=== PATIENT | female | born 1935 | race Hispanic/Latino ===

== ENCOUNTER 2018-07-29 10:10 | Inpatient (IN) | payer MEDICARE ==
[2018-07-29 10:29] VITALS: BMI 21.4
--- NOTE | 2018-07-29 11:08 | C.PDOC ---
History Of Present Illness 83 year old female presents to the emergency department via ambulance. As per EMS, patient was found on the floor from a fall today. Patient states that she fell yesterday, however she is confused and oriented to name and time. Patient is a poor historian. unclear what acutual scenario is. - HPI Time Seen by Provider: 07/29/18 10:40 Chief Complaint (Nursing): Trauma History Per: Patient, EMS History/Exam Limitations: clinical condition Onset/Duration Of Symptoms: Days (1) Injury Occurred (Timing): Days Ago: (1) Past Medical History Reviewed: Historical Data, Nursing Documentation, Vital Signs - Medical History PMH: HTN Surgical History: No Surg Hx Family History: States: No Known Family Hx - Social History Hx Tobacco Use: No Hx Alcohol Use: No Hx Substance Use: No - Immunization History Hx Tetanus Toxoid Vaccination: No Hx Influenza Vaccination: No Hx Pneumococcal Vaccination: No Review Of Systems Review Of Systems: ROS cannot be obtained secondary to pt's inabilty to answer questions. Physical Exam - Physical Exam Appears: Non-toxic, In Acute Distress, Other (petite) Skin: No Normal Color (jaundiced), Warm, Dry, Other (increased turgor) Head: Atraumatic, Normacephalic Eye(s): bilateral: PERRL, EOMI, Other (jaundiced) Nose: Normal Oral Mucosa: Dry Neck: Normal, Supple Chest: Symmetrical, No Tenderness Cardiovascular: Rhythm Regular, No Murmur Respiratory: Normal Breath Sounds, No Rales, No Rhonchi, No Wheezing Gastrointestinal/Abdominal: Soft, No Tenderness Extremity: Normal ROM Neurological/Psych: No Oriented x3 (oriented x 2) ED Course And Treatment - Laboratory Results Result Diagrams: 07/29/18 11:45 07/29/18 11:41 Medical Decision Making Medical Decision Making: Plan: VBG CT Cervical Neck CT Head Chemistry Bloodwork CXR Gentamicin 220mg NaCl IV Fluids Vancomycin 1gm Blood Culture Urine Culture Urinalysis sepsis code called. Case discussed with Dr. Wallace, who accepts the patient. Case discussed with Dr. Vega, who accepts the patient to ICU. [phone] Ureña's service to contact ICU for consult for patient. unclear what patient's allergy is to penicillin. Disposition Discussed With : Donna Wallace Doctor Will See Patient In The: Hospital - Disposition Disposition: HOSPITALIZED Disposition Time: 14:12 Condition: SERIOUS - Clinical Impression Clinical Impression: Sepsis, Rhabdomyolysis, Pneumonia, NSTEMI (non-ST elevated myocardial infarction), Abnormal LFTs (liver function tests) - PA / TIPPLE OILER / Resident Statement MD/DO has reviewed & agrees with the documentation as recorded. - Scribe Statement The provider has reviewed the documentation as recorded by the Scribe (Ector Hercules) All medical record entries made by the Scribe were at my direction and personally dictated by me. I have reviewed the chart and agree that the record accurately reflects my personal performance of the history, physical exam, medical decision making, and the department course for this patient. I have also personally directed, reviewed, and agree with the discharge instructions and disposition.
[2018-07-29] MEDS ORDERED: Sodium Chloride 0.9% 500 ML IV ONE ×2 (11:36→15:53)
[2018-07-29 11:49] LABS: BASO # 0.2 K/uL (0.0-0.2); BASO % 0.6 % (0.0-2.0); EOS # 0.1 K/uL (0.0-0.7); EOS % 0.2 % (0.0-4.0); HEMOGLOBIN 13.3 g/dL (11.0-16.0); LYMPH # 1.5 K/uL (1.0-4.3); LYMPH % 4.3 % (20.0-40.0); MEAN CELL VOLUME 87.5 fL (81.0-99.0); MEAN CORPUSCULAR HEMOGLOBIN 28.2 pg (27.0-31.0); MEAN CORPUSCULAR HGB CONC 32.3 g/dL (33.0-37.0); MEAN PLATELET VOLUME 12.2 fL (7.2-11.7); MONO # 1.1 K/uL (0.0-0.8); NEUT # 32.8 K/uL (1.8-7.0); NEUT % 91.9 % (50.0-75.0); PLATELET COUNT 311 K/uL (130-400); RBC 4.71 Mil/uL (3.80-5.20); RED CELL DISTRIBUTION WIDTH 18.5 % (11.5-14.5)
[2018-07-29 11:53] LABS: WHITE BLOOD COUNT 35.7 K/uL (4.8-10.8)
[2018-07-29 11:54] LABS: VENOUS BLOOD GAS BASE EXCESS -3.6 mmol/L (0.0-2.0); VENOUS BLOOD GAS PCO2 38 mmHg (40-60); VENOUS BLOOD GAS PO2 12 mm/Hg (30-55); VENOUS BLOOD PH 7.36 (7.32-7.43)
--- NOTE | 2018-07-29 11:59 | RAD ---
Date of service: 07/29/2018 PROCEDURE: CHEST RADIOGRAPH, 1 VIEW HISTORY: SOB COMPARISON: None available. FINDINGS: LUNGS: Linear scar/atelectasis right infrahilar. No daryl infiltrate. PLEURA: No pneumothorax or pleural fluid seen. CARDIOVASCULAR: No aortic atherosclerotic calcification present. Normal. OSSEOUS STRUCTURES: No significant abnormalities. VISUALIZED UPPER ABDOMEN: Normal. OTHER FINDINGS: None. IMPRESSION: No active disease.
[2018-07-29 12:00] LABS: INR 1.3; PROTHROMBIN TIME 13.7 SECONDS (9.7-12.2)
[2018-07-29 12:04] LABS: ALB/GLOB RATIO 1.1 (1.0-2.1); ALBUMIN 3.9 g/dL (3.5-5.0); CALCIUM 9.1 mg/dl (8.6-10.4)
[2018-07-29] MEDS ORDERED: Sodium Chloride 0.9% 1,000 ML IV ONE ×2 (12:16→13:38)
[2018-07-29 12:22] LABS: BANDS 12 % (0-2); GIANT PLATELETS PRESENT; LARGE PLATELETS PRESENT; LYMPHOCYTE 3 % (20-40); MONOCYTE 3 % (0-10); NEUTROPHIL 82 % (50-75); PLATELET ESTIMATE NORMAL (NORMAL); TOTAL CELLS COUNTED 100; TOXIC GRANULATION PRESENT
[2018-07-29] MEDS ORDERED: Vancomycin 1 gm/NS 200 ml 1 GM/200 ML BAG IVPB STA (12:24)
--- NOTE | 2018-07-29 12:31 | CT ---
Date of service: 07/29/2018 PROCEDURE: CT HEAD WITHOUT CONTRAST. HISTORY: fell out of bed COMPARISON: None available. TECHNIQUE: Axial computed tomography images were obtained through the head/brain without intravenous contrast. Radiation dose: Total exam DLP = 832.88 mGy-cm. This CT exam was performed using one or more of the following dose reduction techniques: Automated exposure control, adjustment of the mA and/or kV according to patient size, and/or use of iterative reconstruction technique. FINDINGS: HEMORRHAGE: No intracranial hemorrhage. BRAIN: Diffuse atrophy with prominence of the ventricles and sulci noted. No mass effect or edema. Intracranial atherosclerosis. Scattered periventricular and subcortical white matter hypodensities, which are nonspecific, but often seen with chronic microvascular ischemic disease. Please note that MRI with diffusion imaging is more sensitive in the detection of acute ischemic event. VENTRICLES: No hydrocephalus. CALVARIUM: Unremarkable. PARANASAL SINUSES: Unremarkable as visualized. No significant inflammatory changes. MASTOID AIR CELLS: Unremarkable as visualized. No inflammatory changes. OTHER FINDINGS: Opacification of the external auditory canals, likely cerumen. IMPRESSION: No acute intracranial pathology identified. Findings as above.
[2018-07-29 12:48] LABS: SQUAMOUS EPITHIAL 10 /hpf (0-5); URINE BACTERIA MOD (<OCC); URINE BILIRUBIN 2+ (NEGATIVE); URINE BLOOD 1+ (NEGATIVE); URINE CLARITY Hazy (Clear); URINE COLOR Amber (YELLOW); URINE GLUCOSE (UA) NORMAL (Normal); URINE LEUKOCYTE ESTERASE 1+ Leu/uL (Negative); URINE PROTEIN 2+ mg/dL (NEGATIVE)
[2018-07-29] MEDS ORDERED: Vancomycin 1 GM 1 GM/250 ML BAG IVPB STA (12:48)
[2018-07-29] MEDS ORDERED: Vancomycin 1 GM 1 GM/250 ML BAG IVPB ONE (12:49)
[2018-07-29 12:50] LABS: URINE AMORPHOUS SEDIMENT MODERATE /ul (<OCC)
--- NOTE | 2018-07-29 12:57 | CT ---
Date of service: 07/29/2018 CT cervical spine without IV contrast Indication: fell out of bed Comparison: None available. Technique: Axial computed tomography images were obtained of the cervical spine without the use of intravenous contrast. Coronal and sagittal reformatted images were created and reviewed. This CT exam was performed using 1 or more of the following dose reduction techniques: Automated exposure control, adjustment of the MAA and/or kV according to patient size, and/or use of iterative reconstruction technique. Radiation dose: Total exam DLP = 278.02 mGy-cm. Findings: Osseous demineralization limits evaluation for acute fracture lines. Scoliosis. There is no evidence of acute fracture or subluxation. Multilevel degenerative changes including intervertebral disc space narrowing and osteophyte formation. The prevertebral soft tissues and spinolaminar lines appear intact. The lateral masses are preserved. The dens tip is intact. There is proper alignment of the lateral masses of C1 with the C2 vertebral body. Partially imaged cerumen within bilateral external auditory canals. Included portions of the thyroid gland appear heterogeneous with subcentimeter hypodense nodules. Included portions of lung apices demonstrates partially imaged right upper lobe consolidation. Partially imaged dense atherosclerotic calcification of the aorta. Impression: No evidence of acute fracture or subluxation. Diffuse osseous demineralization limits evaluation for acute fracture lines. Scoliosis. Heterogeneous thyroid gland with subcentimeter hypodense nodules. Partially imaged right upper lobe consolidation.
[2018-07-29] MEDS: Sodium Chloride 0.9% 1,000 ML IV SCH ×3 (13:05→20:44)
[2018-07-29 13:26] LABS: TROPONIN I 0.14 ng/mL (0.00-0.120)
[2018-07-29] MEDS ORDERED: Sodium Chloride 0.9% 2,000 ML ONE (13:41)
[2018-07-29 13:49] LABS: VENOUS BLOOD GAS BASE EXCESS -8.8 mmol/L (0.0-2.0); VENOUS BLOOD GAS PCO2 29 mmHg (40-60); VENOUS BLOOD GAS PO2 17 mm/Hg (30-55); VENOUS BLOOD PH 7.34 (7.32-7.43)
--- NOTE | 2018-07-29 14:45 | US ---
Date of service: 07/29/2018 HISTORY: jaundiced elevated wbc COMPARISON: None available. TECHNIQUE: Sonographic evaluation of the right upper quadrant of the abdomen. FINDINGS: LIVER: Measures 15.7 cm in length. Echogenic liver may be seen in setting of hepatic parenchymal disease or fatty infiltration. No focal hepatic mass identified. The main portal vein appears patent with normal directional flow. No intrahepatic bile duct dilatation. GALLBLADDER: Cholelithiasis. Gallstone appears immobile. Gallbladder sludge. Gallbladder wall thickening measuring approximately 5 mm. Negative sonographic Hawkins's sign as assessed by the dual rate supervisor. COMMON BILE DUCT: Measures 7 mm. PANCREAS: Not well-visualized. RIGHT KIDNEY: Measures approximately 8.0 x 4.1 x 4.4 cm. Nonobstructing 6 mm right upper pole calculus. 2.1 cm lower pole cyst. No obstructing calculus or hydronephrosis. AORTA: Limited visualization appears grossly unremarkable. IVC: Limited visualization appears grossly unremarkable. OTHER FINDINGS: None . IMPRESSION: Cholelithiasis. Gallstone appears immobile. Gallbladder sludge. Gallbladder wall thickening. Negative sonographic Hawkins's sign as assessed by the dual rate supervisor. Correlate clinically for acute cholecystitis. Right renal cyst. Nonobstructing right renal calculus. Echogenic liver may be seen in setting of hepatic parenchymal disease or fatty infiltration.
[2018-07-29] MEDS: Linezolid 600 mg in D5W 300 ml 600 MG/300 ML BAG IVPB SCH (17:58)
[2018-07-29] MEDS: Moxifloxacin IV 400mg/250ml NS 400 MG/250 ML BAG IVPB SCH (18:03)
--- NOTE | 2018-07-29 18:34 | PCM.SEPTIC ---
Sepsis Progress Note - Reassessment Type Date of Evaluation: 07/29/18 Time of Evaluation: 18:27 Reassessment Type: Non-invasive reassessment - Non Invasive Reassessment Were the most recent vital sign reviewed: Yes Vital Sign (Latest): Temp Pulse Resp BP Pulse Ox 97.4 F L 109 H 23 68/43 L 96 07/29/18 15:27 07/29/18 16:35 07/29/18 16:35 07/29/18 16:35 07/29/18 16:35 Cardiovascular: Yes: Regular Rate, Rhythm. No: Chest Non Tender, Edema, Gallop, JVD, Murmur, Bradycardia, Tachycardia Respiratory: Yes: Normal Breath Sounds. No: Decreased Breath Sounds, Accessory Muscle Use, Respiratory Distress Capillary Refill: Normal (Less than 2 sec) Skin: Normal Color, Dry - Invasive Reassessment (complete 2 of 4) Was a Central Venous Pressure Measurement obtained within 6 Hours after the presentation of septic shock: No Was a central venous oxygen measurement obtained within 6 hours after the presentation of septic shock: No Was a bedside cardiovascular ultrasound performed within 6 hours after the presentation of septic shock: No Fluid Challenge performed: Yes
--- NOTE | 2018-07-29 18:40 | CP.PCM.CON ---
<Carlos Tran - Last Filed: 07/29/18 18:38> History of Present Illness - History of Present Illness History of Present Illness: Critical Care Progress Note for Dr. Vega's service CC: Septic Shock HPI: Patient is a 83 yo female with unknown PMH admitted to ICU for septic shock and low blood pressure. Patient states she fell 2 days ago and decided to come today at the behest of her girlfriend. Patient's nephew came today and confirmed that patient has become more forgetful and states that she fell yesterday. Patient remains hypotensive despite multiple boluses of fluid. Pending TLC placement with ICU team. Patient denies fevers, chills, chest pain, sob, n/v, constipation or diarrhea, and dysuria. PMH- unknown Meds- unknown home meds; see MAR PSH- unknown FH- unknown Review of Systems - Review of Systems Review of Systems: 12 point ROS obtained, may be limited as patient has borderline confusion at times Past Patient History - Infectious Disease Hx of Infectious Diseases: None - Past Social History Smoking Status: Never Smoked - CARDIAC Hx Hypertension: Yes - PSYCHIATRIC Hx Substance Use: No - SURGICAL HISTORY Hx Surgeries: No - ANESTHESIA Hx Anesthesia: No Meds Allergies/Adverse Reactions: Allergies Allergy/AdvReac Type Severity Reaction Status Date / Time Penicillins Allergy Verified 07/29/18 10:24 - Medications Medications: Current Medications Sodium Chloride (Sodium Chloride 0.9%) 1,000 mls @ 150 mls/hr IV .Q6H40M MILADY Last Admin: 07/29/18 18:03 Dose: 150 mls/hr Linezolid (Zyvox 600mg/300ml D5w) 600 mg in 300 mls @ 200 mls/hr IVPB Q12H MILADY; Protocol Last Admin: 07/29/18 17:58 Dose: 200 mls/hr Moxifloxacin HCl (Avelox Iv 400mg/250ml Ns) 400 mg in 250 mls @ 167 mls/hr IVPB Q24H MILADY; Protocol Last Admin: 07/29/18 18:03 Dose: 167 mls/hr Physical Exam - Constitutional Appears: Non-toxic, No Acute Distress - Head Exam Head Exam: NORMAL INSPECTION, NORMOCEPHALIC - Eye Exam Eye Exam: EOMI, Normal appearance. absent: Nystagmus, Scleral icterus - ENT Exam ENT Exam: Mucous Membranes Dry - Respiratory Exam Respiratory Exam: Clear to Auscultation Bilateral, NORMAL BREATHING PATTERN. absent: Rhonchi, Wheezes - Cardiovascular Exam Cardiovascular Exam: REGULAR RHYTHM, +S1, +S2 - GI/Abdominal Exam GI & Abdominal Exam: Normal Bowel Sounds, Soft. absent: Diminished Bowel Sounds, Distended, Firm, Guarding - Extremities Exam Extremities exam: Positive for: normal inspection. Negative for: calf tenderness, pedal edema - Neurological Exam Neurological exam: Alert, CN II-XII Intact - Psychiatric Exam Psychiatric exam: Normal Affect, Normal Mood - Skin Skin Exam: Dry, Intact, Pallor Results - Vital Signs Recent Vital Signs: Last Vital Signs Temp 97.4 F L 07/29/18 15:27 Pulse 109 H 07/29/18 16:35 Resp 23 07/29/18 16:35 BP 68/43 L 07/29/18 16:35 Pulse Ox 96 07/29/18 16:35 - Labs Result Diagrams: 07/29/18 11:45 07/29/18 11:41 Labs: Laboratory Results - last 24 hr 07/29/18 07/29/18 07/29/18 11:41 11:41 11:45 WBC RBC Hgb Hct MCV MCH MCHC RDW Plt Count MPV Neut % (Auto) Lymph % (Auto) Crenshaw % (Auto) Eos % (Auto) Baso % (Auto) Neut # (Auto) Lymph # (Auto) Crenshaw # (Auto) Eos # (Auto) Baso # (Auto) Neutrophils % (Manual) Band Neutrophils % Lymphocytes % (Manual) Monocytes % (Manual) Toxic Granulation Platelet Estimate Large Platelets Giant Platelets PT 13.7 H INR 1.3 APTT 35 H pO2 12 L VBG pH 7.36 VBG pCO2 38 L VBG HCO3 19.8 VBG Total CO2 22.7 VBG O2 Sat (Calc) 12.0 L VBG Base Excess -3.6 L VBG Potassium 5.2 Glucose 133 H Lactate 3.6 H Sodium 138 138.0 Potassium 4.4 Chloride 101 102.0 Carbon Dioxide 19 L Anion Gap 22 H BUN 49 H Creatinine 3.1 H Est GFR ( Amer) 17 Est GFR (Non-Af Amer) 14 Random Glucose 133 H Calcium 9.1 Phosphorus 5.4 H Magnesium 2.2 Total Bilirubin 9.1 H AST 216 H ALT 197 H Alkaline Phosphatase 1105 H Total Creatine Kinase 1533 H Troponin I 0.1400 H* Total Protein 7.6 Albumin 3.9 Globulin 3.7 Albumin/Globulin Ratio 1.1 Amylase 131 H Lipase 13 L Venous Blood Potassium 5.2 Urine Color Urine Clarity Urine pH Ur Specific Hurt Urine Protein Urine Glucose (UA) Urine Ketones Urine Blood Urine Nitrate Urine Bilirubin Urine Urobilinogen Ur Leukocyte Esterase Urine WBC (Auto) Urine RBC (Auto) Ur Squamous Epith Cells Amorphous Sediment Urine Bacteria 07/29/18 07/29/18 07/29/18 11:45 12:02 12:16 WBC 35.7 H RBC 4.71 Hgb 13.3 Hct 41.2 MCV 87.5 MCH 28.2 MCHC 32.3 L RDW 18.5 H Plt Count 311 MPV 12.2 H Neut % (Auto) 91.9 H Lymph % (Auto) 4.3 L Crenshaw % (Auto) 3.0 Eos % (Auto) 0.2 Baso % (Auto) 0.6 Neut # (Auto) 32.8 H Lymph # (Auto) 1.5 Crenshaw # (Auto) 1.1 H Eos # (Auto) 0.1 Baso # (Auto) 0.2 Neutrophils % (Manual) 82 H Band Neutrophils % 12 H* Lymphocytes % (Manual) 3 L Monocytes % (Manual) 3 Toxic Granulation Present Platelet Estimate Normal Large Platelets Present Giant Platelets Present PT INR APTT pO2 VBG pH VBG pCO2 VBG HCO3 VBG Total CO2 VBG O2 Sat (Calc) VBG Base Excess VBG Potassium Glucose Lactate Sodium Potassium Chloride Carbon Dioxide Anion Gap BUN Creatinine Est GFR ( Amer) Est GFR (Non-Af Amer) Random Glucose Calcium Phosphorus 5.4 H Magnesium 2.2 Total Bilirubin AST ALT Alkaline Phosphatase Total Creatine Kinase Troponin I Total Protein Albumin Globulin Albumin/Globulin Ratio Amylase 131 H Lipase 13 L Venous Blood Potassium Urine Color Laura Urine Clarity Hazy Urine pH 5.0 Ur Specific Hurt 1.019 Urine Protein 2+ H Urine Glucose (UA) Normal Urine Ketones Negative Urine Blood 1+ H Urine Nitrate Negative Urine Bilirubin 2+ H Urine Urobilinogen 4.0 H Ur Leukocyte Esterase 1+ H Urine WBC (Auto) 15 H Urine RBC (Auto) 9 H Ur Squamous Epith Cells 10 H Amorphous Sediment Moderate H Urine Bacteria Mod H 07/29/18 13:40 WBC RBC Hgb Hct MCV MCH MCHC RDW Plt Count MPV Neut % (Auto) Lymph % (Auto) Crenshaw % (Auto) Eos % (Auto) Baso % (Auto) Neut # (Auto) Lymph # (Auto) Crenshaw # (Auto) Eos # (Auto) Baso # (Auto) Neutrophils % (Manual) Band Neutrophils % Lymphocytes % (Manual) Monocytes % (Manual) Toxic Granulation Platelet Estimate Large Platelets Giant Platelets PT INR APTT pO2 17 L VBG pH 7.34 VBG pCO2 29 L VBG HCO3 16.0 VBG Total CO2 16.5 L VBG O2 Sat (Calc) 23.3 L VBG Base Excess -8.8 L VBG Potassium 3.4 L Glucose 89 Lactate 2.5 H Sodium 142.0 Potassium Chloride 113.0 H Carbon Dioxide Anion Gap BUN Creatinine Est GFR ( Amer) Est GFR (Non-Af Amer) Random Glucose Calcium Phosphorus Magnesium Total Bilirubin AST ALT Alkaline Phosphatase Total Creatine Kinase Troponin I Total Protein Albumin Globulin Albumin/Globulin Ratio Amylase Lipase Venous Blood Potassium 3.4 L Urine Color Urine Clarity Urine pH Ur Specific Hurt Urine Protein Urine Glucose (UA) Urine Ketones Urine Blood Urine Nitrate Urine Bilirubin Urine Urobilinogen Ur Leukocyte Esterase Urine WBC (Auto) Urine RBC (Auto) Ur Squamous Epith Cells Amorphous Sediment Urine Bacteria Assessment & Plan - Assessment and Plan (Free Text) Assessment: Patient is a 83 yo female with unknown PMH admitted to ICU for low blood pressure s/p multiple fluid boluses and sepsis. TLC will be placed with vasopressor for bp support Neuro AAOx2; forgetful at times; difficulty hearing cervical spine CT- no acute fracture or subluxation; scoliosis; full report see EMR Head CT- no acute pathology Pulm maintain spo2>92% NC PRN CXR- no active disease CV levodrip GI no active issues Protonix CT abd/pelvis- cholelithiasis w/ negative sonographic Hawkins's sign; Nonobstructing renal calculus Elevated LFTs- repeat CMP in AM Renal JEFF: NS @ 150, levo drip ID lactate down trending, repeat lactic acid pending cx pending elevated wbc and bandemia hypothermia on admission- bearhugger pending Moxifloxacin/Linezolid GI ppx: Protonix DVT ppx: Heparin Disposition: Blood pressure support through central line; continue empiric abx; trend cbc/cmp/lactate; pending cx Carlos Tran PGY-1 Medical Management d/w Dr. Vega <Krishna Vega - Last Filed: 07/29/18 20:46> Meds - Medications Medications: Current Medications Heparin Sodium (Porcine) (Heparin) 5,000 units SC Q8 MILADY Sodium Chloride (Sodium Chloride 0.9%) 1,000 mls @ 150 mls/hr IV .Q6H40M MILADY Last Admin: 07/29/18 18:03 Dose: 150 mls/hr Linezolid (Zyvox 600mg/300ml D5w) 600 mg in 300 mls @ 200 mls/hr IVPB Q12H MILADY; Protocol Last Admin: 07/29/18 17:58 Dose: 200 mls/hr Moxifloxacin HCl (Avelox Iv 400mg/250ml Ns) 400 mg in 250 mls @ 167 mls/hr IVPB Q24H MILADY; Protocol Last Admin: 07/29/18 18:03 Dose: 167 mls/hr Norepinephrine Bitartrate 4 mg (/ Sodium Chloride) 254 mls @ 15.24 mls/hr IV .[id number] PRN; Protocol PRN Reason: TITRATE PER MD ORDER Aztreonam 2 gm/ Sodium (Chloride) 100 mls @ 200 mls/hr IVPB ONCE ONE; Protocol Stop: 07/29/18 20:51 Pantoprazole Sodium (Protonix Ec Tab) 40 mg PO DAILY [facility] Results - Vital Signs Recent Vital Signs: Last Vital Signs Temp 98.5 F 07/29/18 16:24 Pulse 112 H 07/29/18 19:35 Resp 25 H 07/29/18 19:35 BP 84/49 L 07/29/18 19:35 Pulse Ox 94 L 07/29/18 19:35 - Labs Result Diagrams: 07/29/18 11:45 07/29/18 11:41 Labs: Laboratory Results - last 24 hr 07/29/18 07/29/18 07/29/18 11:41 11:41 11:45 WBC RBC Hgb Hct MCV MCH MCHC RDW Plt Count MPV Neut % (Auto) Lymph % (Auto) Crenshaw % (Auto) Eos % (Auto) Baso % (Auto) Neut # (Auto) Lymph # (Auto) Crenshaw # (Auto) Eos # (Auto) Baso # (Auto) Neutrophils % (Manual) Band Neutrophils % Lymphocytes % (Manual) Monocytes % (Manual) Toxic Granulation Platelet Estimate Large Platelets Giant Platelets PT 13.7 H INR 1.3 APTT 35 H pO2 12 L VBG pH 7.36 VBG pCO2 38 L VBG HCO3 19.8 VBG Total CO2 22.7 VBG O2 Sat (Calc) 12.0 L VBG Base Excess -3.6 L VBG Potassium 5.2 Glucose 133 H Lactate 3.6 H Sodium 138 138.0 Potassium 4.4 Chloride 101 102.0 Carbon Dioxide 19 L Anion Gap 22 H BUN 49 H Creatinine 3.1 H Est GFR ( Amer) 17 Est GFR (Non-Af Amer) 14 Random Glucose 133 H Calcium 9.1 Phosphorus 5.4 H Magnesium 2.2 Total Bilirubin 9.1 H AST 216 H ALT 197 H Alkaline Phosphatase 1105 H Total Creatine Kinase 1533 H Troponin I 0.1400 H* Total Protein 7.6 Albumin 3.9 Globulin 3.7 Albumin/Globulin Ratio 1.1 Amylase 131 H Lipase 13 L Venous Blood Potassium 5.2 Urine Color Urine Clarity Urine pH Ur Specific Hurt Urine Protein Urine Glucose (UA) Urine Ketones Urine Blood Urine Nitrate Urine Bilirubin Urine Urobilinogen Ur Leukocyte Esterase Urine WBC (Auto) Urine RBC (Auto) Ur Squamous Epith Cells Amorphous Sediment Urine Bacteria 07/29/18 07/29/18 07/29/18 11:45 12:02 12:16 WBC 35.7 H RBC 4.71 Hgb 13.3 Hct 41.2 MCV 87.5 MCH 28.2 MCHC 32.3 L RDW 18.5 H Plt Count 311 MPV 12.2 H Neut % (Auto) 91.9 H Lymph % (Auto) 4.3 L Crenshaw % (Auto) 3.0 Eos % (Auto) 0.2 Baso % (Auto) 0.6 Neut # (Auto) 32.8 H Lymph # (Auto) 1.5 Crenshaw # (Auto) 1.1 H Eos # (Auto) 0.1 Baso # (Auto) 0.2 Neutrophils % (Manual) 82 H Band Neutrophils % 12 H* Lymphocytes % (Manual) 3 L Monocytes % (Manual) 3 Toxic Granulation Present Platelet Estimate Normal Large Platelets Present Giant Platelets Present PT INR APTT pO2 VBG pH VBG pCO2 VBG HCO3 VBG Total CO2 VBG O2 Sat (Calc) VBG Base Excess VBG Potassium Glucose Lactate Sodium Potassium Chloride Carbon Dioxide Anion Gap BUN Creatinine Est GFR ( Amer) Est GFR (Non-Af Amer) Random Glucose Calcium Phosphorus 5.4 H Magnesium 2.2 Total Bilirubin AST ALT Alkaline Phosphatase Total Creatine Kinase Troponin I Total Protein Albumin Globulin Albumin/Globulin Ratio Amylase 131 H Lipase 13 L Venous Blood Potassium Urine Color Laura Urine Clarity Hazy Urine pH 5.0 Ur Specific Hurt 1.019 Urine Protein 2+ H Urine Glucose (UA) Normal Urine Ketones Negative Urine Blood 1+ H Urine Nitrate Negative Urine Bilirubin 2+ H Urine Urobilinogen 4.0 H Ur Leukocyte Esterase 1+ H Urine WBC (Auto) 15 H Urine RBC (Auto) 9 H Ur Squamous Epith Cells 10 H Amorphous Sediment Moderate H Urine Bacteria Mod H 07/29/18 13:40 WBC RBC Hgb Hct MCV MCH MCHC RDW Plt Count MPV Neut % (Auto) Lymph % (Auto) Crenshaw % (Auto) Eos % (Auto) Baso % (Auto) Neut # (Auto) Lymph # (Auto) Crenshaw # (Auto) Eos # (Auto) Baso # (Auto) Neutrophils % (Manual) Band Neutrophils % Lymphocytes % (Manual) Monocytes % (Manual) Toxic Granulation Platelet Estimate Large Platelets Giant Platelets PT INR APTT pO2 17 L VBG pH 7.34 VBG pCO2 29 L VBG HCO3 16.0 VBG Total CO2 16.5 L VBG O2 Sat (Calc) 23.3 L VBG Base Excess -8.8 L VBG Potassium 3.4 L Glucose 89 Lactate 2.5 H Sodium 142.0 Potassium Chloride 113.0 H Carbon Dioxide Anion Gap BUN Creatinine Est GFR ( Amer) Est GFR (Non-Af Amer) Random Glucose Calcium Phosphorus Magnesium Total Bilirubin AST ALT Alkaline Phosphatase Total Creatine Kinase Troponin I Total Protein Albumin Globulin Albumin/Globulin Ratio Amylase Lipase Venous Blood Potassium 3.4 L Urine Color Urine Clarity Urine pH Ur Specific Hurt Urine Protein Urine Glucose (UA) Urine Ketones Urine Blood Urine Nitrate Urine Bilirubin Urine Urobilinogen Ur Leukocyte Esterase Urine WBC (Auto) Urine RBC (Auto) Ur Squamous Epith Cells Amorphous Sediment Urine Bacteria Attending/Attestation - Attestation I have personally seen and examined this patient.: Yes I have fully participated in the care of the patient.: Yes I have reviewed all pertinent clinical information: Yes Notes (Text): 07/29/18 20:27 Today: July The Patient was seen and examined at the bedside, Medical records reviewed, and management issues were discussed and formulated with the house staff. I have reviewed all the relevant clinical, laboratory, hemodynamic, radiographic data and medications Events reviewed Pain issues, skin care, head of the bed elevation, glycemic control were addressed. Agree with above resident's assessment and treatment plans of care as transcribed in Dr. Tran's note. Critically ill patient with Septic shock, acute hypoxemic respiratory failure, due to aspiration pneumonia S/P Fall Respiratory and Metabolic acidosis Continue Moxifloxacin/Linezolid for aspiration pneumonia Check urine legionella and pneumococcus/strep antigen Mycoplasma serology Will place central line and start Vasopressors Maintain MAP 65-75 IVF hydration Discussed with the family in details diagnosis, treatment plans and alternatives, GI PPX: Protonix 40 mg PO DVT PPX: SQ Heparin Code status: Full code
--- NOTE | 2018-07-29 20:11 | CP.PCM.CON ---
History of Present Illness - History of Present Illness History of Present Illness: dictated Past Patient History - Infectious Disease Hx of Infectious Diseases: None - Past Social History Smoking Status: Never Smoked - CARDIAC Hx Hypertension: Yes - MUSCULOSKELETAL/RHEUMATOLOGICAL Hx Falls: Yes - PSYCHIATRIC Hx Substance Use: No - SURGICAL HISTORY Hx Surgeries: No - ANESTHESIA Hx Anesthesia: No Meds Allergies/Adverse Reactions: Allergies Allergy/AdvReac Type Severity Reaction Status Date / Time Penicillins Allergy Verified 07/29/18 10:24 - Medications Medications: Current Medications Heparin Sodium (Porcine) (Heparin) 5,000 units SC Q8 MILADY Sodium Chloride (Sodium Chloride 0.9%) 1,000 mls @ 150 mls/hr IV .Q6H40M MILADY Last Admin: 07/29/18 18:03 Dose: 150 mls/hr Linezolid (Zyvox 600mg/300ml D5w) 600 mg in 300 mls @ 200 mls/hr IVPB Q12H MILADY; Protocol Last Admin: 07/29/18 17:58 Dose: 200 mls/hr Moxifloxacin HCl (Avelox Iv 400mg/250ml Ns) 400 mg in 250 mls @ 167 mls/hr IVPB Q24H MILADY; Protocol Last Admin: 07/29/18 18:03 Dose: 167 mls/hr Norepinephrine Bitartrate 4 mg (/ Sodium Chloride) 254 mls @ 15.24 mls/hr IV .[id number] PRN; Protocol PRN Reason: TITRATE PER MD ORDER Pantoprazole Sodium (Protonix Ec Tab) 40 mg PO DAILY MILADY Results - Vital Signs Recent Vital Signs: Last Vital Signs Temp 98.5 F 07/29/18 16:24 Pulse 112 H 07/29/18 19:35 Resp 25 H 07/29/18 19:35 BP 84/49 L 07/29/18 19:35 Pulse Ox 94 L 07/29/18 19:35 - Labs Result Diagrams: 07/29/18 11:45 07/29/18 11:41 Labs: Laboratory Results - last 24 hr 07/29/18 07/29/18 07/29/18 11:41 11:41 11:45 WBC RBC Hgb Hct MCV MCH MCHC RDW Plt Count MPV Neut % (Auto) Lymph % (Auto) [place] % (Auto) Eos % (Auto) Baso % (Auto) Neut # (Auto) Lymph # (Auto) [place] # (Auto) Eos # (Auto) Baso # (Auto) Neutrophils % (Manual) Band Neutrophils % Lymphocytes % (Manual) Monocytes % (Manual) Toxic Granulation Platelet Estimate Large Platelets Giant Platelets PT 13.7 H INR 1.3 APTT 35 H pO2 12 L VBG pH 7.36 VBG pCO2 38 L VBG HCO3 19.8 VBG Total CO2 22.7 VBG O2 Sat (Calc) 12.0 L VBG Base Excess -3.6 L VBG Potassium 5.2 Glucose 133 H Lactate 3.6 H Sodium 138 138.0 Potassium 4.4 Chloride 101 102.0 Carbon Dioxide 19 L Anion Gap 22 H BUN 49 H Creatinine 3.1 H Est GFR ( Amer) 17 Est GFR (Non-Af Amer) 14 Random Glucose 133 H Calcium 9.1 Phosphorus 5.4 H Magnesium 2.2 Total Bilirubin 9.1 H AST 216 H ALT 197 H Alkaline Phosphatase 1105 H Total Creatine Kinase 1533 H Troponin I 0.1400 H* Total Protein 7.6 Albumin 3.9 Globulin 3.7 Albumin/Globulin Ratio 1.1 Amylase 131 H Lipase 13 L Venous Blood Potassium 5.2 Urine Color Urine Clarity Urine pH Ur Specific [place] Urine Protein Urine Glucose (UA) Urine Ketones Urine Blood Urine Nitrate Urine Bilirubin Urine Urobilinogen Ur Leukocyte Esterase Urine WBC (Auto) Urine RBC (Auto) Ur Squamous Epith Cells Amorphous Sediment Urine Bacteria 07/29/18 07/29/18 07/29/18 11:45 12:02 12:16 WBC 35.7 H RBC 4.71 Hgb 13.3 Hct 41.2 MCV 87.5 MCH 28.2 MCHC 32.3 L RDW 18.5 H Plt Count 311 MPV 12.2 H Neut % (Auto) 91.9 H Lymph % (Auto) 4.3 L [place] % (Auto) 3.0 Eos % (Auto) 0.2 Baso % (Auto) 0.6 Neut # (Auto) 32.8 H Lymph # (Auto) 1.5 [place] # (Auto) 1.1 H Eos # (Auto) 0.1 Baso # (Auto) 0.2 Neutrophils % (Manual) 82 H Band Neutrophils % 12 H* Lymphocytes % (Manual) 3 L Monocytes % (Manual) 3 Toxic Granulation Present Platelet Estimate Normal Large Platelets Present Giant Platelets Present PT INR APTT pO2 VBG pH VBG pCO2 VBG HCO3 VBG Total CO2 VBG O2 Sat (Calc) VBG Base Excess VBG Potassium Glucose Lactate Sodium Potassium Chloride Carbon Dioxide Anion Gap BUN Creatinine Est GFR ( Amer) Est GFR (Non-Af Amer) Random Glucose Calcium Phosphorus 5.4 H Magnesium 2.2 Total Bilirubin AST ALT Alkaline Phosphatase Total Creatine Kinase Troponin I Total Protein Albumin Globulin Albumin/Globulin Ratio Amylase 131 H Lipase 13 L Venous Blood Potassium Urine Color [place] Urine Clarity Hazy Urine pH 5.0 Ur Specific [place] 1.019 Urine Protein 2+ H Urine Glucose (UA) Normal Urine Ketones Negative Urine Blood 1+ H Urine Nitrate Negative Urine Bilirubin 2+ H Urine Urobilinogen 4.0 H Ur Leukocyte Esterase 1+ H Urine WBC (Auto) 15 H Urine RBC (Auto) 9 H Ur Squamous Epith Cells 10 H Amorphous Sediment Moderate H Urine Bacteria Mod H 07/29/18 13:40 WBC RBC Hgb Hct MCV MCH MCHC RDW Plt Count MPV Neut % (Auto) Lymph % (Auto) [place] % (Auto) Eos % (Auto) Baso % (Auto) Neut # (Auto) Lymph # (Auto) [place] # (Auto) Eos # (Auto) Baso # (Auto) Neutrophils % (Manual) Band Neutrophils % Lymphocytes % (Manual) Monocytes % (Manual) Toxic Granulation Platelet Estimate Large Platelets Giant Platelets PT INR APTT pO2 17 L VBG pH 7.34 VBG pCO2 29 L VBG HCO3 16.0 VBG Total CO2 16.5 L VBG O2 Sat (Calc) 23.3 L VBG Base Excess -8.8 L VBG Potassium 3.4 L Glucose 89 Lactate 2.5 H Sodium 142.0 Potassium Chloride 113.0 H Carbon Dioxide Anion Gap BUN Creatinine Est GFR ( Amer) Est GFR (Non-Af Amer) Random Glucose Calcium Phosphorus Magnesium Total Bilirubin AST ALT Alkaline Phosphatase Total Creatine Kinase Troponin I Total Protein Albumin Globulin Albumin/Globulin Ratio Amylase Lipase Venous Blood Potassium 3.4 L Urine Color Urine Clarity Urine pH Ur Specific [place] Urine Protein Urine Glucose (UA) Urine Ketones Urine Blood Urine Nitrate Urine Bilirubin Urine Urobilinogen Ur Leukocyte Esterase Urine WBC (Auto) Urine RBC (Auto) Ur Squamous Epith Cells Amorphous Sediment Urine Bacteria
[2018-07-29] MEDS ORDERED: Aztreonam 2 GM in Sodium Chloride 0.9% 100 ML IVPB ONE (20:22)
--- NOTE | 2018-07-29 20:26 | PCM.PROC ---
Procedures Attestation:: I certify that I have explained the specified Operation(s) or Procedure(s), risks, benefits and reasonable alternatives to the Patient and/or other person responsible. The opportunity was given to ask questions and all questions answered - Central Line Placement Right Internal Jugular Triple Lumen Catheter Aseptic technique was employed throughout the procedure: Hand Hygiene done prior to procedure, Full sterile barriers (mask, hair cover, sterile gown, sterile gloves), Full body sterile drape, Chloraprep Antiseptic: 30 second prep for IJ or SC sites CVP Time Out Performed: Yes Pt. Placed on Pulse Ox Monitor: Yes Central Line Prep: Chlorhexidine-Alcohol Combination Local Anesthesia Used: Lidocaine 1% Ultrasound Used for Placement: Yes Central Line Lumen Inserted: triple Central Line Length: 20 cm Post Procedure: Sutured in Place, Good Blood Return, All Ports Aspirated, Flushed, Capped, Sterile Dressing Applied Secured by: Securement device Post procedure dressing: Gauze, Clear vapor permeable Post Procedure X-Ray: Yes Patient Tolerated Procedure: Well, No Complications Immediate Complications: None
[2018-07-29 20:55] LABS: SQUAMOUS EPITHIAL 3 /hpf (0-5); URINE BACTERIA MANY (<OCC); URINE BILIRUBIN 2+ (NEGATIVE); URINE BLOOD 3+ (NEGATIVE); URINE CLARITY Hazy (Clear); URINE COLOR Amber (YELLOW); URINE GLUCOSE (UA) NORMAL (Normal); URINE LEUKOCYTE ESTERASE 2+ Leu/uL (Negative); URINE PROTEIN 2+ mg/dL (NEGATIVE); WBC CLUMPS MANY /hpf
[2018-07-30] MEDS: Sodium Chloride 0.9% 1,000 ML IV SCH ×3 (01:47→10:15)
[2018-07-30] MEDS: Linezolid 600 mg in D5W 300 ml 600 MG/300 ML BAG IVPB SCH ×2 (03:52→16:06)
[2018-07-30 06:29] LABS: BASO # 0.1 K/uL (0.0-0.2); BASO % 0.3 % (0.0-2.0); EOS # 1.5 K/uL (0.0-0.7); EOS % 4.1 % (0.0-4.0); LYMPH % 5.6 % (20.0-40.0); MEAN CELL VOLUME 89.3 fL (81.0-99.0); MEAN CORPUSCULAR HEMOGLOBIN 27.4 pg (27.0-31.0); MEAN CORPUSCULAR HGB CONC 30.7 g/dL (33.0-37.0); MEAN PLATELET VOLUME 12.6 fL (7.2-11.7); MONO % 2.9 % (0.0-10.0); NEUT # 30.7 K/uL (1.8-7.0); NEUT % 87.1 % (50.0-75.0); PLATELET COUNT 313 K/uL (130-400); RED CELL DISTRIBUTION WIDTH 18.8 % (11.5-14.5); WHITE BLOOD COUNT 35.3 K/uL (4.8-10.8)
[2018-07-30 06:44] LABS: HEMOGLOBIN 11.2 g/dL (11.0-16.0)
[2018-07-30 06:48] LABS: ALBUMIN 2.9 g/dL (3.5-5.0); CALCIUM 7.4 mg/dl (8.6-10.4)
--- NOTE | 2018-07-30 06:57 | CON ---
DATE: 07/29/2018 HISTORY OF PRESENT ILLNESS: This is an 83-year-old female, who was brought to the emergency room via ambulance. Right now, she is in ICU. She was just transferred from the ER. She appears severely jaundiced. Her white count is 35,000; hence, I am asked to see her. She said she fell from her bed to the floor and she was lying there yesterday. She was confused, but she is able to now give me her name. She got IV fluids and her blood pressure is still on the low side. She is poor historian. She does not remember what happened, but she denies passing out. She said she fell out of bed, which was yesterday, her nephew came and she was brought to the ER. The patient denies any pain anywhere right, now but she is severely jaundiced. She denies being sick before or having any cough, cold, or any fever. PAST MEDICAL HISTORY: Significant for hypertension, but she is severely hypotensive at this time. PAST SURGICAL HISTORY: We do not know her surgeries. FAMILY HISTORY: We do not know her family history. She has a nephew. SOCIAL HISTORY: Negative for smoking, drinking, or any drug abuse. REVIEW OF SYSTEMS: She says she has not been in any hospital recently. She denies any pain. She is able to move her lower extremities and denies any headache. Denies ear, nose, throat problems recently. Denies abdominal pain. However, I am not sure how much I can trust her history. She comes in with high lactate level and she is septic. She had a sepsis progress note written here, which showed that her blood pressure is 68/43, saturation 96, blood pressure 97.4, and heart rate of 109, so we are not able to get much out of her more than this. PHYSICAL EXAMINATION: VITAL SIGNS: On examination, I find her blood pressure is on the low side. She is getting fluids and she has renal insufficiency. Her heart rate is 109, blood pressure 68/42. We are giving normal saline at this time, respirations are 22. GENERAL: She appears severely jaundiced. HEENT: Head is atraumatic and normocephalic. Pupils are icteric, but reacting to light. Tongue is ___dry__. She does not have any teeth, that I saw. NECK: Supple. JVP is flat. CHEST: Chest wall is symmetrical. No crackles or rales heard. No wheezing. No rhonchi. HEART: S1, S2 and regular. No murmurs appreciated. ABDOMEN: Soft and distended. No guarding, no rigidity present. Bowel sounds are present. EXTREMITIES: Have no edema, clubbing, or cyanosis. On her lower extremity, she is able to lift them off the bed. LABORATORY DATA: Show white count is 35.7, hemoglobin 13.3, hematocrit 41.2, and platelet count is 311. Neutrophils are 91.9. She did not have any pain when I pressed. She has 12 bands. INR is 1.3. ABG showed that pH is 7.36, CO2 is 38, and bicarb was 19.8 when she came in. Sodium 138, lactate level was 3.6, now it is 2.5. Troponin is 0.1400, so troponin is high. Amylase is 131, lipase is 13, venous potassium was 5.2 and 3.4. UA shows 2+ proteins, it shows 1+ leukocyte, wbc's 15, rbc's 9. Urine bacteria is moderate, so she may have even UTI. She had a head CT and cervical CT, which was unremarkable. Chest CT was unremarkable, but the cervical spine CT showed right upper lobe infiltrate, which was mentioned. Cervical spine shows no evidence of acute fracture or subluxation, diffuse osseous demineralization limits evaluation for acute fracture, scoliosis, heterogeneous thyroid gland with subcentimeter hypodense nodule, partially imaged right upper lobe consolidation, so there are some consolidations in the right upper lobe. The abdominal ultrasound was done, which shows cholelithiasis, gallstones appear immobile, gallbladder sludge, gallbladder wall thickening, negative sonographic Hawkins's sign as assessed by rough rice tender clinically for acute cholecystitis, right renal cyst non-obstructing, right renal calculus, echogenic liver in the setting of hepatic parenchymal disease or fatty infiltration. Actually, her liver enzyme show that total bili is 9.1, AST is 216, ALT is 197, alk phos is 11. CPK is 15.33, so with the fall she may have rhabdo, but alkaline phosphatase is very high, so she is showing an obstructive picture, may have like chronic cholecystitis, unclear but she has no pain right now. ASSESSMENT AND PLAN: At this time, first thing is to hydrate her well, so that we can get her blood pressure up with vasopressor and use vasopressors as needed. She is allergic to penicillin, so I have placed her on Zyvox and Avelox. She received a dose of vancomycin. I discontinued the gentamicin as her renal functions were poor, creatinine is already 3.1, but I will add Azactam also at this time, so if it is due to sepsis the blood pressure may come up. Actually, we gave her 2 g one dose now and we will follow. May need gastrointestinal evaluation and see what the Intensive Care Unit cement sprayer helper thinks about her condition as she does have severe leukocytosis with septic shock at this time, rhabdomyolysis, and positive troponins. She is hypotensive and needs Intensive Care Unit care. Curry Ureña MD MTDJonathan
[2018-07-30 09:06] LABS: BANDS 3 % (0-2); LYMPHOCYTE 4 % (20-40); MONOCYTE 3 % (0-10); NEUTROPHIL 90 % (50-75); PLATELET ESTIMATE NORMAL (NORMAL); TOTAL CELLS COUNTED 100
[2018-07-30 09:07] LABS: ANISOCYTOSIS SLIGHT; BURR CELLS SLIGHT; HYPOCHROMIC SLIGHT; POIKILOCYTOSIS SLIGHT
[2018-07-30 09:09] LABS: GIANT PLATELETS PRESENT; LARGE PLATELETS PRESENT; TEARDROP CELLS SLIGHT
[2018-07-30] MEDS ORDERED: Sodium Bicarbonate 8.4% 150 MEQ in Dextrose 5% In Water 1,000 ML IV SCH (09:30)
[2018-07-30] MEDS: Pantoprazole 40 mg EC Tab PO SCH (10:15)
--- NOTE | 2018-07-30 11:33 | RAD ---
Date of service: 07/29/2018 HISTORY: s/p TLC central line COMPARISON: 07/29/2018. FINDINGS: Right IJV line terminates in the right atrium. LUNGS: There is multifocal patchy airspace disease in the right mid lung and lower lobe. The left lung is clear. PLEURA: No pleural effusions or pneumothorax. CARDIOVASCULAR: Mild cardiomegaly. Atherosclerotic aortic arch calcifications are present. OSSEOUS STRUCTURES: Within normal limits for the patient's age. VISUALIZED UPPER ABDOMEN: Normal. OTHER FINDINGS: None. IMPRESSION: Right IJV line terminates in the right atrium. Multifocal patchy airspace disease in the right mid lung and lower lobe most compatible with pneumonia. Follow-up after medical management is recommended to ensure complete resolution.
--- NOTE | 2018-07-30 14:18 | CP.CCUPN ---
<Carlos Tran - Last Filed: 07/30/18 14:16> CCU Subjective - Physician Review Subjective (Free Text): 07/30/18 14:16 Critical Care Progress Note for Dr. Pickard's service Patient seen and examined at bedside. Patient offers no acute complaints. Patient denies fevers, chills, chest pain, sob, n/v, constipation or diarrhea, dysuria, or dizziness. Critical Care Time Spent (in minutes): 35 CCU Objective - Vital Signs / Intake & Output Vital Signs (Last 4 hours): Vital Signs Temp Pulse Resp BP Pulse Ox 07/30/18 12:00 97.4 F L 100 H 19 95 07/30/18 11:50 96 H 20 108/67 95 07/30/18 11:30 95 H 18 98 07/30/18 11:00 94 H 22 97 07/30/18 10:50 95 H 19 108/66 97 07/30/18 10:30 96 H 26 H 97 Intake and Output (Last 8hrs): Intake & Output 07/29/18 07/30/18 07/30/18 22:59 06:59 14:59 Intake Total 1960.4 1574 1553 Output Total 25 15 5 Balance 1935.4 1559 1548 Weight 119 lb 0.794 oz Intake: IV 34 220 99 Intake, IV Amount 1556.4 1304 1184 Right Antecubital 200 Right Distal Port 106.4 304 134 Internal Jugular Right Distal Port Wrist 600 Right Proximal Port 400 1000 850 Internal Jugular Right Wrist 450 Oral 370 50 270 Output: Urine 25 15 5 Urethral (Mojica) 25 15 5 Other: # Voids Urine, Voided 0 # Bowel Movements 0 0 0 - Physical Exam Head: Positive for: Atraumatic, Normocephalic Pupils: Positive for: PERRL Extroacular Muscles: Positive for: EOMI Mouth: Positive for: Dry Respiratory/Chest: Positive for: Clear to Auscultation, Good Air Exchange. Negative for: Respiratory Distress, Accessory Muscle Use, Wheezes, Decreased Breath Sounds Cardiovascular: Positive for: Regular Rate and Rhythm, Normal S1, S2. Negative for: Murmurs Abdomen: Positive for: Normal Bowel Sounds. Negative for: Tenderness, Distention Upper Extremity: Positive for: Normal Inspection. Negative for: Cyanosis, Edema Lower Extremity: Positive for: Normal Inspection. Negative for: Edema Neurological: Positive for: GCS=15 Skin: Positive for: Pale Psychiatric: Positive for: Alert, Oriented x 3 - Medications Active Medications: Active Medications Generic Name Dose Route Start Last Admin Trade Name Freq PRN Reason Stop Dose Admin Heparin Sodium (Porcine) 5,000 units 07/29/18 22:00 07/30/18 06:20 Heparin SC 5,000 units Q8 MILADY Administration Sodium Chloride 1,000 mls @ 150 mls/hr 07/29/18 12:30 07/30/18 10:15 Sodium Chloride 0.9% IV 150 mls/hr .[id number] MILADY Administration Linezolid 600 mg in 300 mls @ 200 mls/hr 07/29/18 16:45 07/30/18 03:52 Zyvox 600mg/300ml D5w IVPB 200 mls/hr Q12H MILADY Administration Protocol Moxifloxacin HCl 400 mg in 250 mls @ 167 mls/hr 07/29/18 18:15 07/29/18 18:03 Avelox Iv 400mg/250ml Ns IVPB 167 mls/hr Q24H MILADY Administration Protocol Norepinephrine Bitartrate 4 mg 254 mls @ 15.24 mls/hr 07/29/18 19:21 07/30/18 12:00 / Sodium Chloride IV 2 mcg/min .[id number] PRN 7.62 mls/hr TITRATE PER MD ORDER Titration Protocol 4 MCG/MIN Sodium Bicarbonate 150 meq/ 1,150 mls @ 100 mls/hr 07/30/18 09:30 07/30/18 11:01 Dextrose IV 100 mls/hr .[id number] MILADY Administration Pantoprazole Sodium 40 mg 07/30/18 10:00 07/30/18 10:15 Protonix Ec Tab PO 40 mg DAILY MILADY Administration - Patient Studies Lab Studies: Microbiology Studies 07/29/18 12:40 Blood Culture - Preliminary Blood NO GROWTH AFTER 24 HOURS 07/29/18 12:02 Urine Culture - Preliminary Urine Random Gram Negative Juan Gram Positive Cocci 07/29/18 12:27 Blood Culture - Preliminary Blood Gram Positive Cocci Gram Stain - Final Lab Studies 07/30/18 07/30/18 07/30/18 Range/Units 06:21 06:21 00:52 WBC 35.3 H (4.8-10.8) K/uL RBC 4.10 (3.80-5.20) Mil/uL Hgb 11.2 D (11.0-16.0) g/dL Hct 36.6 (34.0-47.0) % MCV 89.3 (81.0-99.0) fL MCH 27.4 (27.0-31.0) pg MCHC 30.7 L (33.0-37.0) g/dL RDW 18.8 H (11.5-14.5) % Plt Count 313 (130-400) K/uL MPV 12.6 H (7.2-11.7) fL Neut % (Auto) 87.1 H (50.0-75.0) % Lymph % (Auto) 5.6 L (20.0-40.0) % [place] % (Auto) 2.9 (0.0-10.0) % Eos % (Auto) 4.1 H (0.0-4.0) % Baso % (Auto) 0.3 (0.0-2.0) % Neut # (Auto) 30.7 H (1.8-7.0) K/uL Lymph # (Auto) 2.0 (1.0-4.3) K/uL [place] # (Auto) 1.0 H (0.0-0.8) K/uL Eos # (Auto) 1.5 H (0.0-0.7) K/uL Baso # (Auto) 0.1 (0.0-0.2) K/uL Neutrophils % (Manual) 90 H (50-75) % Band Neutrophils % 3 H (0-2) % Lymphocytes % (Manual) 4 L (20-40) % Monocytes % (Manual) 3 (0-10) % Platelet Estimate Normal (NORMAL) Large Platelets Present Giant Platelets Present Hypochromasia (manual) Slight Poikilocytosis (manual Slight Anisocytosis (manual) Slight Tear Drop Cells Slight [place] Cells Slight Sodium 137 (132-148) mmol/L Potassium 4.3 (3.6-5.2) mmol/L Chloride 111 H (98-107) mmol/L Carbon Dioxide 10 L* D (22-30) mmol/L Anion Gap 20 (10-20) BUN 50 H (7-17) mg/dL Creatinine 3.1 H (0.7-1.2) mg/dL Est GFR ( Amer) 17 Est GFR (Non-Af Amer) 14 Random Glucose 144 H (65-105) mg/dL Lactic Acid 1.6 (0.7-2.1) mmol/L Calcium 7.4 L (8.6-10.4) mg/dl Phosphorus 5.1 H (2.5-4.5) mg/dL Magnesium 1.8 (1.6-2.3) mg/dL Total Bilirubin 6.6 H (0.2-1.3) mg/dL AST 164 H D (14-36) U/L ALT 143 H D (9-52) U/L Alkaline Phosphatase 788 H D (38-126) U/L NT-Pro-B Natriuret Pep 29879 H (0-900) pg/mL Total Protein 5.8 L (6.3-8.3) g/dL Albumin 2.9 L D (3.5-5.0) g/dL Globulin 3.0 (2.2-3.9) gm/dL Albumin/Globulin Ratio 1.0 (1.0-2.1) Urine Color (YELLOW) Urine Clarity (Clear) Urine pH (5.0-8.0) Ur Specific Victor (1.003-1.030) Urine Protein (NEGATIVE) mg/dL Urine Glucose (UA) (Normal) mg/dL Urine Ketones (NEGATIVE) mg/dL Urine Blood (NEGATIVE) Urine Nitrate (NEGATIVE) Urine Bilirubin (NEGATIVE) Urine Urobilinogen (0.2-1.0) mg/dL Ur Leukocyte Esterase (Negative) Jose De Jesus/uL Urine WBC (Auto) (0-5) /hpf Urine RBC (Auto) (0-3) /hpf Urine WBC Clumps (Auto) (NONE) /hpf Ur Squamous Epith Cells (0-5) /hpf Urine Bacteria (<OCC) 07/29/18 07/29/18 Range/Units 20:46 20:41 WBC (4.8-10.8) K/uL RBC (3.80-5.20) Mil/uL Hgb (11.0-16.0) g/dL Hct (34.0-47.0) % MCV (81.0-99.0) fL MCH (27.0-31.0) pg MCHC (33.0-37.0) g/dL RDW (11.5-14.5) % Plt Count (130-400) K/uL MPV (7.2-11.7) fL Neut % (Auto) (50.0-75.0) % Lymph % (Auto) (20.0-40.0) % [place] % (Auto) (0.0-10.0) % Eos % (Auto) (0.0-4.0) % Baso % (Auto) (0.0-2.0) % Neut # (Auto) (1.8-7.0) K/uL Lymph # (Auto) (1.0-4.3) K/uL [place] # (Auto) (0.0-0.8) K/uL Eos # (Auto) (0.0-0.7) K/uL Baso # (Auto) (0.0-0.2) K/uL Neutrophils % (Manual) (50-75) % Band Neutrophils % (0-2) % Lymphocytes % (Manual) (20-40) % Monocytes % (Manual) (0-10) % Platelet Estimate (NORMAL) Large Platelets Giant Platelets Hypochromasia (manual) Poikilocytosis (manual Anisocytosis (manual) Tear Drop Cells [place] Cells Sodium (132-148) mmol/L Potassium (3.6-5.2) mmol/L Chloride (98-107) mmol/L Carbon Dioxide (22-30) mmol/L Anion Gap (10-20) BUN (7-17) mg/dL Creatinine (0.7-1.2) mg/dL Est GFR ( Amer) Est GFR (Non-Af Amer) Random Glucose (65-105) mg/dL Lactic Acid 1.2 (0.7-2.1) mmol/L Calcium (8.6-10.4) mg/dl Phosphorus (2.5-4.5) mg/dL Magnesium (1.6-2.3) mg/dL Total Bilirubin (0.2-1.3) mg/dL AST (14-36) U/L ALT (9-52) U/L Alkaline Phosphatase (38-126) U/L NT-Pro-B Natriuret Pep (0-900) pg/mL Total Protein (6.3-8.3) g/dL Albumin (3.5-5.0) g/dL Globulin (2.2-3.9) gm/dL Albumin/Globulin Ratio (1.0-2.1) Urine Color Laura (YELLOW) Urine Clarity Hazy (Clear) Urine pH 5.0 (5.0-8.0) Ur Specific Victor 1.014 (1.003-1.030) Urine Protein 2+ H (NEGATIVE) mg/dL Urine Glucose (UA) Normal (Normal) mg/dL Urine Ketones Negative (NEGATIVE) mg/dL Urine Blood 3+ H (NEGATIVE) Urine Nitrate Negative (NEGATIVE) Urine Bilirubin 2+ H (NEGATIVE) Urine Urobilinogen 4.0 H (0.2-1.0) mg/dL Ur Leukocyte Esterase 2+ H (Negative) Jose De Jesus/uL Urine WBC (Auto) 148 H (0-5) /hpf Urine RBC (Auto) 59 H (0-3) /hpf Urine WBC Clumps (Auto) Many H (NONE) /hpf Ur Squamous Epith Cells 3 (0-5) /hpf Urine Bacteria Many H (<OCC) Laboratory Results - last 24 hr 07/29/18 07/29/18 07/30/18 20:41 20:46 00:52 WBC RBC Hgb Hct MCV MCH MCHC RDW Plt Count MPV Neut % (Auto) Lymph % (Auto) [place] % (Auto) Eos % (Auto) Baso % (Auto) Neut # (Auto) Lymph # (Auto) [place] # (Auto) Eos # (Auto) Baso # (Auto) Neutrophils % (Manual) Band Neutrophils % Lymphocytes % (Manual) Monocytes % (Manual) Platelet Estimate Large Platelets Giant Platelets Hypochromasia (manual) Poikilocytosis (manual Anisocytosis (manual) Tear Drop Cells [place] Cells Sodium Potassium Chloride Carbon Dioxide Anion Gap BUN Creatinine Est GFR ( Amer) Est GFR (Non-Af Amer) Random Glucose Lactic Acid 1.2 1.6 Calcium Phosphorus Magnesium Total Bilirubin AST ALT Alkaline Phosphatase NT-Pro-B Natriuret Pep Total Protein Albumin Globulin Albumin/Globulin Ratio Urine Color Laura Urine Clarity Hazy Urine pH 5.0 Ur Specific Victor 1.014 Urine Protein 2+ H Urine Glucose (UA) Normal Urine Ketones Negative Urine Blood 3+ H Urine Nitrate Negative Urine Bilirubin 2+ H Urine Urobilinogen 4.0 H Ur Leukocyte Esterase 2+ H Urine WBC (Auto) 148 H Urine RBC (Auto) 59 H Urine WBC Clumps (Auto) Many H Ur Squamous Epith Cells 3 Urine Bacteria Many H 07/30/18 07/30/18 06:21 06:21 WBC 35.3 H RBC 4.10 Hgb 11.2 D Hct 36.6 MCV 89.3 MCH 27.4 MCHC 30.7 L RDW 18.8 H Plt Count 313 MPV 12.6 H Neut % (Auto) 87.1 H Lymph % (Auto) 5.6 L [place] % (Auto) 2.9 Eos % (Auto) 4.1 H Baso % (Auto) 0.3 Neut # (Auto) 30.7 H Lymph # (Auto) 2.0 [place] # (Auto) 1.0 H Eos # (Auto) 1.5 H Baso # (Auto) 0.1 Neutrophils % (Manual) 90 H Band Neutrophils % 3 H Lymphocytes % (Manual) 4 L Monocytes % (Manual) 3 Platelet Estimate Normal Large Platelets Present Giant Platelets Present Hypochromasia (manual) Slight Poikilocytosis (manual Slight Anisocytosis (manual) Slight Tear Drop Cells Slight [place] Cells Slight Sodium 137 Potassium 4.3 Chloride 111 H Carbon Dioxide 10 L* D Anion Gap 20 BUN 50 H Creatinine 3.1 H Est GFR ( Amer) 17 Est GFR (Non-Af Amer) 14 Random Glucose 144 H Lactic Acid Calcium 7.4 L Phosphorus 5.1 H Magnesium 1.8 Total Bilirubin 6.6 H AST 164 H D ALT 143 H D Alkaline Phosphatase 788 H D NT-Pro-B Natriuret Pep 78931 H Total Protein 5.8 L Albumin 2.9 L D Globulin 3.0 Albumin/Globulin Ratio 1.0 Urine Color Urine Clarity Urine pH Ur Specific Victor Urine Protein Urine Glucose (UA) Urine Ketones Urine Blood Urine Nitrate Urine Bilirubin Urine Urobilinogen Ur Leukocyte Esterase Urine WBC (Auto) Urine RBC (Auto) Urine WBC Clumps (Auto) Ur Squamous Epith Cells Urine Bacteria Radiology Impressions: Radiology Impressions Abdomen Ultrasound 07/29/18 13:24 IMPRESSION: Cholelithiasis. Gallstone appears immobile. Gallbladder sludge. Gallbladder wall thickening. Negative sonographic Hawkins's sign as assessed by the igniter assembler. Correlate clinically for acute cholecystitis. Right renal cyst. Nonobstructing right renal calculus. Echogenic liver may be seen in setting of hepatic parenchymal disease or fatty infiltration. Chest X-Ray 07/29/18 18:47 IMPRESSION: Right IJV line terminates in the right atrium. Multifocal patchy airspace disease in the right mid lung and lower lobe most compatible with pneumonia. Follow-up after medical management is recommended to ensure complete resolution. Review of Systems - Review of Systems Review of Systems: 12 point ROS obtained and noted as in HPI Critical Care Progress Note - Extremities/Vascular Does the Patient have a Central Venous Catheter?: Yes Insertion Site: Internal Jugular Vein Does the Patient need a Central Venous Catheter?: Yes Does the Patient have a Mojica Catheter?: Yes Does the Patient need a Mojica Catheter?: Yes Catheter Insertion Criteria: Need for accurate measurement of output in critically ill patient - Prophylaxis GI Prophylaxis GI: PPI - Prophylaxis DVT Prophylaxis DVT: Heparin SQ - Nutrition Nutrition: Nutrition Category Date Time Status Heart Healthy Diet [DIET] Diets 07/29/18 Lunch Active Assessment/Plan - Assessment and Plan (Free Text) Assessment: Patient is a 83 yo female with unknown PMH admitted to ICU for low blood pressure s/p multiple fluid boluses and sepsis. TLC will be placed with vasopressor for bp support Neuro Awake, alert, oriented baseline ? dementia Pulm maintain spo2>92 NC PRN CXR- no active disease CV levodrip GI no active issues Protonix CT abd/pelvis- cholelithiasis w/ negative sonographic Hawkins's sign; Nonobstructing renal calculus LFTS trending down; T bili trending down; continue IV abx Renal JEFF: D5 in H20 with bicarb 150 meq, levo drip, NS @ 150mls/hr Cr unchanged; possible new baseline; may need dialysis ID lactate down trending, repeat lactic acid pending urine cx positibe for g - juan, g+ cocci; blood cx positive for g + cocci elevated wbc; bandemia trending down hypothermia on admission- haygger completed Moxifloxacin/Linezolid GI ppx: Protonix DVT ppx: Heparin Disposition: Blood pressure support through central line; cx + as stated above continue empiric abx until sensitivities; trend cbc/cmp/lactate; consider dialysis if cr does not improve Carlos Tran PGY-1 Medical Management d/w Dr. Pickard <Pickard,[place] M - Last Filed: 07/30/18 15:13> CCU Objective - Vital Signs / Intake & Output Vital Signs (Last 4 hours): Vital Signs Temp Pulse Resp BP Pulse Ox 07/30/18 14:30 102 H 19 97 07/30/18 14:00 104 H 20 96 07/30/18 13:50 101 H 20 108/68 94 L 07/30/18 13:30 99 H 20 96 07/30/18 13:00 100 H 20 95 07/30/18 12:50 97 H 19 110/64 98 07/30/18 12:30 105 H 21 99 07/30/18 12:17 99 H 19 107/69 97 07/30/18 12:00 97.4 F L 100 H 19 95 07/30/18 11:50 96 H 20 108/67 95 07/30/18 11:30 95 H 18 98 Intake and Output (Last 8hrs): Intake & Output 07/30/18 07/30/18 07/30/18 06:59 14:59 22:59 Intake Total 1574 1817 Output Total 15 5 Balance 1559 1812 Weight 119 lb 0.794 oz Intake: IV 220 99 Intake, IV Amount 1304 1398 Right Antecubital 200 Right Distal Port 304 148 Internal Jugular Right Proximal Port 1000 1050 Internal Jugular Oral 50 320 Output: Urine 15 5 Urethral (Mojica) 15 5 Other: # Bowel Movements 0 0 - Medications Active Medications: Active Medications Generic Name Dose Route Start Last Admin Trade Name Freq PRN Reason Stop Dose Admin Heparin Sodium (Porcine) 5,000 units 07/29/18 22:00 07/30/18 14:35 Heparin SC 5,000 units Q8 MILADY Administration Sodium Chloride 1,000 mls @ 150 mls/hr 07/29/18 12:30 07/30/18 10:15 Sodium Chloride 0.9% IV 150 mls/hr .[id number] MILADY Administration Linezolid 600 mg in 300 mls @ 200 mls/hr 07/29/18 16:45 07/30/18 03:52 Zyvox 600mg/300ml D5w IVPB 200 mls/hr Q12H MILADY Administration Protocol Moxifloxacin HCl 400 mg in 250 mls @ 167 mls/hr 07/29/18 18:15 07/29/18 18:03 Avelox Iv 400mg/250ml Ns IVPB 167 mls/hr Q24H MILADY Administration Protocol Norepinephrine Bitartrate 4 mg 254 mls @ 15.24 mls/hr 07/29/18 19:21 07/30/18 12:00 / Sodium Chloride IV 2 mcg/min .[id number] PRN 7.62 mls/hr TITRATE PER MD ORDER Titration Protocol 4 MCG/MIN Sodium Bicarbonate 150 meq/ 1,150 mls @ 100 mls/hr 07/30/18 09:30 07/30/18 11:01 Dextrose IV 100 mls/hr .[id number] MILADY Administration Mannitol 12.5 gm 07/30/18 15:03 Mannitol IV 07/30/18 15:04 ONCE ONE Pantoprazole Sodium 40 mg 07/30/18 10:00 07/30/18 10:15 Protonix Ec Tab PO 40 mg DAILY MILADY Administration - Patient Studies Lab Studies: Microbiology Studies 07/29/18 12:27 S.aureus & Coag-Neg Staph PNA FISH - Final Blood TEST NOT PERFORMED Blood Culture - Preliminary Gram Positive Cocci Gram Stain - Final 07/29/18 12:40 Blood Culture - Preliminary Blood NO GROWTH AFTER 24 HOURS 07/29/18 12:02 Urine Culture - Preliminary Urine Random Gram Negative Juan Gram Positive Cocci Lab Studies 07/30/18 07/30/18 07/30/18 Range/Units 06:21 06:21 00:52 WBC 35.3 H (4.8-10.8) K/uL RBC 4.10 (3.80-5.20) Mil/uL Hgb 11.2 D (11.0-16.0) g/dL Hct 36.6 (34.0-47.0) % MCV 89.3 (81.0-99.0) fL MCH 27.4 (27.0-31.0) pg MCHC 30.7 L (33.0-37.0) g/dL RDW 18.8 H (11.5-14.5) % Plt Count 313 (130-400) K/uL MPV 12.6 H (7.2-11.7) fL Neut % (Auto) 87.1 H (50.0-75.0) % Lymph % (Auto) 5.6 L (20.0-40.0) % [place] % (Auto) 2.9 (0.0-10.0) % Eos % (Auto) 4.1 H (0.0-4.0) % Baso % (Auto) 0.3 (0.0-2.0) % Neut # (Auto) 30.7 H (1.8-7.0) K/uL Lymph # (Auto) 2.0 (1.0-4.3) K/uL [place] # (Auto) 1.0 H (0.0-0.8) K/uL Eos # (Auto) 1.5 H (0.0-0.7) K/uL Baso # (Auto) 0.1 (0.0-0.2) K/uL Neutrophils % (Manual) 90 H (50-75) % Band Neutrophils % 3 H (0-2) % Lymphocytes % (Manual) 4 L (20-40) % Monocytes % (Manual) 3 (0-10) % Platelet Estimate Normal (NORMAL) Large Platelets Present Giant Platelets Present Hypochromasia (manual) Slight Poikilocytosis (manual Slight Anisocytosis (manual) Slight Tear Drop Cells Slight [place] Cells Slight Sodium 137 (132-148) mmol/L Potassium 4.3 (3.6-5.2) mmol/L Chloride 111 H (98-107) mmol/L Carbon Dioxide 10 L* D (22-30) mmol/L Anion Gap 20 (10-20) BUN 50 H (7-17) mg/dL Creatinine 3.1 H (0.7-1.2) mg/dL Est GFR ( Amer) 17 Est GFR (Non-Af Amer) 14 Random Glucose 144 H (65-105) mg/dL Lactic Acid 1.6 (0.7-2.1) mmol/L Calcium 7.4 L (8.6-10.4) mg/dl Phosphorus 5.1 H (2.5-4.5) mg/dL Magnesium 1.8 (1.6-2.3) mg/dL Total Bilirubin 6.6 H (0.2-1.3) mg/dL AST 164 H D (14-36) U/L ALT 143 H D (9-52) U/L Alkaline Phosphatase 788 H D (38-126) U/L NT-Pro-B Natriuret Pep 02473 H (0-900) pg/mL Total Protein 5.8 L (6.3-8.3) g/dL Albumin 2.9 L D (3.5-5.0) g/dL Globulin 3.0 (2.2-3.9) gm/dL Albumin/Globulin Ratio 1.0 (1.0-2.1) Urine Color (YELLOW) Urine Clarity (Clear) Urine pH (5.0-8.0) Ur Specific Victor (1.003-1.030) Urine Protein (NEGATIVE) mg/dL Urine Glucose (UA) (Normal) mg/dL Urine Ketones (NEGATIVE) mg/dL Urine Blood (NEGATIVE) Urine Nitrate (NEGATIVE) Urine Bilirubin (NEGATIVE) Urine Urobilinogen (0.2-1.0) mg/dL Ur Leukocyte Esterase (Negative) Jose De Jesus/uL Urine WBC (Auto) (0-5) /hpf Urine RBC (Auto) (0-3) /hpf Urine WBC Clumps (Auto) (NONE) /hpf Ur Squamous Epith Cells (0-5) /hpf Urine Bacteria (<OCC) 07/29/18 07/29/18 Range/Units 20:46 20:41 WBC (4.8-10.8) K/uL RBC (3.80-5.20) Mil/uL Hgb (11.0-16.0) g/dL Hct (34.0-47.0) % MCV (81.0-99.0) fL MCH (27.0-31.0) pg MCHC (33.0-37.0) g/dL RDW (11.5-14.5) % Plt Count (130-400) K/uL MPV (7.2-11.7) fL Neut % (Auto) (50.0-75.0) % Lymph % (Auto) (20.0-40.0) % [place] % (Auto) (0.0-10.0) % Eos % (Auto) (0.0-4.0) % Baso % (Auto) (0.0-2.0) % Neut # (Auto) (1.8-7.0) K/uL Lymph # (Auto) (1.0-4.3) K/uL [place] # (Auto) (0.0-0.8) K/uL Eos # (Auto) (0.0-0.7) K/uL Baso # (Auto) (0.0-0.2) K/uL Neutrophils % (Manual) (50-75) % Band Neutrophils % (0-2) % Lymphocytes % (Manual) (20-40) % Monocytes % (Manual) (0-10) % Platelet Estimate (NORMAL) Large Platelets Giant Platelets Hypochromasia (manual) Poikilocytosis (manual Anisocytosis (manual) Tear Drop Cells [place] Cells Sodium (132-148) mmol/L Potassium (3.6-5.2) mmol/L Chloride (98-107) mmol/L Carbon Dioxide (22-30) mmol/L Anion Gap (10-20) BUN (7-17) mg/dL Creatinine (0.7-1.2) mg/dL Est GFR ( Amer) Est GFR (Non-Af Amer) Random Glucose (65-105) mg/dL Lactic Acid 1.2 (0.7-2.1) mmol/L Calcium (8.6-10.4) mg/dl Phosphorus (2.5-4.5) mg/dL Magnesium (1.6-2.3) mg/dL Total Bilirubin (0.2-1.3) mg/dL AST (14-36) U/L ALT (9-52) U/L Alkaline Phosphatase (38-126) U/L NT-Pro-B Natriuret Pep (0-900) pg/mL Total Protein (6.3-8.3) g/dL Albumin (3.5-5.0) g/dL Globulin (2.2-3.9) gm/dL Albumin/Globulin Ratio (1.0-2.1) Urine Color Laura (YELLOW) Urine Clarity Hazy (Clear) Urine pH 5.0 (5.0-8.0) Ur Specific Victor 1.014 (1.003-1.030) Urine Protein 2+ H (NEGATIVE) mg/dL Urine Glucose (UA) Normal (Normal) mg/dL Urine Ketones Negative (NEGATIVE) mg/dL Urine Blood 3+ H (NEGATIVE) Urine Nitrate Negative (NEGATIVE) Urine Bilirubin 2+ H (NEGATIVE) Urine Urobilinogen 4.0 H (0.2-1.0) mg/dL Ur Leukocyte Esterase 2+ H (Negative) Jose De Jesus/uL Urine WBC (Auto) 148 H (0-5) /hpf Urine RBC (Auto) 59 H (0-3) /hpf Urine WBC Clumps (Auto) Many H (NONE) /hpf Ur Squamous Epith Cells 3 (0-5) /hpf Urine Bacteria Many H (<OCC) Laboratory Results - last 24 hr 07/29/18 07/29/18 07/30/18 20:41 20:46 00:52 WBC RBC Hgb Hct MCV MCH MCHC RDW Plt Count MPV Neut % (Auto) Lymph % (Auto) [place] % (Auto) Eos % (Auto) Baso % (Auto) Neut # (Auto) Lymph # (Auto) [place] # (Auto) Eos # (Auto) Baso # (Auto) Neutrophils % (Manual) Band Neutrophils % Lymphocytes % (Manual) Monocytes % (Manual) Platelet Estimate Large Platelets Giant Platelets Hypochromasia (manual) Poikilocytosis (manual Anisocytosis (manual) Tear Drop Cells [place] Cells Sodium Potassium Chloride Carbon Dioxide Anion Gap BUN Creatinine Est GFR ( Amer) Est GFR (Non-Af Amer) Random Glucose Lactic Acid 1.2 1.6 Calcium Phosphorus Magnesium Total Bilirubin AST ALT Alkaline Phosphatase NT-Pro-B Natriuret Pep Total Protein Albumin Globulin Albumin/Globulin Ratio Urine Color Laura Urine Clarity Hazy Urine pH 5.0 Ur Specific Victor 1.014 Urine Protein 2+ H Urine Glucose (UA) Normal Urine Ketones Negative Urine Blood 3+ H Urine Nitrate Negative Urine Bilirubin 2+ H Urine Urobilinogen 4.0 H Ur Leukocyte Esterase 2+ H Urine WBC (Auto) 148 H Urine RBC (Auto) 59 H Urine WBC Clumps (Auto) Many H Ur Squamous Epith Cells 3 Urine Bacteria Many H 07/30/18 07/30/18 06:21 06:21 WBC 35.3 H RBC 4.10 Hgb 11.2 D Hct 36.6 MCV 89.3 MCH 27.4 MCHC 30.7 L RDW 18.8 H Plt Count 313 MPV 12.6 H Neut % (Auto) 87.1 H Lymph % (Auto) 5.6 L [place] % (Auto) 2.9 Eos % (Auto) 4.1 H Baso % (Auto) 0.3 Neut # (Auto) 30.7 H Lymph # (Auto) 2.0 [place] # (Auto) 1.0 H Eos # (Auto) 1.5 H Baso # (Auto) 0.1 Neutrophils % (Manual) 90 H Band Neutrophils % 3 H Lymphocytes % (Manual) 4 L Monocytes % (Manual) 3 Platelet Estimate Normal Large Platelets Present Giant Platelets Present Hypochromasia (manual) Slight Poikilocytosis (manual Slight Anisocytosis (manual) Slight Tear Drop Cells Slight Grady Cells Slight Sodium 137 Potassium 4.3 Chloride 111 H Carbon Dioxide 10 L* D Anion Gap 20 BUN 50 H Creatinine 3.1 H Est GFR ( Amer) 17 Est GFR (Non-Af Amer) 14 Random Glucose 144 H Lactic Acid Calcium 7.4 L Phosphorus 5.1 H Magnesium 1.8 Total Bilirubin 6.6 H AST 164 H D ALT 143 H D Alkaline Phosphatase 788 H D NT-Pro-B Natriuret Pep 50318 H Total Protein 5.8 L Albumin 2.9 L D Globulin 3.0 Albumin/Globulin Ratio 1.0 Urine Color Urine Clarity Urine pH Ur Specific Victor Urine Protein Urine Glucose (UA) Urine Ketones Urine Blood Urine Nitrate Urine Bilirubin Urine Urobilinogen Ur Leukocyte Esterase Urine WBC (Auto) Urine RBC (Auto) Urine WBC Clumps (Auto) Ur Squamous Epith Cells Urine Bacteria Radiology Impressions: Radiology Impressions Chest X-Ray 07/29/18 18:47 IMPRESSION: Right IJV line terminates in the right atrium. Multifocal patchy airspace disease in the right mid lung and lower lobe most compatible with pneumonia. Follow-up after medical management is recommended to ensure complete resolution. Critical Care Progress Note - Nutrition Nutrition: Nutrition Category Date Time Status Heart Healthy Diet [DIET] Diets 07/29/18 Lunch Active Assessment/Plan - Assessment and Plan (Free Text) Plan: Above patient seen and examined at bedside. Patient admitted tO ICU for JEFF/CKD, sepsis and Pneumonia. Brooks I had a long discussion with nephew Vin Mak. As per nephew, Patient goes to Dr. Zion Pickard. We called Rusty Pickard and learned that patient has not been to primary care physician for more than 2 years. Patient does not know her medications. There is no baseline lab results available. -JEFF: continue IV bicarb ggt gentle hydration, patient has baseline diastolic heart failure, CVP was 1 (low), will continue IV hydration until CVp increases b/w 8-12, check UA keep Urine pH >6.5, obtain nephrology eval for possible HD if fluid overloaded -Sepsis: source likely urine, possible Lobar Pneumonia, continue abx as per ID, avoid nephrotoxic drugs -Chronic diastolic heart failure: bnp high, check Echo, avoid ACEI 2nd JEFF/CKD, continue asa, statin(when LFTS decrease) -contineu oral renal diet -contineu DVT/PUD ppx - Date & Time Date: 07/30/18 Time: 15:13
[2018-07-30] MEDS ORDERED: Mannitol 12.5 gm/50 ml Inj IV ONE (16:00)
--- NOTE | 2018-07-30 17:33 | CARD ---
APPROVED REPORT Date of service: 07/29/2018 EKG Measurement Heart [id number] <Conclusion> Sinus tachycardia Low voltage QRS Nonspecific T wave abnormality Abnormal ECG
[2018-07-30] MEDS: Moxifloxacin IV 400mg/250ml NS 400 MG/250 ML BAG IVPB SCH (17:48)
[2018-07-30] MEDS ORDERED: Aztreonam 2 GM in Sodium Chloride 0.9% 100 ML IVPB ONE (20:00)
--- NOTE | 2018-07-30 21:36 | CP.PCM.PN ---
Subjective - Date & Time of Evaluation Date of Evaluation: 07/30/18 Time of Evaluation: 16:00 - Subjective Subjective: dictated Objective - Vital Signs/Intake and Output Vital Signs (last 24 hours): Temp Pulse Resp BP Pulse Ox 97.8 F 95 H 20 83/47 L 99 07/30/18 16:00 07/30/18 19:25 07/30/18 19:25 07/30/18 19:25 07/30/18 19:20 Intake and Output: 07/30/18 07/31/18 18:59 06:59 Intake Total 2936 Output Total 5 Balance 2931 - Medications Medications: Current Medications Aspirin (Aspirin Chewable) 81 mg PO DAILY [facility] Last Admin: 07/30/18 16:05 Dose: 81 mg Heparin Sodium (Porcine) (Heparin) 5,000 units SC Q8 [facility] Last Admin: 07/30/18 14:35 Dose: 5,000 units Linezolid (Zyvox 600mg/300ml D5w) 600 mg in 300 mls @ 200 mls/hr IVPB Q12H [facility]; Protocol Last Admin: 07/30/18 16:06 Dose: 200 mls/hr Moxifloxacin HCl (Avelox Iv 400mg/250ml Ns) 400 mg in 250 mls @ 167 mls/hr IVPB Q24H [facility]; Protocol Last Admin: 07/30/18 17:48 Dose: 167 mls/hr Norepinephrine Bitartrate 4 mg (/ Sodium Chloride) 254 mls @ 15.24 mls/hr IV .[id number] PRN; Protocol PRN Reason: TITRATE PER MD ORDER Last Admin: 07/30/18 19:20 Dose: 4 mcg/min, 15.24 mls/hr Dextrose (Dextrose 5% In Water 1000 Ml) 1,000 mls @ 50 mls/hr IV .Q20H [facility] Pantoprazole Sodium (Protonix Ec Tab) 40 mg PO DAILY [facility] Last Admin: 07/30/18 10:15 Dose: 40 mg - Labs Labs: 07/30/18 06:21 07/30/18 06:21 PT 13.7 SECONDS (9.7-12.2) H 07/29/18 11:41 INR 1.3 07/29/18 11:41 APTT 35 SECONDS (21-34) H 07/29/18 11:41
--- NOTE | 2018-07-30 23:55 | PN ---
DATE: 07/30/2018 SUBJECTIVE: The patient was seen in the ICU. She continues to improve little bit, but she still remains on vasopressors. Normal saline was discontinued as the patient was on bicarbonate drip. The patient denies any complaints. She denies any pain. No fever. No chills. No shortness of breath. No abdominal pain. She says she is fine; however, I told her that she was jaundiced. She is like when I was jaundiced. She says she does not want to believe that she is sick. PHYSICAL EXAMINATION: VITAL SIGNS: T-max is 97.4, heart rate of 100, blood pressure is high 108/67, pulse oximetry was 97%, and respirations are 20. HEENT: Head is atraumatic and normocephalic. Icterus present. Tongue is moist. NECK: Supple. JVP is flat. LUNGS: Clear. No crackles or rales present. HEART: S1 and S2 are regular. No murmurs appreciated. ABDOMEN: Soft, nontender. No guarding, no rigidity present. EXTREMITIES: Have no edema, clubbing or cyanosis present. SKIN: Appears icteric. LABORATORY DATA: Labs are noted. Labs show white count is 35.3, still remains high; hemoglobin 11.2; hematocrit 36.6; platelet count is 313; neutrophils are 87.1; and 3 bands today. She has a bicarb of 10, so they are giving bicarbonate drip. She remains with sepsis syndrome. Sodium is 137, potassium 4.3. She has severely elevated white count. LFTs are slightly better. Total bili is 6.8, alk phos is 789 right now, ALT is 143, AST is 164. Pro-beta natriuretic . Albumin is 2.9. Urine showed pyuria. Creatinine is 3.1, so she still remains with renal failure and she is dehydrated. BUN is 20, bicarb is 10, potassium is 4.3. Her urine shows pyuria and the blood culture came out GPCs, and urine has gram-negatives as well as GPCs present. She is on Zyvox and she was on Avelox. I have added Azactam until we find out ID and sensitivity. The blood culture anaerobic while only has GPCs in pairs which could be pneumococcal or another kind of Streptococcus. Urine has gram-negative rods. Blood culture is positive. Urine culture is positive. ASSESSMENT AND PLAN: She has septicemia due to a urinary tract infection. She had abdominal ultrasound which does show cholelithiasis, right renal cyst, nonobstructing right renal calculus, echogenic, may be seen in the setting of hepatic parenchymal disease or fatty infiltration. We will see how she is doing tomorrow. May need a CAT scan of abdomen and pelvis, but at this time, we will continue present antibiotics, and we will follow with the elderly sitter. She came in basically in septic shock with hypovolemia, history of fall and is still very ill. Curry Ureña MD
[2018-07-31] MEDS: Sodium Bicarbonate 8.4% 150 MEQ in Dextrose 5% In Water 1,000 ML IV SCH ×2 (03:15)
[2018-07-31] MEDS: Linezolid 600 mg in D5W 300 ml 600 MG/300 ML BAG IVPB SCH ×2 (04:05→16:27)
[2018-07-31 06:45] LABS: BASO # 0.1 K/uL (0.0-0.2); BASO % 0.3 % (0.0-2.0); EOS # 0.1 K/uL (0.0-0.7); EOS % 0.7 % (0.0-4.0); HEMOGLOBIN 10.8 g/dL (11.0-16.0); LYMPH # 1.7 K/uL (1.0-4.3); LYMPH % 7.9 % (20.0-40.0); MEAN CELL VOLUME 86.8 fL (81.0-99.0); MEAN CORPUSCULAR HEMOGLOBIN 27.4 pg (27.0-31.0); MEAN CORPUSCULAR HGB CONC 31.6 g/dL (33.0-37.0); MEAN PLATELET VOLUME 12.4 fL (7.2-11.7); MONO # 0.6 K/uL (0.0-0.8); MONO % 2.7 % (0.0-10.0); NEUT # 19.2 K/uL (1.8-7.0); NEUT % 88.4 % (50.0-75.0); PLATELET COUNT 241 K/uL (130-400); RBC 3.94 Mil/uL (3.80-5.20); RED CELL DISTRIBUTION WIDTH 18.3 % (11.5-14.5); WHITE BLOOD COUNT 21.7 K/uL (4.8-10.8)
[2018-07-31 07:09] LABS: ALBUMIN 2.7 g/dL (3.5-5.0); CALCIUM 7.6 mg/dl (8.6-10.4)
[2018-07-31 08:54] LABS: ANISOCYTOSIS SLIGHT; HYPOCHROMIC SLIGHT; LYMPHOCYTE 2 % (20-40); MONOCYTE 5 % (0-10); NEUTROPHIL 93 % (50-75); NUCLEATED RED BLOOD CELL 1 % (0-0); PLATELET ESTIMATE NORMAL (NORMAL); POLYCHROMIC SLIGHT; TOTAL CELLS COUNTED 100
[2018-07-31] MEDS ORDERED: Sodium Bicarbonate 8.4% 150 MEQ in Dextrose 5% In Water 850 ML IV SCH (09:31)
[2018-07-31] MEDS ORDERED: Mannitol 12.5 gm/50 ml Inj IV ONE (09:32)
[2018-07-31] MEDS: Pantoprazole 40 mg EC Tab PO SCH (10:02)
[2018-07-31 10:15] LABS: CK-MB 8.81 ng/mL (0.0-3.38)
[2018-07-31] MEDS: Sodium Bicarbonate 8.4% 150 MEQ in Dextrose 5% In Water 850 ML IV SCH ×3 (10:23→23:32)
--- NOTE | 2018-07-31 10:55 | CP.PCM.PN ---
Subjective - Date & Time of Evaluation Date of Evaluation: 07/31/18 Time of Evaluation: 10:52 - Subjective Subjective: Patient only had 45 ml of IVF overnight, no fevers, no chest pain, no shortness of breath Objective - Vital Signs/Intake and Output Vital Signs (last 24 hours): Temp Pulse Resp BP Pulse Ox 97.5 F L 84 16 119/73 98 07/31/18 08:00 07/31/18 10:00 07/31/18 10:00 07/31/18 09:50 07/31/18 10:00 Intake and Output: 07/31/18 07/31/18 06:59 18:59 Intake Total 1295 335 Output Total 45 40 Balance 1250 295 - Medications Medications: Current Medications Aspirin (Aspirin Chewable) 81 mg PO DAILY [facility] Last Admin: 07/31/18 10:02 Dose: 81 mg Heparin Sodium (Porcine) (Heparin) 5,000 units SC Q8 [facility] Last Admin: 07/31/18 06:00 Dose: 5,000 units Linezolid (Zyvox 600mg/300ml D5w) 600 mg in 300 mls @ 200 mls/hr IVPB Q12H [facility]; Protocol Last Admin: 07/31/18 04:05 Dose: 200 mls/hr Moxifloxacin HCl (Avelox Iv 400mg/250ml Ns) 400 mg in 250 mls @ 167 mls/hr IVPB Q24H [facility]; Protocol Last Admin: 07/30/18 17:48 Dose: 167 mls/hr Norepinephrine Bitartrate 4 mg (/ Sodium Chloride) 254 mls @ 15.24 mls/hr IV .[id number] PRN; Protocol PRN Reason: TITRATE PER MD ORDER Last Admin: 07/30/18 19:20 Dose: 4 mcg/min, 15.24 mls/hr Sodium Bicarbonate 150 meq/ (Dextrose) 1,000 mls @ 75 mls/hr IV .[id number] [facility] Last Admin: 07/31/18 10:23 Dose: 75 mls/hr Pantoprazole Sodium (Protonix Ec Tab) 40 mg PO DAILY [facility] Last Admin: 07/31/18 10:02 Dose: 40 mg - Labs Labs: 07/31/18 06:20 07/31/18 06:20 PT 13.7 SECONDS (9.7-12.2) H 07/29/18 11:41 INR 1.3 07/29/18 11:41 APTT 35 SECONDS (21-34) H 07/29/18 11:41 - Head Exam Head Exam: ATRAUMATIC, NORMAL INSPECTION, NORMOCEPHALIC - Eye Exam Eye Exam: EOMI Pupil Exam: PERRL - ENT Exam ENT Exam: Mucous Membranes Moist - Respiratory Exam Respiratory Exam: Clear to Ausculation Bilateral, Rales. absent: Rhonchi, Wheezes, Respiratory Distress - Cardiovascular Exam Cardiovascular Exam: +S1, +S2, Murmur - GI/Abdominal Exam GI & Abdominal Exam: Soft, Normal Bowel Sounds. absent: Distended, Firm, Rigid, Tenderness - Extremities Exam Extremities Exam: Normal Inspection. absent: Pedal Edema - Neurological Exam Neurological Exam: Alert, Awake Assessment and Plan - Assessment and Plan (Free Text) Assessment: Patient admitted to ICU for JEFF/CKD, sepsis and Pneumonia. -JEFF: continue IV bicarb ggt gentle hydration, patient has baseline diastolic heart failure, CVP was 1 (low), will continue IV hydration until CVp increases b/w 8-12, check UA keep Urine pH >6.5, obtain nephrology eval for possible HD if fluid overloaded -Sepsis: source likely urine, possible Lobar Pneumonia, continue abx as per ID, avoid nephrotoxic drugs -Chronic diastolic heart failure: bnp high, check Echo, avoid ACEI 2nd JEFF/CKD, continue asa, statin(when LFTS decrease) -contineu oral renal diet -contineu DVT/PUD ppx -PAtient remains hemodynamically stable
[2018-07-31] MEDS: Moxifloxacin IV 400mg/250ml NS 400 MG/250 ML BAG IVPB SCH (17:28)
--- NOTE | 2018-07-31 18:14 | CP.PCM.CON ---
History of Present Illness - History of Present Illness History of Present Illness: Nephrology Consultation Note: Assessment: critical Acute Kidney Injury (N17.9) likely due to ATN from septic shock Fall abnormal LFT hyperphosphatemia, HAGMA UTI Plan No acute need for renal replacement therapy at this time but may need soon and will need close follow up. hopefully will improve with conservative management. Maintain hemodynamics stable. Avoid hypotension. Patient not on ACEI/ARB due to recent JEFF Monitor Input/Output, daily weights and renal function with basic metabolic panel continue with IVF as bicab drip caution against use of mannitol as associated with increased risk of JEFF Dose meds/antibiotics for reduced GFR. Avoid fleets enema/magnesium based laxatives. Avoid nephrotoxins/NSAIDs/ iodinated contrast (unless needed emergently) Glycemic control Further work up/management as per primary team Thanks for allowing me to participate in care of your patient. Will follow patient with you. Please call if any Qs. had d/w team Dr Valerio Lewis Office: [phone] Chief Complaint; fall Reason for consult: Acute Kidney Injury HPI: Pt is a 83 F without any known medical hx but no recent medical follow up presented with complaints of fall and found to have sepsis with shock, abnormal LFT and JEFF No recent iodinated contrast exposure. Noted obvious episodes of low BP. ROS: pt is a poor historian and provided little reliable ROS Cardiovascular: No chest pain. Pulmonary: No shortness of breath Gastrointestinal: denies abdominal pain No nausea. No vomiting. no loose stool at present Genitourinary: No pain while urinating. Denies blood in urine. All other negative except as mentioned in HPI Physical Examination: General Appearance: Comfortable, in no acute respiratory distress, co-operative . chronically debilitated appearing Vitals reviewed and noted as below Head; Atraumatic, normocephalic ENT: no ulcers no thrush. Tongue is midline. Oropharynx: no rash or ulcers. she is hard of hearing EYES: Pupils are equal, round and reactive to light accommodation. Eye muscles and extraocular movement intact. Sclera is icteric. Neck; supple no lymphadenopathy, no thyromegaly or bruit Lungs: Normal respiratory rate/effort. Breath sounds bilateral equal and clear Heart: Normal rate. s1s2 normal. No rub or gallop. Extremities: no edema. No varicose veins Neurological: Patient is alert, awake and oriented Strength bilateral appropriate and equal Skin: Warm and dry. Normal turgor. No rash. Palpitation: Normal elasticity for age Abdomen: Abdomen is soft. Bowel sounds +. There is no abdominal tenderness, no guarding/rigidity no organomegaly Psych: lack insight and normal affect/mood MSK: no joint tenderness or swelling. Digits and nails normal, no deformity : kidney or bladder not palpable Labs/imaging reviewed. Past medical history, past surgical history, family history, social history, allergy reviewed and noted as below Family hx: no hx of CKD. Rest non-contributory Past Patient History - Infectious Disease Hx of Infectious Diseases: None - Past Medical History & Family History Past Medical History?: No - Past Social History Smoking Status: Never Smoked - CARDIAC Hx Hypertension: Yes - MUSCULOSKELETAL/RHEUMATOLOGICAL Hx Falls: Yes - PSYCHIATRIC Hx Substance Use: No - SURGICAL HISTORY Hx Surgeries: No - ANESTHESIA Hx Anesthesia: No Meds Allergies/Adverse Reactions: Allergies Allergy/AdvReac Type Severity Reaction Status Date / Time Penicillins Allergy Verified 07/29/18 10:24 - Medications Medications: Current Medications Aspirin (Aspirin Chewable) 81 mg PO DAILY [facility] Last Admin: 07/31/18 10:02 Dose: 81 mg Heparin Sodium (Porcine) (Heparin) 5,000 units SC Q8 [facility] Last Admin: 07/31/18 13:25 Dose: 5,000 units Linezolid (Zyvox 600mg/300ml D5w) 600 mg in 300 mls @ 200 mls/hr IVPB Q12H [facility]; Protocol Last Admin: 07/31/18 16:27 Dose: 200 mls/hr Moxifloxacin HCl (Avelox Iv 400mg/250ml Ns) 400 mg in 250 mls @ 167 mls/hr IVPB Q24H [facility]; Protocol Last Admin: 07/31/18 17:28 Dose: 167 mls/hr Norepinephrine Bitartrate 4 mg (/ Sodium Chloride) 254 mls @ 15.24 mls/hr IV .[id number] PRN; Protocol PRN Reason: TITRATE PER MD ORDER Last Titration: 07/31/18 14:27 Dose: 0 mcg/min, 0 mls/hr Sodium Bicarbonate 150 meq/ (Dextrose) 1,000 mls @ 75 mls/hr IV .[id number] [facility] Last Admin: 07/31/18 17:28 Dose: 75 mls/hr Pantoprazole Sodium (Protonix Ec Tab) 40 mg PO DAILY [facility] Last Admin: 07/31/18 10:02 Dose: 40 mg Results - Vital Signs Recent Vital Signs: Last Vital Signs Temp 97.5 F L 07/31/18 16:00 Pulse 83 07/31/18 17:00 Resp 20 07/31/18 17:00 BP 99/65 L 07/31/18 16:50 Pulse Ox 96 07/31/18 17:00 - Labs Result Diagrams: 07/31/18 06:20 07/31/18 06:20 Labs: Laboratory Results - last 24 hr 07/29/18 07/31/18 07/31/18 07:43 06:20 06:20 WBC 21.7 H RBC 3.94 Hgb 10.8 L Hct 34.1 MCV 86.8 D MCH 27.4 MCHC 31.6 L RDW 18.3 H Plt Count 241 MPV 12.4 H Neut % (Auto) 88.4 H Lymph % (Auto) 7.9 L [place] % (Auto) 2.7 Eos % (Auto) 0.7 Baso % (Auto) 0.3 Neut # (Auto) 19.2 H Lymph # (Auto) 1.7 [place] # (Auto) 0.6 Eos # (Auto) 0.1 Baso # (Auto) 0.1 Neutrophils % (Manual) 93 H Lymphocytes % (Manual) 2 L Monocytes % (Manual) 5 Nucleated RBC % 1 H Platelet Estimate Normal Polychromasia Slight Hypochromasia (manual) Slight Anisocytosis (manual) Slight Sodium 136 Potassium 3.9 Chloride 106 Carbon Dioxide 15 L Anion Gap 18 BUN 60 H Creatinine 3.7 H Est GFR ( Amer) 14 Est GFR (Non-Af Amer) 12 Random Glucose 138 H Calcium 7.6 L Phosphorus 4.1 Magnesium 1.8 Total Bilirubin 4.2 H AST 83 H D ALT 114 H D Alkaline Phosphatase 755 H Total Creatine Kinase 210 H CK-MB (Mass) 8.81 H Total Protein 5.4 L Albumin 2.7 L Globulin 2.7 Albumin/Globulin Ratio 1.0 Urine Eosinophils Ur L.pneumophila Ag Negative 07/31/18 15:05 WBC RBC Hgb Hct MCV MCH MCHC RDW Plt Count MPV Neut % (Auto) Lymph % (Auto) [place] % (Auto) Eos % (Auto) Baso % (Auto) Neut # (Auto) Lymph # (Auto) [place] # (Auto) Eos # (Auto) Baso # (Auto) Neutrophils % (Manual) Lymphocytes % (Manual) Monocytes % (Manual) Nucleated RBC % Platelet Estimate Polychromasia Hypochromasia (manual) Anisocytosis (manual) Sodium Potassium Chloride Carbon Dioxide Anion Gap BUN Creatinine Est GFR ( Amer) Est GFR (Non-Af Amer) Random Glucose Calcium Phosphorus Magnesium Total Bilirubin AST ALT Alkaline Phosphatase Total Creatine Kinase CK-MB (Mass) Total Protein Albumin Globulin Albumin/Globulin Ratio Urine Eosinophils Negative Ur L.pneumophila Ag
--- NOTE | 2018-07-31 19:59 | CP.PCM.PN ---
Subjective - Date & Time of Evaluation Date of Evaluation: 07/31/18 Time of Evaluation: 18:00 - Subjective Subjective: dictated Objective - Vital Signs/Intake and Output Vital Signs (last 24 hours): Temp Pulse Resp BP Pulse Ox 97.5 F L 75 13 77/47 L 95 07/31/18 16:00 07/31/18 19:00 07/31/18 19:00 07/31/18 18:50 07/31/18 19:00 Intake and Output: 07/31/18 08/01/18 18:59 06:59 Intake Total 2145.6 Output Total 240 Balance 1905.6 - Medications Medications: Current Medications Aspirin (Aspirin Chewable) 81 mg PO DAILY [facility] Last Admin: 07/31/18 10:02 Dose: 81 mg Heparin Sodium (Porcine) (Heparin) 5,000 units SC Q8 [facility] Last Admin: 07/31/18 13:25 Dose: 5,000 units Linezolid (Zyvox 600mg/300ml D5w) 600 mg in 300 mls @ 200 mls/hr IVPB Q12H [facility]; Protocol Last Admin: 07/31/18 16:27 Dose: 200 mls/hr Moxifloxacin HCl (Avelox Iv 400mg/250ml Ns) 400 mg in 250 mls @ 167 mls/hr IVPB Q24H [facility]; Protocol Last Admin: 07/31/18 17:28 Dose: 167 mls/hr Norepinephrine Bitartrate 4 mg (/ Sodium Chloride) 254 mls @ 15.24 mls/hr IV .[id number] PRN; Protocol PRN Reason: TITRATE PER MD ORDER Last Titration: 07/31/18 14:27 Dose: 0 mcg/min, 0 mls/hr Sodium Bicarbonate 150 meq/ (Dextrose) 1,000 mls @ 75 mls/hr IV .[id number] [facility] Last Admin: 07/31/18 17:28 Dose: 75 mls/hr Pantoprazole Sodium (Protonix Ec Tab) 40 mg PO DAILY [facility] Last Admin: 07/31/18 10:02 Dose: 40 mg - Labs Labs: 07/31/18 06:20 07/31/18 06:20 PT 13.7 SECONDS (9.7-12.2) H 07/29/18 11:41 INR 1.3 07/29/18 11:41 APTT 35 SECONDS (21-34) H 07/29/18 11:41
--- NOTE | 2018-08-01 01:13 | PN ---
DATE: 07/31/2018 SUBJECTIVE: The patient is feeling better. She was seen today. She denies any complaints. She denies abdominal pain. PHYSICAL EXAMINATION: VITAL SIGNS: T-max is 97.5, pulse 83. Her blood pressure is 90/55 and 99/65, respirations are 20, and saturation 96%. GENERAL: She is able to answer questions. HEENT: Head is atraumatic and normocephalic. NECK: Supple. LUNGS: Occasional wheeze. HEART: S1 and S2 are regular. No murmurs appreciated. ABDOMEN: Soft, nontender. No guarding. No rigidity present. EXTREMITIES: Have no edema, clubbing or cyanosis. ABDOMEN: Soft, nontender. No guarding. No rigidity present. LABORATORY DATA: Labs are noted. Labs show white count is 21.7, it is decreasing; hemoglobin 7.8; hematocrit 34.1; platelet count is 241. The chemistry shows that sodium is 136, potassium 3.9, chloride 106, bicarb is 15 today, BUN is 60, creatinine jumped up to 3.7. Renal attending was seeing this patient now. Her bilirubin is coming down, it is 4.2; AST is 83; ALT is 114; and alkaline phosphatase is also decreasing. Total CPK is 210. She had a history of fall. CK-MB is 8.81. Micro mcgee, she had blood cultures positive. The blood culture has GPCs. GPCs in aerobic bottle came out, but they have not told me still what the result GPC in pairs. It has not yet finalized, so one culture remains positive and then the urine had E. coli and streptococcus gallolyticus pasteurianus. This one on #1. E. coli sensitivities are there and Streptococcus. They have not given any sensitivities. Urine is sensitive to Cipro. We have left her on linezolid and Avelox. She is on norepinephrine. We will continue the same as they say it is going to work for both urine and blood. Last chest x-ray was done on 07/29/2018 which shows right atrium, multifocal patchy airspace disease in the right mid lung and lower lobe compatible with pneumonia. She has pneumonia. She has gallstones. She did her alkaline phosphatase up which was showing obstructive picture, maybe she passed the stone, not sure, but she had no abdominal pain when examined first time when she came from ER to the ICU, but at this time we will continue these medications both of them and tell we will repeat another x-ray on Thursday and will follow. I am still waiting for the ID and sensitivity of the GPC which was seen in the blood and also to follow up the echocardiogram. She came in with a septic shock. She is in severe acidosis with renal failure, pneumonia, gallstones with obstructive picture with increased alkaline phosphatase. She has blood culture positive and UTI. Curry Ureña MD
--- NOTE | 2018-08-01 04:44 | PN ---
DATE: 07/31/2018 SUBJECTIVE: The patient is an 83-year-old female. The patient was seen and examined at bedside on 07/31/2018. Looking comfortable. No change in her status. No event happened overnight. No fever. No chest pain. No shortness of breath. No nausea, vomiting, or diarrhea. No hematuria or hematochezia. No headaches or dizziness. The patient is still very poor historian. PHYSICAL EXAMINATION: VITAL SIGNS: Temperature 97.5, pulse 84, respiratory rate 16, blood pressure 119/73, pulse oximetry 98. HEENT: Head: Normocephalic and atraumatic. Eyes: PERRLA. Extraocular muscles intact. Conjunctivae clear. Nose patent. Mucous membranes moist. NECK: Supple. No carotid bruit or thyromegaly. CHEST: Bilaterally symmetrical. HEART: S1 and S2 positive. LUNGS: Clear to auscultation. ABDOMEN: Soft. Bowel sounds present. No organomegaly. EXTREMITIES: No edema. No cyanosis. NEUROLOGIC: The patient is awake and alert. Moving all four extremities. No focal deficits. MEDICATIONS: Aspirin, heparin, Zyvox, Avelox, normal saline, and Protonix. LABORATORY DATA: White blood cell 21.7, hemoglobin 10.8, hematocrit 34.1, and platelets 241. Sodium 136, potassium 3.9, BUN 60, creatinine 3.7, and glucose 138. ASSESSMENT AND PLAN: Ms. 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 Intravenous, continue bicarbonate drip, gentle hydration. The patient with diastolic heart failure. Continue hydration. Sepsis, source likely urine, possibly lobar pneumonia, and continue antibiotics as per Infectious Disease. Avoid nephrotoxic drugs. Chronic diastolic heart failure, BNP is high. We will check echocardiogram. Avoid MICHELLE inhibitors. Continue aspirin and statin. Continue oral renal diet. Deep venous thrombosis and gastrointestinal prophylaxes. The patient is hemodynamically stable. Review Dr. Valerio Lewis's, Dr. Allens, and Dr. shafer. We will repeat laboratories. We will follow up. Donna Wallace MD [facility] # [id number] KINGA
[2018-08-01] MEDS: Linezolid 600 mg in D5W 300 ml 600 MG/300 ML BAG IVPB SCH ×2 (05:00→16:31)
[2018-08-01] MEDS: Sodium Bicarbonate 8.4% 150 MEQ in Dextrose 5% In Water 850 ML IV SCH (06:34)
[2018-08-01 06:44] LABS: BASO # 0.1 K/uL (0.0-0.2); BASO % 0.5 % (0.0-2.0); EOS # 0.7 K/uL (0.0-0.7); EOS % 4.1 % (0.0-4.0); HEMOGLOBIN 10.7 g/dL (11.0-16.0); LYMPH # 2.2 K/uL (1.0-4.3); LYMPH % 13.9 % (20.0-40.0); MEAN CELL VOLUME 85.4 fL (81.0-99.0); MEAN CORPUSCULAR HEMOGLOBIN 27.9 pg (27.0-31.0); MEAN CORPUSCULAR HGB CONC 32.7 g/dL (33.0-37.0); MEAN PLATELET VOLUME 12.6 fL (7.2-11.7); MONO # 0.7 K/uL (0.0-0.8); MONO % 4.3 % (0.0-10.0); NEUT # 12.4 K/uL (1.8-7.0); NEUT % 77.2 % (50.0-75.0); RBC 3.85 Mil/uL (3.80-5.20); RED CELL DISTRIBUTION WIDTH 18.1 % (11.5-14.5); WHITE BLOOD COUNT 16.1 K/uL (4.8-10.8)
[2018-08-01 07:01] LABS: ALBUMIN 2.5 g/dL (3.5-5.0); CALCIUM 7.2 mg/dl (8.6-10.4)
--- NOTE | 2018-08-01 07:18 | HP ---
The patient was seen and examined at bedside on 07/30/2018. CHIEF COMPLAINT: fall , found on the floor. HISTORY OF PRESENT ILLNESS: Ms. Chloe Robledo is an 83-year-old female came to the emergency room by ambulance. As per ambulance, the patient was found on the floor from one day before admission and due to fall, however, the patient is confused, oriented only x2, poor historian, has history of hypertension, does not have any primary care physician. We did cervical spine CT, CAT scan of the head CT, chest x-ray, abdominal ultrasound, admitted to the unit for septic shock and low blood pressure. The patient's nephew came in the emergency room and confirmed that recently, the patient is becoming more forgetful and states that she fell. She remains hypotensive despite of multiple IV fluids. The patient denies fever, chills, nausea, or vomiting. No constipation. PAST MEDICAL HISTORY: Hypertension. HABITS: No smoking. No drugs. No ethanol. ALLERGIES: THE PATIENT IS ALLERGIC TO PENICILLIN. FAMILY HISTORY: Noncontributory. REVIEW OF SYSTEMS: The patient was seen and examined at bedside, looking comfortable. No fever. No chills. No headache or dizziness. No chest pain. No palpitation. No hematuria or hematochezia. PHYSICAL EXAMINATION: VITAL SIGNS: Temperature 97.4, pulse 100, respiratory rate 19, blood pressure 108/67, and pulse oximetry is 95. HEENT: Head: Normocephalic and atraumatic. Eyes: PERRLA. Extraocular muscles intact. Conjunctivae clear. Nose present. Mucous membranes moist. NECK: Supple. No carotid bruit. No JVD. No thyromegaly. CHEST: Clear to auscultation. ABDOMEN: Soft. Bowel sounds present. No organomegaly. EXTREMITIES: No edema. No cyanosis. NEUROLOGIC: The patient is awake and alert. Moving all 4 extremities. No focal deficits. LABORATORY DATA: White blood cell 35.3, hemoglobin 11.2, hematocrit 36.6, and platelets 313. Sodium 137, potassium 4.3, BUN 50, creatinine 3.1, and glucose 144. ASSESSMENT AND PLAN: Ms. Chloe Robledo is an 83-year-old lady with leukocytosis, anemia, hyperchloremia, renal insufficiency, hyperglycemia, hypocalcemia, hyperphosphatemia, abnormal liver function test, congestive heart failure, proteinuria, hematuria, urinary tract infection, getting antibiotics from intravenous. The patient is in the unit, seen by Infectious Disease, Nephrology. We will continue present treatment. I reviewed CAT scan of the head, surgical spine CT. Repeat laboratories. We will follow up. Donna Wallace MD MTDD
[2018-08-01] MEDS ORDERED: Sodium Bicarbonate 8.4% 150 MEQ in Dextrose 5% In Water 850 ML IV SCH (08:26)
[2018-08-01] MEDS ORDERED: Magnesium Sulfate 1 gm in D5W 1 GM/100 ML BAG IVPB ONE (08:59)
[2018-08-01] MEDS ORDERED: Potassium Chloride 20 mEq ER Tab PO SCH (09:00)
--- NOTE | 2018-08-01 09:56 | CP.PCM.PN ---
Subjective - Date & Time of Evaluation Date of Evaluation: 08/01/18 Time of Evaluation: 09:53 - Subjective Subjective: Patient admitted for JEFF/rhabdo post fall, uring output improved with mannitol >600 ml/hr over last 24 hours Objective - Vital Signs/Intake and Output Vital Signs (last 24 hours): Temp Pulse Resp BP Pulse Ox 97.8 F 81 16 101/61 95 08/01/18 04:00 08/01/18 06:50 08/01/18 06:50 08/01/18 06:50 08/01/18 06:50 Intake and Output: 08/01/18 08/01/18 06:59 18:59 Intake Total 1465 75 Output Total 405 40 Balance 1060 35 - Medications Medications: Current Medications Aspirin (Aspirin Chewable) 81 mg PO DAILY [facility] Last Admin: 08/01/18 09:53 Dose: 81 mg Calcium/Vitamin D (Oscal-D 250 Mg-125 Units Tab) 1 tab PO DAILY [facility] Heparin Sodium (Porcine) (Heparin) 5,000 units SC Q8 [facility] Last Admin: 08/01/18 06:23 Dose: 5,000 units Linezolid (Zyvox 600mg/300ml D5w) 600 mg in 300 mls @ 200 mls/hr IVPB Q12H [facility]; Protocol Last Admin: 08/01/18 05:00 Dose: 200 mls/hr Moxifloxacin HCl (Avelox Iv 400mg/250ml Ns) 400 mg in 250 mls @ 167 mls/hr IVPB Q24H [facility]; Protocol Last Admin: 07/31/18 17:28 Dose: 167 mls/hr Sodium Bicarbonate 150 meq/ (Dextrose) 1,000 mls @ 100 mls/hr IV .Q10H [facility] Potassium Chloride (Potassium Chloride 20 Meq/100 Ml) 20 meq in 100 mls @ 50 m ls/hr IVPB Q1H [facility] Stop: 08/01/18 11:59 Last Admin: 08/01/18 09:50 Dose: 50 mls/hr Pantoprazole Sodium (Protonix Ec Tab) 40 mg PO DAILY [facility] Last Admin: 07/31/18 10:02 Dose: 40 mg Potassium Chloride (K-Dur 20 Meq Er Tab) 40 meq PO Q8H [facility] Stop: 08/02/18 01:01 Last Admin: 08/01/18 09:49 Dose: 40 meq - Labs Labs: 08/01/18 06:37 08/01/18 06:37 PT 13.7 SECONDS (9.7-12.2) H 07/29/18 11:41 INR 1.3 07/29/18 11:41 APTT 35 SECONDS (21-34) H 07/29/18 11:41 - Head Exam Head Exam: ATRAUMATIC, NORMAL INSPECTION, NORMOCEPHALIC - Eye Exam Eye Exam: EOMI - ENT Exam ENT Exam: Mucous Membranes Moist - Respiratory Exam Respiratory Exam: Clear to Ausculation Bilateral, NORMAL BREATHING PATTERN - Cardiovascular Exam Cardiovascular Exam: +S1, +S2, Murmur - GI/Abdominal Exam GI & Abdominal Exam: Soft, Normal Bowel Sounds. absent: Tenderness - Extremities Exam Extremities Exam: Normal Inspection. absent: Pedal Edema - Neurological Exam Neurological Exam: Alert, Awake Assessment and Plan - Assessment and Plan (Free Text) Assessment: Patient admitted to ICU for JEFF/CKD/rhabdo, sepsis and Pneumonia. -JEFF: continue IV bicarb ggt gentle hydration, patient's urine output improved to >600 oer 24 hours (from 45 ml/24 hours), repeat UA keep urine pH >6.5 -Sepsis: UA (+) GNR, continue ABX as per ID, off pressors -Chronic diastolic heart failure: bnp high, check Echo, avoid ACEI 2nd JEFF/CKD, continue asa, statin(when LFTS decrease) -contineu oral renal diet -contineu DVT/PUD ppx -PAtient remains hemodynamically stable -PT/OT -monitor for polyuric phase
[2018-08-01] MEDS ORDERED: Calcium-Vit D 250 mg-125 Units Tab UD PO SCH (10:00)
[2018-08-01] MEDS: Pantoprazole 40 mg EC Tab PO SCH (11:00)
--- NOTE | 2018-08-01 12:51 | CP.PCM.PN ---
Subjective - Date & Time of Evaluation Date of Evaluation: 08/01/18 Time of Evaluation: 12:50 - Subjective Subjective: Nephrology Consultation Note: Assessment: stable Acute Kidney Injury (N17.9) likely due to ATN from septic shock Fall abnormal LFT hyperphosphatemia, HAGMA UTI Plan No acute need for renal replacement therapy at this time but may need soon and will need close follow up. hopefully will improve with conservative management. Maintain hemodynamics stable. Avoid hypotension. Patient not on ACEI/ARB due to recent JEFF Monitor Input/Output, daily weights and renal function with basic metabolic panel continue with IVF but can switch to normal saline caution against use of mannitol as associated with increased risk of JEFF monitor serum K level q4-6 hrs today. avoid hyperkalemia. Dose meds/antibiotics for reduced GFR. Avoid fleets enema/magnesium based laxatives. Avoid nephrotoxins/NSAIDs/ iodinated contrast (unless needed emergent ly) Glycemic control Further work up/management as per primary team Thanks for allowing me to participate in care of your patient. Will follow patient with you. Please call if any Qs. had d/w team Dr Valerio Lewis Office: [phone] Chief Complaint; fall Reason for consult: Acute Kidney Injury HPI: Pt is a 83 F without any known medical hx but no recent medical follow up presented with complaints of fall and found to have sepsis with shock, abnormal LFT and JEFF No recent iodinated contrast exposure. Noted obvious episodes of low BP. ROS: pt is a poor historian and provided little reliable ROS Cardiovascular: No chest pain. Pulmonary: No shortness of breath Gastrointestinal: denies abdominal pain No nausea. No vomiting. no loose stool at present Genitourinary: No pain while urinating. Denies blood in urine. All other negative except as mentioned in HPI Physical Examination: General Appearance: Comfortable, in no acute respiratory distress, co-operative . chronically debilitated appearing Vitals reviewed and noted as below Head; Atraumatic, normocephalic ENT: no ulcers no thrush. Tongue is midline. Oropharynx: no rash or ulcers. she is hard of hearing EYES: Pupils are equal, round and reactive to light accommodation. Eye muscles a nd extraocular movement intact. Sclera is icteric. Neck; supple no lymphadenopathy, no thyromegaly or bruit Lungs: Normal respiratory rate/effort. Breath sounds bilateral equal and clear Heart: Normal rate. s1s2 normal. No rub or gallop. Extremities: no edema. No varicose veins Neurological: Patient is alert, awake and oriented Strength bilateral appropriate and equal Skin: Warm and dry. Normal turgor. No rash. Palpitation: Normal elasticity for age Abdomen: Abdomen is soft. Bowel sounds +. There is no abdominal tenderness, no guarding/rigidity no organomegaly Psych: lack insight and normal affect/mood MSK: no joint tenderness or swelling. Digits and nails normal, no deformity : kidney or bladder not palpable Labs/imaging reviewed. Past medical history, past surgical history, family history, social history, allergy reviewed and noted as below Family hx: no hx of CKD. Rest non-contributory Objective - Vital Signs/Intake and Output Vital Signs (last 24 hours): Temp Pulse Resp BP Pulse Ox 98.2 F 77 18 112/67 97 08/01/18 12:00 08/01/18 12:00 08/01/18 12:00 08/01/18 12:00 08/01/18 12:00 Intake and Output: 08/01/18 08/01/18 06:59 18:59 Intake Total 1465 950 Output Total 405 40 Balance 1060 910 - Medications Medications: Current Medications Aspirin (Aspirin Chewable) 81 mg PO DAILY [facility] Last Admin: 08/01/18 09:53 Dose: 81 mg Calcium/Vitamin D (Oscal-D 250 Mg-125 Units Tab) 1 tab PO DAILY [facility] Last Admin: 08/01/18 10:00 Dose: 1 tab Heparin Sodium (Porcine) (Heparin) 5,000 units SC Q8 [facility] Last Admin: 08/01/18 06:23 Dose: 5,000 units Linezolid (Zyvox 600mg/300ml D5w) 600 mg in 300 mls @ 200 mls/hr IVPB Q12H [facility]; Protocol Last Admin: 08/01/18 05:00 Dose: 200 mls/hr Moxifloxacin HCl (Avelox Iv 400mg/250ml Ns) 400 mg in 250 mls @ 167 mls/hr IVPB Q24H [facility]; Protocol Last Admin: 07/31/18 17:28 Dose: 167 mls/hr Sodium Bicarbonate 150 meq/ (Dextrose) 1,000 mls @ 100 mls/hr IV .Q10H [facility] Pantoprazole Sodium (Protonix Ec Tab) 40 mg PO DAILY [facility] Last Admin: 08/01/18 11:00 Dose: 40 mg Potassium Chloride (K-Dur 20 Meq Er Tab) 40 meq PO Q8H [facility] Stop: 08/02/18 01:01 Last Admin: 08/01/18 09:49 Dose: 40 meq - Labs Labs: 08/01/18 06:37 08/01/18 06:37 PT 13.7 SECONDS (9.7-12.2) H 07/29/18 11:41 INR 1.3 07/29/18 11:41 APTT 35 SECONDS (21-34) H 07/29/18 11:41
[2018-08-01] MEDS: Moxifloxacin IV 400mg/250ml NS 400 MG/250 ML BAG IVPB SCH (17:28)
[2018-08-01] MEDS: Sodium Chloride 0.9% 1,000 ML IV SCH (17:45)
--- NOTE | 2018-08-01 23:29 | PN ---
DATE: 08/01/2018 SUBJECTIVE: The patient says she was having some cough. Otherwise, she is feeling better. She has a triple-lumen in her neck. T-max is 99.2, pulse 80, blood pressure 108/66, respirations are 17. She was trying to drink the soup, but she started to cough and needs to be monitored. She denies any abdominal pain. She is voiding much urine now, and hopefully kidney functions would be getting better. She is on a bicarbonate drip. PHYSICAL EXAMINATION: VITAL SIGNS: Temperature 99.2, pulse 82, blood pressure is 108/66, respirations are 16. HEENT: Head is atraumatic and normocephalic. NECK: Supple. LUNGS: Have occasional wheeze at this time. HEART: S1 and S2 are regular. ABDOMEN: Remains soft, nontender. No guarding, no rigidity present. EXTREMITIES: Have no edema. LABORATORY DATA: White count is 16.1 today, hemoglobin 10.1, hematocrit 32.9, platelet count is 227. Potassium is 3.2, BUN is 60. Creatinine remains at 3.7, still elevated. Total bilirubin has decreased down to 2.7, alkaline phosphatase still remains at 600, and LFTs are coming down. Micro mcgee, blood culture revealed Enterococcus faecium, and urine has E. coli and Streptococcus gallolyticus pasteurianus. ASSESSMENT AND PLAN: Enterococcus which she has is vancomycin sensitive, ampicillin sensitive, linezolid sensitive. She is on linezolid at this time, but it is also penicillin sensitive, but she is allergic to penicillin and Cipro sensitive. The patient is right now on linezolid as well as moxifloxacin. We will continue both of them at this time covering for the blood. Urine has a different bugs, Escherichia coli and Streptococcus pasteurianus. I would think this infection came from the abdomen. This Escherichia coli is also sensitive to Cipro. At this time, we will continue both the drugs. We will get a repeat blood cultures done again to make sure that this is clearing. The patient did have gallstones and may have had cholecystitis which is now improving on antibiotics. I would think she does have obstructive picture on the liver function tests. She came in with septic shock. Has septicemia and urinary tract infection. An x-ray was done on 07/29/2018 which shows multifocal patchy airspace disease compatible with pneumonia, so she also has pneumonia. Really, she has lot of complications going on, but she is looking slightly better and she is voiding, so I am hoping her kidney functions will improve. We will follow. Curry Ureña MD
[2018-08-02] MEDS: Sodium Chloride 0.9% 1,000 ML IV SCH ×3 (04:11→23:30)
[2018-08-02] MEDS: Linezolid 600 mg in D5W 300 ml 600 MG/300 ML BAG IVPB SCH ×2 (04:11→16:00)
[2018-08-02 06:19] LABS: BASO % 0.3 % (0.0-2.0); EOS # 0.6 K/uL (0.0-0.7); HEMOGLOBIN 10.7 g/dL (11.0-16.0); LYMPH # 1.4 K/uL (1.0-4.3); MEAN CELL VOLUME 85.6 fL (81.0-99.0); MEAN CORPUSCULAR HEMOGLOBIN 27.5 pg (27.0-31.0); MEAN CORPUSCULAR HGB CONC 32.2 g/dL (33.0-37.0); MEAN PLATELET VOLUME 12.4 fL (7.2-11.7); MONO # 0.9 K/uL (0.0-0.8); MONO % 7.5 % (0.0-10.0); NEUT # 8.7 K/uL (1.8-7.0); NEUT % 75.2 % (50.0-75.0); RBC 3.89 Mil/uL (3.80-5.20); RED CELL DISTRIBUTION WIDTH 17.6 % (11.5-14.5); WHITE BLOOD COUNT 11.5 K/uL (4.8-10.8)
[2018-08-02 06:40] LABS: ALBUMIN 2.5 g/dL (3.5-5.0)
[2018-08-02] MEDS: Pantoprazole 40 mg EC Tab PO SCH (10:37)
--- NOTE | 2018-08-02 15:07 | CP.PCM.PN ---
Subjective - Date & Time of Evaluation Date of Evaluation: 08/02/18 Time of Evaluation: 11:00 - Subjective Subjective: Nephrology Consultation Note: Assessment: stable Acute Kidney Injury (N17.9) likely due to ATN from septic shock: improving Fall abnormal LFT hyperphosphatemia, HAGMA UTI cholelithiasis Plan No acute need for renal replacement therapy at this time hopefully will continue to improve with conservative management. Maintain hemodynamics stable. Avoid hypotension. Patient not on ACEI/ARB due to recent JEFF Monitor Input/Output, daily weights and renal function with basic metabolic panel can lower down IVF rate as oral intake better Dose meds/antibiotics for reduced GFR. Avoid fleets enema/magnesium based laxatives. Avoid nephrotoxins/NSAIDs/ iodinated contrast (unless needed emergently) Glycemic control Further work up/management as per primary team Thanks for allowing me to participate in care of your patient. Will follow p atient with you. Please call if any Qs. had d/w team Dr Valerio Lewis Office: [phone] Chief Complaint; fall Reason for consult: Acute Kidney Injury HPI: Pt is a 83 F without any known medical hx but no recent medical follow up presented with complaints of fall and found to have sepsis with shock, abnormal LFT and JEFF No recent iodinated contrast exposure. Noted obvious episodes of low BP. ROS: pt is a poor historian and provided little reliable ROS Cardiovascular: No chest pain. Pulmonary: No shortness of breath Gastrointestinal: denies abdominal pain No nausea. No vomiting. no loose stool at present Genitourinary: No pain while urinating. Denies blood in urine. All other negative except as mentioned in HPI Physical Examination: General Appearance: Comfortable, in no acute respiratory distress, co-operative . chronically debilitated appearing Vitals reviewed and noted as below Head; Atraumatic, normocephalic ENT: no ulcers no thrush. Tongue is midline. Oropharynx: no rash or ulcers. she is hard of hearing EYES: Pupils are equal, round and reactive to light accommodation. Eye muscles and extraocular movement intact. Sclera is icteric. Neck; supple no lymphadenopathy, no thyromegaly or bruit Lungs: Normal respiratory rate/effort. Breath sounds bilateral equal and few wheeze Heart: Normal rate. s1s2 normal. No rub or gallop. Extremities: 1+ edema. No varicose veins Neurological: Patient is alert, awake and oriented Strength bilateral appropriate and equal Skin: Warm and dry. Normal turgor. No rash. Palpitation: Normal elasticity for age Abdomen: Abdomen is soft. Bowel sounds +. There is mild RUQ abdominal tenderness, no guarding/rigidity no organomegaly Psych: lack insight and normal affect/mood MSK: no joint tenderness or swelling. Digits and nails normal, no deformity : kidney or bladder not palpable Labs/imaging reviewed. Past medical history, past surgical history, family history, social history, allergy reviewed and noted as below Family hx: no hx of CKD. Rest non-contributory Objective - Vital Signs/Intake and Output Vital Signs (last 24 hours): Temp Pulse Resp BP Pulse Ox 97.4 F L 94 H 18 136/80 97 08/02/18 08:00 08/02/18 11:00 08/02/18 11:00 08/02/18 11:00 08/02/18 11:00 Intake and Output: 08/02/18 08/02/18 06:59 18:59 Intake Total 1410 600 Output Total 1320 50 Balance 90 550 - Medications Medications: Current Medications Aspirin (Aspirin Chewable) 81 mg PO DAILY [facility] Last Admin: 08/02/18 10:00 Dose: 81 mg Heparin Sodium (Porcine) (Heparin) 5,000 units SC Q8 [facility] Last Admin: 08/02/18 13:54 Dose: 5,000 units Linezolid (Zyvox 600mg/300ml D5w) 600 mg in 300 mls @ 200 mls/hr IVPB Q12H [facility]; Protocol Last Admin: 08/02/18 04:11 Dose: 200 mls/hr Moxifloxacin HCl (Avelox Iv 400mg/250ml Ns) 400 mg in 250 mls @ 167 mls/hr IVPB Q24H [facility]; Protocol Last Admin: 08/01/18 17:28 Dose: 167 mls/hr Sodium Chloride (Sodium Chloride 0.9%) 1,000 mls @ 100 mls/hr IV .Q10H [facility] Last Admin: 08/02/18 04:11 Dose: 100 mls/hr Pantoprazole Sodium (Protonix Ec Tab) 40 mg PO DAILY [facility] Last Admin: 08/02/18 10:37 Dose: 40 mg - Labs Labs: 08/02/18 06:13 08/02/18 06:13 PT 13.7 SECONDS (9.7-12.2) H 07/29/18 11:41 INR 1.3 07/29/18 11:41 APTT 35 SECONDS (21-34) H 07/29/18 11:41
--- NOTE | 2018-08-02 15:07 | RAD ---
HISTORY: r/o fluid overload COMPARISON: Chest x-ray performed 07/29/18 TECHNIQUE: Chest, one view. FINDINGS: Examination limited by patient obliquity, habitus, hypoinflation. Right IJ approach central venous catheter likely terminates at the level the cavoatrial junction however difficult to assess given patient obliquity. LUNGS: Mild venous congestion. Patchy infiltrates involving the right mid to lower lobe. Probable retrocardiac infiltrate. Small bilateral effusions. No definite pneumothorax. CARDIOVASCULAR: Borderline cardiomegaly. Atherosclerotic calcifications present. OSSEOUS STRUCTURES: Degenerative changes. Osseous demineralization. VISUALIZED UPPER ABDOMEN: Unremarkable. OTHER FINDINGS: None. IMPRESSION: Mild venous congestion. Patchy infiltrates involving the right mid to lower lobe. Probable retrocardiac infiltrate. Small bilateral effusions. Borderline cardiomegaly. Right IJ approach central venous catheter likely terminates at the level the cavoatrial junction however difficult to assess given patient obliquity.
[2018-08-02] MEDS: Moxifloxacin IV 400mg/250ml NS 400 MG/250 ML BAG IVPB SCH (17:20)
--- NOTE | 2018-08-02 18:24 | CP.PCM.PN ---
Subjective - Date & Time of Evaluation Date of Evaluation: 08/02/18 Time of Evaluation: 15:00 - Subjective Subjective: dictated Objective - Vital Signs/Intake and Output Vital Signs (last 24 hours): Temp Pulse Resp BP Pulse Ox 97.8 F 92 H 16 133/77 95 08/02/18 16:00 08/02/18 17:00 08/02/18 17:00 08/02/18 17:00 08/02/18 17:00 Intake and Output: 08/02/18 08/02/18 06:59 18:59 Intake Total 1410 1300 Output Total 1320 50 Balance 90 1250 - Medications Medications: Current Medications Aspirin (Aspirin Chewable) 81 mg PO DAILY [facility] Last Admin: 08/02/18 10:00 Dose: 81 mg Heparin Sodium (Porcine) (Heparin) 5,000 units SC Q8 [facility] Last Admin: 08/02/18 13:54 Dose: 5,000 units Linezolid (Zyvox 600mg/300ml D5w) 600 mg in 300 mls @ 200 mls/hr IVPB Q12H [facility]; Protocol Last Admin: 08/02/18 16:00 Dose: 200 mls/hr Moxifloxacin HCl (Avelox Iv 400mg/250ml Ns) 400 mg in 250 mls @ 167 mls/hr IVPB Q24H [facility]; Protocol Last Admin: 08/02/18 17:20 Dose: 167 mls/hr Sodium Chloride (Sodium Chloride 0.9%) 1,000 mls @ 100 mls/hr IV .Q10H [facility] Last Admin: 08/02/18 16:00 Dose: 100 mls/hr Lactobacillus Acidophilus (Bacid Acidophilus) 1 cap PO BID [facility] Pantoprazole Sodium (Protonix Ec Tab) 40 mg PO DAILY [facility] Last Admin: 08/02/18 10:37 Dose: 40 mg - Labs Labs: 08/02/18 06:13 08/02/18 06:13 PT 13.7 SECONDS (9.7-12.2) H 07/29/18 11:41 INR 1.3 07/29/18 11:41 APTT 35 SECONDS (21-34) H 07/29/18 11:41
--- NOTE | 2018-08-02 18:33 | CT ---
PROCEDURE: CT Abdomen and Pelvis without Oral or IV contrast. HISTORY: r/o gallbladder pathology COMPARISON: Limited abdominal ultrasound performed 07/29/18 TECHNIQUE: Contiguous axial images of the abdomen and pelvis. No oral or IV contrast administered. Coronal and Sagittal reformats generated and reviewed. Radiation dose: Total exam DLP = 1019.0 mGy-cm. This CT exam was performed using one or more of the following dose reduction techniques: Automated exposure control, adjustment of the mA and/or kV according to patient size, and/or use of iterative reconstruction technique. FINDINGS: There is limited evaluation of the solid organs without the administration of IV contrast. The patient was unable to elevate arms which resulted in streak artifact. LOWER THORAX: Small bilateral pleural effusions and associated consolidations. Partially imaged cardiomegaly. Large hiatal hernia/wall thickening. LIVER: Heterogeneous hepatic parenchyma. GALLBLADDER AND BILE DUCTS: Cholelithiasis. Distended gallbladder. 6 mm hyperdensity noted at the expected location of the distal common bile duct; choledocholithiasis considered. The common bile duct appears dilated measuring approximately 11 mm. PANCREAS: Pancreatic atrophy. SPLEEN: Unremarkable unenhanced appearance. ADRENALS: Nodular hypertrophy of the left adrenal gland. The unenhanced right adrenal gland appears grossly unremarkable. KIDNEYS AND URETERS: No hydronephrosis or obstructing renal calculus. BLADDER: Under distention of the urinary bladder. REPRODUCTIVE: Uterus is not identified presumably due to hysterectomy. Large complex lobulated pelvic mass extending from the mid pelvis to the right lower abdomen measuring approximately 18.9 x 8.5 cm on coronal image 53. This mass appears to contain both solid and cystic components as well as a 10 mm calcification. APPENDIX: The appendix is not identified. No secondary signs of acute appendicitis. BOWEL: The stomach is nondistended. Lack of oral contrast limits evaluation for bowel pathology. The bowel loops appear within normal limits of caliber without evidence of intestinal obstruction. Diverticulosis without CT evidence of acute diverticulitis. PERITONEUM: No significant free fluid. No definite free air. LYMPH NODES: No bulky lymphadenopathy identified. VASCULATURE: Atherosclerotic calcifications of the aorta and branches. No aortic aneurysm. BONES: Osseous demineralization. Degenerative changes. OTHER FINDINGS: Anasarca. IMPRESSION: Large complex pelvic mass of unclear origin, favored ovarian in etiology. Malignant neoplasm is suspected and must be excluded. The uterus is not identified presumably due to hysterectomy. Correlate clinically. Heterogeneous hepatic parenchyma. Recommend further evaluation with contrast enhanced CT. Cholelithiasis. Gallbladder distension. 6 mm hyperdensity noted at the expected location of the distal common bile duct; choledocholithiasis considered. The common bile duct appears dilated measuring approximately 11 mm. Nodular hypertrophy, left adrenal gland. Diverticulosis without CT evidence of acute diverticulitis. Small bilateral pleural effusions and associated consolidations. Partially imaged cardiomegaly. Large hiatal hernia/wall thickening. Anasarca. Additional findings as above.
--- NOTE | 2018-08-02 21:23 | CP.CCUPN ---
<Delbert Kennedy - Last Filed: 08/02/18 21:32> CCU Subjective - Physician Review Subjective (Free Text): PGY-[address] Sawant service Patient seen and examined at bedside. No acute complaints. Patient is awake and responds. Patient is hard of hearing. Denies fevers, chills, chest pain, sob, n/v, constipation or diarrhea, dysuria, or dizziness. 08/02/18 21:22 Critical Care Time Spent (in minutes): 40 CCU Objective - Vital Signs / Intake & Output Vital Signs (Last 4 hours): Vital Signs Pulse Resp BP Pulse Ox 08/02/18 19:00 84 18 120/51 L 94 L 08/02/18 18:00 95 H 15 127/72 94 L Intake and Output (Last 8hrs): Intake & Output 08/02/18 08/02/18 08/02/18 06:59 14:59 22:59 Intake Total 1010 800 700 Output Total 890 50 700 Balance 120 750 0 Weight 134 lb 14.766 oz Intake: Intake, IV Amount 950 800 700 Right Medial Port 950 800 700 Internal Jugular Oral 60 0 Output: Urine 890 50 700 Condom 700 Urethral (Mojica) 890 50 Emesis 0 0 Other: # Bowel Movements 0 0 - Physical Exam Head: Positive for: Atraumatic, Normocephalic Pupils: Positive for: PERRL Extroacular Muscles: Positive for: EOMI Mouth: Positive for: Dry Respiratory/Chest: Positive for: Clear to Auscultation, Good Air Exchange. Negative for: Respiratory Distress, Accessory Muscle Use, Wheezes, Decreased Breath Sounds Cardiovascular: Positive for: Regular Rate and Rhythm, Normal S1, S2. Negative for: Murmurs Abdomen: Positive for: Tenderness (right lower quadrant ), Distention, Normal Bowel Sounds Upper Extremity: Positive for: Normal Inspection. Negative for: Cyanosis, Edema Lower Extremity: Positive for: Normal Inspection. Negative for: Edema Neurological: Positive for: GCS=15 Skin: Positive for: Pale Psychiatric: Positive for: Alert, Oriented x 3 - Medications Active Medications: Active Medications Generic Name Dose Route Start Last Admin Trade Name Freq PRN Reason Stop Dose Admin Aspirin 81 mg 07/30/18 15:30 08/02/18 10:00 Aspirin Chewable PO 81 mg DAILY MILADY Administration Heparin Sodium (Porcine) 5,000 units 07/29/18 22:00 08/02/18 21:15 Heparin SC 5,000 units Q8 MILADY Administration Linezolid 600 mg in 300 mls @ 200 mls/hr 07/29/18 16:45 08/02/18 16:00 Zyvox 600mg/300ml D5w IVPB 200 mls/hr Q12H MILADY Administration Protocol Moxifloxacin HCl 400 mg in 250 mls @ 167 mls/hr 07/29/18 18:15 08/02/18 17:20 Avelox Iv 400mg/250ml Ns IVPB 167 mls/hr Q24H MILADY Administration Protocol Sodium Chloride 1,000 mls @ 100 mls/hr 08/01/18 17:30 08/02/18 16:00 Sodium Chloride 0.9% IV 100 mls/hr .Q10H MILADY Administration Lactobacillus Acidophilus 1 cap 08/03/18 10:00 Bacid Acidophilus PO BID MILADY Pantoprazole Sodium 40 mg 07/30/18 10:00 08/02/18 10:37 Protonix Ec Tab PO 40 mg DAILY MILADY Administration - Patient Studies Lab Studies: Microbiology Studies 07/29/18 12:40 Blood Culture - Preliminary Blood NO GROWTH AFTER 4 DAYS Lab Studies 08/02/18 08/02/18 Range/Units 06:13 06:13 WBC 11.5 H (4.8-10.8) K/uL RBC 3.89 (3.80-5.20) Mil/uL Hgb 10.7 L (11.0-16.0) g/dL Hct 33.3 L (34.0-47.0) % MCV 85.6 (81.0-99.0) fL MCH 27.5 (27.0-31.0) pg MCHC 32.2 L (33.0-37.0) g/dL RDW 17.6 H (11.5-14.5) % Plt Count 215 (130-400) K/uL MPV 12.4 H (7.2-11.7) fL Neut % (Auto) 75.2 H (50.0-75.0) % Lymph % (Auto) 12.0 L (20.0-40.0) % Furnas % (Auto) 7.5 (0.0-10.0) % Eos % (Auto) 5.0 H (0.0-4.0) % Baso % (Auto) 0.3 (0.0-2.0) % Neut # (Auto) 8.7 H (1.8-7.0) K/uL Lymph # (Auto) 1.4 (1.0-4.3) K/uL Furnas # (Auto) 0.9 H (0.0-0.8) K/uL Eos # (Auto) 0.6 (0.0-0.7) K/uL Baso # (Auto) 0.0 (0.0-0.2) K/uL Sodium 136 (132-148) mmol/L Potassium 3.9 (3.6-5.2) mmol/L Chloride 103 (98-107) mmol/L Carbon Dioxide 27 (22-30) mmol/L Anion Gap 11 (10-20) BUN 54 H (7-17) mg/dL Creatinine 3.2 H (0.7-1.2) mg/dL Est GFR ( Amer) 17 Est GFR (Non-Af Amer) 14 Random Glucose 124 H (65-105) mg/dL Calcium 7.0 L (8.6-10.4) mg/dl Phosphorus 3.1 (2.5-4.5) mg/dL Magnesium 1.6 (1.6-2.3) mg/dL Total Bilirubin 2.5 H (0.2-1.3) mg/dL AST 47 H (14-36) U/L ALT 80 H (9-52) U/L Alkaline Phosphatase 569 H (38-126) U/L Total Protein 5.1 L (6.3-8.3) g/dL Albumin 2.5 L (3.5-5.0) g/dL Globulin 2.6 (2.2-3.9) gm/dL Albumin/Globulin Ratio 1.0 (1.0-2.1) Laboratory Results - last 24 hr 08/02/18 08/02/18 06:13 06:13 WBC 11.5 H RBC 3.89 Hgb 10.7 L Hct 33.3 L MCV 85.6 MCH 27.5 MCHC 32.2 L RDW 17.6 H Plt Count 215 MPV 12.4 H Neut % (Auto) 75.2 H Lymph % (Auto) 12.0 L Furnas % (Auto) 7.5 Eos % (Auto) 5.0 H Baso % (Auto) 0.3 Neut # (Auto) 8.7 H Lymph # (Auto) 1.4 Furnas # (Auto) 0.9 H Eos # (Auto) 0.6 Baso # (Auto) 0.0 Sodium 136 Potassium 3.9 Chloride 103 Carbon Dioxide 27 Anion Gap 11 BUN 54 H Creatinine 3.2 H Est GFR ( Amer) 17 Est GFR (Non-Af Amer) 14 Random Glucose 124 H Calcium 7.0 L Phosphorus 3.1 Magnesium 1.6 Total Bilirubin 2.5 H AST 47 H ALT 80 H Alkaline Phosphatase 569 H Total Protein 5.1 L Albumin 2.5 L Globulin 2.6 Albumin/Globulin Ratio 1.0 Radiology Impressions: Radiology Impressions Abdomen/Pelvis CT 08/02/18 10:29 IMPRESSION: Large complex pelvic mass of unclear origin, favored ovarian in etiology. Malignant neoplasm is suspected and must be excluded. The uterus is not identified presumably due to hysterectomy. Correlate clinically. Heterogeneous hepatic parenchyma. Recommend further evaluation with contrast enhanced CT. Cholelithiasis. Gallbladder distension. 6 mm hyperdensity noted at the expected location of the distal common bile duct; choledocholithiasis considered. The common bile duct appears dilated measuring approximately 11 mm. Nodular hypertrophy, left adrenal gland. Diverticulosis without CT evidence of acute diverticulitis. Small bilateral pleural effusions and associated consolidations. Partially imaged cardiomegaly. Large hiatal hernia/wall thickening. Anasarca. Additional findings as above. Chest X-Ray 08/02/18 12:27 IMPRESSION: Mild venous congestion. Patchy infiltrates involving the right mid to lower lobe. Probable retrocardiac infiltrate. Small bilateral effusions. Borderline cardiomegaly. Right IJ approach central venous catheter likely terminates at the level the cavoatrial junction however difficult to assess given patient obliquity. Critical Care Progress Note - Extremities/Vascular Does the Patient have a Central Venous Catheter?: Yes Insertion Site: Internal Jugular Vein Does the Patient need a Central Venous Catheter?: Yes Does the Patient have a Mojica Catheter?: Yes Does the Patient need a Mojica Catheter?: Yes Catheter Insertion Criteria: Need for accurate measurement of output in critically ill patient - Prophylaxis GI Prophylaxis GI: PPI - Prophylaxis DVT Prophylaxis DVT: Heparin SQ - Nutrition Nutrition: Nutrition Category Date Time Status Heart Healthy Diet [DIET] Diets 07/29/18 Lunch Active Assessment/Plan - Assessment and Plan (Free Text) Plan: Patient is a 83 yo female with hx of HTN admitted to ICU for low blood pressure s/p multiple fluid boluses and sepsis with 35.7 wbc, lact 3.1, rhabdo with cpk at 1500. Patient improving at this time. Neuro Awake, alert, oriented baseline- possible dementia Pulm maintain spo2>92 NC PRN CXR- no active disease CV off pressors ASA stable blood pressure GI Protonix CT abd/pelvis- Cholelithiasis. Gallbladder distension. 6 mm hyperdensity noted at the expected location of the distal common bile duct; The common bile duct appears dilated measuring approximately 11 mm. LFTS trending down; T bili trending down; continue IV abx - continue renal diet Renal - Improving JEFF, likely due to ATN from septic shock - continue conservative therapy as per Nephro Dr Lewis - Monitor I/O, daily weights, CMP - IVF rate can be lowered down if patient improves oral intake - will continue to follow Dr Lewis recs - NS @ 100 cc Heme/Onc - CT abd/pelv - Large complex pelvic mass of unclear origin, favored ovarian in etiology. Malignant neoplasm is suspected and must be excluded. - will consult Heme/Onc ID urine cx positibe for g - all, g+ cocci; blood cx positive for g + cocci wbc trending down; bandemia trending down, lactic acid normal Moxifloxacin/Linezolid Dr Ureña - ID - f/u recs - f/u repeat blood cx derm - Sacral blanchable redness - wound care - apply aloevesta protective ointment GI ppx: Protonix, Bacid DVT ppx: Heparin PT - f/u Plan discussed with Dr Jese Kennedy, PGY-1 - Date & Time Date: 08/02/18 Time: 13:00 <Maranda Sawant - Last Filed: 08/02/18 22:31> CCU Objective - Vital Signs / Intake & Output Vital Signs (Last 4 hours): Vital Signs Pulse Resp BP Pulse Ox 08/02/18 21:00 86 15 95 08/02/18 20:50 87 16 116/72 95 08/02/18 20:00 77 11 L 95 08/02/18 19:50 77 12 99/57 L 95 08/02/18 19:00 86 15 120/51 L 95 08/02/18 18:51 89 21 120/51 L 94 L Intake and Output (Last 8hrs): Intake & Output 08/02/18 08/02/18 08/02/18 06:59 14:59 22:59 Intake Total 1010 800 900 Output Total 890 50 700 Balance 120 750 200 Weight 134 lb 14.766 oz Intake: Intake, IV Amount 950 800 900 Right Medial Port 950 800 900 Internal Jugular Oral 60 0 Output: Urine 890 50 700 Condom 700 Urethral (Mojica) 890 50 Emesis 0 0 Other: # Bowel Movements 0 0 - Medications Active Medications: Active Medications Generic Name Dose Route Start Last Admin Trade Name Freq PRN Reason Stop Dose Admin Aspirin 81 mg 07/30/18 15:30 08/02/18 10:00 Aspirin Chewable PO 81 mg DAILY MILADY Administration Heparin Sodium (Porcine) 5,000 units 07/29/18 22:00 08/02/18 21:15 Heparin SC 5,000 units Q8 MILADY Administration Linezolid 600 mg in 300 mls @ 200 mls/hr 07/29/18 16:45 08/02/18 16:00 Zyvox 600mg/300ml D5w IVPB 200 mls/hr Q12H MILADY Administration Protocol Moxifloxacin HCl 400 mg in 250 mls @ 167 mls/hr 07/29/18 18:15 08/02/18 17:20 Avelox Iv 400mg/250ml Ns IVPB 167 mls/hr Q24H MILADY Administration Protocol Sodium Chloride 1,000 mls @ 100 mls/hr 08/01/18 17:30 08/02/18 16:00 Sodium Chloride 0.9% IV 100 mls/hr .Q10H MILADY Administration Lactobacillus Acidophilus 1 cap 08/03/18 10:00 Bacid Acidophilus PO BID MILADY Pantoprazole Sodium 40 mg 07/30/18 10:00 08/02/18 10:37 Protonix Ec Tab PO 40 mg DAILY MILADY Administration - Patient Studies Lab Studies: Microbiology Studies 07/29/18 12:40 Blood Culture - Preliminary Blood NO GROWTH AFTER 4 DAYS Lab Studies 08/02/18 08/02/18 Range/Units 06:13 06:13 WBC 11.5 H (4.8-10.8) K/uL RBC 3.89 (3.80-5.20) Mil/uL Hgb 10.7 L (11.0-16.0) g/dL Hct 33.3 L (34.0-47.0) % MCV 85.6 (81.0-99.0) fL MCH 27.5 (27.0-31.0) pg MCHC 32.2 L (33.0-37.0) g/dL RDW 17.6 H (11.5-14.5) % Plt Count 215 (130-400) K/uL MPV 12.4 H (7.2-11.7) fL Neut % (Auto) 75.2 H (50.0-75.0) % Lymph % (Auto) 12.0 L (20.0-40.0) % Furn[place] % (Auto) 7.5 (0.0-10.0) % Eos % (Auto) 5.0 H (0.0-4.0) % Baso % (Auto) 0.3 (0.0-2.0) % Neut # (Auto) 8.7 H (1.8-7.0) K/uL Lymph # (Auto) 1.4 (1.0-4.3) K/uL Furn[place] # (Auto) 0.9 H (0.0-0.8) K/uL Eos # (Auto) 0.6 (0.0-0.7) K/uL Baso # (Auto) 0.0 (0.0-0.2) K/uL Sodium 136 (132-148) mmol/L Potassium 3.9 (3.6-5.2) mmol/L Chloride 103 (98-107) mmol/L Carbon Dioxide 27 (22-30) mmol/L Anion Gap 11 (10-20) BUN 54 H (7-17) mg/dL Creatinine 3.2 H (0.7-1.2) mg/dL Est GFR ( Amer) 17 Est GFR (Non-Af Amer) 14 Random Glucose 124 H (65-105) mg/dL Calcium 7.0 L (8.6-10.4) mg/dl Phosphorus 3.1 (2.5-4.5) mg/dL Magnesium 1.6 (1.6-2.3) mg/dL Total Bilirubin 2.5 H (0.2-1.3) mg/dL AST 47 H (14-36) U/L ALT 80 H (9-52) U/L Alkaline Phosphatase 569 H (38-126) U/L Total Protein 5.1 L (6.3-8.3) g/dL Albumin 2.5 L (3.5-5.0) g/dL Globulin 2.6 (2.2-3.9) gm/dL Albumin/Globulin Ratio 1.0 (1.0-2.1) Laboratory Results - last 24 hr 08/02/18 08/02/18 06:13 06:13 WBC 11.5 H RBC 3.89 Hgb 10.7 L Hct 33.3 L MCV 85.6 MCH 27.5 MCHC 32.2 L RDW 17.6 H Plt Count 215 MPV 12.4 H Neut % (Auto) 75.2 H Lymph % (Auto) 12.0 L Furn[place] % (Auto) 7.5 Eos % (Auto) 5.0 H Baso % (Auto) 0.3 Neut # (Auto) 8.7 H Lymph # (Auto) 1.4 Furnas # (Auto) 0.9 H Eos # (Auto) 0.6 Baso # (Auto) 0.0 Sodium 136 Potassium 3.9 Chloride 103 Carbon Dioxide 27 Anion Gap 11 BUN 54 H Creatinine 3.2 H Est GFR ( Amer) 17 Est GFR (Non-Af Amer) 14 Random Glucose 124 H Calcium 7.0 L Phosphorus 3.1 Magnesium 1.6 Total Bilirubin 2.5 H AST 47 H ALT 80 H Alkaline Phosphatase 569 H Total Protein 5.1 L Albumin 2.5 L Globulin 2.6 Albumin/Globulin Ratio 1.0 Radiology Impressions: Radiology Impressions Abdomen/Pelvis CT 08/02/18 10:29 IMPRESSION: Large complex pelvic mass of unclear origin, favored ovarian in etiology. Malignant neoplasm is suspected and must be excluded. The uterus is not identified presumably due to hysterectomy. Correlate clinically. Heterogeneous hepatic parenchyma. Recommend further evaluation with contrast enhanced CT. Cholelithiasis. Gallbladder distension. 6 mm hyperdensity noted at the expected location of the distal common bile duct; choledocholithiasis considered. The common bile duct appears dilated measuring approximately 11 mm. Nodular hypertrophy, left adrenal gland. Diverticulosis without CT evidence of acute diverticulitis. Small bilateral pleural effusions and associated consolidations. Partially imaged cardiomegaly. Large hiatal hernia/wall thickening. Anasarca. Additional findings as above. Chest X-Ray 08/02/18 12:27 IMPRESSION: Mild venous congestion. Patchy infiltrates involving the right mid to lower lobe. Probable retrocardiac infiltrate. Small bilateral effusions. Borderline cardiomegaly. Right IJ approach central venous catheter likely terminates at the level the cavoatrial junction however difficult to assess given patient obliquity. Critical Care Progress Note - Nutrition Nutrition: Nutrition Category Date Time Status Heart Healthy Diet [DIET] Diets 07/29/18 Lunch Active Attending/Attestation - Attestation I have personally seen and examined this patient.: Yes I have fully participated in the care of the patient.: Yes I have reviewed all pertinent clinical information: Yes Notes (Text): 08/02/18 22:31 Patient was examined during the rounds in the morning. Admitted initially with the septic shock. Gram-negative bacteremia. Likely cholecystitis. Patient also had a CAT scan. Malignant ovarian cystic lesions noted. We will get a surgical opinion. I spoke to the patient's NOK in detail. Plan discussed during the rounds
--- NOTE | 2018-08-02 23:29 | PN ---
DATE: 08/02/2018 SUBJECTIVE: The patient was seen today. She was feeling thirsty. Fluid supplementation and bicarb drip is gone now. PHYSICAL EXAMINATION VITAL SIGNS: T-max is 97.8, pulse 94, blood pressure 133/77, respirations 16. GENERAL: She is able to answer simple questions. She has a triple-lumen present. HEENT: Head is atraumatic and normocephalic. NECK: Supple. LUNGS: Clear. HEART: S1 and S2 regular. ABDOMEN: Soft, nontender. No guarding, no rigidity present. EXTREMITIES: No edema, clubbing or cyanosis. She came after a fall, had septic shock. Now her blood cultures have revealed Enterococcus faecium. Most likely, bowel is the source. She did have gallstones. We want to make sure if she did not have any acute cholecystitis as, however, when she came, there was no abdominal pain, but she had significant LFTs increased with alkaline phosphatase. Her urine culture shows E. coli and Strep gallolyticus, and those are covered with these two antibiotics. Repeat blood culture has been ordered. She just had another CAT scan of the abdomen and pelvis, which result is pending at this time. Her urine culture from we are waiting to see if the blood cultures improve on present antibiotics. Kidney functions are also being monitored at this time. Labs show white count is 11.5, she came with a white count of 35.3; hemoglobin 10.7 and hematocrit 33.3. Her BUN is 54, creatinine remains high at 3.2. LFTs have come down. Total bilirubin is now 2.5. She came with a bilirubin more than 13. LFTs are also getting better. Alkaline phosphatase is decreasing. Her total CPK is also decreasing. IMPRESSION: The patient is with septic shock with Enterococcus septicemia, urinary tract infection, history of fall, acute renal failure and severe septic shock with septicemia and really high WBC count. Curry Ureña MD
[2018-08-03] MEDS: Linezolid 600 mg in D5W 300 ml 600 MG/300 ML BAG IVPB SCH ×2 (04:20→16:48)
--- NOTE | 2018-08-03 06:20 | PN ---
DATE: 08/01/2018 SUBJECTIVE: The patient was seen and examined at bedside, 08/01/2018, looking comfortable, having lunch. Awake, alert. No fever, no chills. No hematuria. No hematochezia. No headache. No dizziness. No chest pain. No palpitations. PHYSICAL EXAMINATION: VITAL SIGNS: Temperature 97.8, pulse 81, respiratory rate 16, blood pressure 101/51, pulse oximetry 95. HEENT: Head is normocephalic and atraumatic. Eyes: PERRLA. Extraocular movements are intact. Conjunctivae clear. Nose patent. NECK: Supple. No carotid bruits. No JVD or thyromegaly. CHEST: Bilaterally symmetrical. HEART: S1 and S2 positive. LUNGS: Clear to auscultation. ABDOMEN: Soft. Bowel sounds present. No organomegaly. EXTREMITIES: No edema. No cyanosis. NEUROLOGIC: The patient is awake and alert. Moving all four extremities. No focal deficits. Obeying simple orders. LABORATORY DATA: White blood cells 16.1, hemoglobin 10.7, hematocrit 32.9, platelets 227. Sodium 132, potassium 3.2, BUN 6, creatinine 3.7, glucose 140. MEDICATIONS: Aspirin, calcium with vitamin D, heparin, Zyvox, Avelox, dextrose, pantoprazole, potassium. ASSESSMENT AND PLAN: Ms. Simeon Corona is an 83-year-old lady with leukocytosis; anemia; hypokalemia, replaced; renal insufficiency, improving; hyperglycemia; acute kidney injury/chronic kidney disease/rhabdomyolysis; sepsis and pneumonia. Continue intravenous bicarbonate drip with gentle hydration. The patient's urine output is improving. According to hiv counselor, keep urine pH more than 6.5 . pt had sepsis, gram-negative rods. Continue antibiotics as per Infectious Disease. For diastolic heart failure, continue aspirin and statin, continue oral renal diet, continue deep venous thrombosis and gastric prophylaxis. The patient remains hemodynamically stable, out of bed, physical therapy. Appreciated Dr. Avril Pickard, Dr. Valerio Lewis and Dr. Curry Ureña's notes. Enterococcus is vancomycin sensitive, ampicillin sensitive, linezolid sensitive. She is on linezolid at this time, but it is also penicillin sensitive, but she is ALLERGIC TO PENICILLIN and Cipro sensitive. The patient is right now on linezolid as well as moxifloxacin as per Infectious Disease. We will continue both of them at this time covering for the blood. Urine had different bugs, Enterococcus and Streptococcus . According to Infectious Disease, this infection came from abdomen. E. coli is also sensitive to Cipro at this time. We will continue both drugs. We will repeat blood culture. The patient has cholelithiasis with cholecystitis, improving with antibiotics. Septic shock is improving. The patient has many problems, but improving slowly. We will repeat labs. We will follow up. Donna Wallace MD MTDJonathan
[2018-08-03] MEDS: Sodium Chloride 0.9% 1,000 ML IV SCH (06:30)
[2018-08-03 06:42] LABS: BASO % 0.3 % (0.0-2.0); EOS # 0.5 K/uL (0.0-0.7); EOS % 5.8 % (0.0-4.0); HEMOGLOBIN 10.7 g/dL (11.0-16.0); LYMPH # 1.2 K/uL (1.0-4.3); LYMPH % 13.5 % (20.0-40.0); MEAN CELL VOLUME 86.9 fL (81.0-99.0); MEAN CORPUSCULAR HEMOGLOBIN 28.3 pg (27.0-31.0); MEAN CORPUSCULAR HGB CONC 32.6 g/dL (33.0-37.0); MEAN PLATELET VOLUME 12.7 fL (7.2-11.7); MONO # 0.8 K/uL (0.0-0.8); MONO % 8.9 % (0.0-10.0); NEUT # 6.5 K/uL (1.8-7.0); NEUT % 71.5 % (50.0-75.0); RBC 3.8 Mil/uL (3.80-5.20); RED CELL DISTRIBUTION WIDTH 18.2 % (11.5-14.5)
[2018-08-03 06:58] LABS: ALBUMIN 2.5 g/dL (3.5-5.0)
--- NOTE | 2018-08-03 08:28 | CP.PCM.CON ---
History of Present Illness - History of Present Illness History of Present Illness: Surgery Consult note. Dr. Deleon 83yo F with an unknown PMHx and no recent medical follow up who was admitted on 07/29 for sepsis and fall. Patient was found to have elevated LFTs and a Abd US showed cholelithiasis, an immobile large gallstone and thickened wall. CBD was 7mm at that time. Patient has since improved clinically since. Currently, she only c/o right lower quadrant abdominal pain. Denies any fevers or chills, no nausea, no vomiting. She has been tolerating her diet and reports normal bowel movements. No other complaints reported. PMHx: Unknown; Denies PSHx: None Family Hx: Denies Social Hx: Denies tobacco use, denies etoh, denies illicit drugs Allergy: PCNs Review of Systems - Review of Systems All systems: reviewed and no additional remarkable complaints except - Constitutional Constitutional: As Per HPI Past Patient History - Infectious Disease Hx of Infectious Diseases: None - Past Medical History & Family History Past Medical History?: No Past Family History: Reviewed and not pertinent - Past Social History Smoking Status: Never Smoked Alcohol: None Drugs: Denies - CARDIAC Hx Hypertension: Yes - MUSCULOSKELETAL/RHEUMATOLOGICAL Hx Falls: Yes - PSYCHIATRIC Hx Substance Use: No - SURGICAL HISTORY Hx Surgeries: No - ANESTHESIA Hx Anesthesia: No Meds Allergies/Adverse Reactions: Allergies Allergy/AdvReac Type Severity Reaction Status Date / Time Penicillins Allergy Verified 07/29/18 10:24 - Medications Medications: Current Medications Aspirin (Aspirin Chewable) 81 mg PO DAILY [facility] Last Admin: 08/02/18 10:00 Dose: 81 mg Heparin Sodium (Porcine) (Heparin) 5,000 units SC Q8 MILADY Last Admin: 08/03/18 06:29 Dose: 5,000 units Linezolid (Zyvox 600mg/300ml D5w) 600 mg in 300 mls @ 200 mls/hr IVPB Q12H MILADY; Protocol Last Admin: 08/03/18 04:20 Dose: 200 mls/hr Moxifloxacin HCl (Avelox Iv 400mg/250ml Ns) 400 mg in 250 mls @ 167 mls/hr IVPB Q24H MILADY; Protocol Last Admin: 08/02/18 17:20 Dose: 167 mls/hr Sodium Chloride (Sodium Chloride 0.9%) 1,000 mls @ 100 mls/hr IV .Q10H [facility] Last Admin: 08/03/18 06:30 Dose: 100 mls/hr Lactobacillus Acidophilus (Bacid Acidophilus) 1 cap PO BID [facility] Pantoprazole Sodium (Protonix Ec Tab) 40 mg PO DAILY [facility] Last Admin: 08/02/18 10:37 Dose: 40 mg Physical Exam - Constitutional Appears: Well, Non-toxic, No Acute Distress - Head Exam Head Exam: ATRAUMATIC, NORMAL INSPECTION, NORMOCEPHALIC - Eye Exam Eye Exam: EOMI, Normal appearance - ENT Exam ENT Exam: Mucous Membranes Moist - Respiratory Exam Respiratory Exam: NORMAL BREATHING PATTERN. absent: Accessory Muscle Use, Respiratory Distress - Cardiovascular Exam Cardiovascular Exam: absent: JVD - GI/Abdominal Exam GI & Abdominal Exam: Soft. absent: Distended, Firm, Guarding, Rebound, Rigid Additional comments: mild tenderness to palpation RLQ. No rebound. No guarding. - Extremities Exam Extremities exam: Positive for: normal inspection. Negative for: calf tenderness - Neurological Exam Neurological exam: Alert, Oriented x3 - Psychiatric Exam Psychiatric exam: Normal Affect, Normal Mood - Skin Skin Exam: Dry, Intact, Normal Color, Warm Results - Vital Signs Recent Vital Signs: Last Vital Signs Temp 97.7 F 08/03/18 04:00 Pulse 83 08/03/18 06:00 Resp 18 08/03/18 06:00 BP 132/68 08/03/18 05:50 Pulse Ox 95 08/03/18 06:00 - Labs Result Diagrams: 08/03/18 06:32 08/03/18 06:32 Labs: Laboratory Results - last 24 hr 08/03/18 08/03/18 06:32 06:32 WBC 9.0 RBC 3.80 Hgb 10.7 L Hct 33.0 L MCV 86.9 MCH 28.3 MCHC 32.6 L RDW 18.2 H Plt Count 205 MPV 12.7 H Neut % (Auto) 71.5 Lymph % (Auto) 13.5 L Gaines % (Auto) 8.9 Eos % (Auto) 5.8 H Baso % (Auto) 0.3 Neut # (Auto) 6.5 Lymph # (Auto) 1.2 Gaines # (Auto) 0.8 Eos # (Auto) 0.5 Baso # (Auto) 0.0 Sodium 135 Potassium 3.5 L Chloride 105 Carbon Dioxide 24 Anion Gap 10 BUN 45 H Creatinine 2.4 H Est GFR ( Amer) 23 Est GFR (Non-Af Amer) 19 Random Glucose 130 H Calcium 7.0 L Phosphorus 3.6 Magnesium 1.5 L Total Bilirubin 2.2 H AST 35 ALT 65 H Alkaline Phosphatase 477 H Total Protein 4.9 L Albumin 2.5 L Globulin 2.5 Albumin/Globulin Ratio 1.0 Assessment & Plan - Assessment and Plan (Free Text) Assessment: 83yo F with possible cholecystitis. - CT scan noted. Distended GB. Large pelvic mass. - Leukocytosis improved compared to admission - LFTs improving compared to admission Plan: - f/u HIDA scan - f/u MRCP to r/o choledocholithiasis - May be a candidate for PTC if warranted Further recs as per Dr. Pancho Noble PGY2 surgery
[2018-08-03] MEDS: Lactobacillus Acidophilus 500 MU Cap PO SCH ×2 (09:48→18:58)
[2018-08-03] MEDS: Pantoprazole 40 mg EC Tab PO SCH (09:48)
[2018-08-03] MEDS ORDERED: Sodium Chloride 0.9% 1,000 ML IV SCH (10:27)
[2018-08-03] MEDS: Magnesium Sulfate 1 gm in D5W 1 GM/100 ML BAG IVPB SCH (11:07)
--- NOTE | 2018-08-03 11:08 | CP.PCM.PN ---
Subjective - Date & Time of Evaluation Date of Evaluation: 08/03/18 Time of Evaluation: 11:07 - Subjective Subjective: Nephrology Consultation Note: Assessment: stable Acute Kidney Injury (N17.9) likely due to ATN from septic shock: improving Fall abnormal LFT hyperphosphatemia, HAGMA UTI cholelithiasis pelvic mass hypomagnesemia hypokalemia Plan No acute need for renal replacement therapy at this time hopefully will continue to improve with conservative management. Maintain hemodynamics stable. Avoid hypotension. Patient not on ACEI/ARB due to recent JEFF Monitor Input/Output, daily weights and renal function with basic metabolic panel can lower down IVF rate as oral intake better. lasix as needed supplement lytes as needed Dose meds/antibiotics for reduced GFR. Avoid fleets enema/magnesium based laxatives. Avoid nephrotoxins/NSAIDs/ iodinated contrast (unless needed emergently) Glycemic control Further work up/management as per primary team Thanks for allowing me to participate in care of your patient. Will follow patient with you. Please call if any Qs. had d/w team Dr Valerio Lewis Office: [phone] Chief Complaint; fall Reason for consult: Acute Kidney Injury HPI: Pt is a 83 F without any known medical hx but no recent medical follow up presented with complaints of fall and found to have sepsis with shock, abnormal LFT and JEFF No recent iodinated contrast exposure. Noted obvious episodes of low BP. ROS: pt is a poor historian and provided little reliable ROS Cardiovascular: No chest pain. Pulmonary: No shortness of breath Gastrointestinal: denies abdominal pain No nausea. No vomiting. no loose stool at present Genitourinary: No pain while urinating. Denies blood in urine. All other negative except as mentioned in HPI Physical Examination: General Appearance: Comfortable, in no acute respiratory distress, co-operative . chronically debilitated appearing Vitals reviewed and noted as below Head; Atraumatic, normocephalic ENT: no ulcers no thrush. Tongue is midline. Oropharynx: no rash or ulcers. she is hard of hearing EYES: Pupils are equal, round and reactive to light accommodation. Eye muscles and extraocular movement intact. Sclera is icteric. Neck; supple no lymphadenopathy, no thyromegaly or bruit Lungs: Normal respiratory rate/effort. Breath sounds bilateral equal and few wheeze Heart: Normal rate. s1s2 normal. No rub or gallop. Extremities: trace edema. No varicose veins Neurological: Patient is alert, awake and oriented Strength bilateral appr opriate and equal Skin: Warm and dry. Normal turgor. No rash. Palpitation: Normal elasticity for age Abdomen: Abdomen is soft. Bowel sounds +. There is mild Rt abdominal tenderness, no guarding/rigidity no organomegaly Psych: lack insight and normal affect/mood MSK: no joint tenderness or swelling. Digits and nails normal, no deformity : kidney or bladder not palpable Labs/imaging reviewed. Past medical history, past surgical history, family history, social history, allergy reviewed and noted as below Family hx: no hx of CKD. Rest non-contributory Objective - Vital Signs/Intake and Output Vital Signs (last 24 hours): Temp Pulse Resp BP Pulse Ox 97.4 F L 87 10 L 120/68 99 08/03/18 08:00 08/03/18 10:00 08/03/18 10:00 08/03/18 08:00 08/03/18 10:00 Intake and Output: 08/03/18 08/03/18 06:59 18:59 Intake Total 1350 200 Output Total 801 Balance 549 200 - Medications Medications: Current Medications Aspirin (Aspirin Chewable) 81 mg PO DAILY [facility] Last Admin: 08/03/18 09:48 Dose: Not Given Heparin Sodium (Porcine) (Heparin) 5,000 units SC Q8 [facility] Last Admin: 08/03/18 06:29 Dose: 5,000 units Linezolid (Zyvox 600mg/300ml D5w) 600 mg in 300 mls @ 200 mls/hr IVPB Q12H [facility]; Protocol Last Admin: 08/03/18 04:20 Dose: 200 mls/hr Moxifloxacin HCl (Avelox Iv 400mg/250ml Ns) 400 mg in 250 mls @ 167 mls/hr IVPB Q24H [facility]; Protocol Last Admin: 08/02/18 17:20 Dose: 167 mls/hr Potassium Phosphate 15 mmole/ (Dextrose) 255 mls @ 42.5 mls/hr IVPB ONCE ONE Stop: 08/03/18 18:59 Magnesium Sulfate/Dextrose (Magnesium Sulfate 1 Gm/100 Ml D5w) 1 gm in 100 mls @ 200 mls/hr IVPB ONCE ONE Stop: 08/03/18 12:29 Last Admin: 08/03/18 11:06 Dose: 200 mls/hr Magnesium Sulfate/Dextrose (Magnesium Sulfate 1 Gm/100 Ml D5w) 1 gm in 100 mls @ 300 mls/hr IVPB Q30M [facility] Stop: 08/03/18 11:49 Last Admin: 08/03/18 11:07 Dose: 300 mls/hr Sodium Chloride (Sodium Chloride 0.9%) 1,000 mls @ 50 mls/hr IV .Q20H [facility] Lactobacillus Acidophilus (Bacid Acidophilus) 1 cap PO BID [facility] Last Admin: 08/03/18 09:48 Dose: Not Given Pantoprazole Sodium (Protonix Ec Tab) 40 mg PO DAILY [facility] Last Admin: 08/03/18 09:48 Dose: Not Given - Labs Labs: 08/03/18 06:32 08/03/18 06:32 PT 13.7 SECONDS (9.7-12.2) H 07/29/18 11:41 INR 1.3 07/29/18 11:41 APTT 35 SECONDS (21-34) H 07/29/18 11:41
[2018-08-03] MEDS ORDERED: Magnesium Sulfate 1 gm in D5W 1 GM/100 ML BAG IVPB ONE (12:00)
[2018-08-03] MEDS ORDERED: Potassium Phosphate 15 MMOLE in Dextrose 5% In Water 250 ML IVPB ONE (13:00)
--- NOTE | 2018-08-03 16:38 | NM ---
Date of service: 08/03/2018 PROCEDURE: Nuclear Medicine Hepatobiliary Scan HISTORY: r/o cystic duct obstruction COMPARISON: None available. TECHNIQUE: 6.1 mCi of technetium 99m Mebrofenin was administered intravenously. Planar images of the abdomen were obtained at 5 min intervals to 60 mins. Delayed images were also obtained up to 4 hr post isotope administration. FINDINGS: LIVER: Timely and homogenous uptake. COMMON BILE DUCT: identified at 45 mins. GALLBLADDER: identified at 180-240 mins. SMALL BOWEL: Identified at 50 mins. IMPRESSION: The cystic and common bile ducts are patent. Chronic cholecystitis is not excluded. No evidence to suggest acute cholecystitis.
[2018-08-03] MEDS: Moxifloxacin IV 400mg/250ml NS 400 MG/250 ML BAG IVPB SCH (18:26)
--- NOTE | 2018-08-03 18:41 | CP.PCM.CON ---
History of Present Illness - History of Present Illness History of Present Illness: This is a 83 y/o Post menopausal female who was admitted to hospital due to medical conditions as per Medical records found to have a possible ovarian mass on CT scan. pt has no c/o pelvic pain. She is a very poor historian. As per the pt She is unmarried and never had Children. Review of Systems - Review of Systems Systems not reviewed;Unavailable: Other - Constitutional Constitutional: As Per HPI - EENT Eyes: As Per HPI Ears: As Per HPI Nose/Mouth/Throat: As Per HPI - Breasts Breasts: As Per HPI - Cardiovascular Cardiovascular: As Per HPI, Pain Radiating to Arm/Neck/Jaw - Respiratory Respiratory: As Per HPI - Gastrointestinal Gastrointestinal: As Per HPI - Genitourinary Genitourinary: As Per HPI - Reproductive: Female Reproductive:Female: As Per HPI - Menstruation Menstruation: Post Menopausal Additional comments: As per the pt never had surgery Past Patient History - Infectious Disease Hx of Infectious Diseases: None - Past Medical History & Family History Past Medical History?: No Past Family History: Reviewed and not pertinent - Past Social History Smoking Status: Never Smoked Alcohol: None Drugs: Denies - CARDIAC Hx Hypertension: Yes - MUSCULOSKELETAL/RHEUMATOLOGICAL Hx Falls: Yes - GENITOURINARY/GYNECOLOGICAL Hx Ovarian Cancer: No Hx Postmenopausal Bleeding: No Hx Reproductive Disorders: No Hx Sexually Transmitted Disorders: No Hx Uterine Cancer: No : 0 Para: 0 - PSYCHIATRIC Hx Substance Use: No - SURGICAL HISTORY Hx Surgeries: No - ANESTHESIA Hx Anesthesia: No Meds Allergies/Adverse Reactions: Allergies Allergy/AdvReac Type Severity Reaction Status Date / Time Penicillins Allergy Verified 07/29/18 10:24 - Medications Medications: Current Medications Aspirin (Aspirin Chewable) 81 mg PO DAILY [facility] Last Admin: 08/03/18 09:48 Dose: Not Given Heparin Sodium (Porcine) (Heparin) 5,000 units SC Q8 [facility] Last Admin: 08/03/18 14:04 Dose: 5,000 units Linezolid (Zyvox 600mg/300ml D5w) 600 mg in 300 mls @ 200 mls/hr IVPB Q12H [facility]; Protocol Last Admin: 08/03/18 16:48 Dose: 200 mls/hr Moxifloxacin HCl (Avelox Iv 400mg/250ml Ns) 400 mg in 250 mls @ 167 mls/hr IVPB Q24H [facility]; Protocol Last Admin: 08/03/18 18:26 Dose: 167 mls/hr Potassium Phosphate 15 mmole/ (Dextrose) 255 mls @ 42.5 mls/hr IVPB ONCE ONE Stop: 08/03/18 18:59 Last Admin: 08/03/18 14:00 Dose: 42.5 mls/hr Sodium Chloride (Sodium Chloride 0.9%) 1,000 mls @ 50 mls/hr IV .Q20H [facility] Last Admin: 08/03/18 14:05 Dose: Not Given Lactobacillus Acidophilus (Bacid Acidophilus) 1 cap PO BID [facility] Last Admin: 08/03/18 09:48 Dose: Not Given Pantoprazole Sodium (Protonix Ec Tab) 40 mg PO DAILY [facility] Last Admin: 08/03/18 09:48 Dose: Not Given Physical Exam - Exam Additional comments: Deferred at this time. Results - Vital Signs Recent Vital Signs: Last Vital Signs Temp 97.6 F 08/03/18 16:20 Pulse 86 08/03/18 16:20 Resp 18 08/03/18 16:20 BP 129/71 08/03/18 16:20 Pulse Ox 96 08/03/18 16:20 - Labs Result Diagrams: 08/03/18 06:32 08/03/18 06:32 Labs: Laboratory Results - last 24 hr 08/03/18 08/03/18 06:32 06:32 WBC 9.0 RBC 3.80 Hgb 10.7 L Hct 33.0 L MCV 86.9 MCH 28.3 MCHC 32.6 L RDW 18.2 H Plt Count 205 MPV 12.7 H Neut % (Auto) 71.5 Lymph % (Auto) 13.5 L [place] % (Auto) 8.9 Eos % (Auto) 5.8 H Baso % (Auto) 0.3 Neut # (Auto) 6.5 Lymph # (Auto) 1.2 [place] # (Auto) 0.8 Eos # (Auto) 0.5 Baso # (Auto) 0.0 Sodium 135 Potassium 3.5 L Chloride 105 Carbon Dioxide 24 Anion Gap 10 BUN 45 H Creatinine 2.4 H Est GFR ( Amer) 23 Est GFR (Non-Af Amer) 19 Random Glucose 130 H Calcium 7.0 L Phosphorus 3.6 Magnesium 1.5 L Total Bilirubin 2.2 H AST 35 ALT 65 H Alkaline Phosphatase 477 H Total Protein 4.9 L Albumin 2.5 L Globulin 2.5 Albumin/Globulin Ratio 1.0 - Imaging and Cardiology CT scan - pelvis Status: Image reviewed by me (Large pelvic mass, Most likely ovarian origin) Assessment & Plan (1) Pelvic mass in female Status: Acute Priority: High - Assessment and Plan (Free Text) Assessment: 83 y/o Postmenopusal female with incidental finding of a possible pelvic mass Plan: Pelvic US needs out pt f/u with [facility]OR/ [facility] INSPECTOR ONC pending Pelvic US findings - Date & Time Date: 08/03/18 Time: 18:45
--- NOTE | 2018-08-03 22:04 | CP.PCM.PN ---
Subjective - Date & Time of Evaluation Date of Evaluation: 08/03/18 Time of Evaluation: 12:00 - Subjective Subjective: dictated Objective - Vital Signs/Intake and Output Vital Signs (last 24 hours): Temp Pulse Resp BP Pulse Ox 97.6 F 86 18 129/71 96 08/03/18 16:20 08/03/18 16:20 08/03/18 16:20 08/03/18 16:20 08/03/18 16:20 Intake and Output: 08/03/18 08/04/18 18:59 06:59 Intake Total 675.0 Output Total 500 Balance 175.0 - Medications Medications: Current Medications Aspirin (Aspirin Chewable) 81 mg PO DAILY [facility] Last Admin: 08/03/18 09:48 Dose: Not Given Heparin Sodium (Porcine) (Heparin) 5,000 units SC Q8 [facility] Last Admin: 08/03/18 14:04 Dose: 5,000 units Linezolid (Zyvox 600mg/300ml D5w) 600 mg in 300 mls @ 200 mls/hr IVPB Q12H [facility]; Protocol Last Admin: 08/03/18 16:48 Dose: 200 mls/hr Moxifloxacin HCl (Avelox Iv 400mg/250ml Ns) 400 mg in 250 mls @ 167 mls/hr IVPB Q24H [facility]; Protocol Last Admin: 08/03/18 18:26 Dose: 167 mls/hr Sodium Chloride (Sodium Chloride 0.9%) 1,000 mls @ 50 mls/hr IV .Q20H [facility] Last Admin: 08/03/18 14:05 Dose: Not Given Lactobacillus Acidophilus (Bacid Acidophilus) 1 cap PO BID [facility] Last Admin: 08/03/18 18:58 Dose: Not Given Pantoprazole Sodium (Protonix Ec Tab) 40 mg PO DAILY [facility] Last Admin: 08/03/18 09:48 Dose: Not Given - Labs Labs: 08/03/18 06:32 08/03/18 06:32 PT 13.7 SECONDS (9.7-12.2) H 07/29/18 11:41 INR 1.3 07/29/18 11:41 APTT 35 SECONDS (21-34) H 07/29/18 11:41
--- NOTE | 2018-08-04 03:35 | PN ---
DATE: 08/03/2018 SUBJECTIVE: The patient is feeling better. She is improving. She was supposed to go for a HIDA scan today. She denied any abdominal pains and she has not had pains as such. She is improving on previous antibiotics. PHYSICAL EXAMINATION: VITAL SIGNS: T-max is 97.6, pulse 86 today, blood pressure 129/71, respirations are 18. HEENT: Head is atraumatic, normocephalic. Icterus has decreased. LUNGS: Clear. HEART: S1, S2. Regular. ABDOMEN: Soft, nontender. EXTREMITIES: No edema. LABORATORY DATA: White count today is 9, hemoglobin 10.7, hematocrit 33, platelet count is 205. Chemistry shows sodium 135, potassium 3.5, creatinine is coming down to 2.4. Total bilirubin is 2.2 now, alkaline phosphatase 477, ALT is 65. Liver functions are also getting better. She had an abdominal CT yesterday, which was suggested for CBD stone, and so, today she underwent a HIDA scan, and HIDA scan report says the cystic and common bile duct are patent, chronic cholecystitis is not excluded, no evidence to suggest acute cholecystitis. ASSESSMENT AND PLAN: So, at this time, I will continue present antibiotics. We will follow with other consultants. She is on Avelox and Zyvox. Her blood cultures were positive for Enterococcus faecium, which is Cipro sensitive and vancomycin sensitive and penicillin sensitive, but she is allergic to penicillin, so we will continue both medications at this time and we will follow. She may have had cholecystitis. There are no bowel issues. Urine has a different bacteria, urinary tract infection is there. To repeat urine again. Curry Ureña MD
--- NOTE | 2018-08-04 04:25 | PN ---
DATE: 08/03/2018 SUBJECTIVE: The patient is an 83-year-old female. The patient was seen and examined at bedside, looking comfortable. No fever. No chills. No hematuria or hematochezia. No headache. No dizziness. No chest pain. No palpitation. PHYSICAL EXAMINATION: VITAL SIGNS: Temperature 97.6, pulse 86, respiratory rate 18, blood pressure 120/71, and pulse oximetry 96. HEENT: Head: Normocephalic and atraumatic. Eyes: PERRLA. Extraocular movements intact. Conjunctivae clear. Nose patent. NECK: Supple. No carotid bruit. No JVD or thyromegaly. CHEST: Bilaterally symmetrical. HEART: S1 and S2 positive. LUNGS: Clear to auscultation. ABDOMEN: Soft. Bowel sounds present. No organomegaly. EXTREMITIES: No edema. No cyanosis. NEUROLOGICAL: The patient is awake, alert, moving all four extremities. No focal deficits. MEDICATIONS: Heparin, Zyvox, Avelox, normal saline, Pepcid, and Protonix. LABORATORY DATA: White blood cell 9, hemoglobin 10.7, hematocrit 33, platelets 205. Sodium 135, potassium 3.5, BUN 45, creatinine 2.4, and glucose 130. ASSESSMENT AND PLAN: Ms. Chloe Robledo is an 83-year-old lady with anemia, hypokalemia, renal insufficiency, hyperglycemia, possibly history of ovarian mass, very poor historian. The patient is unmarried and never has children. incidental finding of possible pelvic mass. Need outpatient followup with Gynecology. As per Gynecology, seen by auto electrician, Dr. Valerio Lewis. Went for hepatobiliary scan. According to Dr. Luo, the patient has acute kidney injury, likely due to acute tubular necrosis from septic shock improving, history of fall, abnormal liver function test, hypophosphatemia, urinary tract infection, cholelithiasis, pelvic mass, hypomagnesemia, hypokalemia, no acute need for renal replacement therapy. At this time, hopefully, we will continue improving with observation management, maintain hemodynamically stable with hypotensive medications. Gastrointestinal and deep venous thrombosis prophylaxis. Repeat laboratories. We will follow up. Donna Wallace MD [facility] # [id number] MTDJonathan
[2018-08-04] MEDS: Linezolid 600 mg in D5W 300 ml 600 MG/300 ML BAG IVPB SCH ×2 (05:46→18:56)
--- NOTE | 2018-08-04 06:43 | PN ---
DATE: 08/02/2018 SUBJECTIVE: The patient is an 83-year-old female. The patient was seen and examined at bedside on 08/02/2018, looking comfortable, tolerating food very well. Sleep is okay. Awake and alert. No fever. No chills. No hematuria or hematochezia. No headache or dizziness. PHYSICAL EXAMINATION: VITAL SIGNS: Temperature 98.6, pulse 95, respiratory rate 18, blood pressure 127/72, and pulse oximetry is 94. HEENT: Head: Normocephalic and atraumatic. Eyes: PERRLA. Extraocular muscles intact. Conjunctivae clear. Nose patent. NECK: Supple. No carotid bruit. No JVD or thyromegaly. CHEST: Bilaterally symmetrical. HEART: S1 and S2 positive. LUNGS: Clear to auscultation. ABDOMEN: Soft. Bowel sounds present. No organomegaly. EXTREMITIES: No edema. No cyanosis. NEUROLOGIC: The patient is awake and alert. Moving all four extremities. No focal deficits. MEDICATIONS: Aspirin, heparin, Zyvox, Avelox, normal saline, Lactobacillus, and Protonix. LABORATORY DATA: Blood cultures, no growth after four days. White blood cells 11.5, hemoglobin 10.7, hematocrit 33.3, and platelets 215. Sodium 132, potassium 3.9, chloride 103, BUN 54, creatinine 3.2, calcium 7. AST 47, ALT 80. ASSESSMENT AND PLAN: Mr. Chloe Robledo is an 83-year-old lady with abnormal liver function test, renal insufficiency, hyperglycemia, hypocalcemia, anemia, came with septic shock. Getting double antibiotics. CAT scan shows large complex pelvic mass of unclear reason and etiology. Malignant neoplasm suspected and must be not be excluded. Diverticulosis without CT evidence of acute diverticulitis, small bilateral pleural effusion with associated consolidation, cardiomegaly, large hiatal hernia with wall thickening, anasarca. Physical therapy. Out of bed. We will call obstetrics/gynecology consult. Repeat laboratories. We will follow up. Donna Wallace MD [facility]
[2018-08-04 08:40] LABS: HEMOGLOBIN 10.3 g/dL (11.0-16.0); MEAN CORPUSCULAR HEMOGLOBIN 28.1 pg (27.0-31.0); MEAN CORPUSCULAR HGB CONC 32.7 g/dL (33.0-37.0); MEAN PLATELET VOLUME 11.5 fL (7.2-11.7); RBC 3.67 Mil/uL (3.80-5.20); RED CELL DISTRIBUTION WIDTH 17.6 % (11.5-14.5)
[2018-08-04 09:19] LABS: CALCIUM 7.1 mg/dl (8.6-10.4)
[2018-08-04] MEDS: Pantoprazole 40 mg EC Tab PO SCH (10:25)
[2018-08-04] MEDS: Lactobacillus Acidophilus 500 MU Cap PO SCH ×2 (10:25→18:55)
[2018-08-04] MEDS: Potassium Chloride 20 mEq/15 ml LIQ UD PO SCH ×3 (10:30→16:29)
--- NOTE | 2018-08-04 11:32 | CP.PCM.PN ---
Subjective - Date & Time of Evaluation Date of Evaluation: 08/04/18 Time of Evaluation: 11:31 - Subjective Subjective: Nephrology Consultation Note: Assessment: stable Acute Kidney Injury (N17.9) likely due to ATN from septic shock: improving Fall abnormal LFT hyperphosphatemia, HAGMA UTI cholelithiasis pelvic mass hypomagnesemia hypokalemia Plan No acute need for renal replacement therapy at this time hopefully will continue to improve with conservative management. Maintain hemodynamics stable. Avoid hypotension. Patient not on ACEI/ARB due to recent JEFF Monitor Input/Output, daily weights and renal function with basic metabolic panel d/c IVF as oral intake better. lasix as needed supplement lytes as needed. ordered for [facility] GI/surgery work up ongoing. seen by [facility] as well Dose meds/antibiotics for reduced GFR. Avoid fleets enema/magnesium based laxatives. Avoid nephrotoxins/NSAIDs/ iodinated contrast (unless needed emergently) Glycemic control Further work up/management as per primary team Thanks for allowing me to participate in care of your patient. Will follow patient with you. Please call if any Qs. had d/w team Dr Valerio Lewis Office: [phone] Chief Complaint; fall Reason for consult: Acute Kidney Injury HPI: Pt is a 83 F without any known medical hx but no recent medical follow up presented with complaints of fall and found to have sepsis with shock, abnormal LFT and JEFF No recent iodinated contrast exposure. Noted obvious episodes of low BP. ROS: pt is a poor historian and provided little reliable ROS Cardiovascular: No chest pain. Pulmonary: No shortness of breath Gastrointestinal: denies abdominal pain No nausea. No vomiting. no loose stool at present Genitourinary: No pain while urinating. Denies blood in urine. All other negative except as mentioned in HPI Physical Examination: General Appearance: Comfortable, in no acute respiratory distress, co-operative . chronically debilitated appearing Vitals reviewed and noted as below Head; Atraumatic, normocephalic ENT: no ulcers no thrush. Tongue is midline. Oropharynx: no rash or ulcers. she is hard of hearing EYES: Pupils are equal, round and reactive to light accommodation. Eye muscles and extraocular movement intact. Sclera is icteric. Neck; supple no lymphadenopathy, no thyromegaly or bruit Lungs: Normal respiratory rate/effort. Breath sounds bilateral equal and few wheeze Heart: Normal rate. s1s2 normal. No rub or gallop. Extremities: trace edema. No varicose veins Neurological: Patient is alert, awake and oriented Strength bilateral appropriate and equal Skin: Warm and dry. Normal turgor. No rash. Palpitation: Normal elasticity for age Abdomen: Abdomen is soft. Bowel sounds +. There is mild Rt abdominal tenderness, no guarding/rigidity no organomegaly Psych: lack insight and normal affect/mood MSK: no joint tenderness or swelling. Digits and nails normal, no deformity : kidney or bladder not palpable Labs/imaging reviewed. Past medical history, past surgical history, family history, social history, allergy reviewed and noted as below Family hx: no hx of CKD. Rest non-contributory Objective - Vital Signs/Intake and Output Vital Signs (last 24 hours): Temp Pulse Resp BP Pulse Ox 97.6 F 90 18 131/75 94 L 08/04/18 07:00 08/04/18 07:00 08/04/18 07:00 08/04/18 07:00 08/04/18 07:00 Intake and Output: 08/04/18 08/04/18 06:59 18:59 Intake Total 700 Output Total 350 Balance 350 - Medications Medications: Current Medications Aspirin (Aspirin Chewable) 81 mg PO DAILY [facility] Last Admin: 08/04/18 10:25 Dose: 81 mg Heparin Sodium (Porcine) (Heparin) 5,000 units SC Q8 [facility] Last Admin: 08/04/18 05:45 Dose: 5,000 units Linezolid (Zyvox 600mg/300ml D5w) 600 mg in 300 mls @ 200 mls/hr IVPB Q12H [facility]; Protocol Last Admin: 08/04/18 05:46 Dose: 200 mls/hr Moxifloxacin HCl (Avelox Iv 400mg/250ml Ns) 400 mg in 250 mls @ 167 mls/hr IVPB Q24H [facility]; Protocol Last Admin: 08/03/18 18:26 Dose: 167 mls/hr Lactobacillus Acidophilus (Bacid Acidophilus) 1 cap PO BID [facility] Last Admin: 08/04/18 10:25 Dose: 1 cap Pantoprazole Sodium (Protonix Ec Tab) 40 mg PO DAILY [facility] Last Admin: 08/04/18 10:25 Dose: 40 mg Potassium Chloride (Potassium Chloride Oral Soln) 20 meq PO Q4 [facility] Stop: 08/04/18 16:01 Last Admin: 08/04/18 10:30 Dose: 20 meq - Labs Labs: 08/04/18 08:31 08/04/18 08:31 PT 13.7 SECONDS (9.7-12.2) H 07/29/18 11:41 INR 1.3 07/29/18 11:41 APTT 35 SECONDS (21-34) H 07/29/18 11:41
--- NOTE | 2018-08-04 14:17 | CP.PCM.PN ---
Subjective - Date & Time of Evaluation Date of Evaluation: 08/04/18 Time of Evaluation: 13:15 - Subjective Subjective: dictated Objective - Vital Signs/Intake and Output Vital Signs (last 24 hours): Temp Pulse Resp BP Pulse Ox 97.6 F 90 18 131/75 94 L 08/04/18 07:00 08/04/18 07:00 08/04/18 07:00 08/04/18 07:00 08/04/18 07:00 Intake and Output: 08/04/18 08/04/18 06:59 18:59 Intake Total 700 Output Total 350 Balance 350 - Medications Medications: Current Medications Aspirin (Aspirin Chewable) 81 mg PO DAILY [facility] Last Admin: 08/04/18 10:25 Dose: 81 mg Heparin Sodium (Porcine) (Heparin) 5,000 units SC Q8 [facility] Last Admin: 08/04/18 05:45 Dose: 5,000 units Linezolid (Zyvox 600mg/300ml D5w) 600 mg in 300 mls @ 200 mls/hr IVPB Q12H [facility]; Protocol Last Admin: 08/04/18 05:46 Dose: 200 mls/hr Moxifloxacin HCl (Avelox Iv 400mg/250ml Ns) 400 mg in 250 mls @ 167 mls/hr IVPB Q24H [facility]; Protocol Last Admin: 08/03/18 18:26 Dose: 167 mls/hr Lactobacillus Acidophilus (Bacid Acidophilus) 1 cap PO BID [facility] Last Admin: 08/04/18 10:25 Dose: 1 cap Pantoprazole Sodium (Protonix Ec Tab) 40 mg PO DAILY [facility] Last Admin: 08/04/18 10:25 Dose: 40 mg Potassium Chloride (Potassium Chloride Oral Soln) 20 meq PO Q4 [facility] Stop: 08/04/18 16:01 Last Admin: 08/04/18 10:30 Dose: 20 meq - Labs Labs: 08/04/18 08:31 08/04/18 08:31 PT 13.7 SECONDS (9.7-12.2) H 07/29/18 11:41 INR 1.3 07/29/18 11:41 APTT 35 SECONDS (21-34) H 07/29/18 11:41
[2018-08-04] MEDS ORDERED: Potassium Chloride 20 mEq ER Tab PO ONE (16:30)
--- NOTE | 2018-08-04 17:44 | MRI ---
Date of service: 08/04/2018 PROCEDURE: Magnetic Resonance Cholangiopancreatography HISTORY: Evaluate for choledocholithiasis COMPARISON: Comparison is made to the previous CT of the abdomen and pelvis without contrast dated 08/02/2018 previous HIDA scan dated 08/03/2018 TECHNIQUE: Multiplanar, multisequence MR images of the abdomen were obtained, including heavily T2 weighted MRCP images of the biliary system. Rotating maximum intensity projection images of the biliary system were generated. FINDINGS: MRCP: The common bile duct is dilated measures up to 11.9 millimeter in the transverse diameter. There is mid to distal common bile duct stone measures 18.9 millimeter in the longitudinal diameter and 11 millimeter in the transverse diameter best seen on image 19 series 5 LIVER: The liver is normal in size and shape. No evidence of suspicious mass in liver GALLBLADDER: The gallbladder is moderately distended contains large gallstone. Mild diffuse gallbladder wall thickening is noted. SPLEEN: The spleen is normal in size. PANCREAS: The assessment of the pancreas is limited due to motion artifact. No definite evidence of large mass lesion in the pancreas. The main pancreatic duct is not dilated. ADRENALS: No definite evidence of mass lesion in the adrenal glands. KIDNEYS: No evidence of hydronephrosis. AORTA: No aneurysm. ASCITES: None. OTHER FINDINGS: There is partially imaged large cystic mass lesion at the lower abdomen. Bilateral small pleural effusion associated with opacities at the lung bases. IMPRESSION: Large choledocholithiasis associated with mild to moderate dilatation of the distal common bile duct. Moderately distended gallbladder contains large gallstone.
[2018-08-04] MEDS: Moxifloxacin IV 400mg/250ml NS 400 MG/250 ML BAG IVPB SCH (18:55)
--- NOTE | 2018-08-04 19:13 | PN ---
DATE: 08/04/2018 SUBJECTIVE: The patient is doing well. She does not want to eat much. She is on liquid diet. Also, she had a big BM and I was waiting for her ID and sensitivity of the organism. She denies any abdominal pain. She is not a complainer, has a triple-lumen in the right IJ. The patient's homemaker is visiting her. PHYSICAL EXAMINATION GENERAL: T-max is 97.6, pulse 90, blood pressure 131/75, respirations are 18. HEENT: Head is atraumatic and normocephalic. She is no more icteric. NECK: Supple. JVP is flat. LUNGS: Clear. No crackles or rales present. HEART: S1 and S2 regular. ABDOMEN: Soft, nontender. No guarding, no rigidity present. EXTREMITIES: Remain with no edema. DIAGNOSTIC DATA: Her CAT scan showed a pelvic mass. She is postmenopausal. They want her to follow up as an outpatient. She did have a HIDA scan which was negative for acute cholecystitis but may have chronic cholecystitis. LABORATORY DATA: Her labs show white count is 9, hemoglobin 10.3, hematocrit 31.5, platelet count is 233. BUN is 33, creatinine is 2, it is improving. Her blood culture came out Enterococcus faecium and it was ampicillin sensitive, vancomycin sensitive, Levaquin sensitive and Cipro sensitive. Repeat cultures were negative from 08/02/2018 and the urine with E. coli, which is also Cipro sensitive, so I would leave her on Cipro. She has been on antibiotics since 07/29/2018, which is like seven days, and so she will need seven more days of the antibiotics, but I would leave the present antibiotics the same at this time as they are doing an MRI to check for choledocholithiasis. She did come with a very significant hepatic enzyme elevation and obstructive picture. Curry Ureña MD
--- NOTE | 2018-08-04 21:54 | CP.PCM.PN ---
Subjective - Date & Time of Evaluation Date of Evaluation: 08/04/18 Time of Evaluation: 20:15 - Subjective Subjective: Surgery Progress note. Dr. Deleon Pt seen and examined at bedside. Denies any new complaints. Denies any N/V/D. Objective - Vital Signs/Intake and Output Vital Signs (last 24 hours): Temp Pulse Resp BP Pulse Ox 97.8 F 85 20 120/70 95 08/04/18 15:00 08/04/18 18:00 08/04/18 15:00 08/04/18 15:00 08/04/18 15:00 - Medications Medications: Current Medications Aspirin (Aspirin Chewable) 81 mg PO DAILY [facility] Last Admin: 08/04/18 10:25 Dose: 81 mg Heparin Sodium (Porcine) (Heparin) 5,000 units SC Q8 [facility] Last Admin: 08/04/18 15:42 Dose: 5,000 units Linezolid (Zyvox 600mg/300ml D5w) 600 mg in 300 mls @ 200 mls/hr IVPB Q12H [facility]; Protocol Last Admin: 08/04/18 18:56 Dose: 200 mls/hr Moxifloxacin HCl (Avelox Iv 400mg/250ml Ns) 400 mg in 250 mls @ 167 mls/hr IVPB Q24H [facility]; Protocol Last Admin: 08/04/18 18:55 Dose: 167 mls/hr Lactobacillus Acidophilus (Bacid Acidophilus) 1 cap PO BID [facility] Last Admin: 08/04/18 18:55 Dose: 1 cap Pantoprazole Sodium (Protonix Ec Tab) 40 mg PO DAILY [facility] Last Admin: 08/04/18 10:25 Dose: 40 mg - Labs Labs: 08/04/18 08:31 08/04/18 08:31 PT 13.7 SECONDS (9.7-12.2) H 07/29/18 11:41 INR 1.3 07/29/18 11:41 APTT 35 SECONDS (21-34) H 07/29/18 11:41 - Constitutional Appears: Non-toxic, No Acute Distress - Head Exam Head Exam: ATRAUMATIC, NORMAL INSPECTION, NORMOCEPHALIC - Eye Exam Eye Exam: EOMI, Normal appearance. absent: Scleral icterus - ENT Exam ENT Exam: Mucous Membranes Moist - Cardiovascular Exam Cardiovascular Exam: absent: JVD - GI/Abdominal Exam GI & Abdominal Exam: Soft. absent: Distended, Firm, Guarding, Rebound - Extremities Exam Extremities Exam: Normal Inspection. absent: Calf Tenderness - Neurological Exam Neurological Exam: Alert - Skin Skin Exam: Dry, Intact, Normal Color, Warm Assessment and Plan - Assessment and Plan (Free Text) Assessment: 83yo F with possible choledocholithiasis - MRCP with evidence of CBD stone - HIDA with no evidence of cystic duct obstruction Plan: - f/u GI team recs - Plan for ERCP by GI team, will follow up Further recs as per Dr. Pancho Noble PGY2 surgery
--- NOTE | 2018-08-05 02:21 | CP.PCM.CON ---
History of Present Illness - History of Present Illness History of Present Illness: 83 y/o with pelvic mass ENVIRONMENTAL ASSOCIATE consulted pt was seen and examiend 08/[address] reviewed Recommend Pelvic /TVUS adn tumor markers CA125, CEA, CA19-9 will update consult in AM 83F P0 who presenting 1 week ago with fall and found to have septic shock due to UTI vs acute cholecytitis or acute cholangitis. Patient appears to have recove red well and is now out of the ICU. Upon work up pt was found to had enlrage pelvic mass 20cm+. pt denies any abdominal pain, reports intermittent abdominal distension, denies early satiey, vaginal bleeding, weight loss or gain. pt denies any current sob, cp, dizyzness, constipatoin, diarrhea. pt does not reports haivng a hysterectomy and reports never had a memory care program director visit. Imaging reviewed CT enlarged pelvic mass, US reviewd, suscptin for maliginacy, enlarged pelvic mass, increased vascularity OB P0 ENVIRONMENTAL ASSOCIATE: Cannot remember last memory care program director visit or last pap test, denies hx of abnormal pap,fibroids, ovairan cyst, STI PMHx - HTN, recent JEFF PSHx -?hysterectomy FMHx - denies hx of breast, ovarian uterine or colon cancer SocHx - NephVin jerry, is re dye hand HCM: unknonw mammogrma or colonspcy or dexa or pap test Review of Systems - Review of Systems All systems: reviewed and no additional remarkable complaints except - Constitutional Constitutional: As Per HPI - EENT Eyes: As Per HPI Ears: As Per HPI - Breasts Additional comments: no compliants - Cardiovascular Cardiovascular: As Per HPI - Gastrointestinal Gastrointestinal: absent: As Per HPI, Abdominal Pain, Belching, Bloating, Change in Bowel Habits, Change in Stool Character, Coffee Ground Emesis, Constipation, Cramping, Diarrhea, Dyspepsia, Dysphagia, Early Satiety, Excessive Flatus, Fecal Incontinence, Heartburn, Hematemesis, Hematochezia, Loose Stools, Melena, Nausea, Odynophagia, Temesmus, Vomiting, Other Additional comments: +Distension - Genitourinary Genitourinary: As Per HPI - Reproductive: Female Reproductive:Female: Amenorrhea, S/P Hysterectomy - Musculoskeletal Musculoskeletal: As Per HPI - Integumentary Integumentary: As Per HPI Past Patient History - Infectious Disease Hx of Infectious Diseases: None - Tetanus Immunizations Tetanus Immunization: Unknown - Past Medical History & Family History Past Medical History?: No Past Family History: Reviewed and not pertinent - Past Social History Smoking Status: Never Smoked Alcohol: None Drugs: Denies - CARDIAC Hx Hypertension: Yes - MUSCULOSKELETAL/RHEUMATOLOGICAL Hx Falls: Yes - GENITOURINARY/GYNECOLOGICAL Hx Ovarian Cancer: No Hx Postmenopausal Bleeding: No Hx Reproductive Disorders: No Hx Sexually Transmitted Disorders: No Hx Uterine Cancer: No : 0 Para: 0 - PSYCHIATRIC Hx Substance Use: No - SURGICAL HISTORY Hx Surgeries: No - ANESTHESIA Hx Anesthesia: No Meds Allergies/Adverse Reactions: Allergies Allergy/AdvReac Type Severity Reaction Status Date / Time Penicillins Allergy Verified 07/29/18 10:24 - Medications Medications: Current Medications Aspirin (Aspirin Chewable) 81 mg PO DAILY [facility] Last Admin: 08/04/18 10:25 Dose: 81 mg Heparin Sodium (Porcine) (Heparin) 5,000 units SC Q8 [facility] Last Admin: 08/04/18 22:26 Dose: 5,000 units Linezolid (Zyvox 600mg/300ml D5w) 600 mg in 300 mls @ 200 mls/hr IVPB Q12H [facility]; Protocol Last Admin: 08/04/18 18:56 Dose: 200 mls/hr Moxifloxacin HCl (Avelox Iv 400mg/250ml Ns) 400 mg in 250 mls @ 167 mls/hr IVPB Q24H [facility]; Protocol Last Admin: 08/04/18 18:55 Dose: 167 mls/hr Lactobacillus Acidophilus (Bacid Acidophilus) 1 cap PO BID [facility] Last Admin: 08/04/18 18:55 Dose: 1 cap Pantoprazole Sodium (Protonix Ec Tab) 40 mg PO DAILY [facility] Last Admin: 08/04/18 10:25 Dose: 40 mg Physical Exam - Constitutional Appears: Well, Non-toxic, No Acute Distress - Head Exam Head Exam: ATRAUMATIC, NORMAL INSPECTION - Eye Exam Eye Exam: EOMI, Normal appearance - ENT Exam ENT Exam: Normal Exam - Neck Exam Neck exam: Positive for: Full Rom - Respiratory Exam Respiratory Exam: Clear to Auscultation Bilateral, NORMAL BREATHING PATTERN - Cardiovascular Exam Cardiovascular Exam: +S1, +S2 - GI/Abdominal Exam GI & Abdominal Exam: Normal Bowel Sounds, Soft Additional comments: NT, Distensed RLQ, no guarding no rebound tenderenss, no rigidty, +BS - Rectal Exam Rectal Exam: NORMAL INSPECTION - Exam Additional comments: External Genitial: grossly normal Vaginal groslly normal, however declined internal pelvic exam - Extremities Exam Extremities exam: Positive for: normal inspection. Negative for: calf tenderness, full ROM, joint swelling, normal capillary refill, pedal edema, tenderness, pedal pulses present - Back Exam Back exam: NORMAL INSPECTION - Neurological Exam Neurological exam: Oriented x3 - Psychiatric Exam Psychiatric exam: Normal Affect, Normal Mood - Skin Skin Exam: Dry, Intact, Normal Color, Warm Results - Vital Signs Recent Vital Signs: Last Vital Signs Temp 97.8 F 08/04/18 15:00 Pulse 85 08/04/18 18:00 Resp 20 08/04/18 15:00 BP 120/70 08/04/18 15:00 Pulse Ox 95 08/04/18 15:00 - Labs Result Diagrams: 08/04/18 08:31 08/05/18 07:04 Labs: Laboratory Results - last 24 hr 08/04/18 08/04/18 08:31 08:31 WBC 9.0 RBC 3.67 L Hgb 10.3 L Hct 31.5 L MCV 86.0 MCH 28.1 MCHC 32.7 L RDW 17.6 H Plt Count 233 MPV 11.5 Sodium 134 Potassium 3.1 L Chloride 104 Carbon Dioxide 24 Anion Gap 9 L BUN 33 H Creatinine 2.0 H Est GFR ( Amer) 29 Est GFR (Non-Af Amer) 24 Random Glucose 140 H Calcium 7.1 L Assessment & Plan (1) Pelvic mass in female Assessment and Plan: 83 y/o P0 with pelvic mass suspicious for memory care program director malignacy -S/p CT SCan -S/p TVUS enlarged pelvic mass with increased vasculiaty, elevated tumor markers Given above and high supscion for malignancy recommend immediate referral consultation with ENVIRONMENTAL ASSOCIATE ONC Status: Acute Priority: High
[2018-08-05] MEDS: Linezolid 600 mg in D5W 300 ml 600 MG/300 ML BAG IVPB SCH ×2 (05:03→18:01)
[2018-08-05] MEDS: Lactobacillus Acidophilus 500 MU Cap PO SCH ×2 (10:06→18:01)
[2018-08-05] MEDS: Pantoprazole 40 mg EC Tab PO SCH (10:06)
[2018-08-05] MEDS: Potassium Chloride 20 mEq/15 ml LIQ UD PO SCH ×3 (11:34→12:41)
[2018-08-05] MEDS: Magnesium Sulfate 1 gm in D5W 1 GM/100 ML BAG IVPB SCH ×2 (11:34→13:10)
--- NOTE | 2018-08-05 12:19 | US ---
Date of service: 08/05/2018 HISTORY: pelvic mass COMPARISON: CT abdomen/pelvis 08/02/2018 TECHNIQUE: Transabdominal only. Please note that the patient refused transvaginal evaluation at this time. FINDINGS: UTERUS: Status post hysterectomy ENDOMETRIUM: Status post hysterectomy CERVIX: Status post hysterectomy RIGHT OVARY: Right adnexal complex mass, 21.5 x 9.0 x 19.5 cm. There is both cystic and solid component. Vascularity is demonstrated within the solid component. There is heterogeneous debris seen within the cystic component of this mass. This is highly suspicious for a cystic ovarian neoplasm. Surgical removal is advised. LEFT OVARY: Not identified FREE FLUID: No significant free fluid noted. OTHER FINDINGS: None. IMPRESSION: Complex cystic right adnexal mass, 21.5 cm in greatest dimension with vascular solid component as well as heterogeneous debris. 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 Recommend surgical removal. Status post hysterectomy.
--- NOTE | 2018-08-05 15:12 | CP.PCM.PN ---
Subjective - Date & Time of Evaluation Date of Evaluation: 08/05/18 Time of Evaluation: 15:12 - Subjective Subjective: Nephrology Consultation Note: Assessment: stable Acute Kidney Injury (N17.9) likely due to ATN from septic shock: improving Fall abnormal LFT hyperphosphatemia, HAGMA UTI cholelithiasis pelvic mass hypomagnesemia hypokalemia Plan No acute need for renal replacement therapy at this time hopefully will continue to improve with conservative management. Maintain hemodynamics stable. Avoid hypotension. Patient not on ACEI/ARB due to recent JEFF Monitor Input/Output, daily weights and renal function with basic metabolic panel supplement lytes as needed. GI/surgery work up ongoing. seen by COURT REGISTRY OFFICER as well Dose meds/antibiotics for reduced GFR. Avoid fleets enema/magnesium based laxatives. Avoid nephrotoxins/NSAIDs/ iodinated contrast (unless needed emergently) Glycemic control Further work up/management as per primary team Thanks for allowing me to participate in care of your patient. Will follow patient with you. Please call if any Qs. had d/w team Dr Valerio Lewis Office: [phone] Chief Complaint; fall Reason for consult: Acute Kidney Injury HPI: Pt is a 83 F without any known medical hx but no recent medical follow up presented with complaints of fall and found to have sepsis with shock, abnormal LFT and JEFF No recent iodinated contrast exposure. Noted obvious episodes of low BP. ROS: pt is a poor historian and provided little reliable ROS Cardiovascular: No chest pain. Pulmonary: No shortness of breath Gastrointestinal: denies abdominal pain No nausea. No vomiting. no loose stool at present Genitourinary: No pain while urinating. Denies blood in urine. All other negative except as mentioned in HPI Physical Examination: General Appearance: Comfortable, in no acute respiratory distress, co-operative . chronically debilitated appearing Vitals reviewed and noted as below Head; Atraumatic, normocephalic ENT: no ulcers no thrush. Tongue is midline. Oropharynx: no rash or ulcers. she is hard of hearing EYES: Pupils are equal, round and reactive to light accommodation. Eye muscles and extraocular movement intact. Sclera is icteric. Neck; supple no lymphadenopathy, no thyromegaly or bruit Lungs: Normal respiratory rate/effort. Breath sounds bilateral equal and clearer Heart: Normal rate. s1s2 normal. No rub or gallop. Extremities: trace edema. No varicose veins Neurological: Patient is alert, awake and oriented Strength bilateral appropriate and equal Skin: Warm and dry. Normal turgor. No rash. Palpitation: Normal elasticity for age Abdomen: Abdomen is soft. Bowel sounds +. There is mild Rt abdominal tenderness, no guarding/rigidity no organomegaly Psych: lack insight and normal affect/mood MSK: no joint tenderness or swelling. Digits and nails normal, no deformity : kidney or bladder not palpable Labs/imaging reviewed. Past medical history, past surgical history, family history, social history, allergy reviewed and noted as below Family hx: no hx of CKD. Rest non-contributory Objective - Vital Signs/Intake and Output Vital Signs (last 24 hours): Temp Pulse Resp BP Pulse Ox 97.3 F L 80 18 114/67 96 08/05/18 08:29 08/05/18 08:29 08/05/18 08:29 08/05/18 08:29 08/05/18 08:29 Intake and Output: 08/05/18 08/05/18 06:59 18:59 Intake Total 30 Output Total 700 Balance 30 -700 - Medications Medications: Current Medications Aspirin (Aspirin Chewable) 81 mg PO DAILY [facility] Last Admin: 08/05/18 10:06 Dose: 81 mg Heparin Sodium (Porcine) (Heparin) 5,000 units SC Q8 [facility] Last Admin: 08/05/18 13:13 Dose: 5,000 units Linezolid (Zyvox 600mg/300ml D5w) 600 mg in 300 mls @ 200 mls/hr IVPB Q12H [facility]; Protocol Last Admin: 08/05/18 05:03 Dose: 200 mls/hr Moxifloxacin HCl (Avelox Iv 400mg/250ml Ns) 400 mg in 250 mls @ 167 mls/hr IVPB Q24H [facility]; Protocol Last Admin: 08/04/18 18:55 Dose: 167 mls/hr Potassium Chloride (Potassium Chloride 20 Meq/100 Ml) 20 meq in 100 mls @ 50 mls/hr IVPB Q2H [facility] Stop: 08/05/18 19:14 Lactobacillus Acidophilus (Bacid Acidophilus) 1 cap PO BID [facility] Last Admin: 08/05/18 10:06 Dose: 1 cap Pantoprazole Sodium (Protonix Ec Tab) 40 mg PO DAILY [facility] Last Admin: 08/05/18 10:06 Dose: 40 mg - Labs Labs: 08/04/18 08:31 08/05/18 07:04 PT 13.7 SECONDS (9.7-12.2) H 07/29/18 11:41 INR 1.3 07/29/18 11:41 APTT 35 SECONDS (21-34) H 07/29/18 11:41
--- NOTE | 2018-08-05 15:14 | CP.PCM.PN ---
Subjective - Date & Time of Evaluation Date of Evaluation: 08/05/18 Time of Evaluation: 15:11 - Subjective Subjective: Surgery Progress Note for Dr. Deleon 83F seen and evaluated at bedside this morning. Patient has baseline dementia but was able to answer questions appropriately. No complaints. No acute events overnight. Denies nausea, vomiting, or abdominal pain. Objective - Vital Signs/Intake and Output Vital Signs (last 24 hours): Temp Pulse Resp BP Pulse Ox 97.3 F L 80 18 114/67 96 08/05/18 08:29 08/05/18 08:29 08/05/18 08:29 08/05/18 08:29 08/05/18 08:29 Intake and Output: 08/05/18 08/05/18 06:59 18:59 Intake Total 30 Output Total 700 Balance 30 -700 - Medications Medications: Current Medications Aspirin (Aspirin Chewable) 81 mg PO DAILY [facility] Last Admin: 08/05/18 10:06 Dose: 81 mg Heparin Sodium (Porcine) (Heparin) 5,000 units SC Q8 [facility] Last Admin: 08/05/18 13:13 Dose: 5,000 units Linezolid (Zyvox 600mg/300ml D5w) 600 mg in 300 mls @ 200 mls/hr IVPB Q12H [facility]; Protocol Last Admin: 08/05/18 05:03 Dose: 200 mls/hr Moxifloxacin HCl (Avelox Iv 400mg/250ml Ns) 400 mg in 250 mls @ 167 mls/hr IVPB Q24H [facility]; Protocol Last Admin: 08/04/18 18:55 Dose: 167 mls/hr Potassium Chloride (Potassium Chloride 20 Meq/100 Ml) 20 meq in 100 mls @ 50 mls/hr IVPB Q2H [facility] Stop: 08/05/18 19:14 Lactobacillus Acidophilus (Bacid Acidophilus) 1 cap PO BID [facility] Last Admin: 08/05/18 10:06 Dose: 1 cap Pantoprazole Sodium (Protonix Ec Tab) 40 mg PO DAILY [facility] Last Admin: 08/05/18 10:06 Dose: 40 mg - Labs Labs: 08/04/18 08:31 08/05/18 07:04 PT 13.7 SECONDS (9.7-12.2) H 07/29/18 11:41 INR 1.3 07/29/18 11:41 APTT 35 SECONDS (21-34) H 07/29/18 11:41 - Constitutional Appears: Well, Non-toxic, No Acute Distress - Head Exam Head Exam: ATRAUMATIC, NORMAL INSPECTION, NORMOCEPHALIC - Eye Exam Eye Exam: EOMI - ENT Exam ENT Exam: Mucous Membranes Moist - Respiratory Exam Respiratory Exam: NORMAL BREATHING PATTERN. absent: Respiratory Distress - Cardiovascular Exam Cardiovascular Exam: REGULAR RHYTHM. absent: Tachycardia - GI/Abdominal Exam GI & Abdominal Exam: Soft, Normal Bowel Sounds. absent: Distended, Tenderness - Neurological Exam Neurological Exam: Alert, Awake - Psychiatric Exam Psychiatric exam: Normal Affect, Normal Mood - Skin Skin Exam: Dry, Intact, Normal Color, Warm Assessment and Plan - Assessment and Plan (Free Text) Assessment: 83F w/ choledocholithiasis evidenced on MRCP Plan: ERCP in AM per GI - NPO past midnight F/u GI recommendations Medical management per primary team D/w Dr. Pancho Larsen PGY1
--- NOTE | 2018-08-05 15:14 | PN ---
DATE: 08/04/2018 SUBJECTIVE: The patient is an 83-year-old female. The patient was seen and examined at bedside on 08/04/2018, looking comfortable. No new complaints. The patient is a very poor historian, denies nausea, vomiting, diarrhea. No fever, no chills. No headache. No dizziness. No chest pain. No palpitation. Discussion done with patient's nephew Vin, phone number is [phone]. He is the only family member that she has and he is the son of her twin sister. PHYSICAL EXAMINATION: VITAL SIGNS: Temperature 97.8, pulse 85, respirations 20, blood pressure 120/70, pulse oxymetry 95. HEENT: Head: Normocephalic and atraumatic. Eyes: PERRLA. Conjunctivae clear. Nose patent. Mucous membranes moist. NECK: Supple. No carotid bruit. No JVD or thyromegaly. CHEST: Bilaterally symmetrical. HEART: S1 and S2 positive. LUNGS: Clear to auscultation. ABDOMEN: Soft. Bowel sounds present. No organomegaly. EXTREMITIES: No edema. No cyanosis. NEUROLOGIC: The patient is awake and alert. Moving all four extremities. No focal deficits. MEDICATIONS: Aspirin, heparin, Zyvox, Avelox, Bacid acidophilus, pantoprazole. LABORATORY DATA: White blood cell noted , hemoglobin 10.3, hematocrit 31.5, and platelets 233. Sodium 135, potassium 3.1, BUN 36, creatinine 2, and glucose 140. ASSESSMENT AND PLAN: Ms. Chloe Robledo is an 83-year-old lady with anemia, hypokalemia, replaced, renal insufficiency, hyperglycemia, had multiple problems and possibly choledocholithiasis, MRCP with evidence of common bile duct stone, HIDA with no evidence of cystic duct obstruction. Appreciated Dr. Valerio Lewis input, they are requesting a gastrointestinal consult. I could consult with Dr. Vinod Donovan. Plan is to do ERCP by GI team as per surgery. Patient is seen by Ob-Precipitation Equipment Tender also Dr. Alisa Pickard. According to her, patient has pelvic mass. CT reviewed, recommended the pelvic and transvaginal ultrasound, ordered tumor marker the CA 125, CEA, CA 19-9. Appreciated surgery, GI, ID input. Blood cultures came out Enterococcus faecium and it is ampicillin sensitive, vancomycin sensitive, Levaquin sensitive, Cipro sensitive. Her repeat blood cultures are negative and urine with Escherichia coli which is also Cipro sensitive. So ID will keep the patient on Cipro. She is getting antibiotics since 07/29/2018, which is actually seven days and she will need seven more days of antibiotics as per ID. Patient was seen by reliability technologist Dr. Valerio Lewis. Acute kidney injury likely due to acute tubular necrosis from a septic shock improving, history of fall, abnormal liver function test may be due to cholelithiasis, hyperphosphatemia getting addressed, electrolyte imbalance replaced by the Nephrology. Discussion done in length of time with patient's nephew Vin, all details, given, all questions answered. Discussion done with patient's nurse also. We will follow up. Donna Wallace MD MTDD
[2018-08-05] MEDS ORDERED: Phytonadione 10 mg/ml Inj (Adult) IV STA (17:04)
--- NOTE | 2018-08-05 17:28 | CP.PCM.PN ---
Subjective - Date & Time of Evaluation Date of Evaluation: 08/05/18 Time of Evaluation: 17:27 - Subjective Subjective: Patient seen and examined. Plan for ERCP tomorrow pending consent, clinical status. Full consult note will follow. Objective - Vital Signs/Intake and Output Vital Signs (last 24 hours): Temp Pulse Resp BP Pulse Ox 97.9 F 83 18 136/76 96 08/05/18 15:00 08/05/18 16:20 08/05/18 15:00 08/05/18 15:00 08/05/18 15:00 Intake and Output: 08/05/18 08/05/18 06:59 18:59 Intake Total 30 Output Total 700 Balance 30 -700 - Medications Medications: Current Medications Aspirin (Aspirin Chewable) 81 mg PO DAILY [facility] Last Admin: 08/05/18 10:06 Dose: 81 mg Heparin Sodium (Porcine) (Heparin) 5,000 units SC Q8 [facility] Last Admin: 08/05/18 13:13 Dose: 5,000 units Linezolid (Zyvox 600mg/300ml D5w) 600 mg in 300 mls @ 200 mls/hr IVPB Q12H [facility]; Protocol Last Admin: 08/05/18 05:03 Dose: 200 mls/hr Moxifloxacin HCl (Avelox Iv 400mg/250ml Ns) 400 mg in 250 mls @ 167 mls/hr IVPB Q24H [facility]; Protocol Last Admin: 08/04/18 18:55 Dose: 167 mls/hr Potassium Chloride (Potassium Chloride 20 Meq/100 Ml) 20 meq in 100 mls @ 50 mls/hr IVPB Q2H [facility] Stop: 08/05/18 19:14 Last Admin: 08/05/18 15:57 Dose: 50 mls/hr Lactobacillus Acidophilus (Bacid Acidophilus) 1 cap PO BID [facility] Last Admin: 08/05/18 10:06 Dose: 1 cap Pantoprazole Sodium (Protonix Ec Tab) 40 mg PO DAILY [facility] Last Admin: 08/05/18 10:06 Dose: 40 mg - Labs Labs: 08/04/18 08:31 08/05/18 07:04 PT 13.7 SECONDS (9.7-12.2) H 07/29/18 11:41 INR 1.3 07/29/18 11:41 APTT 35 SECONDS (21-34) H 07/29/18 11:41
[2018-08-05] MEDS: Moxifloxacin IV 400mg/250ml NS 400 MG/250 ML BAG IVPB SCH (20:03)
[2018-08-06] MEDS: Linezolid 600 mg in D5W 300 ml 600 MG/300 ML BAG IVPB SCH ×2 (03:51→15:57)
--- NOTE | 2018-08-06 07:24 | CP.PCM.CON ---
History of Present Illness - History of Present Illness History of Present Illness: GI Fellow PGY4, consult note. Chloe Robledo is an 83F who presenting 1 week ago with fall and found to have septic shock due to UTI vs acute cholecytitis or acute cholangitis. Patient appears to have recovered well and is now out of the ICU. Although patient is likely confused she is likely at her baseline. She tells me todays date is 1936, also her birthday. She is tolerating diet and not complaining of abdominal pain or any other complaints at this time. Imaging reviewed. HIDA was negative for acute cholecytitis. MRCP showed a ~2x1cm CBD stone, as well as a large cholelithiasis. Labs reviewed and show a cholestatic pattern as well. There are elevated tumor markers possible related to ovarian malignancy PMHx - HTN, ?ovarian malignancy, recent JEFF PSHx -hysterectomy FMHx - unknown SocHx - NephewVin, is subassemblies wirer. 12pt ROS completed and negative except for above. Past Patient History - Infectious Disease Hx of Infectious Diseases: None (patient is a poor historian) - Past Medical History & Family History Past Medical History?: No Past Family History: Reviewed and not pertinent - Past Social History Smoking Status: Never Smoked Alcohol: None Drugs: Denies - CARDIAC Hx Hypertension: Yes - MUSCULOSKELETAL/RHEUMATOLOGICAL Hx Falls: Yes - GENITOURINARY/GYNECOLOGICAL Hx Ovarian Cancer: No Hx Postmenopausal Bleeding: No Hx Reproductive Disorders: No Hx Sexually Transmitted Disorders: No Hx Uterine Cancer: No : 0 Para: 0 - PSYCHIATRIC Hx Substance Use: No - SURGICAL HISTORY Hx Surgeries: No - ANESTHESIA Hx Anesthesia: No Meds Allergies/Adverse Reactions: Allergies Allergy/AdvReac Type Severity Reaction Status Date / Time Penicillins Allergy Verified 07/29/18 10:24 - Medications Medications: Current Medications Aspirin (Aspirin Chewable) 81 mg PO DAILY [facility] Last Admin: 08/05/18 10:06 Dose: 81 mg Heparin Sodium (Porcine) (Heparin) 5,000 units SC Q8 [facility] Last Admin: 08/05/18 13:13 Dose: 5,000 units Linezolid (Zyvox 600mg/300ml D5w) 600 mg in 300 mls @ 200 mls/hr IVPB Q12H [facility]; Protocol Last Admin: 08/06/18 03:51 Dose: 200 mls/hr Moxifloxacin HCl (Avelox Iv 400mg/250ml Ns) 400 mg in 250 mls @ 167 mls/hr IVPB Q24H [facility]; Protocol Last Admin: 08/05/18 20:03 Dose: 167 mls/hr Lactobacillus Acidophilus (Bacid Acidophilus) 1 cap PO BID [facility] Last Admin: 08/05/18 18:01 Dose: 1 cap Pantoprazole Sodium (Protonix Ec Tab) 40 mg PO DAILY [facility] Last Admin: 08/05/18 10:06 Dose: 40 mg Physical Exam - Constitutional Appears: Non-toxic, No Acute Distress, Confused, Chronically Ill - Head Exam Head Exam: ATRAUMATIC, NORMAL INSPECTION - Eye Exam Eye Exam: EOMI, Normal appearance - ENT Exam ENT Exam: Mucous Membranes Moist, Normal Exam - Respiratory Exam Respiratory Exam: Clear to Auscultation Bilateral, NORMAL BREATHING PATTERN - Cardiovascular Exam Cardiovascular Exam: REGULAR RHYTHM, +S1, +S2 - GI/Abdominal Exam GI & Abdominal Exam: Normal Bowel Sounds, Soft. absent: Tenderness - Extremities Exam Extremities exam: Positive for: normal inspection. Negative for: pedal edema - Neurological Exam Neurological exam: Alert, CN II-XII Intact, Oriented x3 - Psychiatric Exam Psychiatric exam: Normal Affect, Normal Mood - Skin Skin Exam: Dry, Normal Color Results - Vital Signs Recent Vital Signs: Last Vital Signs Temp 97.9 F 08/05/18 23:40 Pulse 87 08/05/18 23:50 Resp 20 08/05/18 23:40 BP 119/65 08/05/18 23:40 Pulse Ox 96 08/05/18 23:40 - Labs Result Diagrams: 08/06/18 11:21 08/06/18 11:21 Labs: Laboratory Results - last 24 hr 08/05/18 07:04 Sodium 135 Potassium 2.9 L Chloride 105 Carbon Dioxide 24 Anion Gap 10 BUN 26 H Creatinine 1.7 H Est GFR ( Amer) 35 Est GFR (Non-Af Amer) 29 Random Glucose 155 H Calcium 7.0 L Phosphorus 3.4 Magnesium 1.4 L Carcinoembryonic Ag 2.8 CA 19-9 Antigen 266 H CA 125 Antigen 186 H Assessment & Plan - Assessment and Plan (Free Text) Assessment: #Choledocolithiasis #Septic shock - UTI vs cholangitis, improved. #AHRF #Ovarian mass #HTN PLAN: -Imaging reviewed. ~2cm stone in CBD. -Continue Abx -Plan for ERCP to remove stone. I spoke with the Nephew, Vin Eugeneelly two different times today. After speaking with family, he consented for ERCP at 8:30AM. ERCP is currently on hold for further clarification of advance d irective. -Continue to monitor for signs of sepsis or worsening obstruction. -Follow electrolytes Case discussed with Dr. Severino, see attestation. - Date & Time Date: 08/06/18 Time: 13:33
--- NOTE | 2018-08-06 07:40 | CP.PCM.PN ---
Subjective - Date & Time of Evaluation Date of Evaluation: 08/06/18 Time of Evaluation: 08:00 - Subjective Subjective: Surgery Progress Note for Dr. Deleon. Patient seen and examined at bedside. No acute events reported overnight. Patient offers no complaints. Patient denies chest pain, SOB, abdominal pain, dysuria, hematuria. Objective - Vital Signs/Intake and Output Vital Signs (last 24 hours): Temp Pulse Resp BP Pulse Ox 97.6 F 77 18 127/75 95 08/06/18 07:00 08/06/18 07:00 08/06/18 07:00 08/06/18 07:00 08/06/18 07:00 Intake and Output: 08/06/18 08/06/18 06:59 18:59 Intake Total 600 300 Output Total 700 300 Balance -100 0 - Medications Medications: Current Medications Aspirin (Aspirin Chewable) 81 mg PO DAILY [facility] Last Admin: 08/05/18 10:06 Dose: 81 mg Heparin Sodium (Porcine) (Heparin) 5,000 units SC Q8 [facility] Last Admin: 08/05/18 13:13 Dose: 5,000 units Linezolid (Zyvox 600mg/300ml D5w) 600 mg in 300 mls @ 200 mls/hr IVPB Q12H [facility]; Protocol Last Admin: 08/06/18 03:51 Dose: 200 mls/hr Moxifloxacin HCl (Avelox Iv 400mg/250ml Ns) 400 mg in 250 mls @ 167 mls/hr IVPB Q24H [facility]; Protocol Last Admin: 08/05/18 20:03 Dose: 167 mls/hr Lactobacillus Acidophilus (Bacid Acidophilus) 1 cap PO BID [facility] Last Admin: 08/05/18 18:01 Dose: 1 cap Pantoprazole Sodium (Protonix Ec Tab) 40 mg PO DAILY [facility] Last Admin: 08/05/18 10:06 Dose: 40 mg - Labs Labs: 08/04/18 08:31 08/05/18 07:04 PT 13.7 SECONDS (9.7-12.2) H 07/29/18 11:41 INR 1.3 07/29/18 11:41 APTT 35 SECONDS (21-34) H 07/29/18 11:41 - Constitutional Appears: Non-toxic, No Acute Distress - Head Exam Head Exam: NORMAL INSPECTION - Eye Exam Eye Exam: Normal appearance - ENT Exam ENT Exam: Mucous Membranes Moist - Respiratory Exam Respiratory Exam: NORMAL BREATHING PATTERN - Cardiovascular Exam Additional comments: RR - GI/Abdominal Exam GI & Abdominal Exam: Soft, Normal Bowel Sounds - Back Exam Back Exam: absent: CVA tenderness (L), CVA tenderness (R) - Neurological Exam Neurological Exam: Alert, Awake - Psychiatric Exam Psychiatric exam: Normal Affect, Normal Mood - Skin Skin Exam: Dry, Intact, Normal Color, Warm Assessment and Plan - Assessment and Plan (Free Text) Assessment: 83F w/ choledocholithiasis evidenced on MRCP Plan: ERCP in AM per GI F/u GI recommendations Medical management per primary team D/w Dr. Pancho Martin PGY 1
[2018-08-06 07:59] LABS: PROTHROMBIN TIME 11.1 SECONDS (9.7-12.2)
[2018-08-06] MEDS ORDERED: Glucagon Recombinant 1 mg Inj ONE (08:02)
[2018-08-06] MEDS ORDERED: Water For Injection 40 ML IV ONE (08:02)
--- NOTE | 2018-08-06 08:17 | CP.PCM.PCO ---
Addendum Addendum: 08/06/18 08:11 I had an extensive conversation with the nephew, Vin. I explained the situation, risks and benefits of performing and NOT performing the ERCP to him clearly. He understands there is a stone in the bile duct which could cause an infection and return of septic shock. He is concerned about the living will and legal situation if something were to happen to the patient. He does not want to give consent at this time. I reminded him it's the responsibility of POA to act in the patient's best interest. I gave him the number to call back if he changes his mind. 08/06/18 08:18
[2018-08-06] MEDS: Lactobacillus Acidophilus 500 MU Cap PO SCH ×2 (10:38→17:59)
[2018-08-06] MEDS: Pantoprazole 40 mg EC Tab PO SCH (10:39)
[2018-08-06 11:38] LABS: BASO # 0.1 K/uL (0.0-0.2); BASO % 0.8 % (0.0-2.0); EOS # 0.3 K/uL (0.0-0.7); EOS % 2.9 % (0.0-4.0); HEMOGLOBIN 9.9 g/dL (11.0-16.0); LYMPH % 9.4 % (20.0-40.0); MEAN CELL VOLUME 86.5 fL (81.0-99.0); MEAN CORPUSCULAR HGB CONC 32.3 g/dL (33.0-37.0); MEAN PLATELET VOLUME 10.7 fL (7.2-11.7); MONO # 0.6 K/uL (0.0-0.8); MONO % 5.5 % (0.0-10.0); NEUT % 81.4 % (50.0-75.0); PLATELET COUNT 267 K/uL (130-400); RBC 3.55 Mil/uL (3.80-5.20); RED CELL DISTRIBUTION WIDTH 17.4 % (11.5-14.5)
[2018-08-06 12:03] LABS: ALBUMIN 2.5 g/dL (3.5-5.0); CALCIUM 7.4 mg/dl (8.6-10.4)
[2018-08-06 12:07] LABS: EOSINOPHIL 1 % (0-4); LYMPHOCYTE 8 % (20-40); MONOCYTE 4 % (0-10); NEUTROPHIL 87 % (50-75); PLATELET ESTIMATE NORMAL (NORMAL); TOTAL CELLS COUNTED 100
[2018-08-06 12:08] LABS: ANISOCYTOSIS SLIGHT; LARGE PLATELETS PRESENT
[2018-08-06] MEDS ORDERED: Etomidate 20 mg/10ml Inj IV ONE (12:14)
[2018-08-06] MEDS ORDERED: Succinylcholine Chloride 20 mg/ml Syr (5 ml) IV ONE (12:15)
--- NOTE | 2018-08-06 13:36 | CP.PCM.PN ---
Subjective - Date & Time of Evaluation Date of Evaluation: 08/06/18 Time of Evaluation: 13:30 - Subjective Subjective: dictated Objective - Vital Signs/Intake and Output Vital Signs (last 24 hours): Temp Pulse Resp BP Pulse Ox 98.7 F 80 18 110/67 97 08/06/18 13:28 08/06/18 13:28 08/06/18 13:28 08/06/18 13:28 08/06/18 13:28 Intake and Output: 08/06/18 08/06/18 06:59 18:59 Intake Total 600 300 Output Total 700 300 Balance -100 0 - Medications Medications: Current Medications Aspirin (Aspirin Chewable) 81 mg PO DAILY [facility] Last Admin: 08/06/18 10:38 Dose: Not Given Heparin Sodium (Porcine) (Heparin) 5,000 units SC Q8 [facility] Last Admin: 08/05/18 13:13 Dose: 5,000 units Linezolid (Zyvox 600mg/300ml D5w) 600 mg in 300 mls @ 200 mls/hr IVPB Q12H [facility]; Protocol Last Admin: 08/06/18 03:51 Dose: 200 mls/hr Moxifloxacin HCl (Avelox Iv 400mg/250ml Ns) 400 mg in 250 mls @ 167 mls/hr IVPB Q24H [facility]; Protocol Last Admin: 08/05/18 20:03 Dose: 167 mls/hr Potassium Chloride (Potassium Chloride 20 Meq/100 Ml) 20 meq in 100 mls @ 50 mls/hr IVPB ONCE ONE Stop: 08/06/18 17:59 Lactobacillus Acidophilus (Bacid Acidophilus) 1 cap PO BID [facility] Last Admin: 08/06/18 10:38 Dose: Not Given Pantoprazole Sodium (Protonix Ec Tab) 40 mg PO DAILY [facility] Last Admin: 08/06/18 10:39 Dose: Not Given - Labs Labs: 08/06/18 11:21 08/06/18 11:21 PT 11.1 SECONDS (9.7-12.2) 08/06/18 07:36 INR 1.0 08/06/18 07:36 APTT 29 SECONDS (21-34) 08/06/18 07:36
--- NOTE | 2018-08-06 15:24 | CP.PCM.PN ---
Subjective - Date & Time of Evaluation Date of Evaluation: 08/06/18 Time of Evaluation: 15:24 - Subjective Subjective: Nephrology Consultation Note: Assessment: stable Acute Kidney Injury (N17.9) likely due to ATN from septic shock: improving Fall abnormal LFT hyperphosphatemia, HAGMA UTI cholelithiasis pelvic mass hypomagnesemia hypokalemia Plan No acute need for renal replacement therapy at this time as improving with conservative management. Maintain hemodynamics stable. Avoid hypotension. Patient not on ACEI/ARB due to recent JEFF Monitor Input/Output, daily weights and renal function with basic metabolic panel supplement lytes as needed. GI/surgery work up ongoing. seen by COMMERCIAL LITIGATION ASSOCIATE as well Dose meds/antibiotics for reduced GFR. Avoid fleets enema/magnesium based laxatives. Avoid nephrotoxins/NSAIDs/ iodinated contrast (unless needed emerge ntly) Glycemic control Further work up/management as per primary team Thanks for allowing me to participate in care of your patient. Will follow patient with you. Please call if any Qs. had d/w team Dr Valerio Lewis Office: [phone] Chief Complaint; fall Reason for consult: Acute Kidney Injury HPI: Pt is a 83 F without any known medical hx but no recent medical follow up presented with complaints of fall and found to have sepsis with shock, abnormal LFT and JEFF No recent iodinated contrast exposure. Noted obvious episodes of low BP. ROS: pt is a poor historian and provided little reliable ROS Cardiovascular: No chest pain. Pulmonary: No shortness of breath Gastrointestinal: denies abdominal pain No nausea. No vomiting. no loose stool at present Genitourinary: No pain while urinating. Denies blood in urine. All other negative except as mentioned in HPI Physical Examination: General Appearance: Comfortable, in no acute respiratory distress, co-operative . chronically debilitated appearing Vitals reviewed and noted as below Head; Atraumatic, normocephalic ENT: no ulcers no thrush. Tongue is midline. Oropharynx: no rash or ulcers. she is hard of hearing EYES: Pupils are equal, round and reactive to light accommodation. Eye muscles and extraocular movement intact. Sclera is icteric. Neck; supple no lymphadenopathy, no thyromegaly or bruit Lungs: Normal respiratory rate/effort. Breath sounds bilateral equal and few basal crackle Heart: Normal rate. s1s2 normal. No rub or gallop. Extremities: trace edema. No varicose veins Neurological: Patient is alert, awake and oriented Strength bilateral appropriate and equal Skin: Warm and dry. Normal turgor. No rash. Palpitation: Normal elasticity for age Abdomen: Abdomen is soft. Bowel sounds +. There is mild Rt abdominal tenderness, no guarding/rigidity no organomegaly Psych: lack insight and normal affect/mood MSK: no joint tenderness or swelling. Digits and nails normal, no deformity : kidney or bladder not palpable Labs/imaging reviewed. Past medical history, past surgical history, family history, social history, allergy reviewed and noted as below Family hx: no hx of CKD. Rest non-contributory Objective - Vital Signs/Intake and Output Vital Signs (last 24 hours): Temp Pulse Resp BP Pulse Ox 97.3 F L 73 18 113/72 96 08/06/18 13:49 08/06/18 13:49 08/06/18 13:49 08/06/18 13:49 08/06/18 13:49 Intake and Output: 08/06/18 08/06/18 06:59 18:59 Intake Total 600 300 Output Total 700 800 Balance -100 -500 - Medications Medications: Current Medications Aspirin (Aspirin Chewable) 81 mg PO DAILY [facility] Last Admin: 08/06/18 10:38 Dose: Not Given Heparin Sodium (Porcine) (Heparin) 5,000 units SC Q8 [facility] Last Admin: 08/05/18 13:13 Dose: 5,000 units Linezolid (Zyvox 600mg/300ml D5w) 600 mg in 300 mls @ 200 mls/hr IVPB Q12H [facility]; Protocol Last Admin: 08/06/18 03:51 Dose: 200 mls/hr Moxifloxacin HCl (Avelox Iv 400mg/250ml Ns) 400 mg in 250 mls @ 167 mls/hr IVPB Q24H [facility]; Protocol Last Admin: 08/05/18 20:03 Dose: 167 mls/hr Potassium Chloride (Potassium Chloride 20 Meq/100 Ml) 20 meq in 100 mls @ 50 mls/hr IVPB ONCE ONE Stop: 08/06/18 17:59 Lactobacillus Acidophilus (Bacid Acidophilus) 1 cap PO BID [facility] Last Admin: 08/06/18 10:38 Dose: Not Given Pantoprazole Sodium (Protonix Ec Tab) 40 mg PO DAILY [facility] Last Admin: 08/06/18 10:39 Dose: Not Given - Labs Labs: 08/06/18 11:21 08/06/18 11:21 PT 11.1 SECONDS (9.7-12.2) 08/06/18 07:36 INR 1.0 08/06/18 07:36 APTT 29 SECONDS (21-34) 08/06/18 07:36
[2018-08-06] MEDS: Moxifloxacin IV 400mg/250ml NS 400 MG/250 ML BAG IVPB SCH (17:59)
--- NOTE | 2018-08-06 18:37 | PN ---
DATE: 08/06/2018 SUBJECTIVE: Chloe Robledo is very alert today. She says she has not eaten much. I looked up in her record that the nephew is not giving any consent for ERCP and she has a CBD stone at this time. She also has ovarian mass which is cystic and is highly likely malignant . PHYSICAL EXAMINATION: VITAL SIGNS: T-max is 97.3, pulse 73, blood pressure 113/72, respirations are 18. HEENT: Head is atraumatic, normocephalic. NECK: Supple. LUNGS: Clear. No crackles or rales present at this time. HEART: S1, S2 is regular. ABDOMEN: Soft, nontender. No guarding, no rigidity present. EXTREMITIES: Have no edema and her icterus has improved. LABORATORY DATA: White count is 11 right now, hemoglobin 9.9, hematocrit 30.7, platelet count is 267. BUN is 21, creatinine is 1.4. So all her numbers are improving. Alkaline phosphatase remains at 461, total bilirubin is 1.8. ASSESSMENT AND PLAN: I did let the patient know that she needs to decide about these issues at this time with her nephew, otherwise she may revert back into same septicemia as there is obstruction in the common bile duct and may never improve. So she is going to discuss that she has choledocholithiasis at this time, she has an ovarian mass and she also came in with jaundice and was in septic shock. She is status post septic shock. We will continue present antibiotics at this time as she did have septicemia and needs minimum of 2 weeks' of treatment, but needs to be worked over to remove the obstruction. Curry Ureña MD
--- NOTE | 2018-08-06 19:48 | PN ---
DATE: 08/06/2018 LOCATION: 565, bed B. SUBJECTIVE: This is an 83-year-old female, seen and examined initially with GI consultation on 08/05/2018, was brought today for an ERCP due to a reported common bile duct stone as reported by the patient's MRCP with large choledocholithiasis with dilation of the common bile duct. After being in the ERCP room and endoscopy suite, multiple legal issues were raised including if the patient is DNR or not, and regarding who is the legal guardian to give a consent for the procedure. This situation stayed for over one and a half hours, delaying the procedure and it was decided to cancel the ERCP for now and to be rescheduled in a further time or a date until such confusion by the nursing staff is subsided. However, it has to be mentioned that the patient's liver enzymes appear to be normal but slightly elevated, total bilirubin 1.8 from 2.2 with increased alkaline phosphatase of 461, but low albumin . I ordered her cancer markers. It showed excessive increase of CA 19-9 and CA-125 with elevated CEA. This case has to be referred at this point to the Legal Department before any further GI procedure to be done. Gracie Call MD
[2018-08-07] MEDS: Linezolid 600 mg in D5W 300 ml 600 MG/300 ML BAG IVPB SCH ×2 (05:20→17:38)
[2018-08-07 08:42] LABS: ALBUMIN 2.6 g/dL (3.5-5.0); CALCIUM 7.5 mg/dl (8.6-10.4)
[2018-08-07] MEDS: Pantoprazole 40 mg EC Tab PO SCH (11:03)
[2018-08-07] MEDS: Lactobacillus Acidophilus 500 MU Cap PO SCH ×2 (11:03→17:38)
--- NOTE | 2018-08-07 13:00 | CP.PCM.PN ---
Subjective - Date & Time of Evaluation Date of Evaluation: 08/07/18 Time of Evaluation: 13:00 - Subjective Subjective: Nephrology Consultation Note: Assessment: stable Acute Kidney Injury (N17.9) likely due to ATN from septic shock: improving Fall abnormal LFT hyperphosphatemia, HAGMA UTI cholelithiasis pelvic mass hypomagnesemia hypokalemia Plan No acute need for renal replacement therapy Cr improving Maintain hemodynamics stable. Avoid hypotension. Patient not on ACEI/ARB due to recent JEFF Monitor Input/Output, daily weights and renal function with basic metabolic panel supplement lytes as needed. GI/surgery work up ongoing. seen by COMPRESSOR SERVICE TECHNICIAN as well Dose meds/antibiotics for reduced GFR. Avoid fleets enema/magnesium based laxatives. Avoid nephrotoxins/NSAIDs/ iodinated contrast (unless needed emergently) Glycemic control Further work up/management as per primary team S: seen and examined no events o/n Physical Examination: General Appearance: Comfortable, in no acute respiratory distress, co-operative . chronically debilitated appearing Vitals reviewed and noted as below Head; Atraumatic, normocephalic ENT: no ulcers no thrush. Tongue is midline. Oropharynx: no rash or ulcers. she is hard of hearing EYES: Pupils are equal, round and reactive to light accommodation. Eye muscles and extraocular movement intact. Sclera is icteric. Neck; supple no lymphadenopathy, no thyromegaly or bruit Lungs: Normal respiratory rate/effort. Breath sounds bilateral equal and few basal crackle Heart: Normal rate. s1s2 normal. No rub or gallop. Extremities: trace edema. No varicose veins Neurological: Patient is alert, awake and oriented Strength bilateral appropriate and equal Skin: Warm and dry. Normal turgor. No rash. Palpitation: Normal elasticity for age Abdomen: Abdomen is soft. Bowel sounds +. There is mild Rt abdominal tenderness, no guarding/rigidity no organomegaly Psych: lack insight and normal affect/mood MSK: no joint tenderness or swelling. Digits and nails normal, no deformity : kidney or bladder not palpable Labs/imaging reviewed. Past medical history, past surgical history, family history, social history, all ergy reviewed and noted as below Family hx: no hx of CKD. Rest non-contributory Objective - Vital Signs/Intake and Output Vital Signs (last 24 hours): Temp Pulse Resp BP Pulse Ox 97.8 F 87 20 145/77 97 01/19/19 07:56 08/07/18 07:56 08/07/18 07:56 08/07/18 07:56 08/07/18 07:56 Intake and Output: 08/07/18 08/07/18 06:59 18:59 Intake Total 560 Output Total 300 Balance 260 - Medications Medications: Current Medications Aspirin (Aspirin Chewable) 81 mg PO DAILY [facility] Last Admin: 08/07/18 11:03 Dose: 81 mg Heparin Sodium (Porcine) (Heparin) 5,000 units SC Q8 [facility] Last Admin: 08/05/18 13:13 Dose: 5,000 units Linezolid (Zyvox 600mg/300ml D5w) 600 mg in 300 mls @ 200 mls/hr IVPB Q12H [facility]; Protocol Last Admin: 08/07/18 05:20 Dose: 200 mls/hr Moxifloxacin HCl (Avelox Iv 400mg/250ml Ns) 400 mg in 250 mls @ 167 mls/hr IVPB Q24H [facility]; Protocol Last Admin: 08/06/18 17:59 Dose: 167 mls/hr Potassium Chloride (Potassium Chloride 20 Meq/100 Ml) 20 meq in 100 mls @ 50 mls/hr IVPB ONCE ONE Stop: 08/07/18 14:19 Lactobacillus Acidophilus (Bacid Acidophilus) 1 cap PO BID [facility] Last Admin: 08/07/18 11:03 Dose: 1 cap Pantoprazole Sodium (Protonix Ec Tab) 40 mg PO DAILY [facility] Last Admin: 08/07/18 11:03 Dose: 40 mg - Labs Labs: 08/06/18 11:21 08/07/18 07:30 PT 11.1 SECONDS (9.7-12.2) 08/06/18 07:36 INR 1.0 08/06/18 07:36 APTT 29 SECONDS (21-34) 08/06/18 07:36
--- NOTE | 2018-08-07 13:04 | CP.PCM.PN ---
Subjective - Date & Time of Evaluation Date of Evaluation: 08/07/18 Time of Evaluation: 13:00 - Subjective Subjective: dictated Objective - Vital Signs/Intake and Output Vital Signs (last 24 hours): Temp Pulse Resp BP Pulse Ox 97.8 F 87 20 145/77 97 08/07/18 07:56 08/07/18 07:56 08/07/18 07:56 08/07/18 07:56 08/07/18 07:56 Intake and Output: 08/07/18 08/07/18 06:59 18:59 Intake Total 560 Output Total 300 Balance 260 - Medications Medications: Current Medications Aspirin (Aspirin Chewable) 81 mg PO DAILY [facility] Last Admin: 08/07/18 11:03 Dose: 81 mg Heparin Sodium (Porcine) (Heparin) 5,000 units SC Q8 [facility] Last Admin: 08/05/18 13:13 Dose: 5,000 units Linezolid (Zyvox 600mg/300ml D5w) 600 mg in 300 mls @ 200 mls/hr IVPB Q12H [facility]; Protocol Last Admin: 08/07/18 05:20 Dose: 200 mls/hr Moxifloxacin HCl (Avelox Iv 400mg/250ml Ns) 400 mg in 250 mls @ 167 mls/hr IVPB Q24H [facility]; Protocol Last Admin: 08/06/18 17:59 Dose: 167 mls/hr Potassium Chloride (Potassium Chloride 20 Meq/100 Ml) 20 meq in 100 mls @ 50 mls/hr IVPB ONCE ONE Stop: 08/07/18 14:19 Lactobacillus Acidophilus (Bacid Acidophilus) 1 cap PO BID [facility] Last Admin: 08/07/18 11:03 Dose: 1 cap Pantoprazole Sodium (Protonix Ec Tab) 40 mg PO DAILY [facility] Last Admin: 08/07/18 11:03 Dose: 40 mg - Labs Labs: 08/06/18 11:21 08/07/18 07:30 PT 11.1 SECONDS (9.7-12.2) 08/06/18 07:36 INR 1.0 08/06/18 07:36 APTT 29 SECONDS (21-34) 08/06/18 07:36
[2018-08-07] MEDS: Moxifloxacin IV 400mg/250ml NS 400 MG/250 ML BAG IVPB SCH (19:25)
--- NOTE | 2018-08-07 21:09 | PN ---
DATE: 08/07/2018 SUBJECTIVE: The patient was seen today. Her nephew was at the bedside along with the other family members and they said that they have agreed to get an ERCP done. It will be done on Thursday and the patient was very awake and alert. She had lot of food in front of her and she was trying to eat and she seemed concerned. She has a triple-lumen in her right IJ . PHYSICAL EXAMINATION: VITAL SIGNS: T-max is 97.6, pulse 89, blood pressure 117/80, respirations are 20. HEAD: Atraumatic, normocephalic. NECK: Supple. LUNGS: Clear at this time. Decreased breath sounds on both bases. HEART: S1, S2 is regular. ABDOMEN: Soft, nontender. No guarding, no rigidity present. EXTREMITIES: Have no edema. LABORATORY DATA: White count is 11, hemoglobin 9.9, hematocrit 30.7, platelet count is 267. Potassium is 3.5, chlorides are 103, CO2 is 24, creatinine is 1.3, it has improved markedly and her liver enzymes also have improved, total bili is 1.6. Rest of the LFTs are unremarkable except for alkaline phosphatase which still remains 447. She has a CBD stone and gallstones and she also has ovarian mass which is there and CA 125 was high and CA 19-9 was also high and CEA also came elevated. RECOMMENDATIONS: We will see what they find but if they do not do it, then she may become bacteremia again as she did come with a very severe jaundice, renal failure and had multiorgan failure and septic shock when she came here with septicemia with Enterococcus faecium and she also had a UTI and seem to have cleared them on antibiotics at this time. We will follow. Curry Ureña MD
[2018-08-08] MEDS: Pantoprazole 40 mg EC Tab PO SCH (09:09)
[2018-08-08] MEDS: Lactobacillus Acidophilus 500 MU Cap PO SCH ×2 (09:09→17:50)
--- NOTE | 2018-08-08 12:26 | PN ---
DATE: 08/08/2018 LOCATION: 565, bed B. SUBJECTIVE: This is an 83-year-old female seen and examined in rounds early today. No reported active bleeding. It has to be mentioned to begin with that I spoke to the nephew of the patient more than once by telephone regarding the patient's condition and the excessive delay of the ERCP procedure due to the nursing staff in the endoscopy room, refusing to proceed with procedure on 08/06/2018, with some semi-confusion regarding the no-code status. The entire chart is reviewed and today's lab results are still pending, however, the patient was reported to have leukocytosis with low hemoglobin and hematocrit with elevated blood glucose level, mild increase of creatinine, total bilirubin slightly elevated to 1.6 with increased alkaline phosphatase, with increased CEA as well as CA 19-9 and CA-125 antigens. PHYSICAL EXAMINATION: GENERAL: A 83-year-old female. VITAL SIGNS: Afebrile with pulse of 84, respiratory 20-22, blood pressure of 124/74. HEENT: Showed pale dry oral mucous membrane. Bilateral icteric sclerae. LUNGS: Few scattered mild crepitation. Decreased air entry at bases. HEART: Positive S1 and S2. ABDOMEN: Soft with slight generalized tenderness in the midepigastric and right upper quadrant area. No mass or organomegaly. No rebound tenderness or guarding. NEUROLOGIC: No reported new neurological deficits, sensory or motor. It has to be mentioned that the patient appears to be somewhat awake and alert. IMPRESSION: 1. Common bile duct stone, larger in size as reported by the recently done magnetic resonance cholangiopancreatography and radiology study results. 2. Abnormal liver function tests secondary to above. 3. Multiple past medical history as reported in the H and P. 4. Electrolyte imbalance. 5. Anemia secondary to chronic disease most likely. 6. 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 SUGGESTION: 1. Continue current management. 2. Schedule the patient for ERCP at a.m. under the assumption that the nursing staff would not refuse again and again performing the procedure as the nephew confirmed his consent for the procedure, again awaiting the legal department in the hospital to deal with such issues over legality as well as refusal to perform the procedure. We will follow up closely with you. Gracie Call MD [facility] # [id number]
[2018-08-08] MEDS: Moxifloxacin IV 400mg/250ml NS 400 MG/250 ML BAG IVPB SCH (17:49)
[2018-08-08] MEDS: Linezolid 600 mg in D5W 300 ml 600 MG/300 ML BAG IVPB SCH (19:31)
[2018-08-09] MEDS: Linezolid 600 mg in D5W 300 ml 600 MG/300 ML BAG IVPB SCH ×2 (07:11→16:11)
--- NOTE | 2018-08-09 08:22 | PN ---
DATE: 08/06/2018 SUBJECTIVE: The patient was seen and examined at the bedside, 08/06/2018, looking comfortable, just complaining that "I am not feeling fine, what happened. I am feeling nauseous sometimes." No fever. No chills. No hematuria. No hematochezia. No headache. No dizziness. The patient is a very poor historian. PHYSICAL EXAMINATION: VITAL SIGNS: Temperature 97.9, pulse 87, respiratory rate 20, blood pressure 119/65, pulse oximetry 96. HEENT: Head: Normocephalic, atraumatic. Eyes: PERRLA. Extraocular muscles intact. Conjunctivae clear. Nose patent. Mucous membrane moist. NECK: Supple. No carotid bruit. No thyromegaly. CHEST: Bilaterally symmetrical. HEART: S1, S2 positive. LUNGS: Clear to auscultation. ABDOMEN: Soft. Bowel sound present. No organomegaly. EXTREMITIES: No edema, no cyanosis. NEUROLOGIC: The patient is awake, alert, moving all four extremities. No focal deficit. LABORATORY DATA: White blood cell 11, hemoglobin 9.9, hematocrit 30.7, platelets 267. Sodium 136, potassium 3.5, BUN 55, creatinine 1.4, glucose 127. MEDICATIONS: Reviewed by me, aspirin, heparin, Zovirax, Avelox, Bacid, pantoprazole. ASSESSMENT AND PLAN: Ms. Chloe Robledo is an 83-year-old lady with leukocytosis, anemia, hypokalemia, renal insufficiency, hyperglycemia, has choledocholithiasis, came in with septic shock with urinary tract infection versus cholangitis improved, ovarian mass, hypertension, acute hypercapnic respiratory failure. Imaging reviewed, 2 cm stone in the common bile duct. Plan is to continue antibiotics. Magnetic resonance cholangiopancreatography done. Plan is to do endoscopic retrograde cholangiopancreatography to remove the stone. Length of time discussion done with the patient's nephew, Vin Amaya. GI called the patient's nephew two times. Second time, he signed consent for the procedure. According to GI, the patient will go to endoscopic retrograde cholangiopancreatography at 08:30 a.m. Endoscopic retrograde cholangiopancreatography is at hold as per GI for clarification of advanced directive. I spoke with Dr. laurent , maybe during the procedure for the endoscopic retrograde cholangiopancreatography, will hold off [id number] and will imply after the procedure. Appreciate Dr. Neal's input, history of cholelithiasis. Even though the patient is confused, she is on her baseline and looks like she has dementia. I had a length of time discussion done with the patient's nephew, Vin Amaya, we gave him the whole scenario. He agrees for the procedure on Thursday. After that, he is looking rehab for his aunt in the nearby area. So, the patient can see the same set of physicians for the continuity of care. Gastrointestinal and deep vein thrombosis prophylaxis. Repeat labs. We will follow. Donna Wallace MD MTDJonathan
--- NOTE | 2018-08-09 09:15 | PN ---
DATE: 08/07/2018 SUBJECTIVE: The patient is an 83-year-old female. The patient was seen and examined at the bedside on 08/07/2018. Looking comfortable. No fever. No chills. No hematuria. No hematochezia. No headache. No dizziness. No chest pain. No palpitation. PHYSICAL EXAMINATION: VITAL SIGNS: Temperature 97.6, pulse 89, blood pressure 117/80, and respiration 18. HEENT: Head: Normocephalic and atraumatic. Eyes: PERRLA. Extraocular muscles are intact. Conjunctivae clear. Nose patent. Mucous membranes moist. NECK: Supple. No carotid bruit, JVD, or thyromegaly. CHEST: Bilaterally symmetrical. HEART: S1 and S2 positive. LUNGS: Clear to auscultation. ABDOMEN: Soft, nontender. No organomegaly. EXTREMITIES: No edema. No cyanosis. LABORATORY DATA: White blood cells 11, hemoglobin 9.9, hematocrit 30.7, and platelets 267. Potassium 3.5 and creatinine 1.3. ASSESSMENT AND PLAN: The patient is an 83-year-old lady with acute kidney injury, likely due to acute tubular necrosis from septic shock, improving; history of fall; abnormal liver function tests; hyperphosphatemia; urinary tract infection; cholelithiasis; pelvic mass; hypomagnesemia/hypokalemia; no acute need for renal replacement therapy at this moment; hemodynamically stable. Supplement electrolytes as needed. Gastroenterology is working on that. The patient is supposed to go for endoscopic retrograde cholangiopancreatography on Thursday. Gastroenterology got the consent from the family. Repeat labs. We will follow up. Donna Wallace MD [facility]
--- NOTE | 2018-08-09 09:33 | RAD ---
Date of service: 08/09/2018 HISTORY: desaturation COMPARISON: Portable chest 08/02/2018. TECHNIQUE: Chest PA and lateral FINDINGS: LUNGS: Right central venous line unchanged in position. Atelectasis identified at the mid left lung zone laterally. Persistent opacities identified in the bilateral lung bases, slightly increased at the right reflecting probable combination of atelectasis, pleural effusions pneumonia not excluded. Remaining lung mortensen are otherwise stable and unremarkable. No pneumothorax bilaterally. PLEURA: As above. CARDIOVASCULAR: Cardiomegaly is stable. No pulmonary vascular congestion. Calcific atherosclerotic changes are seen related to the thoracic aorta. OSSEOUS STRUCTURES: No significant abnormalities. VISUALIZED UPPER ABDOMEN: Normal. OTHER FINDINGS: None. IMPRESSION: No signal change in bilateral basilar airspace disease and effusions. Right central venous line unchanged in position. Cardiomegaly stable.
[2018-08-09 10:33] LABS: ABG ALLEN TEST POS; ARTERIAL BLOOD GAS HCO3 22.7 mmol/L (21-28); ARTERIAL BLOOD GAS HEMOGLOBIN 9.3 g/dL (11.7-17.4); ARTERIAL BLOOD GAS O2 SAT 66.8 % (95-98); ARTERIAL BLOOD GAS PCO2 35 mm/Hg (35-45); ARTERIAL BLOOD GAS PH 7.41 (7.35-7.45); ARTERIAL BLOOD GAS PO2 31 mm/Hg (80-100); ARTERIAL BLOOD GAS TCO2 23.3 mmol/L (22-28)
[2018-08-09] MEDS: Lactobacillus Acidophilus 500 MU Cap PO SCH ×2 (10:57→18:19)
[2018-08-09] MEDS: Potassium Chloride 20 mEq/15 ml LIQ UD PO SCH (10:57)
[2018-08-09] MEDS: Pantoprazole 40 mg EC Tab PO SCH (10:57)
[2018-08-09 11:21] LABS: BASO # 0.1 K/uL (0.0-0.2); BASO % 0.6 % (0.0-2.0); EOS # 0.1 K/uL (0.0-0.7); EOS % 0.6 % (0.0-4.0); HEMOGLOBIN 10.5 g/dL (11.0-16.0); LYMPH % 9.6 % (20.0-40.0); MEAN CELL VOLUME 86.5 fL (81.0-99.0); MEAN CORPUSCULAR HEMOGLOBIN 27.5 pg (27.0-31.0); MEAN CORPUSCULAR HGB CONC 31.7 g/dL (33.0-37.0); MEAN PLATELET VOLUME 9.8 fL (7.2-11.7); MONO # 0.6 K/uL (0.0-0.8); MONO % 5.4 % (0.0-10.0); NEUT # 8.6 K/uL (1.8-7.0); NEUT % 83.8 % (50.0-75.0); PLATELET COUNT 361 K/uL (130-400); RBC 3.81 Mil/uL (3.80-5.20); RED CELL DISTRIBUTION WIDTH 16.8 % (11.5-14.5); WHITE BLOOD COUNT 10.3 K/uL (4.8-10.8)
[2018-08-09 11:50] LABS: ALB/GLOB RATIO 1.1 (1.0-2.1); ALBUMIN 3.1 g/dL (3.5-5.0); CALCIUM 7.8 mg/dl (8.6-10.4)
[2018-08-09 11:55] LABS: ABG ALLEN TEST POS; ARTERIAL BLOOD GAS HCO3 25.1 mmol/L (21-28); ARTERIAL BLOOD GAS O2 SAT 95.7 % (95-98); ARTERIAL BLOOD GAS PCO2 30 mm/Hg (35-45); ARTERIAL BLOOD GAS PH 7.49 (7.35-7.45); ARTERIAL BLOOD GAS PO2 59 mm/Hg (80-100); ARTERIAL BLOOD GAS TCO2 23.8 mmol/L (22-28)
[2018-08-09 12:06] LABS: ANISOCYTOSIS SLIGHT; LYMPHOCYTE 10 % (20-40); MONOCYTE 5 % (0-10); NEUTROPHIL 85 % (50-75); PLATELET ESTIMATE NORMAL (NORMAL); TOTAL CELLS COUNTED 100
--- NOTE | 2018-08-09 12:09 | CP.PCM.CON ---
History of Present Illness - History of Present Illness History of Present Illness: palliative consult requested by TO Doctor Venkatesh to assist with Code status clarification patient is a 83 yo admitted from home S/P fall, when she was found on floor. Patient reported she was there " since yesterday" but it could not be confirmed, patent lives alone. At that time patient was alert to name and place. Patient denied losing of conscience, nausea, vomiting or headache. Patient admitted for further evaluation. CT abdomen and pelvis was significant for large and complex pelvic mass. PROTECTIVE SERVICES CASE WORKER consult called and outpatient fallow up suggested. Also, Chlelitiasis was seen and Nuclear GB exam showed no obstruction. ERCP was planned. The Advance Directive on chart was not clear enough for what patient/ family member meant under ' Extraordinary measures " and procedure was paced on hold. Palliative care was asked to assist in Code status clarification. PMH: Rhabdomylisis, pneumonia, sepsis, NSTEMI Soc. Hx: single, never , no children, lives at home, nephew Fam. Hx: Unknown Review of Systems - Constitutional Constitutional: Weakness - EENT Eyes: absent: As Per HPI, Blind Spots, Blurred Vision, Change in Vision, Decreased Night Vision, Diplopia, Discharge, Dry Eye, Exophthalmos, Floaters, Ir ritation, Itchy Eyes, Loss of Peripheral Vision, Pain, Photophobia, Requires Corrective Lenses, Sees Flashes, Spots in Vision, Tunnel Vision, Other Visual Disturbances, Loss of Vision, Other Ears: absent: As Per HPI, Decreased Hearing, Ear Discharge, Ear Pain, Tinnitus, Abnormal Hearing, Disequilibrium, Dizziness, Other Nose/Mouth/Throat: absent: As Per HPI, Epistaxis, Nasal Congestion, Nasal Discharge, Nasal Obstruction, Nasal Trauma, Nose Pain, Post Nasal Drip, Sinus Pain, Sinus Pressure, Bleeding Gums, Change in Voice, Dental Pain, Dry Mouth, Dysphagia, Halitosis, Hoarsness, Lip Swelling, Mouth Lesions, Mouth Pain, Odynophagia, Sore Throat, Throat Swelling, Tongue Swelling, Facial Pain, Neck Pain, Neck Mass, Other - Breasts Breasts: absent: As Per HPI, Change in Shape, Mass, Pain, Nipple Discharge, Nipple Inversion, Skin Changes, Swelling, Other - Cardiovascular Cardiovascular: absent: As Per HPI, Acrocyanosis, Chest Pain, Chest Pain at Rest, Chest Pain with Activity, Claudication, Diaphoresis, Dyspnea, Dyspnea on Exertion, Edema, Irregular Heart Rhythm, Pain Radiating to Arm/Neck/Jaw, Leg Edema, Leg Ulcers, Lightheadedness, Orthopnea, Palpitations, Paroxysmal Nocturnal Dyspnea, Pedal Edema, Radiating Pain, Rapid Heart Rate, Slow Heart Rate, Syncope, Other - Respiratory Respiratory: absent: As Per HPI, Cough, Dyspnea, Hemoptysis, Dyspnea on Exertion, Wheezing, Snoring, Stridor, Pain on Inspiration, Chest Congestion, Excessive Mucous Production, Change in Mucous Color, Pain with Coughing, Other - Gastrointestinal Gastrointestinal: absent: As Per HPI, Abdominal Pain, Belching, Bloating, Change in Bowel Habits, Change in Stool Character, Coffee Ground Emesis, Constipation, Cramping, Diarrhea, Dyspepsia, Dysphagia, Early Satiety, Excessive Flatus, Fecal Incontinence, Heartburn, Hematemesis, Hematochezia, Loose Stools, Melena, Nausea, Odynophagia, Temesmus, Vomiting, Other - Genitourinary Genitourinary: Urinary Incontinence - Reproductive: Female Reproductive:Female: Post Menopausal - Menstruation Menstruation: Post Menopausal - Musculoskeletal Musculoskeletal: Muscle Weakness - Integumentary Integumentary: absent: As Per HPI, Acne, Alopecia, Bleeding Lesions, Change in Hair, Change in Nails, Change in Pigmentation, Changing Lesions, Dry Skin, Erythema, Furuncle, Hirsutism, Lesions, New Lesions, Non-Healing Lesions, Photosensitivity, Pruritus, Rash, Skin Pain, Skin Ulcer, Sores, Striae, Swelling, Unusual Bruising, Wounds, Jaundice, Other - Neurological Neurological: absent: As Per HPI, Abnormal Gait, Abnormal Hearing, Abnormal Movements, Abnormal Speech, Behavioral Changes, Burning Sensations, Confusion, Convulsions, Disequilibrium, Dizziness, Numbness, Focal Weakness, Frequent Falls, Headaches, Lack of Coordination, Loss of Vision, Memory Loss, Paresthesias, Radicular Pain, Restless Legs, Sensory Deficit, Syncope, Tingling, Tremor, Vertigo, Weakness, Other Visual Disturbances, Other - Psychiatric Psychiatric: absent: As Per HPI, Abnormal Sleep Pattern, Anhedonia, Anxiety, Auditory Hallucinations, Behavioral Changes, Change in Appetite, Change in Libido, Confusion, Depression, Difficulty Concentrating, Hallucinations, Homicidal Ideation, Hopelessness, Irritability, Memory Loss, Mood Swings, Panic Attacks, Paranoia, Suicidal Ideation, Visual Hallucinations, Tactile Hallucinations, Other - Endocrine Endocrine: absent: As Per HPI, Change in Body Appearance, Change in Libido, Cold Intolorance, Deepening of Voice, Excessive Sweating, Fatigue, Flushing, Heat Intolorance, Increase in Ring/Shoe/Hat Size, Palpitations, Polydipsia, Polyphagia, Polyuria, Other - Hematologic/Lymphatic Hematologic: absent: As Per HPI, Easy Bleeding, Easy Bruising, Lymphadenopathy, Other Past Patient History - Infectious Disease Hx of Infectious Diseases: None (patient is a poor historian) - Tetanus Immunizations Tetanus Immunization: Unknown - Past Medical History & Family History Past Medical History?: No Past Family History: Reviewed and not pertinent - Past Social History Smoking Status: Never Smoked Alcohol: None Drugs: Denies - CARDIAC Hx Hypertension: Yes - MUSCULOSKELETAL/RHEUMATOLOGICAL Hx Falls: Yes - GENITOURINARY/GYNECOLOGICAL Hx Ovarian Cancer: No Hx Postmenopausal Bleeding: No Hx Reproductive Disorders: No Hx Sexually Transmitted Disorders: No Hx Uterine Cancer: No : 0 Para: 0 - PSYCHIATRIC Hx Substance Use: No - SURGICAL HISTORY Hx Surgeries: No - ANESTHESIA Hx Anesthesia: No Meds Allergies/Adverse Reactions: Allergies Allergy/AdvReac Type Severity Reaction Status Date / Time Penicillins Allergy Verified 07/29/18 10:24 - Medications Medications: Current Medications Aspirin (Aspirin Chewable) 81 mg PO DAILY [facility] Last Admin: 08/09/18 10:57 Dose: 81 mg Furosemide (Lasix) 20 mg PO DAILY [facility] Stop: 08/11/18 10:01 Last Admin: 08/09/18 10:57 Dose: 20 mg Heparin Sodium (Porcine) (Heparin) 5,000 units SC Q8 [facility] Last Admin: 08/09/18 07:12 Dose: Not Given Linezolid (Zyvox 600mg/300ml D5w) 600 mg in 300 mls @ 200 mls/hr IVPB Q12H [facility]; Protocol Last Admin: 08/09/18 07:11 Dose: 200 mls/hr Moxifloxacin HCl (Avelox Iv 400mg/250ml Ns) 400 mg in 250 mls @ 167 mls/hr IVPB Q24H [facility]; Protocol Last Admin: 08/08/18 17:49 Dose: 167 mls/hr Lactobacillus Acidophilus (Bacid Acidophilus) 1 cap PO BID [facility] Last Admin: 08/09/18 10:57 Dose: 1 cap Pantoprazole Sodium (Protonix Ec Tab) 40 mg PO DAILY [facility] Last Admin: 08/09/18 10:57 Dose: 40 mg Potassium Chloride (Potassium Chloride Oral Soln) 20 meq PO DAILY [facility] Stop: 08/11/18 10:01 Physical Exam - Constitutional Appears: No Acute Distress, Chronically Ill - Head Exam Head Exam: ATRAUMATIC, NORMAL INSPECTION, NORMOCEPHALIC - Eye Exam Eye Exam: EOMI, Normal appearance, PERRL Pupil Exam: PERRL - ENT Exam ENT Exam: Mucous Membranes Moist, Normal Exam - Neck Exam Neck exam: Positive for: Normal Inspection - Respiratory Exam Respiratory Exam: Decreased Breath Sounds, NORMAL BREATHING PATTERN - Cardiovascular Exam Cardiovascular Exam: Tachycardia, Irregular Rhythm - GI/Abdominal Exam GI & Abdominal Exam: Normal Bowel Sounds, Soft - Rectal Exam Rectal Exam: Deferred - Extremities Exam Extremities exam: Positive for: normal inspection - Back Exam Back exam: NORMAL INSPECTION - Neurological Exam Neurological exam: Alert, Oriented x3 - Psychiatric Exam Psychiatric exam: Normal Affect, Normal Mood - Skin Skin Exam: Dry, Intact, Normal Color, Warm Results - Vital Signs Recent Vital Signs: Last Vital Signs Temp 98.2 F 08/09/18 07:00 Pulse 97 H 08/09/18 10:55 Resp 20 08/09/18 10:55 BP 112/69 08/09/18 10:57 Pulse Ox 93 L 08/09/18 10:55 - Labs Result Diagrams: 08/09/18 11:15 08/09/18 11:15 Labs: Laboratory Results - last 24 hr 08/09/18 08/09/18 08/09/18 10:25 11:15 11:15 WBC 10.3 RBC 3.81 Hgb 10.5 L Hct 33.0 L MCV 86.5 MCH 27.5 MCHC 31.7 L RDW 16.8 H Plt Count 361 MPV 9.8 Neut % (Auto) 83.8 H Lymph % (Auto) 9.6 L Monroe % (Auto) 5.4 Eos % (Auto) 0.6 Baso % (Auto) 0.6 Neut # (Auto) 8.6 H Lymph # (Auto) 1.0 Monroe # (Auto) 0.6 Eos # (Auto) 0.1 Baso # (Auto) 0.1 Puncture Site Lr pCO2 35 pO2 31 L* HCO3 22.7 ABG pH 7.41 ABG Total CO2 23.3 ABG O2 Saturation 66.8 L ABG Base Excess -2.1 L ABG Hemoglobin 9.3 L ABG Carboxyhemoglobin 2.5 H POC ABG HHb (Measured) 31.9 H ABG Methemoglobin 1.4 New Test Pos ABG Potassium Hgb O2 Saturation 64.3 L Glucose Lactate Liter Flow 3.0 Crit Value Called To mandeep Goldsmith Crit Value Called By rt Christianne Crit Value Read Back Y Blood Gas Notified Time 1033 Sodium 136 Potassium 3.8 Chloride 102 Carbon Dioxide 24 Anion Gap 14 BUN 20 H Creatinine 1.2 Est GFR ( Amer) 52 Est GFR (Non-Af Amer) 43 Random Glucose 170 H Calcium 7.8 L Total Bilirubin 1.7 H AST 23 ALT 33 Alkaline Phosphatase 445 H Total Protein 6.0 L Albumin 3.1 L Globulin 2.8 Albumin/Globulin Ratio 1.1 Arterial Blood Potassium 08/09/18 11:50 WBC RBC Hgb Hct MCV MCH MCHC RDW Plt Count MPV Neut % (Auto) Lymph % (Auto) Monroe % (Auto) Eos % (Auto) Baso % (Auto) Neut # (Auto) Lymph # (Auto) Monroe # (Auto) Eos # (Auto) Baso # (Auto) Puncture Site Rr pCO2 30 L pO2 59 L HCO3 25.1 ABG pH 7.49 H ABG Total CO2 23.8 ABG O2 Saturation 95.7 ABG Base Excess 0.4 ABG Hemoglobin ABG Carboxyhemoglobin POC ABG HHb (Measured) ABG Methemoglobin New Test Pos ABG Potassium 3.5 L Hgb O2 Saturation Glucose 169 H Lactate 2.7 H Liter Flow 3.0 Crit Value Called To Crit Value Called By Crit Value Read Back Blood Gas Notified Time Sodium 138.0 Potassium Chloride 105.0 Carbon Dioxide Anion Gap BUN Creatinine Est GFR ( Amer) Est GFR (Non-Af Amer) Random Glucose Calcium Total Bilirubin AST ALT Alkaline Phosphatase Total Protein Albumin Globulin Albumin/Globulin Ratio Arterial Blood Potassium 3.5 L Assessment & Plan - Assessment and Plan (Free Text) Assessment: Palliative consult Advance Directive on chart indicates " No extraordinary " interventions, PPS 20% I reviewed all medical records and diagnostic studies, examined and interviewed patient in the bed Patient is alert, oriented to place and time, in no acute distress. Speech clear. Patient answers questions appropriately . Patient understands the reason for admission, states ' I fail on the floor". Skin dry and intact. Breath sounds diminished, no cough noted. O2sat 93 % RA. Abdomen soft, non tender, patient tolerates diet, appetite fair. Incontinent of urine. Needs assistance with repositioning and care. BP 112/69, HR 97, O2sat 93 % RA WBC 11.0, Hb 10.5 Urine cultures and blood cultures positive, Zyvox IV and Avelox IV on board. I met with patient's nephew Vin Brown [phone] as he requested more information about Advance Directive and POA status. Two family members were present as well. Discussion took place at bed side. Patient agreed that her nephew Vin could make all Medical decisions for her when needed. It was also indicated in Advance Directive signed by the patient on 08/04/2018. I reviewed patient's current clinical condition and elicited family's concerns and understanding. Vin, the nephew said h understood his aunt is chronically ill, but he would like her care to include surgical interventions if needed besides ordinary Medical interventions. Vin was under the impression that proposed ERCP was cancelled due to Advance Directive on chart, that was giving offering interpretations. I further elicited Vin's concerns and learned that he would want all suggested surgical and medical interventions to be applied in treating his aunt. It includes the ERCP planned by Doctor Severino. I spoke to Doctor Severino and his GI Fellow and made them aware of it. The nephew also said that he wanted his aunt to be treated as long as she was responding to it. If her condition declines and her heart stops , he would not want her to be given CPR nor to be intubated on MV support. Those wishes were stated in Advance Directive. The nephew and the rest of family were against PEG as well. POLST introduced. Nephew signed DNR/DNI and chose Full Medical interventions as indicated. Doctor Wallace made aware of this. Impression * Sepsis * UTI * Cholilithiasis * ERCP proposed, Doctor Severino wanted to make sure family understood the Code status before the procedure * Interment confusion * Weakness, in need for assistance with ADLs * Family supports patient's wishes for allowing Peaceful and want her to be treated with all Medical and Surgical interventions in meantime * DNR/DNI, POLST on chart Suggestions * Continue IV antibiotics * Assist with care * Promote safety * Precede with ERCP with Doctor Severino * Agree with DNR/DNI Palliative care will continue to fallow up on goals of care post procedure, in terms of possible LTC placement Advance care planing 60 min
--- NOTE | 2018-08-09 13:16 | CT ---
Date of service: 08/09/2018 CT chest without IV contrast Indication: sob Technique: Contiguous axial images were obtained through the chest without intravenous contrast enhancement. Sagittal and coronal reconstructions were generated and reviewed. This CT exam was performed using 1 or more of the following dose reduction techniques: Automated exposure control, adjustment of the MAA and/or kV according to patient size, and/or use of iterative reconstruction technique. Radiation dose (DLP): 558.79 MGy-cm. Comparison: Chest x-ray performed 08/09/18 Findings: Right IJ approach central venous catheter extends to the SVC. Visualized portions of the inferior thyroid gland appear heterogeneous. The mediastinal and hilar vascular structures appear within normal limits. Cardiomegaly. Coronary artery calcifications. Ectatic aorta. Atherosclerotic calcifications of the aorta. Moderate right and small left pleural effusions and associated compressive consolidations. Patchy right upper lobe ground-glass/patchy infiltrates. Scarring/atelectasis within the upper lobes. Large hiatal hernia. Limited visualization of the noncontrast upper abdomen: Cholelithiasis. Suspect gallbladder wall thickening/pericholecystic edema. Dilated common bile duct measures approximately 10 mm with filling defect evident distally consistent with calculus. Kyphosis. Degenerative changes. Motion precludes adequate evaluation of the sternum as discontinuity appears secondary to motion rather than fracture. Correlate clinically. Impression: Right IJ approach central venous catheter extends to the SVC. Heterogeneous appearance of the imaged portions of the inferior thyroid gland. Cardiomegaly. Coronary artery calcifications. Ectatic aorta. Atherosclerotic calcifications of the aorta. Moderate right and small left pleural effusions and associated compressive consolidations. Patchy right upper lobe ground-glass/patchy infiltrates. Scarring/atelectasis within the upper lobes. Large hiatal hernia. Limited visualization of the noncontrast upper abdomen: Cholelithiasis. Suspect gallbladder wall thickening/pericholecystic edema. Dilated common bile duct measures approximately 10 mm with filling defect evident distally consistent with calculus. Kyphosis. Degenerative changes. Motion precludes adequate evaluation of the sternum as discontinuity appears secondary to motion rather than fracture. Correlate clinically.
--- NOTE | 2018-08-09 13:24 | CP.PCM.PN ---
Subjective - Date & Time of Evaluation Date of Evaluation: 08/09/18 Time of Evaluation: 13:23 - Subjective Subjective: Nephrology Consultation Note: Assessment: stable Acute Kidney Injury (N17.9) likely due to ATN from septic shock: improving Fall abnormal LFT hyperphosphatemia, HAGMA UTI cholelithiasis pelvic mass hypomagnesemia hypokalemia pleural effusion Plan No acute need for renal replacement therapy at this time as improving with conservative management. Maintain hemodynamics stable. Avoid hypotension. Patient not on ACEI/ARB due to recent JEFF Monitor Input/Output, daily weights and renal function with basic metabolic panel supplement lytes as needed. GI/surgery work up ongoing. seen by CONTRACTING ENGINEER as well will add lasix for few days Dose meds/antibiotics for reduced GFR. avoid nephrotoxins/NSAIDs Glycemic control Further work up/management as per primary team Thanks for allowing me to participate in care of your patient. Will follow abilio aguirre with you. Please call if any Qs. had d/w team Dr Valerio Lewis Office: [phone] Chief Complaint; fall Reason for consult: Acute Kidney Injury HPI: Pt is a 83 F without any known medical hx but no recent medical follow up presented with complaints of fall and found to have sepsis with shock, abnormal LFT and JEFF No recent iodinated contrast exposure. Noted obvious episodes of low BP. ROS: pt is a poor historian and provided little reliable ROS. noted to be hypxic this AM Cardiovascular: No chest pain. Pulmonary: No shortness of breath Gastrointestinal: denies abdominal pain No nausea. No vomiting. no loose stool at present Genitourinary: No pain while urinating. Denies blood in urine. All other negative except as mentioned in HPI Physical Examination: General Appearance: Comfortable, in no acute respiratory distress, co-operative . chronically debilitated appearing Vitals reviewed and noted as below Head; Atraumatic, normocephalic ENT: no ulcers no thrush. Tongue is midline. Oropharynx: no rash or ulcers. she is hard of hearing EYES: Pupils are equal, round and reactive to light accommodation. Eye muscles and extraocular movement intact. Sclera is icteric. Neck; supple no lymphadenopathy, no thyromegaly or bruit Lungs: Normal respiratory rate/effort. Breath sounds bilateral reduced at bases few basal crackle Heart: Normal rate. s1s2 normal. No rub or gallop. Extremities: no edema. No varicose veins Neurological: Patient is alert, awake and oriented Strength bilateral appropriate and equal Skin: Warm and dry. Normal turgor. No rash. Palpitation: Normal elasticity for age Abdomen: Abdomen is soft. Bowel sounds +. There is mild Rt abdominal tenderness, no guarding/rigidity no organomegaly Psych: lack insight and normal affect/mood MSK: no joint tenderness or swelling. Digits and nails normal, no deformity : kidney or bladder not palpable Labs/imaging reviewed. Past medical history, past surgical history, family history, social history, allergy reviewed and noted as below Family hx: no hx of CKD. Rest non-contributory Objective - Vital Signs/Intake and Output Vital Signs (last 24 hours): Temp Pulse Resp BP Pulse Ox 98.2 F 97 H 20 112/69 93 L 08/09/18 07:00 08/09/18 10:55 08/09/18 10:55 08/09/18 10:57 08/09/18 10:55 - Medications Medications: Current Medications Aspirin (Aspirin Chewable) 81 mg PO DAILY [facility] Last Admin: 08/09/18 10:57 Dose: 81 mg Furosemide (Lasix) 20 mg PO DAILY [facility] Stop: 08/11/18 10:01 Last Admin: 08/09/18 10:57 Dose: 20 mg Heparin Sodium (Porcine) (Heparin) 5,000 units SC Q8 [facility] Last Admin: 08/09/18 07:12 Dose: Not Given Linezolid (Zyvox 600mg/300ml D5w) 600 mg in 300 mls @ 200 mls/hr IVPB Q12H [facility]; Protocol Last Admin: 08/09/18 07:11 Dose: 200 mls/hr Moxifloxacin HCl (Avelox Iv 400mg/250ml Ns) 400 mg in 250 mls @ 167 mls/hr IVPB Q24H [facility]; Protocol Last Admin: 08/08/18 17:49 Dose: 167 mls/hr Sodium Chloride (Sodium Chloride 0.9%) 1,000 mls @ 75 mls/hr IV .[id number] [facility] Lactobacillus Acidophilus (Bacid Acidophilus) 1 cap PO BID [facility] Last Admin: 08/09/18 10:57 Dose: 1 cap Pantoprazole Sodium (Protonix Ec Tab) 40 mg PO DAILY [facility] Last Admin: 08/09/18 10:57 Dose: 40 mg Potassium Chloride (Potassium Chloride Oral Soln) 20 meq PO DAILY [facility] Stop: 08/11/18 10:01 Last Admin: 08/09/18 10:57 Dose: Not Given - Labs Labs: 08/09/18 11:15 08/09/18 11:15 PT 11.1 SECONDS (9.7-12.2) 08/06/18 07:36 INR 1.0 08/06/18 07:36 APTT 29 SECONDS (21-34) 08/06/18 07:36
[2018-08-09] MEDS ORDERED: Sodium Chloride 0.9% 1,000 ML IV SCH ×2 (13:30)
--- NOTE | 2018-08-09 13:31 | CP.PCM.PN ---
Subjective - Date & Time of Evaluation Date of Evaluation: 08/09/18 Time of Evaluation: 13:29 - Subjective Subjective: No acute events overnight. Tolerating diet. No abdominal pain. Objective - Vital Signs/Intake and Output Vital Signs (last 24 hours): Temp Pulse Resp BP Pulse Ox 98.2 F 97 H 20 112/69 93 L 08/09/18 07:00 08/09/18 10:55 08/09/18 10:55 08/09/18 10:57 08/09/18 10:55 - Medications Medications: Current Medications Aspirin (Aspirin Chewable) 81 mg PO DAILY [facility] Last Admin: 08/09/18 10:57 Dose: 81 mg Furosemide (Lasix) 20 mg PO BID [facility] Stop: 08/12/18 18:01 Heparin Sodium (Porcine) (Heparin) 5,000 units SC Q8 [facility] Last Admin: 08/09/18 07:12 Dose: Not Given Linezolid (Zyvox 600mg/300ml D5w) 600 mg in 300 mls @ 200 mls/hr IVPB Q12H [facility]; Protocol Last Admin: 08/09/18 07:11 Dose: 200 mls/hr Moxifloxacin HCl (Avelox Iv 400mg/250ml Ns) 400 mg in 250 mls @ 167 mls/hr IVPB Q24H [facility]; Protocol Last Admin: 08/08/18 17:49 Dose: 167 mls/hr Sodium Chloride (Sodium Chloride 0.9%) 1,000 mls @ 70 mls/hr IV .[id number] [facility] Lactobacillus Acidophilus (Bacid Acidophilus) 1 cap PO BID [facility] Last Admin: 08/09/18 10:57 Dose: 1 cap Pantoprazole Sodium (Protonix Ec Tab) 40 mg PO DAILY [facility] Last Admin: 08/09/18 10:57 Dose: 40 mg Potassium Chloride (Potassium Chloride Oral Soln) 20 meq PO DAILY [facility] Stop: 08/11/18 10:01 Last Admin: 08/09/18 10:57 Dose: Not Given - Labs Labs: 08/09/18 11:15 08/09/18 11:15 PT 11.1 SECONDS (9.7-12.2) 08/06/18 07:36 INR 1.0 08/06/18 07:36 APTT 29 SECONDS (21-34) 01/18/19 07:36 - Constitutional Appears: Non-toxic, No Acute Distress, Confused, Chronically Ill - Head Exam Head Exam: ATRAUMATIC, NORMAL INSPECTION - Eye Exam Eye Exam: EOMI, Normal appearance - ENT Exam ENT Exam: Mucous Membranes Moist, Normal Exam - Respiratory Exam Respiratory Exam: Clear to Ausculation Bilateral, NORMAL BREATHING PATTERN - Cardiovascular Exam Cardiovascular Exam: REGULAR RHYTHM, +S1, +S2 - GI/Abdominal Exam GI & Abdominal Exam: Soft, Normal Bowel Sounds. absent: Tenderness - Extremities Exam Extremities Exam: Normal Inspection. absent: Pedal Edema - Neurological Exam Neurological Exam: Alert, Normal Gait. absent: Oriented x3 - Psychiatric Exam Psychiatric exam: Normal Affect, Normal Mood - Skin Skin Exam: Normal Color, Warm Assessment and Plan - Assessment and Plan (Free Text) Assessment: #Choledocolithiasis #Septic shock - UTI vs cholangitis, improved. #AHRF #Ovarian mass #HTN PLAN: -Imaging reviewed. ~2cm stone in CBD. -Continue Abx -Plan for ERCP to remove stone tomorrow. -Continue to monitor for signs of sepsis or worsening obstruction. -Follow electrolytes -NPO PM Case discussed with Dr. Severino, see attestation.
--- NOTE | 2018-08-09 13:52 | PN ---
DATE: 08/09/2018 LOCATION: 565, bed B. SUBJECTIVE: This is an 83-year-old female seen early in rounds today with the staff in the floor with reported shortness of breath, on non-breathing mask. No reported chest pain, palpitation, or significant increase of complaint of abdominal pain. The entire chart is reviewed including but not limited to the most recent lab and radiology study results, current and the previous medication list. The patient has abnormal ABGs with reported low potassium, increased creatinine, increased blood glucose level with increased alkaline phosphatase. Most recently done chest x-ray today, report is seen with bilateral basilar air space and effusion. PHYSICAL EXAMINATION: GENERAL: An 83-year-old female. VITAL SIGNS: Afebrile with pulse of 96, respiratory rate 22 to 24, blood pressure 124/72. HEENT: Showed pale dry mucous membrane. Nonicteric sclerae. LUNGS: Few scattered crepitation. Decreased air entry at bases. HEART: Positive S1 and S2. ABDOMEN: Soft with mild generalized tenderness. No mass or organomegaly. No rebound tenderness or guarding. EXTREMITIES: Without significant clubbing or cyanosis, but lower extremity edematous changes. NEUROLOGIC: No reported new neurological deficits, sensory or motor. IMPRESSION: 1. Choledocholithiasis by radiology study results. 2. Re-exacerbation of chronic obstructive pulmonary disease. 3. Multiple past medical history including peptic ulcer disease. 4. Possible pneumonia with bilateral effusions. SUGGESTIONS: 1. Continue current management. 2. Due to the patient's clinical presentation and her shortness of breath, case discussed with anesthesia staff and ERCP to be canceled for now, until the patient is more stable clinically as well as when we obtain a pure legal consent from the legal guardian. I was informed by the nursing staff in the floor and in endoscopy room that the son will come to the hospital with the manager adult to discuss the possibility of a consent for ERCP and any other needed surgical procedures. We will follow up closely with you. Gracie Call MD
--- NOTE | 2018-08-09 16:51 | CP.PCM.CON ---
History of Present Illness - History of Present Illness History of Present Illness: Reason for consult: desaturation HPI: 83 year old female with PMH of HTN and recent admission on 07/29/18 for fall s/p septic shock and JEFF. Patient out of ICU consulted for desaturation. ABG today: pH 7.49, pO2 59, pCO2 30, O2sat 95.7%. Patient currently on 3L NC resting comfortably, denies SOB, cough, chest pain, palpitations. ROS: 10 point ROS negative except for as per HPI. PMH: HTN, recent fall, recent ICU admission for septic shock with JEFF All: penicillins FamH: noncontributary SocH: denies tobacco, alcohol, and illicit drug use Exam: Gen - no acute distress Card - tachycardic, +S1 +S2, no murmurs, rubs or gallops Lungs - normal breathing pattern, clear to auscultation bilaterally, no wheezes, rales or rhonchi GI - abdomen soft, nontender, no rebound, guarding or rigidity Extr - no edema bilaterally Review of Systems - Review of Systems All systems: reviewed and no additional remarkable complaints except (shortness of breath) Past Patient History - Infectious Disease Hx of Infectious Diseases: None (patient is a poor historian) - Tetanus Immunizations Tetanus Immunization: Unknown - Past Medical History & Family History Past Medical History?: No Past Family History: Reviewed and not pertinent - Past Social History Smoking Status: Never Smoked Alcohol: None Drugs: Denies - CARDIAC Hx Hypertension: Yes - MUSCULOSKELETAL/RHEUMATOLOGICAL Hx Falls: Yes - GENITOURINARY/GYNECOLOGICAL Hx Ovarian Cancer: No Hx Postmenopausal Bleeding: No Hx Reproductive Disorders: No Hx Sexually Transmitted Disorders: No Hx Uterine Cancer: No : 0 Para: 0 - PSYCHIATRIC Hx Substance Use: No - SURGICAL HISTORY Hx Surgeries: No - ANESTHESIA Hx Anesthesia: No Meds Allergies/Adverse Reactions: Allergies Allergy/AdvReac Type Severity Reaction Status Date / Time Penicillins Allergy Verified 07/29/18 10:24 - Medications Medications: Current Medications Aspirin (Aspirin Chewable) 81 mg PO DAILY [facility] Last Admin: 08/09/18 10:57 Dose: 81 mg Furosemide (Lasix) 20 mg PO BID [facility] Stop: 08/12/18 18:01 Heparin Sodium (Porcine) (Heparin) 5,000 units SC Q8 [facility] Last Admin: 08/09/18 13:35 Dose: 5,000 units Linezolid (Zyvox 600mg/300ml D5w) 600 mg in 300 mls @ 200 mls/hr IVPB Q12H [facility]; Protocol Last Admin: 08/09/18 16:11 Dose: 200 mls/hr Moxifloxacin HCl (Avelox Iv 400mg/250ml Ns) 400 mg in 250 mls @ 167 mls/hr IVPB Q24H [facility]; Protocol Last Admin: 08/08/18 17:49 Dose: 167 mls/hr Sodium Chloride (Sodium Chloride 0.9%) 1,000 mls @ 70 mls/hr IV .[id number] [facility] Last Admin: 08/09/18 13:34 Dose: 70 mls/hr Lactobacillus Acidophilus (Bacid Acidophilus) 1 cap PO BID [facility] Last Admin: 08/09/18 10:57 Dose: 1 cap Pantoprazole Sodium (Protonix Ec Tab) 40 mg PO DAILY [facility] Last Admin: 08/09/18 10:57 Dose: 40 mg Potassium Chloride (Potassium Chloride Oral Soln) 20 meq PO DAILY [facility] Stop: 08/11/18 10:01 Last Admin: 08/09/18 10:57 Dose: Not Given Physical Exam - Head Exam Head Exam: ATRAUMATIC, NORMOCEPHALIC - ENT Exam ENT Exam: Mucous Membranes Moist - Neck Exam Neck exam: Positive for: Normal Inspection - Respiratory Exam Respiratory Exam: Decreased Breath Sounds - Cardiovascular Exam Cardiovascular Exam: REGULAR RHYTHM - GI/Abdominal Exam GI & Abdominal Exam: Normal Bowel Sounds, Soft Results - Vital Signs Recent Vital Signs: Last Vital Signs Temp 98.2 F 08/09/18 07:00 Pulse 97 H 08/09/18 10:55 Resp 20 08/09/18 10:55 BP 112/69 08/09/18 10:57 Pulse Ox 93 L 08/09/18 10:55 - Labs Result Diagrams: 08/09/18 11:15 08/09/18 11:15 Labs: Laboratory Results - last 24 hr 08/09/18 08/09/18 08/09/18 10:25 11:15 11:15 WBC 10.3 RBC 3.81 Hgb 10.5 L Hct 33.0 L MCV 86.5 MCH 27.5 MCHC 31.7 L RDW 16.8 H Plt Count 361 MPV 9.8 Neut % (Auto) 83.8 H Lymph % (Auto) 9.6 L Swain % (Auto) 5.4 Eos % (Auto) 0.6 Baso % (Auto) 0.6 Neut # (Auto) 8.6 H Lymph # (Auto) 1.0 Swain # (Auto) 0.6 Eos # (Auto) 0.1 Baso # (Auto) 0.1 Neutrophils % (Manual) 85 H Lymphocytes % (Manual) 10 L Monocytes % (Manual) 5 Platelet Estimate Normal Anisocytosis (manual) Slight Puncture Site Lr pCO2 35 pO2 31 L* HCO3 22.7 ABG pH 7.41 ABG Total CO2 23.3 ABG O2 Saturation 66.8 L ABG Base Excess -2.1 L ABG Hemoglobin 9.3 L ABG Carboxyhemoglobin 2.5 H POC ABG HHb (Measured) 31.9 H ABG Methemoglobin 1.4 New Test Pos ABG Potassium Hgb O2 Saturation 64.3 L Glucose Lactate Liter Flow 3.0 Crit Value Called To mandeep Goldsmith Crit Value Called By Rosa M vazquezrt Crit Value Read Back Y Blood Gas Notified Time 1033 Sodium 136 Potassium 3.8 Chloride 102 Carbon Dioxide 24 Anion Gap 14 BUN 20 H Creatinine 1.2 Est GFR ( Amer) 52 Est GFR (Non-Af Amer) 43 Random Glucose 170 H Calcium 7.8 L Total Bilirubin 1.7 H AST 23 ALT 33 Alkaline Phosphatase 445 H Total Protein 6.0 L Albumin 3.1 L Globulin 2.8 Albumin/Globulin Ratio 1.1 Arterial Blood Potassium 08/09/18 11:50 WBC RBC Hgb Hct MCV MCH MCHC RDW Plt Count MPV Neut % (Auto) Lymph % (Auto) Swain % (Auto) Eos % (Auto) Baso % (Auto) Neut # (Auto) Lymph # (Auto) Swain # (Auto) Eos # (Auto) Baso # (Auto) Neutrophils % (Manual) Lymphocytes % (Manual) Monocytes % (Manual) Platelet Estimate Anisocytosis (manual) Puncture Site Rr pCO2 30 L pO2 59 L HCO3 25.1 ABG pH 7.49 H ABG Total CO2 23.8 ABG O2 Saturation 95.7 ABG Base Excess 0.4 ABG Hemoglobin ABG Carboxyhemoglobin POC ABG HHb (Measured) ABG Methemoglobin New Test Pos ABG Potassium 3.5 L Hgb O2 Saturation Glucose 169 H Lactate 2.7 H Liter Flow 3.0 Crit Value Called To Crit Value Called By Crit Value Read Back Blood Gas Notified Time Sodium 138.0 Potassium Chloride 105.0 Carbon Dioxide Anion Gap BUN Creatinine Est GFR ( Amer) Est GFR (Non-Af Amer) Random Glucose Calcium Total Bilirubin AST ALT Alkaline Phosphatase Total Protein Albumin Globulin Albumin/Globulin Ratio Arterial Blood Potassium 3.5 L Assessment & Plan (1) Pleural effusion Status: Acute Comment: etiology unknown. Echocardiogram. Antibiotics. Thoracentesis (2) Pneumonia Status: Acute (3) Rhabdomyolysis Status: Acute (4) Sepsis Status: Acute
[2018-08-09] MEDS: Moxifloxacin IV 400mg/250ml NS 400 MG/250 ML BAG IVPB SCH (18:21)
[2018-08-09] MEDS ORDERED: Gentamicin 180 MG in Sodium Chloride 0.9% 100 ML IVPB ONE (20:00)
[2018-08-10 07:48] LABS: INR 1.1; PROTHROMBIN TIME 12.1 SECONDS (9.7-12.2)
--- NOTE | 2018-08-10 07:48 | PN ---
DATE: 08/10/2018 LOCATION: 656, bed B. SUBJECTIVE: This is an 83-year-old female seen and examined early in rounds in a state of DNR and DNI as reported in the chart. As I was contacted by the case monitor team as well as the legal department and the legality of the case was settled down. The patient had been on non-rebreather mask due to desaturation and shortness of breath for . The patient's ERCP to be rescheduled for tomorrow when the patient is more stable clinically at a.m. of 08/11/2018. LABORATORY DATA: Most recent lab results today showed lactic acid of 3.6, elevated as per yesterday. Lab results were abnormal ABG and total bilirubin 1.7. PHYSICAL EXAMINATION: GENERAL: An 83-year-old female. It has to be mentioned that during the physical examination, the patient had intermittent period of some productive cough, rare. VITAL SIGNS: Afebrile with pulse of 102, respiratory rate 20-24 with blood pressure of 120/74. HEENT: Pale dry oral mucous membrane. Nonicteric sclerae. LUNGS: Few scattered crepitation. Decreased air entry at bases. HEART: Positive for S1 and S2 with increased rate. ABDOMEN: Soft with mild generalized tenderness. No mass or organomegaly. No rebound tenderness or guarding. EXTREMITIES: Without significant edema, clubbing or cyanosis. NEUROLOGIC: No reported new neurological deficit. IMPRESSION: 1. Mild jaundice was reported, bile duct stone. 2. Abnormal cancer markers. 3. Metabolic acidosis. 4. Cholelithiasis. 5. Respiratory insufficiency. 6. Anemia by recent history. SUGGESTIONS: 1. Continue current management. 2. The patient to be rescheduled for ERCP at a.m. when she is more stable clinically. Further recommendation to follow. Gracie Call MD
[2018-08-10] MEDS: Pantoprazole 40 mg EC Tab PO SCH (10:28)
[2018-08-10] MEDS: Potassium Chloride 20 mEq/15 ml LIQ UD PO SCH (10:29)
[2018-08-10] MEDS: Lactobacillus Acidophilus 500 MU Cap PO SCH ×2 (10:29→17:25)
--- NOTE | 2018-08-10 11:17 | CP.PCM.PN ---
Subjective - Date & Time of Evaluation Date of Evaluation: 08/10/18 Time of Evaluation: 11:15 - Subjective Subjective: Nephrology Consultation Note: Assessment: stable Acute Kidney Injury (N17.9) likely due to ATN from septic shock: improving Fall abnormal LFT hyperphosphatemia, HAGMA UTI cholelithiasis pelvic mass hypomagnesemia hypokalemia pleural effusion Plan No acute need for renal replacement therapy at this time as improving with conservative management. Maintain hemodynamics stable. Avoid hypotension. Patient not on ACEI/ARB due to recent JEFF Monitor Input/Output, daily weights and renal function with basic metabolic panel supplement lytes as needed. GI/surgery work up ongoing. seen by [facility] WORK as well will add lasix for few days. d/c IVF and additional dose of lasix 40 mg IVP once pulmonary following. agree with checking echocardiogram Dose meds/antibiotics for reduced GFR. avoid nephrotoxins/NSAIDs Glycemic control Further work up/management as per primary team Thanks for allowing me to participate in care of your patient. Will follow patient with you. Please call if any Qs. had d/w team Dr Valerio Lewis Office: [phone] Chief Complaint; fall Reason for consult: Acute Kidney Injury HPI: Pt is a 83 F without any known medical hx but no recent medical follow up presented with complaints of fall and found to have sepsis with shock, abnormal LFT and JEFF No recent iodinated contrast exposure. Noted obvious episodes of low BP. ROS: feels sick today Cardiovascular: No chest pain. Pulmonary: denies shortness of breath Gastrointestinal: denies abdominal pain c/o nausea. No vomiting. no loose stool at present Genitourinary: No pain while urinating. Denies blood in urine. All other negative except as mentioned in HPI Physical Examination: General Appearance: Comfortable, in no acute respiratory distress, co-operative . chronically debilitated appearing Vitals reviewed and noted as below Head; Atraumatic, normocephalic ENT: no ulcers no thrush. Tongue is midline. Oropharynx: no rash or ulcers. she is hard of hearing EYES: Pupils are equal, round and reactive to light accommodation. Eye muscles and extraocular movement intact. Sclera is icteric. Neck; supple no lymphadenopathy, no thyromegaly or bruit Lungs: INCREASED respiratory rate/effort. Breath sounds bilateral reduced at bases few basal crackle Heart: Normal rate. s1s2 normal. No rub or gallop. Extremities: no edema. No varicose veins Neurological: Patient is alert, awake and oriented Strength bilateral appropriate and equal Skin: Warm and dry. Normal turgor. No rash. Palpitation: Normal elasticity for age Abdomen: Abdomen is soft. Bowel sounds +. There is mild Rt abdominal tenderness, no guarding/rigidity no organomegaly Psych: lack insight and normal affect/mood MSK: no joint tenderness or swelling. Digits and nails normal, no deformity : kidney or bladder not palpable Labs/imaging reviewed. Past medical history, past surgical history, family history, social history, allergy reviewed and noted as below Family hx: no hx of CKD. Rest non-contributory Objective - Vital Signs/Intake and Output Vital Signs (last 24 hours): Temp Pulse Resp BP Pulse Ox 97.5 F L 98 H 18 119/77 95 08/10/18 07:00 08/10/18 10:27 08/10/18 07:00 08/10/18 10:29 08/10/18 07:00 Intake and Output: 08/10/18 08/10/18 06:59 18:59 Intake Total 560 Balance 560 - Medications Medications: Current Medications Aspirin (Aspirin Chewable) 81 mg PO DAILY [facility] Last Admin: 08/10/18 10:29 Dose: 81 mg Furosemide (Lasix) 20 mg PO BID [facility] Stop: 08/12/18 18:01 Last Admin: 08/10/18 10:29 Dose: 20 mg Furosemide (Lasix) 40 mg IVP STAT [facility] Stop: 08/10/18 11:16 Heparin Sodium (Porcine) (Heparin) 5,000 units SC Q8 [facility] Last Admin: 08/10/18 06:55 Dose: Not Given Moxifloxacin HCl (Avelox Iv 400mg/250ml Ns) 400 mg in 250 mls @ 167 mls/hr IVPB Q24H [facility]; Protocol Last Admin: 08/09/18 18:21 Dose: 167 mls/hr Vancomycin HCl 1 gm/ Sodium (Chloride) 250 mls @ 166.7 mls/hr IVPB Q24H [facility]; Protocol Last Admin: 08/09/18 21:54 Dose: 166.7 mls/hr Lactobacillus Acidophilus (Bacid Acidophilus) 1 cap PO BID [facility] Last Admin: 08/10/18 10:29 Dose: 1 cap Pantoprazole Sodium (Protonix Ec Tab) 40 mg PO DAILY [facility] Last Admin: 08/10/18 10:28 Dose: 40 mg Potassium Chloride (Potassium Chloride Oral Soln) 20 meq PO DAILY [facility] Stop: 08/11/18 10:01 Last Admin: 08/10/18 10:29 Dose: 20 meq - Labs Labs: 08/09/18 11:15 08/09/18 11:15 PT 12.1 SECONDS (9.7-12.2) 08/10/18 07:30 INR 1.1 08/10/18 07:30 APTT 31 SECONDS (21-34) 08/10/18 07:30
--- NOTE | 2018-08-10 14:16 | PN ---
DATE: 08/09/2018 SUBJECTIVE: The patient was seen and examined at the bedside on 08/09/2018. Having shortness of breath, was on 3 L nasal cannula. No chest pain. No palpitation. The patient is a very poor historian. No fever. No chills. No headache. No dizziness. No hematuria. No hematochezia. PHYSICAL EXAMINATION: VITAL SIGNS: Temperature 98.2, pulse 97, respiratory rate 20, blood pressure 112/69, pulse oximetry 93. HEENT: Head, normocephalic and atraumatic. Eyes: PERRLA. Extraocular muscles are intact. Conjunctivae clear. Nose patent. Mucous membranes moist. NECK: Supple. No carotid bruit, JVD, or thyromegaly. CHEST: Bilaterally symmetrical. HEART: S1 and S2 positive. LUNGS: Clear to auscultation. ABDOMEN: Soft. Bowel sounds present. No organomegaly. EXTREMITIES: No edema. No cyanosis. NEUROLOGIC: The patient is awake, alert, moving all four extremities. No focal deficit. LABORATORY DATA: White blood cells 10.3, hemoglobin 10.5, hematocrit 33, and platelets 361. Sodium 136, potassium 3.8, BUN 20, creatinine 1.2, glucose 170. MEDICATIONS: Reviewed by me. ASSESSMENT AND PLAN: Ms. Chloe Robledo is an 83-year-old female with anemia, hyperglycemia, has rhabdomyolysis, sepsis, pleural effusion etiology unknown, pneumonia, getting antibiotics, status post fall, septic shock, acute kidney injury, was in ICU, now we called Pulmonary for desaturation, cholelithiasis. GI and Pulmonary are on the case, transportation superintendent is on the case. Plan was to go for endoscopic retrograde cholangiopancreatography because the patient is desaturated, so hold the procedure, waiting for stabilization, choledocholithiasis. 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 We will follow up. Donna Wallace MD
--- NOTE | 2018-08-10 14:49 | CP.PCM.PN ---
Subjective - Date & Time of Evaluation Date of Evaluation: 08/10/18 Time of Evaluation: 14:46 - Subjective Subjective: Patient continues to have episodes of desaturation. No acute events otherwise. Objective - Vital Signs/Intake and Output Vital Signs (last 24 hours): Temp Pulse Resp BP Pulse Ox 97.5 F L 92 H 18 111/74 95 08/10/18 07:00 08/10/18 12:05 08/10/18 07:00 08/10/18 12:06 08/10/18 07:00 Intake and Output: 08/10/18 08/10/18 06:59 18:59 Intake Total 560 Balance 560 - Medications Medications: Current Medications Aspirin (Aspirin Chewable) 81 mg PO DAILY [facility] Last Admin: 08/10/18 10:29 Dose: 81 mg Furosemide (Lasix) 20 mg PO BID [facility] Stop: 08/12/18 18:01 Last Admin: 08/10/18 10:29 Dose: 20 mg Heparin Sodium (Porcine) (Heparin) 5,000 units SC Q8 [facility] Last Admin: 08/10/18 14:33 Dose: 5,000 units Moxifloxacin HCl (Avelox Iv 400mg/250ml Ns) 400 mg in 250 mls @ 167 mls/hr IVPB Q24H [facility]; Protocol Last Admin: 08/09/18 18:21 Dose: 167 mls/hr Vancomycin HCl 1 gm/ Sodium (Chloride) 250 mls @ 166.7 mls/hr IVPB Q24H [facility]; Protocol Last Admin: 08/09/18 21:54 Dose: 166.7 mls/hr Lactobacillus Acidophilus (Bacid Acidophilus) 1 cap PO BID [facility] Last Admin: 08/10/18 10:29 Dose: 1 cap Pantoprazole Sodium (Protonix Ec Tab) 40 mg PO DAILY [facility] Last Admin: 08/10/18 10:28 Dose: 40 mg Potassium Chloride (Potassium Chloride Oral Soln) 20 meq PO DAILY [facility] Stop: 08/11/18 10:01 Last Admin: 08/10/18 10:29 Dose: 20 meq - Labs Labs: 08/09/18 11:15 08/09/18 11:15 PT 12.1 SECONDS (9.7-12.2) 08/10/18 07:30 INR 1.1 08/10/18 07:30 APTT 31 SECONDS (21-34) 08/10/18 07:30 - Constitutional Appears: Non-toxic, No Acute Distress - Head Exam Head Exam: NORMAL INSPECTION, NORMOCEPHALIC - Eye Exam Eye Exam: EOMI, Normal appearance - ENT Exam ENT Exam: Mucous Membranes Moist, Normal Exam - Respiratory Exam Respiratory Exam: Decreased Breath Sounds, Clear to Ausculation Bilateral, NORMAL BREATHING PATTERN - Cardiovascular Exam Cardiovascular Exam: REGULAR RHYTHM, +S1, +S2 - GI/Abdominal Exam GI & Abdominal Exam: Soft, Normal Bowel Sounds. absent: Tenderness - Extremities Exam Extremities Exam: Normal Inspection. absent: Pedal Edema - Neurological Exam Neurological Exam: Alert, Awake - Psychiatric Exam Psychiatric exam: Normal Affect, Normal Mood - Skin Skin Exam: Normal Color, Warm Assessment and Plan - Assessment and Plan (Free Text) Assessment: #Choledocolithiasis #Septic shock - UTI vs cholangitis, improved. #AHRF #Ovarian mass #HTN PLAN: -Imaging reviewed. ~2cm stone in CBD. -Continue Abx -Plan for ERCP to remove stone when medically stable, currently pulmonology is evaluating patient for desaturations. -Continue to monitor for signs of sepsis or worsening obstruction. -Follow electrolytes -NPO PM Case discussed with Dr. Severino, see attestation.
--- NOTE | 2018-08-10 14:59 | CP.PCM.PN ---
Subjective - Date & Time of Evaluation Date of Evaluation: 08/10/18 Time of Evaluation: 14:20 - Subjective Subjective: dictated Objective - Vital Signs/Intake and Output Vital Signs (last 24 hours): Temp Pulse Resp BP Pulse Ox 97.5 F L 92 H 18 111/74 95 08/10/18 07:00 08/10/18 12:05 08/10/18 07:00 08/10/18 12:06 08/10/18 07:00 Intake and Output: 08/10/18 08/10/18 06:59 18:59 Intake Total 560 Balance 560 - Medications Medications: Current Medications Aspirin (Aspirin Chewable) 81 mg PO DAILY [facility] Last Admin: 08/10/18 10:29 Dose: 81 mg Furosemide (Lasix) 20 mg PO BID [facility] Stop: 08/12/18 18:01 Last Admin: 08/10/18 10:29 Dose: 20 mg Heparin Sodium (Porcine) (Heparin) 5,000 units SC Q8 [facility] Last Admin: 08/10/18 14:33 Dose: 5,000 units Moxifloxacin HCl (Avelox Iv 400mg/250ml Ns) 400 mg in 250 mls @ 167 mls/hr IVPB Q24H [facility]; Protocol Last Admin: 08/09/18 18:21 Dose: 167 mls/hr Vancomycin HCl 1 gm/ Sodium (Chloride) 250 mls @ 166.7 mls/hr IVPB Q24H [facility]; Protocol Last Admin: 08/09/18 21:54 Dose: 166.7 mls/hr Lactobacillus Acidophilus (Bacid Acidophilus) 1 cap PO BID [facility] Last Admin: 08/10/18 10:29 Dose: 1 cap Pantoprazole Sodium (Protonix Ec Tab) 40 mg PO DAILY [facility] Last Admin: 08/10/18 10:28 Dose: 40 mg Potassium Chloride (Potassium Chloride Oral Soln) 20 meq PO DAILY [facility] Stop: 08/11/18 10:01 Last Admin: 08/10/18 10:29 Dose: 20 meq - Labs Labs: 08/09/18 11:15 08/09/18 11:15 PT 12.1 SECONDS (9.7-12.2) 08/10/18 07:30 INR 1.1 08/10/18 07:30 APTT 31 SECONDS (21-34) 08/10/18 07:30
--- NOTE | 2018-08-10 16:07 | CP.PCM.PN ---
Subjective - Date & Time of Evaluation Date of Evaluation: 08/10/18 Time of Evaluation: 11:00 - Subjective Subjective: Patient seen and examined at bedside this AM. Patient states she is breathing better but has some nausea. She is on 4L NC resting comfortably, denies SOB, cough, chest pain, palpitations. She is scheduled for ERCP today. Exam: Gen - no acute distress Card - RRR, +S1 +S2, no murmurs, rubs or gallops Lungs - normal breathing pattern, clear to auscultation bilaterally, no wheezes, rales or rhonchi GI - abdomen soft, nontender, no rebound, guarding or rigidity Extr - no edema bilaterally A&P 1. Desaturation - 08/02/18 CT abdomen: small bilateral pleural effusions and associated consolidations; partially imaged cardiomegaly - 08/09/18 CXR: atelectasis at mid left lung zone laterally; persistent opacities identified at bilateral lung bases (persistent pleural effusions consistent with 08/02/18 CXR) - 08/09/18 ABG: pH 7.49, pO2 59, pCO2 30, O2sat 95.7%. - 08/09/18 CT chest: moderate right and small left pleural effusions and asso ciated compressive consolidations. Patchy right upper lobe ground-glass/patchy infiltrates, Scarring/atelectasis within the upper lobes. - continue diuretics: Lasix 20 mg BID, replete K (3.8 today) - continue antibiotics: Avelox + vancomycin Objective - Vital Signs/Intake and Output Vital Signs (last 24 hours): Temp Pulse Resp BP Pulse Ox 97.6 F 107 H 18 107/69 96 08/10/18 15:00 08/10/18 15:00 08/10/18 15:00 08/10/18 15:00 08/10/18 15:00 Intake and Output: 08/10/18 08/10/18 06:59 18:59 Intake Total 560 250 Output Total 400 Balance 560 -150 - Medications Medications: Current Medications Aspirin (Aspirin Chewable) 81 mg PO DAILY [facility] Last Admin: 08/10/18 10:29 Dose: 81 mg Furosemide (Lasix) 20 mg PO BID [facility] Stop: 08/12/18 18:01 Last Admin: 08/10/18 10:29 Dose: 20 mg Heparin Sodium (Porcine) (Heparin) 5,000 units SC Q8 [facility] Last Admin: 08/10/18 14:33 Dose: 5,000 units Moxifloxacin HCl (Avelox Iv 400mg/250ml Ns) 400 mg in 250 mls @ 167 mls/hr IVPB Q24H [facility]; Protocol Last Admin: 08/09/18 18:21 Dose: 167 mls/hr Vancomycin HCl 1 gm/ Sodium (Chloride) 250 mls @ 166.7 mls/hr IVPB Q24H [facility]; Protocol Last Admin: 08/09/18 21:54 Dose: 166.7 mls/hr Lactobacillus Acidophilus (Bacid Acidophilus) 1 cap PO BID [facility] Last Admin: 08/10/18 10:29 Dose: 1 cap Pantoprazole Sodium (Protonix Ec Tab) 40 mg PO DAILY [facility] Last Admin: 08/10/18 10:28 Dose: 40 mg Potassium Chloride (Potassium Chloride Oral Soln) 20 meq PO DAILY [facility] Stop: 08/11/18 10:01 Last Admin: 08/10/18 10:29 Dose: 20 meq - Labs Labs: 08/09/18 11:15 08/09/18 11:15 PT 12.1 SECONDS (9.7-12.2) 08/10/18 07:30 INR 1.1 08/10/18 07:30 APTT 31 SECONDS (21-34) 08/10/18 07:30 Assessment and Plan (1) Pleural effusion Status: Acute (2) Pneumonia Status: Acute (3) Rhabdomyolysis Status: Acute (4) Sepsis Status: Acute
--- NOTE | 2018-08-10 16:55 | PN ---
DATE: 08/10/2018 SUBJECTIVE: The patient is being very defensive. Yesterday she had an episode of shortness of breath and lactate level still is high. Her surgery was canceled today and the patient is having a bowel movement right now and needs to be . She denies any complaints at this time. Has a 2 cm stone in CBD. ERCP is planned when she would be able to get it, as she desaturated yesterday and Pulmonary is following and she will be monitored. Her lactic acid was high. We will repeat it again today. PHYSICAL EXAMINATION: VITAL SIGNS: T-max is 97.5, pulse is 99, blood pressure 109/73, respirations 18. GENERAL: She denies any abdominal pain. She is awake and defensive as before. HEENT: Head is atraumatic, normocephalic. Right IJ she has a triple-lumen. NECK: Supple. LUNGS: Clear. Coarse breath sounds. HEART: S1, S2, tachycardic. ABDOMEN: Soft, nontender. EXTREMITIES: Remain with trace edema. Her bowel movement was soft, I am told, but no diarrhea. LABORATORY DATA: Her labs yesterday showed white count of 10.3, hemoglobin 10.5. She had INR today which was 1.1. ABG yesterday showed CO2 was 30, pO2 was 59, pH with 7.49, saturation was 95.7. Lactate level was 2.7 and then it increased to 3.6 around 4 o'clock, so needs to be repeated. We will repeat a CBC and other labs right now and she does not appear any different. She did have a chest CT yesterday which shows large hiatal hernia moderate right and small left pleural effusion associated with compressive atelectasis, patchy right upper lobe ground-glass patchy infiltrate, scarring, atelectasis within the upper lobe and she has kyphosis and gallbladder thickening with pericholecystic edema. She has choledocholithiasis with acute cholecystitis, came in here with septic shock. MEDICATIONS: She remains on vancomycin and moxifloxacin. ALLERGIES: SHE IS ALLERGIC TO PENICILLIN. ASSESSMENT AND PLAN: We will continue the same at this time and I do not want to discontinue them and we will follow recommendations of Pulmonary. She is on heparin subcutaneous every 8 hours, on Lasix, aspirin, moxifloxacin, Protonix, potassium and vancomycin at this time. She came in with septic shock with Enterococcus faecium in the blood which was sensitive to vancomycin as well as Levaquin which we have continued. She is still waiting to have the obstruction in the common bile duct removed. She desaturated yesterday and will need Pulmonary clearance. We will repeat the lactate level again. Curry Ureña MD
[2018-08-10 17:05] LABS: BASO # 0.1 K/uL (0.0-0.2); EOS # 0.2 K/uL (0.0-0.7); EOS % 1.6 % (0.0-4.0); HEMOGLOBIN 9.4 g/dL (11.0-16.0); LYMPH # 1.3 K/uL (1.0-4.3); LYMPH % 11.1 % (20.0-40.0); MEAN CELL VOLUME 86.2 fL (81.0-99.0); MEAN CORPUSCULAR HEMOGLOBIN 27.3 pg (27.0-31.0); MEAN CORPUSCULAR HGB CONC 31.7 g/dL (33.0-37.0); MEAN PLATELET VOLUME 9.6 fL (7.2-11.7); MONO # 1.1 K/uL (0.0-0.8); NEUT # 8.8 K/uL (1.8-7.0); NEUT % 76.3 % (50.0-75.0); RBC 3.44 Mil/uL (3.80-5.20); RED CELL DISTRIBUTION WIDTH 17.2 % (11.5-14.5); WHITE BLOOD COUNT 11.5 K/uL (4.8-10.8)
[2018-08-10] MEDS: Moxifloxacin IV 400mg/250ml NS 400 MG/250 ML BAG IVPB SCH (17:25)
--- NOTE | 2018-08-10 23:11 | CP.PCM.CON ---
History of Present Illness - History of Present Illness History of Present Illness: Reason for consult: CHF/Pre Op cardiac risk assessment HPI: 83 year old female with PMH of HTN and recent admission on 07/29/18 for fa ll s/p septic shock and JEFF. Patient out of ICU consulted for desaturation. ABG today: pH 7.49, pO2 59, pCO2 30, O2sat 95.7%. Patient currently on 3L NC resting comfortably, denies SOB, cough, chest pain, palpitations. ROS: 10 point ROS negative except for as per HPI. PMH: HTN, recent fall, recent ICU admission for septic shock with JEFF All: penicillins FamH: noncontributary SocH: denies tobacco, alcohol, and illicit drug use Exam: Gen - no acute distress Card - tachycardic, +S1 +S2, no murmurs, rubs or gallops Lungs - normal breathing pattern, clear to auscultation bilaterally, no wheezes, rales or rhonchi GI - abdomen soft, nontender, no rebound, guarding or rigidity Extr - no edema bilaterally Review of Systems - Review of Systems All systems: reviewed and no additional remarkable complaints except (shortness of breath) Physical Exam - Head Exam Head Exam: ATRAUMATIC, NORMOCEPHALIC - ENT Exam ENT Exam: Mucous Membranes Moist - Neck Exam Neck exam: Positive for: Normal Inspection - Respiratory Exam Respiratory Exam: Decreased Breath Sounds - Cardiovascular Exam Cardiovascular Exam: REGULAR RHYTHM - GI/Abdominal Exam GI & Abdominal Exam: Normal Bowel Sounds, Soft Assessment & Plan (1) Pleural effusion-CHF Status: Acute Comment: etiology unknown. Echocardiogram. Antibiotics. Thoracentesis (2) Pneumonia Status: Acute (3) Rhabdomyolysis Status: Acute (4) Sepsis Status: Acute This patient considered high cardiac risk for ERCP procedure If benefit outweighs the risk proceed with the procedure Past Patient History - Infectious Disease Hx of Infectious Diseases: None (patient is a poor historian) - Tetanus Immunizations Tetanus Immunization: Unknown - Past Medical History & Family History Past Medical History?: No Past Family History: Reviewed and not pertinent - Past Social History Smoking Status: Never Smoked Alcohol: None Drugs: Denies - CARDIAC Hx Hypertension: Yes - MUSCULOSKELETAL/RHEUMATOLOGICAL Hx Falls: Yes - GENITOURINARY/GYNECOLOGICAL Hx Ovarian Cancer: No Hx Postmenopausal Bleeding: No Hx Reproductive Disorders: No Hx Sexually Transmitted Disorders: No Hx Uterine Cancer: No : 0 Para: 0 - PSYCHIATRIC Hx Substance Use: No - SURGICAL HISTORY Hx Surgeries: No - ANESTHESIA Hx Anesthesia: No Meds Allergies/Adverse Reactions: Allergies Allergy/AdvReac Type Severity Reaction Status Date / Time Penicillins Allergy Verified 07/29/18 10:24 - Medications Medications: Current Medications Aspirin (Aspirin Chewable) 81 mg PO DAILY [facility] Last Admin: 08/10/18 10:29 Dose: 81 mg Furosemide (Lasix) 20 mg PO BID [facility] Stop: 08/12/18 18:01 Last Admin: 08/10/18 17:25 Dose: 20 mg Heparin Sodium (Porcine) (Heparin) 5,000 units SC Q8 [facility] Last Admin: 08/10/18 21:14 Dose: Not Given Moxifloxacin HCl (Avelox Iv 400mg/250ml Ns) 400 mg in 250 mls @ 167 mls/hr IVPB Q24H [facility]; Protocol Last Admin: 08/10/18 17:25 Dose: 167 mls/hr Vancomycin HCl 1 gm/ Sodium (Chloride) 250 mls @ 166.7 mls/hr IVPB Q24H [facility]; Protocol Last Admin: 08/10/18 19:29 Dose: 166.7 mls/hr Lactobacillus Acidophilus (Bacid Acidophilus) 1 cap PO BID [facility] Last Admin: 08/10/18 17:25 Dose: 1 cap Pantoprazole Sodium (Protonix Ec Tab) 40 mg PO DAILY [facility] Last Admin: 08/10/18 10:28 Dose: 40 mg Potassium Chloride (Potassium Chloride Oral Soln) 20 meq PO DAILY [facility] Stop: 08/11/18 10:01 Last Admin: 08/10/18 10:29 Dose: 20 meq Results - Vital Signs Recent Vital Signs: Last Vital Signs Temp 97.6 F 08/10/18 15:00 Pulse 97 H 08/10/18 16:45 Resp 18 08/10/18 15:00 BP 112/67 08/10/18 17:25 Pulse Ox 96 08/10/18 15:00 - Labs Result Diagrams: 08/10/18 16:50 08/09/18 11:15 Labs: Laboratory Results - last 24 hr 08/10/18 08/10/18 08/10/18 07:30 16:50 16:50 WBC RBC Hgb Hct MCV MCH MCHC RDW Plt Count MPV Neut % (Auto) Lymph % (Auto) [place] % (Auto) Eos % (Auto) Baso % (Auto) Neut # (Auto) Lymph # (Auto) [place] # (Auto) Eos # (Auto) Baso # (Auto) PT 12.1 INR 1.1 APTT 31 Lactic Acid NT-Pro-B Natriuret Pep 50225 H Procalcitonin 0.58 H 08/10/18 08/10/18 16:50 16:50 WBC 11.5 H RBC 3.44 L Hgb 9.4 L Hct 29.6 L MCV 86.2 MCH 27.3 MCHC 31.7 L RDW 17.2 H Plt Count 367 MPV 9.6 Neut % (Auto) 76.3 H Lymph % (Auto) 11.1 L [place] % (Auto) 10.0 Eos % (Auto) 1.6 Baso % (Auto) 1.0 Neut # (Auto) 8.8 H Lymph # (Auto) 1.3 [place] # (Auto) 1.1 H Eos # (Auto) 0.2 Baso # (Auto) 0.1 PT INR APTT Lactic Acid 3.2 H NT-Pro-B Natriuret Pep Procalcitonin
--- NOTE | 2018-08-11 04:41 | PN ---
DATE: 08/10/2018 SUBJECTIVE: The patient was seen and examined at the bedside, looking comfortable. No fever. No chills. No hematuria or hematochezia. The patient is a very poor historian. Denies shortness of breath, coughing, palpitation. She is scheduled for ERCP. PHYSICAL EXAMINATION: VITAL SIGNS: Temperature 98.6, pulse 105, respiratory rate 20, blood pressure 110/70, and pulse oximetry 96. HEENT: Head, normocephalic and atraumatic. Eyes, PERRLA. Extraocular muscles are intact. Conjunctivae clear. Nose patent. Mucous membranes moist. NECK: Supple. No carotid bruit, JVD, or thyromegaly. CHEST: Bilaterally symmetrical. HEART: S1 and S2, positive. LUNGS: Clear to auscultation. ABDOMEN: Soft. Bowel sounds present. No organomegaly. EXTREMITIES: No edema. No cyanosis. NEUROLOGIC: The patient is awake, alert, moving all four extremities. No focal deficit. MEDICATIONS: Aspirin, Lasix, heparin, Avelox, vancomycin, lactobacillus, pantoprazole, and potassium. LABORATORY DATA: White blood cells 10.3, hemoglobin 10.5, hematocrit 33, and platelets 361. Sodium 136, potassium 3.8, BUN 20, creatinine 1.2, and glucose 170. ASSESSMENT AND PLAN: Ms. Chloe Robledo is an 83-year-old lady with anemia, dehydration, hyperglycemia, pleural effusion, pneumonia, rhabdomyolysis, sepsis, has desaturation, bilateral pleural effusion associated with consolidation. Continue diuretic Lasix. Continue Avelox and vancomycin. Appreciated Dr. Michel Rangel, Dr. Bon Garcia, and Nephrology input. Repeat laboratories. We will follow up. Donna Wallace MD
--- NOTE | 2018-08-11 06:48 | CP.PCM.CON ---
History of Present Illness - History of Present Illness History of Present Illness: 83 year female admit for fall found to have obstructive jaindice. Has history of dimentia, however appears to be liver independently. Patient is a poor historian. Dinies fever, chills, sweat or weight loss. T bili 4.7, alk phos 700's, with elevation of ALT and AST. WBC < 10 without bandemia. Had U/S, CT scan and MRCP, HIDA scan showing cholithiasis and choledocholithiasis without cholecystitis. Called to see patient for obstructive jaundice in the setting of choledocholithiasis. Past Patient History - Infectious Disease Hx of Infectious Diseases: None (patient is a poor historian) - Past Medical History & Family History Past Medical History?: No Past Family History: Reviewed and not pertinent - Past Social History Smoking Status: Never Smoked Alcohol: None Drugs: Denies - CARDIAC Hx Hypertension: Yes - MUSCULOSKELETAL/RHEUMATOLOGICAL Hx Falls: Yes - GENITOURINARY/GYNECOLOGICAL Hx Ovarian Cancer: No Hx Postmenopausal Bleeding: No Hx Reproductive Disorders: No Hx Sexually Transmitted Disorders: No Hx Uterine Cancer: No : 0 Para: 0 - PSYCHIATRIC Hx Substance Use: No - SURGICAL HISTORY Hx Surgeries: No - ANESTHESIA Hx Anesthesia: No Meds Allergies/Adverse Reactions: Allergies Allergy/AdvReac Type Severity Reaction Status Date / Time Penicillins Allergy Verified 07/29/18 10:24 - Medications Medications: Current Medications Aspirin (Aspirin Chewable) 81 mg PO DAILY [facility] Last Admin: 08/05/18 10:06 Dose: 81 mg Heparin Sodium (Porcine) (Heparin) 5,000 units SC Q8 [facility] Last Admin: 08/05/18 13:13 Dose: 5,000 units Linezolid (Zyvox 600mg/300ml D5w) 600 mg in 300 mls @ 200 mls/hr IVPB Q12H [facility]; Protocol Last Admin: 08/05/18 05:03 Dose: 200 mls/hr Moxifloxacin HCl (Avelox Iv 400mg/250ml Ns) 400 mg in 250 mls @ 167 mls/hr IVPB Q24H [facility]; Protocol Last Admin: 08/04/18 18:55 Dose: 167 mls/hr Potassium Chloride (Potassium Chloride 20 Meq/100 Ml) 20 meq in 100 mls @ 50 mls/hr IVPB Q2H [facility] Stop: 08/05/18 19:14 Last Admin: 08/05/18 15:57 Dose: 50 mls/hr Lactobacillus Acidophilus (Bacid Acidophilus) 1 cap PO BID [facility] Last Admin: 08/05/18 10:06 Dose: 1 cap Pantoprazole Sodium (Protonix Ec Tab) 40 mg PO DAILY [facility] Last Admin: 08/05/18 10:06 Dose: 40 mg Physical Exam - Constitutional Appears: Confused, Other Additional comments: frail - Head Exam Head Exam: ATRAUMATIC, NORMAL INSPECTION, NORMOCEPHALIC - Eye Exam Eye Exam: Scleral icterus - ENT Exam 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 - Neck Exam Neck exam: Positive for: Normal Inspection - Respiratory Exam Respiratory Exam: Clear to Auscultation Bilateral, NORMAL BREATHING PATTERN - Cardiovascular Exam Cardiovascular Exam: REGULAR RHYTHM - GI/Abdominal Exam GI & Abdominal Exam: Normal Bowel Sounds, Soft - Rectal Exam Rectal Exam: Deferred - Extremities Exam Extremities exam: Positive for: normal inspection - Skin Skin Exam: Dry, Intact Results - Vital Signs Recent Vital Signs: Last Vital Signs Temp 97.9 F 08/05/18 15:00 Pulse 76 08/05/18 15:00 Resp 18 08/05/18 15:00 BP 136/76 08/05/18 15:00 Pulse Ox 96 08/05/18 15:00 - Labs Result Diagrams: 08/04/18 08:31 08/05/18 07:04 Labs: Laboratory Results - last 24 hr 08/05/18 07:04 Sodium 135 Potassium 2.9 L Chloride 105 Carbon Dioxide 24 Anion Gap 10 BUN 26 H Creatinine 1.7 H Est GFR ( Amer) 35 Est GFR (Non-Af Amer) 29 Random Glucose 155 H Calcium 7.0 L Phosphorus 3.4 Magnesium 1.4 L Carcinoembryonic Ag 2.8 CA 19-9 Antigen 266 H CA 125 Antigen 186 H - Imaging and Cardiology CT scan - abdomen Status: Report reviewed by me Additional comment: non-contrast CT abdomen and pelvis: distended gallbladder, large stone in fundus, 0.8-1.2 cm CBD stone, pelvic mass MRI - abdomen Additional comment: MRCP consistent with CBD stone abd ductal dilatation HIDA Additional comment: No cholecystitis, no obstruction Assessment & Plan (1) Abnormal LFTs (liver function tests) Status: Acute Priority: Medium Onset Date: ~08/04/18 Comment: obstructive jaundice - Assessment and Plan (Free Text) Assessment: Frail 83 year old women with incidentally found common duct obstruction, also with large pelvic mass in setting of dementia. She clinically is not septic, however is partially obstructed, give HIDA unremarkable for acute cholecystitis or obstruction. Plan: patient may benefit from ERCP if LFT's do not normalize. She has no clinical evidence of cholangitis. Given her frail state and renal impairment, surgery may not be in her best interest. However, if her LFTs do not normalize she will likely need ERCP and removal of her CBD stone. Cholecystectomy is moderate- high risk for her. Will follow, should she need surgery, I will reach out to her nephew, who is her closest relative. - Date & Time Date: 08/05/18 Time: 16:23
[2018-08-11 08:30] LABS: CALCIUM 7.6 mg/dl (8.6-10.4)
--- NOTE | 2018-08-11 08:48 | CP.PCM.PN ---
<Radha Rudd - Last Filed: 08/11/18 17:41> Subjective - Date & Time of Evaluation Date of Evaluation: 08/11/18 Time of Evaluation: 10:00 - Subjective Subjective: Cardiology Progress Note for Dr. Rangel: Patient was seen and examined at bedside in the AM. Patient states she is feeling well. She denies chest pain, palpitations, shortness of breath, fever or chills. Objective - Vital Signs/Intake and Output Vital Signs (last 24 hours): Temp Pulse Resp BP Pulse Ox 97.2 F L 113 H 18 118/74 94 L 08/11/18 08:03 08/11/18 08:36 08/11/18 08:03 08/11/18 08:03 08/11/18 08:03 Intake and Output: 08/11/18 08/11/18 06:59 18:59 Intake Total 620 Output Total 500 Balance 120 - Medications Medications: Current Medications Aspirin (Aspirin Chewable) 81 mg PO DAILY [facility] Last Admin: 08/10/18 10:29 Dose: 81 mg Furosemide (Lasix) 20 mg PO BID [facility] Stop: 08/12/18 18:01 Last Admin: 08/10/18 17:25 Dose: 20 mg Heparin Sodium (Porcine) (Heparin) 5,000 units SC Q8 [facility] Last Admin: 08/11/18 05:30 Dose: 5,000 units Moxifloxacin HCl (Avelox Iv 400mg/250ml Ns) 400 mg in 250 mls @ 167 mls/hr IVPB Q24H [facility]; Protocol Last Admin: 08/10/18 17:25 Dose: 167 mls/hr Vancomycin HCl 1 gm/ Sodium (Chloride) 250 mls @ 166.7 mls/hr IVPB Q24H [facility]; Protocol Last Admin: 08/10/18 19:29 Dose: 166.7 mls/hr Lactobacillus Acidophilus (Bacid Acidophilus) 1 cap PO BID [facility] Last Admin: 08/10/18 17:25 Dose: 1 cap Pantoprazole Sodium (Protonix Ec Tab) 40 mg PO DAILY [facility] Last Admin: 08/10/18 10:28 Dose: 40 mg Potassium Chloride (Potassium Chloride Oral Soln) 20 meq PO DAILY [facility] Stop: 08/11/18 10:01 Last Admin: 08/10/18 10:29 Dose: 20 meq - Labs Labs: 08/10/18 16:50 08/11/18 08:05 PT 12.1 SECONDS (9.7-12.2) 08/10/18 07:30 INR 1.1 08/10/18 07:30 APTT 31 SECONDS (21-34) 08/10/18 07:30 - Constitutional Appears: No Acute Distress, Chronically Ill - Head Exam Head Exam: ATRAUMATIC, NORMAL INSPECTION - Eye Exam Eye Exam: EOMI, Normal appearance - ENT Exam ENT Exam: Mucous Membranes Moist - Respiratory Exam Respiratory Exam: NORMAL BREATHING PATTERN - Cardiovascular Exam Cardiovascular Exam: Tachycardia, +S1, +S2 - GI/Abdominal Exam GI & Abdominal Exam: Soft, Normal Bowel Sounds. absent: Tenderness - Extremities Exam Extremities Exam: Normal Inspection Assessment and Plan - Assessment and Plan (Free Text) Assessment: 83 year old female with past medical history of HTN and recent admission on 07/29/18 for fall s/p septic shock and JEFF. Patient has severe Pulmonary HTN and Diastolic CHF. Echo completed 08/11/18: EF 60-65%; Dilated IVC with poor inspiration collapse is consistent with elevated right atrial pressure. Flattened septum consistent with right ventricle pressure overload. This patient is considered high cardiac risk for ERCP procedure If benefit outweighs the risk proceed with the procedure. Case discussed with Dr. Juan Carlos Rudd PGY-2 <Michel Rangel - Last Filed: 08/12/18 00:15> Objective - Vital Signs/Intake and Output Vital Signs (last 24 hours): Temp Pulse Resp BP Pulse Ox 98.2 F 93 H 18 101/61 91 L 08/11/18 15:00 08/11/18 23:18 08/11/18 15:00 08/11/18 17:18 08/11/18 15:00 Intake and Output: 08/11/18 08/12/18 18:59 06:59 Intake Total 500 800 Output Total 200 Balance 500 600 - Medications Medications: Current Medications Aspirin (Aspirin Chewable) 81 mg PO DAILY [facility] Last Admin: 08/11/18 10:47 Dose: 81 mg Furosemide (Lasix) 40 mg PO BID [facility] Stop: 08/14/18 18:01 Last Admin: 08/11/18 17:18 Dose: 40 mg Heparin Sodium (Porcine) (Heparin) 5,000 units SC Q8 [facility] Last Admin: 08/11/18 21:27 Dose: Not Given Moxifloxacin HCl (Avelox Iv 400mg/250ml Ns) 400 mg in 250 mls @ 167 mls/hr IVPB Q24H [facility]; Protocol Last Admin: 08/11/18 18:08 Dose: 167 mls/hr Vancomycin HCl 1 gm/ Sodium (Chloride) 250 mls @ 166.7 mls/hr IVPB Q24H [facility]; Protocol Last Admin: 08/11/18 20:12 Dose: 166.7 mls/hr Fluconazole 100 mg/ (Miscellaneous) 50 mls @ 100 mls/hr IVPB Q24H [facility]; Protocol Last Admin: 08/11/18 17:17 Dose: 100 mls/hr Lactobacillus Acidophilus (Bacid Acidophilus) 1 cap PO BID [facility] Last Admin: 08/11/18 17:17 Dose: 1 cap Pantoprazole Sodium (Protonix Ec Tab) 40 mg PO DAILY [facility] Last Admin: 08/11/18 10:47 Dose: 40 mg Potassium Chloride (Potassium Chloride Oral Soln) 20 meq PO BID [facility] Stop: 08/14/18 10:01 - Labs Labs: 08/11/18 11:22 08/11/18 11:22 PT 12.1 SECONDS (9.7-12.2) 08/10/18 07:30 INR 1.1 08/10/18 07:30 APTT 31 SECONDS (21-34) 08/10/18 07:30 Assessment and Plan - Assessment and Plan (Free Text) Assessment: Patient seen and evaluated personally by me. Plan of care d/w the the resident and as documented
[2018-08-11] MEDS: Pantoprazole 40 mg EC Tab PO SCH (10:47)
[2018-08-11] MEDS: Lactobacillus Acidophilus 500 MU Cap PO SCH ×2 (10:47→17:17)
[2018-08-11] MEDS: Potassium Chloride 20 mEq/15 ml LIQ UD PO SCH (10:48)
[2018-08-11 11:32] LABS: BASO # 0.2 K/uL (0.0-0.2); BASO % 1.9 % (0.0-2.0); EOS # 0.4 K/uL (0.0-0.7); EOS % 3.5 % (0.0-4.0); HEMOGLOBIN 9.3 g/dL (11.0-16.0); LYMPH # 1.1 K/uL (1.0-4.3); LYMPH % 10.6 % (20.0-40.0); MEAN CORPUSCULAR HEMOGLOBIN 27.8 pg (27.0-31.0); MEAN CORPUSCULAR HGB CONC 31.9 g/dL (33.0-37.0); MEAN PLATELET VOLUME 9.8 fL (7.2-11.7); MONO # 1.3 K/uL (0.0-0.8); MONO % 12.5 % (0.0-10.0); NEUT # 7.6 K/uL (1.8-7.0); NEUT % 71.5 % (50.0-75.0); RBC 3.34 Mil/uL (3.80-5.20); RED CELL DISTRIBUTION WIDTH 16.8 % (11.5-14.5); WHITE BLOOD COUNT 10.7 K/uL (4.8-10.8)
[2018-08-11 12:04] LABS: ALB/GLOB RATIO 1.1 (1.0-2.1); ALBUMIN 2.8 g/dL (3.5-5.0); CALCIUM 7.8 mg/dl (8.6-10.4)
--- NOTE | 2018-08-11 12:34 | CARD ---
APPROVED REPORT Date of service: 08/11/2018 EXAM: Two-dimensional and M-mode echocardiogram with Doppler and color Doppler. INDICATION Pleural Effusion Congestive Heart Failure RISK FACTORS Hypertension 2D DIMENSIONS IVSd0.7 (0.7-1.1cm)Aortic Root (2D)3.2 (2.0-3.7cm) LVDd3.4 (3.9-5.9cm)PWd0.7 (0.7-1.1cm) LVDs2.0 (2.5-4.0cm)FS (%) 43.2 % LVEF (%)75.5 (>50%)IVC0.00 cm M-Mode DIMENSIONS RVDd2.28 (2.1-3.2cm)Left Atrium (MM)3.32 (2.5-4.0cm) IVSd0.62 (0.7-1.1cm)Aortic Root2.64 (2.2-3.7cm) LVDd4.03 (4.0-5.6cm)Aortic Cusp Exc.1.89 (1.5-2.0cm) PWd0.68 (0.7-1.1cm)FS (%) 40 % LVDs1.85 (2.0-3.8cm)LVEF (%)74 (>50%) Aortic Valve AI P 1/2 [id number] Mitral Valve MV E Zqsxenzo73.9cm/sMV A Doninaou21.4cm/sE/A ratio0.7 TDI Lateral E' Peak V6.42cm/sMedial E' Peak V4.67cm/sE/Lateral E'10.4 E/Medial E'14.3 Tricuspid Valve TR Peak [id number] Peak [id number] LEFT VENTRICLE The left ventricle is normal size. There is normal left ventricular wall thickness. The Ejection Fraction is 60-65%. There is a flattened septum consistent with right ventricle pressure overload. Transmitral Doppler flow pattern is Grade I-abnormal relaxation pattern. RIGHT VENTRICLE The right ventricle is normal size. The right ventricular systolic function is normal. ATRIA The left atrium is mildly dilated. The right atrium size is normal. The interatrial septum is intact with no evidence for an atrial septal defect. AORTIC VALVE The aortic valve is mildly sclerotic. The aortic valve is trileaflet. There is mild aortic regurgitation. MITRAL VALVE The mitral valve is normal in structure. There is no mitral valve regurgitation noted. TRICUSPID VALVE The tricuspid valve is normal in structure. There is mild to moderate tricuspid regurgitation. Right ventricular systolic pressure is estimated at 57 mmHg. PULMONIC VALVE The pulmonary valve is normal in structure. There is mild pulmonic valvular regurgitation. GREAT VESSELS The aortic root is normal in size. Dilated IVC with poor inspiration collapse is consistent with elevated right atrial pressure. PERICARDIAL EFFUSION small posterior pericardial effusion is noted. <Conclusion> The left ventricle is normal size. The Ejection Fraction is 60-65%. There is a flattened septum consistent with right ventricle pressure overload. Transmitral Doppler flow pattern is Grade I-abnormal relaxation pattern. The left atrium is mildly dilated. The aortic valve is mildly sclerotic. The aortic valve is trileaflet. There is mild aortic regurgitation. There is mild to moderate tricuspid regurgitation. Right ventricular systolic pressure is estimated at 57 mmHg. Dilated IVC with poor inspiration collapse is consistent with elevated right atrial pressure. small posterior pericardial effusion is noted.
--- NOTE | 2018-08-11 14:17 | CP.PCM.PN ---
Subjective - Date & Time of Evaluation Date of Evaluation: 08/11/18 Time of Evaluation: 14:15 - Subjective Subjective: dictated Objective - Vital Signs/Intake and Output Vital Signs (last 24 hours): Temp Pulse Resp BP Pulse Ox 97.2 F L 97 H 18 112/72 94 L 08/11/18 08:03 08/11/18 13:02 08/11/18 08:03 08/11/18 10:48 08/11/18 08:03 Intake and Output: 08/11/18 08/11/18 06:59 18:59 Intake Total 620 Output Total 500 Balance 120 - Medications Medications: Current Medications Aspirin (Aspirin Chewable) 81 mg PO DAILY [facility] Last Admin: 08/11/18 10:47 Dose: 81 mg Furosemide (Lasix) 20 mg PO BID [facility] Stop: 08/12/18 18:01 Last Admin: 08/11/18 10:48 Dose: 20 mg Heparin Sodium (Porcine) (Heparin) 5,000 units SC Q8 [facility] Last Admin: 08/11/18 14:06 Dose: 5,000 units Moxifloxacin HCl (Avelox Iv 400mg/250ml Ns) 400 mg in 250 mls @ 167 mls/hr IVPB Q24H [facility]; Protocol Last Admin: 08/10/18 17:25 Dose: 167 mls/hr Vancomycin HCl 1 gm/ Sodium (Chloride) 250 mls @ 166.7 mls/hr IVPB Q24H [facility]; Protocol Last Admin: 08/10/18 19:29 Dose: 166.7 mls/hr Lactobacillus Acidophilus (Bacid Acidophilus) 1 cap PO BID [facility] Last Admin: 08/11/18 10:47 Dose: 1 cap Pantoprazole Sodium (Protonix Ec Tab) 40 mg PO DAILY [facility] Last Admin: 08/11/18 10:47 Dose: 40 mg - Labs Labs: 08/11/18 11:22 08/11/18 11:22 PT 12.1 SECONDS (9.7-12.2) 08/10/18 07:30 INR 1.1 08/10/18 07:30 APTT 31 SECONDS (21-34) 08/10/18 07:30
[2018-08-11] MEDS ORDERED: Fluconazole IV 200mg/100 ml NS 100 MG in Premixed IV 1 EA IVPB SCH (14:30)
[2018-08-11] MEDS ORDERED: Potassium Chloride 20 mEq/15 ml LIQ UD PO ONE (15:15)
--- NOTE | 2018-08-11 15:30 | CP.PCM.PN ---
Subjective - Date & Time of Evaluation Date of Evaluation: 08/11/18 Time of Evaluation: 11:20 - Subjective Subjective: Patient seen and examined at bedside this AM. Patient states she is breathing better but has some nausea. She is on 4L NC resting comfortably, denies SOB, cough, chest pain, palpitations. Exam: Gen - no acute distress Card - RRR, +S1 +S2, no murmurs, rubs or gallops Lungs - normal breathing pattern, clear to auscultation bilaterally, no wheezes, rales or rhonchi GI - abdomen soft, nontender, no rebound, guarding or rigidity Extr - no edema bilaterally A&P 1. CHF - 08/09/18 ABG: pH 7.49, pO2 59, pCO2 30, O2sat 95.7%. - 08/09/18 CT chest: moderate right and small left pleural effusions and associated compressive consolidations. Patchy right upper lobe ground- glass/patchy infiltrates, Scarring/atelectasis within the upper lobes. - 08/10/18 pro-BNP: [id number] - 08/11/18 echo: LVEF 60-65%, flattened septum consistent with RV pressure overload estimated at 57 mmHg - continue diuretics: Lasix 20 mg BID, replete K (3.8 today) - continue antibiotics: Avelox + vancomycin 2. Desaturation - 08/02/18 CT abdomen: small bilateral pleural effusions and associated consolidations; partially imaged cardiomegaly - 08/09/18 CXR: atelectasis at mid left lung zone laterally; persistent opacities identified at bilateral lung bases (persistent pleural effusions consistent with 08/02/18 CXR) - followup ABG after CHF improves Objective - Vital Signs/Intake and Output Vital Signs (last 24 hours): Temp Pulse Resp BP Pulse Ox 97.2 F L 97 H 18 112/72 94 L 08/11/18 08:03 08/11/18 13:02 08/11/18 08:03 08/11/18 10:48 08/11/18 08:03 Intake and Output: 08/11/18 08/11/18 06:59 18:59 Intake Total 620 500 Output Total 500 Balance 120 500 - Medications Medications: Current Medications Aspirin (Aspirin Chewable) 81 mg PO DAILY [facility] Last Admin: 08/11/18 10:47 Dose: 81 mg Furosemide (Lasix) 20 mg PO BID [facility] Stop: 08/12/18 18:01 Last Admin: 08/11/18 10:48 Dose: 20 mg Heparin Sodium (Porcine) (Heparin) 5,000 units SC Q8 [facility] Last Admin: 08/11/18 14:06 Dose: 5,000 units Moxifloxacin HCl (Avelox Iv 400mg/250ml Ns) 400 mg in 250 mls @ 167 mls/hr IVPB Q24H [facility]; Protocol Last Admin: 08/10/18 17:25 Dose: 167 mls/hr Vancomycin HCl 1 gm/ Sodium (Chloride) 250 mls @ 166.7 mls/hr IVPB Q24H [facility]; Protocol Last Admin: 08/10/18 19:29 Dose: 166.7 mls/hr Fluconazole 100 mg/ (Miscellaneous) 50 mls @ 100 mls/hr IVPB Q24H [facility]; Protocol Lactobacillus Acidophilus (Bacid Acidophilus) 1 cap PO BID [facility] Last Admin: 08/11/18 10:47 Dose: 1 cap Pantoprazole Sodium (Protonix Ec Tab) 40 mg PO DAILY [facility] Last Admin: 08/11/18 10:47 Dose: 40 mg Potassium Chloride (Potassium Chloride Oral Soln) 20 meq PO BID [facility] Stop: 08/14/18 10:01 - Labs Labs: 08/11/18 11:22 08/11/18 11:22 PT 12.1 SECONDS (9.7-12.2) 08/10/18 07:30 INR 1.1 08/10/18 07:30 APTT 31 SECONDS (21-34) 08/10/18 07:30 Assessment and Plan (1) Pleural effusion Status: Acute (2) Pneumonia Status: Acute (3) Rhabdomyolysis Status: Acute (4) Sepsis Status: Acute
--- NOTE | 2018-08-11 16:45 | CP.PCM.PN ---
Subjective - Date & Time of Evaluation Date of Evaluation: 08/11/18 Time of Evaluation: 16:44 - Subjective Subjective: Nephrology Consultation Note: Assessment: stable Acute Kidney Injury (N17.9) likely due to ATN from septic shock: improving Fall abnormal LFT hyperphosphatemia, HAGMA UTI cholelithiasis pelvic mass hypomagnesemia hypokalemia pleural effusion Plan No acute need for renal replacement therapy at this time as improving with conservative management. Maintain hemodynamics stable. Avoid hypotension. Patient not on ACEI/ARB due to recent JEFF Monitor Input/Output, daily weights and renal function with basic metabolic panel supplement lytes as needed. GI/surgery work up ongoing. 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 agree with checking echocardiogram: LVEf normal Dose meds/antibiotics for reduced GFR. avoid nephrotoxins/NSAIDs Glycemic control Further work up/management as per primary team Thanks for allowing me to participate in care of your patient. Will follow patient with you. Please call if any Qs. had d/w team Dr Valerio Lewis Office: [phone] Chief Complaint; fall Reason for consult: Acute Kidney Injury HPI: Pt is a 83 F without any known medical hx but no recent medical follow up presented with complaints of fall and found to have sepsis with shock, abnormal LFT and JEFF No recent iodinated contrast exposure. Noted obvious episodes of low BP. ROS: Cardiovascular: No chest pain. Pulmonary: denies shortness of breath Gastrointestinal: denies abdominal pain no nausea. No vomiting. no loose stool at present Genitourinary: No pain while urinating. Denies blood in urine. All other negative except as mentioned in HPI Physical Examination: General Appearance: Comfortable, in no acute respiratory distress, co-operative . chronically debilitated appearing Vitals reviewed and noted as below Head; Atraumatic, normocephalic ENT: no ulcers no thrush. Tongue is midline. Oropharynx: no rash or ulcers. she is hard of hearing EYES: Pupils are equal, round and reactive to light accommodation. Eye muscles and extraocular movement intact. Sclera is icteric. Neck; supple no lymphadenopathy, no thyromegaly or bruit Lungs: Improved respiratory rate/effort. Breath sounds bilateral reduced at bases few basal crackle Heart: Normal rate. s1s2 normal. No rub or gallop. Extremities: no edema. No varicose veins Neurological: Patient is alert, awake and oriented Strength bilateral appropriate and equal Skin: Warm and dry. Normal turgor. No rash. Palpitation: Normal elasticity for age Abdomen: Abdomen is soft. Bowel sounds +. There is mild Rt abdominal tenderness, no guarding/rigidity no organomegaly Psych: lack insight and normal affect/mood MSK: no joint tenderness or swelling. Digits and nails normal, no deformity : kidney or bladder not palpable Labs/imaging reviewed. Past medical history, past surgical history, family history, social history, allergy reviewed and noted as below Family hx: no hx of CKD. Rest non-contributory Objective - Vital Signs/Intake and Output Vital Signs (last 24 hours): Temp Pulse Resp BP Pulse Ox 98.2 F 96 H 18 106/66 91 L 08/11/18 15:00 08/11/18 16:20 08/11/18 15:00 08/11/18 15:00 08/11/18 15:00 Intake and Output: 08/11/18 08/11/18 06:59 18:59 Intake Total 620 500 Output Total 500 Balance 120 500 - Medications Medications: Current Medications Aspirin (Aspirin Chewable) [address] [facility] Last Admin: 08/11/18 10:47 Dose: 81 mg Furosemide (Lasix) 40 mg PO BID [facility] Stop: 08/14/18 18:01 Heparin Sodium (Porcine) (Heparin) 5,000 units SC Q8 [facility] Last Admin: 08/11/18 14:06 Dose: 5,000 units Moxifloxacin HCl (Avelox Iv 400mg/250ml Ns) 400 mg in 250 mls @ 167 mls/hr IVPB Q24H [facility]; Protocol Last Admin: 08/10/18 17:25 Dose: 167 mls/hr Vancomycin HCl 1 gm/ Sodium (Chloride) 250 mls @ 166.7 mls/hr IVPB Q24H [facility]; Protocol Last Admin: 08/10/18 19:29 Dose: 166.7 mls/hr Fluconazole 100 mg/ (Miscellaneous) 50 mls @ 100 mls/hr IVPB Q24H [facility]; Protocol Lactobacillus Acidophilus (Bacid Acidophilus) 1 cap PO BID [facility] Last Admin: 08/11/18 10:47 Dose: 1 cap Pantoprazole Sodium (Protonix Ec Tab) [address] [facility] Last Admin: 08/11/18 10:47 Dose: 40 mg Potassium Chloride (Potassium Chloride Oral Soln) [address] [facility] Stop: 08/14/18 10:01 - Labs Labs: 08/11/18 11:22 08/11/18 11:22 PT 12.1 SECONDS (9.7-12.2) 08/10/18 07:30 INR 1.1 08/10/18 07:30 APTT 31 SECONDS (21-34) 08/10/18 07:30
[2018-08-11] MEDS: Fluconazole IV 200mg/100 ml NS 100 MG in Premixed IV 1 EA IVPB SCH (17:17)
--- NOTE | 2018-08-11 17:28 | PN ---
DATE: 08/11/2018 LOCATION: 565, bed B. SUBJECTIVE: This is an 83-year-old female seen and examined early in rounds without significant clinical changes or reported active bleeding with intermittent period of mild shortness of breath with no generalized jaundice. No reported actual chest pain or palpitation. No significant shortness of breath. This case was discussed at length with Dr. Michel Rangel yesterday who did not clear the patient for ERCP as for now she carries very high risk for any aggressive GI procedure until full cardiology evaluation. Today's lab results showed hemoglobin 9.3, hematocrit 29.1 with normal white cells and platelet count, potassium 3.4, BUN 24, creatinine normal, blood glucose level 133, calcium 7.8, alkaline phosphatase 406 but the rest of the liver function test normal with albumin 2.8 and total protein 5.5. PHYSICAL EXAMINATION: GENERAL: An 83-year-old female in a state of DNR and DNI. VITAL SIGNS: Afebrile with pulse of 106, respiratory rate 18-20, blood pressure 114/70. HEENT: Showed pale dry oral mucous membrane. Nonicteric sclerae. LUNGS: Few scattered crepitation. Decreased air entry at bases. HEART: Positive S1 and S2. ABDOMEN: Soft with mild generalized tenderness. No mass or organomegaly. EXTREMITIES: Without significant clubbing, cyanosis or edema. NEUROLOGIC: No reported new neurological deficits, sensory or motor. IMPRESSION: 1. Common bile duct stone as per radiology study results, but without elevated liver function test anymore. 2. Multiple past medical history as reported in the initial H&P. 3. Anemia most likely secondary to chronic disease. 4. Elevated liver function test by recent history, none recently. 5. Excessive increase of cancer markers. 6. Hypoalbuminemia, hypoproteinemia with poor oral intake. 7. Reported episode of hypoglycemia with mild renal insufficiency as well as pneumonia by recent history. SUGGESTIONS: 1. Continue current management. 2. Cancel ERCP for now until the patient is more stable clinically. Further recommendation to follow. Gracie Call MD
[2018-08-11] MEDS: Moxifloxacin IV 400mg/250ml NS 400 MG/250 ML BAG IVPB SCH (18:08)
--- NOTE | 2018-08-11 18:33 | PN ---
DATE: 08/11/2018 SUBJECTIVE: The patient is trying to eat food at this time. She denies any complaints. Generally, she does not complain anyway. She denies abdominal pain. I repeated her labs today as lactic acid was high yesterday, and I gave her some fluids. PHYSICAL EXAMINATION GENERAL: She is awake and alert, answers some questions. VITAL SIGNS: T-max is 97.2 today, heart rate of 113 to 97, blood pressure 112/72, respirations are 18. HEENT: Head is atraumatic and normocephalic. NECK: Has still the triple lumen in the right IJ. LUNGS: Clear. Decreased breath sounds bilaterally. HEART: S1 and S2 regular. ABDOMEN: Soft, nontender. No guarding, no rigidity present. EXTREMITIES: No edema. LABORATORY DATA: White count is 10.7, hemoglobin 9.3, hematocrit 29.1, platelet count is 359. Her potassium is a little low, but she got potassium just before the blood was ordered. Sodium is 137, potassium 3.4, chloride 105, CO2 is 25, BUN is 24, creatinine is 1.1, anion gap is 10 and glucose is 133. Her proBNP was 25,900 and procalcitonin is now 0.58. Lactate level was 3.2 yesterday, now it is 2. ASSESSMENT AND PLAN: So at this time, I will continue the same treatment. She is on vancomycin 1 g daily. She is on moxifloxacin and lactobacillus. Tomorrow I want to get a vancomycin random level and I will get a vancomycin trough tomorrow. The patient has acute choledocholithiasis, came in with septicemia and septic shock, has Enterococcus faecium in the blood and now has yeast in the urine, so the new order would be Diflucan at this time. We will follow. She has some effusions and Pulmonary is following. Curry Ureña MD
--- NOTE | 2018-08-11 23:01 | PN ---
DATE: 08/11/2018 SUBJECTIVE: The patient is an 83-year-old female. The patient was seen and examined at the bedside on 08/11/2018. Looking comfortable. Not big change in the status. Family, nephew Vin, and friend and friend's were on the bedside. The patient was supposed to go for ERCP, but faculty research physician never cleared the patient. He sent the patient for echocardiography, waiting for the results of the echocardiography. Cardiac workup is in the process. PHYSICAL EXAMINATION: VITAL SIGNS: Temperature 98.6, pulse 100, respiratory rate 18, and blood pressure 114/70. HEENT: Head: Normocephalic and atraumatic. Eyes: PERRLA. Extraocular muscles are intact. Conjunctivae clear. Nose patent. Mucous membranes moist. NECK: Supple. No carotid bruit, JVD, or thyromegaly. CHEST: Bilaterally symmetrical. HEART: S1 and S2 are positive. LUNGS: Clear to auscultation. ABDOMEN: Soft. Bowel sounds present. No organomegaly. EXTREMITIES: No edema. No cyanosis. NEUROLOGIC: The patient is awake, alert. Moving all four extremities. No focal deficit. MEDICATIONS: Aspirin, Avelox, Pepcid, fluconazole, heparin, Lasix, potassium, Protonix, and vancomycin. LABORATORY DATA: White blood cells 10.7, hemoglobin 9.3, hematocrit 29.1, and platelets 359. Sodium 137, potassium 3.4, BUN 24, creatinine 1.1, and glucose 136. ASSESSMENT AND PLAN: Ms. Chloe Robledo is an 83-year-old lady with anemia, hypokalemia, hyperglycemia, hypocalcemia, abnormal liver function tests, congestive heart failure, proteinuria, hematuria. Has multiple medical problems. Flight Control Specialist is on the case. The patient has common bile duct stone as per radiology study results but without elevated liver function tests anymore. Multiple past medical history as reported. Has hypertension. Anemia, looks like secondary to chronic disease. High cancer markers. Hypoalbuminemia, hypoproteinemia with poor intake, history of hypoglycemic attack. Continue current medications. Cancel endoscopic retrograde cholangiopancreatography today until the patient is more stable clinically and cleared by the faculty research physician as per Gastroenterology. Seen by Dr. Curry Ureña, Infectious Disease and Dr. Bon Garcia, policy change clerk. The patient has ovarian tumor. Surgery saw the patient. Length of the time discussion done with the patient's nephew Vin and the patient's friend. All questions were answered. Gastrointestinal and deep venous thrombosis prophylaxis. Repeat labs. We will follow up. Donna Wallace MD
[2018-08-12] MEDS: Lactobacillus Acidophilus 500 MU Cap PO SCH ×2 (09:17→18:59)
[2018-08-12] MEDS: Pantoprazole 40 mg EC Tab PO SCH (09:18)
[2018-08-12] MEDS ORDERED: Potassium Chloride 20 mEq/15 ml LIQ UD PO SCH (10:00)
--- NOTE | 2018-08-12 12:01 | PN ---
DATE: 08/08/2018 SUBJECTIVE: The patient is an 83-year-old female. The patient was seen and examined at the bedside on 08/08/2018, looking comfortable. No nausea, vomiting, or diarrhea. No active bleeding. No headache or dizziness. No chest pain. No palpitation. No hematuria. No hematochezia. Length of the time discussion done with the patient's nephew about ERCP procedure. PHYSICAL EXAMINATION: VITAL SIGNS: Temperature 98.6, pulse 80, respiratory rate 20, blood pressure 120/70. HEENT: Head: Normocephalic and atraumatic. EYES: PERRLA. Extraocular movements are intact. Conjunctivae clear. NECK: Supple. No carotid bruits or thyromegaly. CHEST: Bilaterally symmetric. HEART: S1 and S2 positive. LUNGS: Clear to auscultation. Decreased air entry at the bases. ABDOMEN: Soft with slight generalized tenderness in the mid epigastric and right upper quadrant area. No organomegaly. No rebound or tenderness. NEUROLOGIC: The patient is awake and alert. Follow simple commands. MEDICATIONS: Reviewed by me. LABORATORY DATA: Labs reviewed by me. ASSESSMENT AND PLAN: an 83-year-old lady has a common bile duct stone, large size as reported by the recently done MRCP and the radiological study results. Abnormal liver function test secondary to cholelithiasis, multiple past medical history , hypertension, electrolyte imbalance, anemia of chronic disease, increased tumor markers. The patient is scheduled for ERCP. Discussion done with a nephew by myself and by Dr. Severino. Nephew agrees. The patient is do not resuscitate. My plan is, we will change code status as per need. Gastrointestinal and deep venous thrombosis prophylaxis and repeat labs. We will follow. Donna Wallace MD MTDD
--- NOTE | 2018-08-12 12:20 | CP.PCM.PN ---
Subjective - Date & Time of Evaluation Date of Evaluation: 08/12/18 Time of Evaluation: 12:19 - Subjective Subjective: Nephrology Consultation Note: Assessment: stable Acute Kidney Injury (N17.9) likely due to ATN from septic shock: improving Fall abnormal LFT hyperphosphatemia, HAGMA UTI cholelithiasis pelvic mass hypomagnesemia hypokalemia pleural effusion Plan check labs and CXR in AM. Maintain hemodynamics stable. Avoid hypotension. Patient not on ACEI/ARB due to recent JEFF Monitor Input/Output, daily weights and renal function with basic metabolic panel supplement lytes as needed. GI/surgery work up ongoing. seen by ANIMAL NUTRITIONIST as well lasix 40 mg bid increased pulmonary cardio following. agree with checking echocardiogram: LVEf normal Dose meds/antibiotics for improved GFR. avoid nephrotoxins/NSAIDs Glycemic control Further work up/management as per primary team Thanks for allowing me to participate in care of your patient. Will follow p atient with you. Please call if any Qs. had d/w team Dr Valerio Lewis Office: [phone] Chief Complaint; fall Reason for consult: Acute Kidney Injury HPI: Pt is a 83 F without any known medical hx but no recent medical follow up presented with complaints of fall and found to have sepsis with shock, abnormal LFT and JEFF No recent iodinated contrast exposure. Noted obvious episodes of low BP. ROS: Cardiovascular: No chest pain. Pulmonary: denies shortness of breath Gastrointestinal: denies abdominal pain no nausea. No vomiting. no loose stool at present Genitourinary: No pain while urinating. Denies blood in urine. All other negative except as mentioned in HPI Physical Examination: General Appearance: Comfortable, in no acute respiratory distress, co-operative . chronically debilitated appearing Vitals reviewed and noted as below Head; Atraumatic, normocephalic ENT: no ulcers no thrush. Tongue is midline. Oropharynx: no rash or ulcers. she is hard of hearing EYES: Pupils are equal, round and reactive to light accommodation. Eye muscles and extraocular movement intact. Sclera is icteric. Neck; supple no lymphadenopathy, no thyromegaly or bruit Lungs: Improved respiratory rate/effort. Breath sounds bilateral reduced at bases few basal crackle Heart: Normal rate. s1s2 normal. No rub or gallop. Extremities: no edema. No varicose veins Neurological: Patient is alert, awake and oriented Strength bilateral appropriate and equal Skin: Warm and dry. Normal turgor. No rash. Palpitation: Normal elasticity for age Abdomen: Abdomen is soft. Bowel sounds +. There is mild Rt abdominal tenderness, no guarding/rigidity no organomegaly Psych: lack insight and normal affect/mood MSK: no joint tenderness or swelling. Digits and nails normal, no deformity : kidney or bladder not palpable Labs/imaging reviewed. Past medical history, past surgical history, family history, social history, allergy reviewed and noted as below Family hx: no hx of CKD. Rest non-contributory Objective - Vital Signs/Intake and Output Vital Signs (last 24 hours): Temp Pulse Resp BP Pulse Ox 97.5 F L 74 18 122/70 96 08/12/18 08:01 08/12/18 11:57 08/12/18 08:01 08/12/18 09:18 08/12/18 08:01 Intake and Output: 08/12/18 08/12/18 06:59 18:59 Intake Total 800 Output Total 300 Balance 500 - Medications Medications: Current Medications Aspirin (Aspirin Chewable) 81 mg PO DAILY [facility] Last Admin: 08/12/18 09:18 Dose: 81 mg Furosemide (Lasix) 40 mg PO BID [facility] Stop: 08/14/18 18:01 Last Admin: 08/12/18 09:18 Dose: 40 mg Heparin Sodium (Porcine) (Heparin) 5,000 units SC Q8 [facility] Last Admin: 08/12/18 07:15 Dose: Not Given Moxifloxacin HCl (Avelox Iv 400mg/250ml Ns) 400 mg in 250 mls @ 167 mls/hr IVPB Q24H [facility]; Protocol Last Admin: 08/11/18 18:08 Dose: 167 mls/hr Vancomycin HCl 1 gm/ Sodium (Chloride) 250 mls @ 166.7 mls/hr IVPB Q24H [facility]; Protocol Last Admin: 08/11/18 20:12 Dose: 166.7 mls/hr Fluconazole 100 mg/ (Miscellaneous) 50 mls @ 100 mls/hr IVPB Q24H [facility]; Protocol Last Admin: 08/11/18 17:17 Dose: 100 mls/hr Lactobacillus Acidophilus (Bacid Acidophilus) 1 cap PO BID [facility] Last Admin: 08/12/18 09:17 Dose: 1 cap Pantoprazole Sodium (Protonix Ec Tab) 40 mg PO DAILY [facility] Last Admin: 08/12/18 09:18 Dose: 40 mg Potassium Chloride (Potassium Chloride Oral Soln) 20 meq PO BID [facility] Stop: 08/14/18 10:01 Last Admin: 08/12/18 09:19 Dose: 20 meq - Labs Labs: 08/11/18 11:22 08/11/18 11:22 PT 12.1 SECONDS (9.7-12.2) 08/10/18 07:30 INR 1.1 08/10/18 07:30 APTT 31 SECONDS (21-34) 08/10/18 07:30
--- NOTE | 2018-08-12 15:21 | CP.PCM.PN ---
Subjective - Date & Time of Evaluation Date of Evaluation: 08/12/18 Time of Evaluation: 10:20 - Subjective Subjective: Patient seen and examined at bedside this AM. Patient states she is breathing well on 4L NC. She is resting comfortably in her chair. Patient is afebrile. Denies SOB, cough, chest pain, palpitations. Exam: Gen - no acute distress Card - RRR, +S1 +S2, no murmurs, rubs or gallops Lungs - normal breathing pattern, clear to auscultation bilaterally, no wheezes, rales or rhonchi GI - abdomen soft, nontender, no rebound, guarding or rigidity Extr - no edema bilaterally A&P 1. CHF - 08/09/18 ABG: pH 7.49, pO2 59, pCO2 30, O2sat 95.7%. - 08/09/18 CT chest: moderate right and small left pleural effusions and associated compressive consolidations. Patchy right upper lobe ground- glass/patchy infiltrates, Scarring/atelectasis within the upper lobes. - 08/10/18 pro-BNP: 80139 - 08/11/18 echo: LVEF 60-65%, flattened septum consistent with RV pressure overload estimated at 57 mmHg - continue diuretics: Lasix 20 mg BID, replete K (3.4 today) - continue antibiotics: Avelox + vancomycin - continue fluconazole (08/09 urine cx positive for yeast) - patient clinically improving - recommend repeat CXR 2. Desaturation - 08/02/18 CT abdomen: small bilateral pleural effusions and associated consolidations; partially imaged cardiomegaly - 08/09/18 CXR: atelectasis at mid left lung zone laterally; persistent opacities identified at bilateral lung bases (persistent pleural effusions consistent with 08/02/18 CXR) - followup ABG after CHF improves Objective - Vital Signs/Intake and Output Vital Signs (last 24 hours): Temp Pulse Resp BP Pulse Ox 97.5 F L 74 18 122/70 96 08/12/18 08:01 08/12/18 11:57 08/12/18 08:01 08/12/18 09:18 08/12/18 08:01 Intake and Output: 08/12/18 08/12/18 06:59 18:59 Intake Total 800 700 Output Total 300 Balance 500 700 - Medications Medications: Current Medications Aspirin (Aspirin Chewable) 81 mg PO DAILY [facility] Last Admin: 08/12/18 09:18 Dose: 81 mg Furosemide (Lasix) 40 mg PO BID [facility] Stop: 08/14/18 18:01 Last Admin: 08/12/18 09:18 Dose: 40 mg Heparin Sodium (Porcine) (Heparin) 5,000 units SC Q8 [facility] Last Admin: 08/12/18 13:30 Dose: 5,000 units Moxifloxacin HCl (Avelox Iv 400mg/250ml Ns) 400 mg in 250 mls @ 167 mls/hr IVPB Q24H [facility]; Protocol Last Admin: 08/11/18 18:08 Dose: 167 mls/hr Vancomycin HCl 1 gm/ Sodium (Chloride) 250 mls @ 166.7 mls/hr IVPB Q24H [facility]; Protocol Last Admin: 08/11/18 20:12 Dose: 166.7 mls/hr Fluconazole 100 mg/ (Miscellaneous) 50 mls @ 100 mls/hr IVPB Q24H [facility]; Protocol Last Admin: 08/11/18 17:17 Dose: 100 mls/hr Lactobacillus Acidophilus (Bacid Acidophilus) 1 cap PO BID [facility] Last Admin: 08/12/18 09:17 Dose: 1 cap Pantoprazole Sodium (Protonix Ec Tab) 40 mg PO DAILY [facility] Last Admin: 08/12/18 09:18 Dose: 40 mg Potassium Chloride (K-Dur 20 Meq Er Tab) 20 meq PO BID [facility] - Labs Labs: 08/11/18 11:22 08/11/18 11:22 PT 12.1 SECONDS (9.7-12.2) 08/10/18 07:30 INR 1.1 08/10/18 07:30 APTT 31 SECONDS (21-34) 08/10/18 07:30 Assessment and Plan (1) Pleural effusion Status: Acute (2) Pneumonia Status: Acute (3) Rhabdomyolysis Status: Acute (4) Sepsis Status: Acute
--- NOTE | 2018-08-12 16:29 | CP.PCM.PN ---
Subjective - Date & Time of Evaluation Date of Evaluation: 08/12/18 Time of Evaluation: 15:00 - Subjective Subjective: dictated Objective - Vital Signs/Intake and Output Vital Signs (last 24 hours): Temp Pulse Resp BP Pulse Ox 97.8 F 87 20 129/74 95 08/12/18 16:00 08/12/18 16:00 08/12/18 16:00 08/12/18 16:00 08/12/18 16:00 Intake and Output: 08/12/18 08/12/18 06:59 18:59 Intake Total 800 700 Output Total 300 Balance 500 700 - Medications Medications: Current Medications Aspirin (Aspirin Chewable) 81 mg PO DAILY [facility] Last Admin: 08/12/18 09:18 Dose: 81 mg Furosemide (Lasix) 40 mg PO BID [facility] Stop: 08/14/18 18:01 Last Admin: 08/12/18 09:18 Dose: 40 mg Heparin Sodium (Porcine) (Heparin) 5,000 units SC Q8 [facility] Last Admin: 08/12/18 13:30 Dose: 5,000 units Moxifloxacin HCl (Avelox Iv 400mg/250ml Ns) 400 mg in 250 mls @ 167 mls/hr IVPB Q24H [facility]; Protocol Last Admin: 08/11/18 18:08 Dose: 167 mls/hr Vancomycin HCl 1 gm/ Sodium (Chloride) 250 mls @ 166.7 mls/hr IVPB Q24H [facility]; Protocol Last Admin: 08/11/18 20:12 Dose: 166.7 mls/hr Fluconazole 100 mg/ (Miscellaneous) 50 mls @ 100 mls/hr IVPB Q24H [facility]; Protocol Last Admin: 08/11/18 17:17 Dose: 100 mls/hr Lactobacillus Acidophilus (Bacid Acidophilus) 1 cap PO BID [facility] Last Admin: 08/12/18 09:17 Dose: 1 cap Pantoprazole Sodium (Protonix Ec Tab) 40 mg PO DAILY [facility] Last Admin: 08/12/18 09:18 Dose: 40 mg Potassium Chloride (K-Dur 20 Meq Er Tab) 20 meq PO BID [facility] - Labs Labs: 08/11/18 11:22 08/11/18 11:22 PT 12.1 SECONDS (9.7-12.2) 08/10/18 07:30 INR 1.1 08/10/18 07:30 APTT 31 SECONDS (21-34) 08/10/18 07:30
[2018-08-12] MEDS: Fluconazole IV 200mg/100 ml NS 100 MG in Premixed IV 1 EA IVPB SCH (17:08)
--- NOTE | 2018-08-12 17:11 | RAD ---
Date of service: 08/12/2018 PROCEDURE: CHEST RADIOGRAPH, 1 VIEW HISTORY: f/u effusion COMPARISON: Chest radiograph dated 08/09/2018. FINDINGS: LUNGS: Pulmonary vascular congestion. Bibasilar atelectasis. PLEURA: Small bilateral pleural effusions. No appreciable pneumothorax. CARDIOVASCULAR: Aortic atherosclerotic calcifications. Cardiomediastinal silhouette stably enlarged. OSSEOUS STRUCTURES: Unchanged. VISUALIZED UPPER ABDOMEN: Normal. OTHER FINDINGS: Internal jugular access central venous catheter, unchanged. IMPRESSION: Pulmonary vascular congestion and small bilateral pleural effusions.
--- NOTE | 2018-08-12 17:13 | CP.PCM.PN ---
Subjective - Date & Time of Evaluation Date of Evaluation: 08/12/18 Time of Evaluation: 17:10 - Subjective Subjective: No acute events. Tolerating diet. ERCP canceled today. Objective - Vital Signs/Intake and Output Vital Signs (last 24 hours): Temp Pulse Resp BP Pulse Ox 97.8 F 87 20 129/74 95 08/12/18 16:00 08/12/18 16:00 08/12/18 16:00 08/12/18 16:00 08/12/18 16:00 Intake and Output: 08/12/18 08/12/18 06:59 18:59 Intake Total 800 700 Output Total 300 Balance 500 700 - Medications Medications: Current Medications Aspirin (Aspirin Chewable) 81 mg PO DAILY [facility] Last Admin: 08/12/18 09:18 Dose: 81 mg Furosemide (Lasix) 40 mg PO BID [facility] Stop: 08/14/18 18:01 Last Admin: 08/12/18 09:18 Dose: 40 mg Heparin Sodium (Porcine) (Heparin) 5,000 units SC Q8 [facility] Last Admin: 08/12/18 13:30 Dose: 5,000 units Moxifloxacin HCl (Avelox Iv 400mg/250ml Ns) 400 mg in 250 mls @ 167 mls/hr IVPB Q24H [facility]; Protocol Last Admin: 08/11/18 18:08 Dose: 167 mls/hr Vancomycin HCl 1 gm/ Sodium (Chloride) 250 mls @ 166.7 mls/hr IVPB Q24H [facility]; Protocol Last Admin: 08/11/18 20:12 Dose: 166.7 mls/hr Fluconazole 100 mg/ (Miscellaneous) 50 mls @ 100 mls/hr IVPB Q24H [facility]; Protocol Last Admin: 08/12/18 17:08 Dose: 100 mls/hr Lactobacillus Acidophilus (Bacid Acidophilus) 1 cap PO BID [facility] Last Admin: 08/12/18 09:17 Dose: 1 cap Pantoprazole Sodium (Protonix Ec Tab) 40 mg PO DAILY [facility] Last Admin: 08/12/18 09:18 Dose: 40 mg Potassium Chloride (K-Dur 20 Meq Er Tab) 20 meq PO BID [facility] - Labs Labs: 08/11/18 11:22 08/11/18 11:22 PT 12.1 SECONDS (9.7-12.2) 08/10/18 07:30 INR 1.1 08/10/18 07:30 APTT 31 SECONDS (21-34) 08/10/18 07:30 - Constitutional Appears: Non-toxic, No Acute Distress - Respiratory Exam Respiratory Exam: Clear to Ausculation Bilateral, NORMAL BREATHING PATTERN - Cardiovascular Exam Cardiovascular Exam: REGULAR RHYTHM, +S1, +S2 - GI/Abdominal Exam GI & Abdominal Exam: Soft, Normal Bowel Sounds. absent: Tenderness - Extremities Exam Extremities Exam: Normal Inspection. absent: Pedal Edema - Psychiatric Exam Psychiatric exam: Normal Affect, Normal Mood - Skin Skin Exam: Normal Color, Warm Assessment and Plan - Assessment and Plan (Free Text) Assessment: #Choledocolithiasis #Septic shock - UTI vs cholangitis, resolved #AHRF #Ovarian mass #HTN PLAN: -Imaging reviewed. ~2cm stone in CBD. -Continue Abx -Plan for ERCP to remove stone when medically stable, currently pulmonology is evaluating patient for desaturations. -Pending cardiac clearance. -Continue to monitor for signs of sepsis or worsening obstruction. -Follow electrolytes -NPO PM Case discussed with Dr. Severino, see attestation.
[2018-08-12] MEDS: Potassium Chloride 20 mEq ER Tab PO SCH (18:59)
[2018-08-12] MEDS: Moxifloxacin IV 400mg/250ml NS 400 MG/250 ML BAG IVPB SCH (19:00)
--- NOTE | 2018-08-12 22:06 | CP.PCM.PN ---
Subjective - Date & Time of Evaluation Date of Evaluation: 08/12/18 Time of Evaluation: 22:04 - Subjective Subjective: Patient seen and evaluated denies chest pain and dyspnea D/W Nephew Explained about the high risk nature of cardiac events for ERCP He said if the procedure helps the patient would like to take the risk after speaking to PMD and GI physicians Exam: Gen - no acute distress Card - tachycardic, +S1 +S2, no murmurs, rubs or gallops Lungs - normal breathing pattern, clear to auscultation bilaterally, no wheezes, rales or rhonchi GI - abdomen soft, nontender, no rebound, guarding or rigidity Extr - no edema bilaterally Review of Systems - Review of Systems All systems: reviewed and no additional remarkable complaints except (shortness of breath) Physical Exam - Head Exam Head Exam: ATRAUMATIC, NORMOCEPHALIC - ENT Exam ENT Exam: Mucous Membranes Moist - Neck Exam Neck exam: Positive for: Normal Inspection - Respiratory Exam Respiratory Exam: Decreased Breath Sounds - Cardiovascular Exam Cardiovascular Exam: REGULAR RHYTHM - GI/Abdominal Exam GI & Abdominal Exam: Normal Bowel Sounds, Soft Objective - Vital Signs/Intake and Output Vital Signs (last 24 hours): Temp Pulse Resp BP Pulse Ox 97.8 F 87 20 130/76 95 08/12/18 16:00 08/12/18 16:00 08/12/18 16:00 08/12/18 18:59 08/12/18 16:00 Intake and Output: 08/12/18 08/13/18 18:59 06:59 Intake Total 700 Balance 700 - Medications Medications: Current Medications Aspirin (Aspirin Chewable) 81 mg PO DAILY [facility] Last Admin: 08/12/18 09:18 Dose: 81 mg Furosemide (Lasix) 40 mg PO BID [facility] Stop: 08/14/18 18:01 Last Admin: 08/12/18 18:59 Dose: 40 mg Heparin Sodium (Porcine) (Heparin) 5,000 units SC Q8 [facility] Last Admin: 08/12/18 13:30 Dose: 5,000 units Moxifloxacin HCl (Avelox Iv 400mg/250ml Ns) 400 mg in 250 mls @ 167 mls/hr IVPB Q24H [facility]; Protocol Last Admin: 08/12/18 19:00 Dose: 167 mls/hr Vancomycin HCl 1 gm/ Sodium (Chloride) 250 mls @ 166.7 mls/hr IVPB Q24H [facility]; Protocol Last Admin: 08/12/18 20:22 Dose: 166.7 mls/hr Fluconazole 100 mg/ (Miscellaneous) 50 mls @ 100 mls/hr IVPB Q24H [facility]; Protocol Last Admin: 08/12/18 17:08 Dose: 100 mls/hr Lactobacillus Acidophilus (Bacid Acidophilus) 1 cap PO BID [facility] Last Admin: 08/12/18 18:59 Dose: 1 cap Pantoprazole Sodium (Protonix Ec Tab) 40 mg PO DAILY [facility] Last Admin: 08/12/18 09:18 Dose: 40 mg Potassium Chloride (K-Dur 20 Meq Er Tab) 20 meq PO BID [facility] Last Admin: 08/12/18 18:59 Dose: 20 meq - Labs Labs: 08/11/18 11:22 08/11/18 11:22 PT 12.1 SECONDS (9.7-12.2) 08/10/18 07:30 INR 1.1 08/10/18 07:30 APTT 31 SECONDS (21-34) 08/10/18 07:30 Assessment and Plan - Assessment and Plan (Free Text) Assessment: Assessment: #Choledocolithiasis #Septic shock - UTI vs cholangitis, resolved #AHRF #Ovarian mass #HTN PLAN: -Imaging reviewed. ~2cm stone in CBD. -Continue Abx -Plan for ERCP to remove stone when medically stable, currently pulmonology is evaluating patient for desaturations. -Continue to monitor for signs of sepsis or worsening obstruction. -Follow electrolytes Cardiac Risk Assessment already provided
--- NOTE | 2018-08-13 00:56 | PN ---
DATE: 08/12/2018 SUBJECTIVE: I got a call today from the nurse, Danae, that Dr. Wallace wants to send the patient home. This patient was supposed to have ERCP, however, it was canceled. I was told that Cardiology did not clear her for it. At this time, I went to see her. She denied any pain, but I could feel the mass in the right upper quadrant, most probably it is the gallbladder. PHYSICAL EXAMINATION: VITAL SIGNS: T-max is 97.8, pulse 87, blood pressure 129/74, and respirations are 20. GENERAL: She was awake. She was trying to eat. She is very frail. She still has a triple-lumen. NECK: Supple. LUNGS: Coarse breath sounds. HEART: S1, S2 are present. ABDOMEN: Showed that fullness in the right upper quadrant, and she would not let me evaluate well, and no guarding, no rigidity was present. EXTREMITIES: Have 1+ edema at this time. LABORATORY DATA: Labs are noted. Labs show white count is 10.7. There were no new labs done today, and chemistry showed her potassium was 3.4 yesterday and her alk phos still remains 406. Her kidney functions have improved since she came in, however, she does have a CBD stone, and I think initially her septic shock was due to she did come with tremendous amount of liver function abnormalities and it was most likely the CBD stone which was causing the problem. She did have Enterococcus faecium in her blood, and now, she has a urine which has yeast from 08/09/2017, and she was placed on Diflucan which she has been getting for 3 days. We would repeat the urine. She did have a chest x-ray today, and we will look into the chest x-ray report and the chest x-ray shows unchanged pulmonary venous congestion and small bilateral pleural effusion. I had placed her on fluids as the lactic acid was high on 08/10/2018, but it seems she is off the fluids now, so we will follow recommendations of Cardiology as well as Pulmonology. She remains on vancomycin and moxifloxacin, and she is, however, DNR and DNI. Her last blood culture was positive on 07/29/2018, Enterococcus faecium, so she at least needs antibiotics till 08/12/2018, that is today, and I am not sure if she would ever be able to have that CBD stone removal. But, if she is not going to have, she may still develop septicemia and may not make it through it, but I am told it is high risk, and so at this time for now, I will continue IV antibiotics till she is cleared by other services to go home, and I would be interested in noting what is this right upper abdomen mass, is this a dilated gallbladder that we are seeing and does draining gallbladder without removing the stone help, which we need to find out from Gastrointestinal, and needs to be considered. Curry Ureña MD
--- NOTE | 2018-08-13 01:38 | PN ---
DATE: 08/12/2018 SUBJECTIVE: The patient was seen and examined on the bedside on 08/12/2018, looking comfortable. No fever. No chills. No hematuria or hematochezia. No headache. No dizziness. No chest pain. No palpitation. PHYSICAL EXAMINATION: VITAL SIGNS: Temperature 97.5, pulse 74, respirations 18, blood pressure 122/70, and pulse oximetry 96%. HEENT: Head: Normocephalic and atraumatic. Eyes: PERRLA. Extraocular muscles intact. Conjunctivae clear. Nose patent. Mucous membranes moist. NECK: Supple. No carotid bruits. No JVD or thyromegaly. CHEST: Bilaterally symmetrical. HEART: S1 and S2 positive. LUNGS: Positive wheezing bilaterally. ABDOMEN: Soft. Bowel sounds present. No organomegaly. EXTREMITIES: No edema. No cyanosis. NEUROLOGIC: The patient is awake and alert. Follows simple commands. MEDICATIONS: Aspirin, Lasix, heparin, Avelox, vancomycin, acidophilus, Protonix, K-Dur. LABORATORY DATA: White blood cell 10.7, hemoglobin 9.3, hematocrit 29.1, and platelets 359. Sodium 137, potassium 3.4, BUN 24, creatinine 1.1, and glucose 133. ASSESSMENT AND PLAN: Mrs. Chloe Robledo is an 83-year-old female with anemia, hypokalemia, renal insufficiency, hyperglycemia, has pleural effusion, pneumonia, rhabdomyolysis, sepsis, cholelithiasis, seen by Dr. Bon Garcia, program checker; Dr. Curry Ureña, Infectious Disease; and Dr. Michel Rangel, a high school coordinator. According to Dr. Michel Rangel, the patient is high risk nature of cardiac event for endoscopic retrograde cholangio-pancreatography. He said if procedure helps the patient would like to take the risk after speaking to the PMD and gastrointestinal physician and talking to the family, repeat laboratories. We will follow up. Donna Wallace MD
[2018-08-13 06:59] LABS: BLOOD UREA NITROGEN 22 mg/dL (7-17); CALCIUM 7.8 mg/dl (8.6-10.4); GFR NON-AFRICAN AMERICAN 53
[2018-08-13] MEDS: Lactobacillus Acidophilus 500 MU Cap PO SCH ×2 (10:16→17:49)
[2018-08-13] MEDS: Pantoprazole 40 mg EC Tab PO SCH (10:16)
[2018-08-13] MEDS: Potassium Chloride 20 mEq ER Tab PO SCH ×2 (10:16→17:49)
[2018-08-13] MEDS: Magnesium Sulfate 1 gm in D5W 1 GM/100 ML BAG IVPB SCH ×2 (12:49→12:50)
--- NOTE | 2018-08-13 14:18 | CP.PCM.PN ---
Subjective - Date & Time of Evaluation Date of Evaluation: 08/13/18 Time of Evaluation: 14:17 - Subjective Subjective: Nephrology Consultation Note: Assessment: stable Acute Kidney Injury (N17.9) likely due to ATN from septic shock: improving Fall abnormal LFT hyperphosphatemia, HAGMA UTI cholelithiasis pelvic mass hypomagnesemia hypokalemia pleural effusion Plan Maintain hemodynamics stable. Avoid hypotension. Patient not on ACEI/ARB due to recent JEFF Monitor Input/Output, daily weights and renal function with basic metabolic panel supplement lytes as needed. GI/surgery work up ongoing. seen by BRANCH OFFICE MANAGER as well lasix 40 mg bid increased pulmonary cardio following. agree with checking echocardiogram: LVEf normal Dose meds/antibiotics for improved GFR. avoid nephrotoxins/NSAIDs Glycemic control Further work up/management as per primary team Thanks for allowing me to participate in care of your patient. Will follow patient with you. Please call if any Qs. had d/w team Dr Valerio Lewis Office: [phone] Chief Complaint; fall Reason for consult: Acute Kidney Injury HPI: Pt is a 83 F without any known medical hx but no recent medical follow up presented with complaints of fall and found to have sepsis with shock, abnormal LFT and JEFF No recent iodinated contrast exposure. Noted obvious episodes of low BP. ROS: Cardiovascular: No chest pain. Pulmonary: denies shortness of breath Gastrointestinal: denies abdominal pain no nausea. No vomiting. no loose stool at present Genitourinary: No pain while urinating. Denies blood in urine. All other negative except as mentioned in HPI Physical Examination: General Appearance: Comfortable, in no acute respiratory distress, co-operative . chronically debilitated appearing Vitals reviewed and noted as below Head; Atraumatic, normocephalic ENT: no ulcers no thrush. Tongue is midline. Oropharynx: no rash or ulcers. she is hard of hearing EYES: Pupils are equal, round and reactive to light accommodation. Eye muscles and extraocular movement intact. Sclera is icteric. Neck; supple no lymphadenopathy, no thyromegaly or bruit Lungs: Improved respiratory rate/effort. Breath sounds bilateral reduced at bases few basal crackle Heart: Normal rate. s1s2 normal. No rub or gallop. Extremities: no edema. No varicose veins Neurological: Patient is alert, awake and oriented Strength bilateral appropriate and equal Skin: Warm and dry. Normal turgor. No rash. Palpitation: Normal elasticity for age Abdomen: Abdomen is soft. Bowel sounds +. There is mild Rt abdominal tenderness, no guarding/rigidity no organomegaly Psych: lack insight and normal affect/mood MSK: no joint tenderness or swelling. Digits and nails normal, no deformity : kidney or bladder not palpable Labs/imaging reviewed. Past medical history, past surgical history, family history, social history, allergy reviewed and noted as below Family hx: no hx of CKD. Rest non-contributory Objective - Vital Signs/Intake and Output Vital Signs (last 24 hours): Temp Pulse Resp BP Pulse Ox 97.4 F L 84 18 126/73 97 08/13/18 07:00 08/13/18 07:52 08/13/18 07:00 08/13/18 10:17 08/13/18 07:00 - Medications Medications: Current Medications Aspirin (Aspirin Chewable) 81 mg PO DAILY [facility] Last Admin: 08/13/18 10:16 Dose: 81 mg Furosemide (Lasix) 40 mg PO BID [facility] Stop: 08/14/18 18:01 Last Admin: 08/13/18 10:17 Dose: 40 mg Heparin Sodium (Porcine) (Heparin) 5,000 units SC Q12H [facility] Last Admin: 08/13/18 12:50 Dose: 5,000 units Moxifloxacin HCl (Avelox Iv 400mg/250ml Ns) 400 mg in 250 mls @ 167 mls/hr IVPB Q24H [facility]; Protocol Last Admin: 08/12/18 19:00 Dose: 167 mls/hr Vancomycin HCl 1 gm/ Sodium (Chloride) 250 mls @ 166.7 mls/hr IVPB Q24H [facility]; Protocol Last Admin: 08/12/18 20:22 Dose: 166.7 mls/hr Fluconazole 100 mg/ (Miscellaneous) 50 mls @ 100 mls/hr IVPB Q24H [facility]; Protocol Last Admin: 08/12/18 17:08 Dose: 100 mls/hr Lactobacillus Acidophilus (Bacid Acidophilus) 1 cap PO BID [facility] Last Admin: 08/13/18 10:16 Dose: 1 cap Pantoprazole Sodium (Protonix Ec Tab) 40 mg PO DAILY [facility] Last Admin: 08/13/18 10:16 Dose: 40 mg Potassium Chloride (K-Dur 20 Meq Er Tab) 20 meq PO BID [facility] Last Admin: 08/13/18 10:16 Dose: 20 meq - Labs Labs: 08/11/18 11:22 08/13/18 06:32 PT 12.1 SECONDS (9.7-12.2) 08/10/18 07:30 INR 1.1 08/10/18 07:30 APTT 31 SECONDS (21-34) 08/10/18 07:30
--- NOTE | 2018-08-13 14:22 | CP.PCM.PN ---
Subjective - Date & Time of Evaluation Date of Evaluation: 08/13/18 Time of Evaluation: 09:00 - Subjective Subjective: Patient seen and examined at bedside this AM. Patient is breathing comfortably on 4L NC. She is resting comfortably in bed. Patient is afebrile. Denies SOB, cough, chest pain, palpitations. Awaiting cardiology clearance for possible ERCP or dispo. Exam: Gen - no acute distress Card - RRR, +S1 +S2, no murmurs, rubs or gallops Lungs - normal breathing pattern, clear to auscultation bilaterally, no wheezes, rales or rhonchi GI - abdomen soft, nontender, no rebound, guarding or rigidity Extr - no edema bilaterally A&P 1. CHF - 08/09/18 ABG: pH 7.49, pO2 59, pCO2 30, O2sat 95.7%. - 08/09/18 CT chest: moderate right and small left pleural effusions and associated compressive consolidations. Patchy right upper lobe ground-glass/pat dori infiltrates, Scarring/atelectasis within the upper lobes. - 08/10/18 pro-BNP: 54930 - 08/10/18 echo: LVEF 60-65%, flattened septum consistent with RV pressure overload estimated at 57 mmHg - 08/12/18 CXR: pulmonary venous congestion with small b/l pleural effusions - continue diuretics: Lasix 40 mg BID, replete K (3.4 today) - continue antibiotics: Avelox + vancomycin - continue fluconazole (08/09 urine cx positive for yeast) - patient clinically improving - recommendations as per cardiology 2. Desaturation - 08/02/18 CT abdomen: small bilateral pleural effusions and associated consolidations; partially imaged cardiomegaly - 08/09/18 CXR: atelectasis at mid left lung zone laterally; persistent opacities identified at bilateral lung bases (persistent pleural effusions consistent with 08/02/18 CXR) - followup ABG after CHF improves Objective - Vital Signs/Intake and Output Vital Signs (last 24 hours): Temp Pulse Resp BP Pulse Ox 97.4 F L 84 18 126/73 97 08/13/18 07:00 08/13/18 07:52 08/13/18 07:00 08/13/18 10:17 08/13/18 07:00 - Medications Medications: Current Medications Aspirin (Aspirin Chewable) 81 mg PO DAILY [facility] Last Admin: 08/13/18 10:16 Dose: 81 mg Furosemide (Lasix) 40 mg PO BID [facility] Stop: 08/14/18 18:01 Last Admin: 08/13/18 10:17 Dose: 40 mg Heparin Sodium (Porcine) (Heparin) 5,000 units SC Q12H [facility] Last Admin: 08/13/18 12:50 Dose: 5,000 units Moxifloxacin HCl (Avelox Iv 400mg/250ml Ns) 400 mg in 250 mls @ 167 mls/hr IVPB Q24H [facility]; Protocol Last Admin: 08/12/18 19:00 Dose: 167 mls/hr Vancomycin HCl 1 gm/ Sodium (Chloride) 250 mls @ 166.7 mls/hr IVPB Q24H [facility]; Protocol Last Admin: 08/12/18 20:22 Dose: 166.7 mls/hr Fluconazole 100 mg/ (Miscellaneous) 50 mls @ 100 mls/hr IVPB Q24H [facility]; Protocol Last Admin: 08/12/18 17:08 Dose: 100 mls/hr Lactobacillus Acidophilus (Bacid Acidophilus) 1 cap PO BID [facility] Last Admin: 08/13/18 10:16 Dose: 1 cap Pantoprazole Sodium (Protonix Ec Tab) 40 mg PO DAILY [facility] Last Admin: 08/13/18 10:16 Dose: 40 mg Potassium Chloride (K-Dur 20 Meq Er Tab) 20 meq PO BID [facility] Last Admin: 08/13/18 10:16 Dose: 20 meq - Labs Labs: 08/11/18 11:22 08/13/18 06:32 PT 12.1 SECONDS (9.7-12.2) 08/10/18 07:30 INR 1.1 08/10/18 07:30 APTT 31 SECONDS (21-34) 08/10/18 07:30 Assessment and Plan (1) Pleural effusion Status: Acute (2) Pneumonia Status: Acute (3) Rhabdomyolysis Status: Acute (4) Sepsis Status: Acute
[2018-08-13] MEDS: Fluconazole IV 200mg/100 ml NS 100 MG in Premixed IV 1 EA IVPB SCH (16:25)
[2018-08-13] MEDS: Moxifloxacin IV 400mg/250ml NS 400 MG/250 ML BAG IVPB SCH (17:49)
--- NOTE | 2018-08-13 19:52 | PN ---
DATE: 08/13/2018 LOCATION: 565, bed B. SUBJECTIVE: This is an 83-year-old female, seen and examined in rounds early today with intermittent period of mild shortness of breath for which the patient refused any chest x-ray further more. No reported active bleeding or actual chest pain or palpitation. Chart is reviewed and today's lab results showed potassium 3.4, CO2 content of 32, BUN 22, blood glucose level 137, calcium 7.8, magnesium 1.4 with normal total bilirubin, AST and ALT, but low albumin before. The patient still has low hemoglobin and hematocrit. Most recently done chest x-ray, yesterday, official report is seen indicative of pulmonary vascular congestion with small bilateral pleural effusion. This case was discussed at length with excellence consultant, Dr. Michel Rangel indicative of high risk for ERCP for now. PHYSICAL EXAMINATION: GENERAL: An 83-year-old female, awake, alert. VITAL SIGNS: Afebrile with pulse of 74, respiratory rate 20-22, blood pressure of 150/72. HEENT: Showed dry pale oral mucous membrane. Nonicteric sclerae. LUNGS: Few scattered crepitation. Decreased air entry at bases. HEART: Positive S1 and S2. ABDOMEN: Soft with mild generalized tenderness. No mass or organomegaly. No rebound tenderness or guarding. EXTREMITIES: Without significant clubbing, cyanosis or edema. NEUROLOGIC: No reported new neurological deficits, sensory or motor. IMPRESSION: 1. Bile duct stone. 2. Known history of renal insufficiency. 3. Poorly controlled diabetes mellitus. 4. Pleural effusion. 5. Pneumonia. 6. Electrolyte imbalance and anemia as well as malnutrition with hypoalbuminemia, hypoproteinemia. SUGGESTIONS: 1. Continue current management. 2. Antireflux measure. 3. Further recommendation to follow. Gracie Call MD
--- NOTE | 2018-08-13 23:25 | PN ---
DATE: 08/13/2018 SUBJECTIVE: The patient offers no new complaints. She remains afebrile. PHYSICAL EXAMINATION: VITAL SIGNS: T-max is 97.6, pulse 78, blood pressure is 158/76, respirations are 18. HEENT: Head is atraumatic and normocephalic. NECK: Supple. LUNGS: Clear and decreased breath sounds. HEART: S1, S2. Regular. ABDOMEN: Soft, nontender. No guarding. No rigidity present. EXTREMITIES: Remain without any edema. ASSESSMENT AND PLAN: The patient was not cleared for any surgical procedure. She has completed 2 weeks of antibiotics. I would read Dr. Rangel's note. I explained high risk of cardiac event for endoscopic retrograde cholangiopancreatography. He said if the procedure helps the patient would like to take the risk after speaking to PMD and gastrointestinal physician. At this time, the urine came out with fluconazole, and she is on fluconazole, vancomycin and moxifloxacin. Vancomycin was up for renewal which I have discontinued at this point and continued moxifloxacin. If there is a plan for endoscopic retrograde cholangio-pancreatography on Thursday, then maybe I will reorder it tomorrow. If there is no plan, then I think we have to wean her off the antibiotics and whatever happens. Curry Ureña MD
--- NOTE | 2018-08-14 00:19 | CP.PCM.PN ---
Subjective - Date & Time of Evaluation Date of Evaluation: 08/13/18 Time of Evaluation: 18:30 - Subjective Subjective: Cardiology risk assessment provided. Please read my prior notes Patient also has severe Pulmonary HTN and also needs Pulmonary risk assessment However it is upto the GI or anaesthesiology if they think the procedure benefit outweighs the risk can proceed with the needed ERCP Patient is not a candidate for stress test or cardiac cath due to fragility Will follow Thank you Exam: Gen - no acute distress Card - tachycardic, +S1 +S2, no murmurs, rubs or gallops Lungs - normal breathing pattern, clear to auscultation bilaterally, no wheezes, rales or rhonchi GI - abdomen soft, nontender, no rebound, guarding or rigidity Extr - no edema bilaterally Review of Systems - Review of Systems All systems: reviewed and no additional remarkable complaints except (shortness of breath) Physical Exam - Head Exam Head Exam: ATRAUMATIC, NORMOCEPHALIC - ENT Exam ENT Exam: Mucous Membranes Moist - Neck Exam Neck exam: Positive for: Normal Inspection - Respiratory Exam Respiratory Exam: Decreased Breath Sounds - Cardiovascular Exam Cardiovascular Exam: REGULAR RHYTHM - GI/Abdominal Exam GI & Abdominal Exam: Normal Bowel Sounds, Soft Assessment: #Choledocolithiasis #Septic shock - UTI vs cholangitis, resolved #AHRF #Ovarian mass #HTN PLAN: -Imaging reviewed. ~2cm stone in CBD. -Continue Abx -Plan for ERCP to remove stone when medically stable, currently pulmonology is evaluating patient for desaturations. -Continue to monitor for signs of sepsis or worsening obstruction. -Follow electrolytes Cardiac Risk Assessment already provided Thank you . Will follow Objective - Vital Signs/Intake and Output Vital Signs (last 24 hours): Temp Pulse Resp BP Pulse Ox 97.6 F 82 18 158/76 H 94 L 08/13/18 15:00 08/13/18 20:29 08/13/18 15:00 08/13/18 17:52 08/13/18 15:00 Intake and Output: 08/13/18 08/14/18 18:59 06:59 Intake Total 700 750 Output Total 200 Balance 500 750 - Medications Medications: Current Medications Aspirin (Aspirin Chewable) 81 mg PO DAILY [facility] Last Admin: 08/13/18 10:16 Dose: 81 mg Furosemide (Lasix) 40 mg PO BID [facility] Stop: 08/14/18 18:01 Last Admin: 08/13/18 17:52 Dose: 40 mg Heparin Sodium (Porcine) (Heparin) 5,000 units SC Q12H [facility] Last Admin: 08/14/18 00:14 Dose: 5,000 units Moxifloxacin HCl (Avelox Iv 400mg/250ml Ns) 400 mg in 250 mls @ 167 mls/hr IVPB Q24H [facility]; Protocol Last Admin: 08/13/18 17:49 Dose: 167 mls/hr Fluconazole 100 mg/ (Miscellaneous) 50 mls @ 100 mls/hr IVPB Q24H [facility]; Protocol Last Admin: 08/13/18 16:25 Dose: 100 mls/hr Lactobacillus Acidophilus (Bacid Acidophilus) 1 cap PO BID [facility] Last Admin: 08/13/18 17:49 Dose: 1 cap Pantoprazole Sodium (Protonix Ec Tab) 40 mg PO DAILY [facility] Last Admin: 08/13/18 10:16 Dose: 40 mg Potassium Chloride (K-Dur 20 Meq Er Tab) 20 meq PO BID [facility] Last Admin: 08/13/18 17:49 Dose: 20 meq - Labs Labs: 08/11/18 11:22 08/13/18 06:32 PT 12.1 SECONDS (9.7-12.2) 08/10/18 07:30 INR 1.1 08/10/18 07:30 APTT 31 SECONDS (21-34) 08/10/18 07:30
--- NOTE | 2018-08-14 02:11 | PN ---
DATE: 08/13/2018 SUBJECTIVE: The patient is an 83-year-old female. The patient was seen and examined at bedside on 08/13/2018. Looking comfortable. No fever. No chills. No hematuria or hematochezia. No headache. No dizziness. No chest pain. No palpitation. PHYSICAL EXAMINATION: VITAL SIGNS: Blood pressure 150/70, respiratory rate 20, pulse oximetry 74. The patient is afebrile. HEENT: Head: Normocephalic and atraumatic. Eyes: PERRLA. Extraocular muscles intact. Conjunctivae clear. Nose patent. Mucous membranes moist. NECK: Supple. No carotid bruit. No JVD or thyromegaly. CHEST: Bilaterally symmetrical. HEART: S1, S2 positive. LUNGS: Clear to auscultation. ABDOMEN: Soft. Bowel sounds present. No organomegaly. EXTREMITIES: No edema. No cyanosis. NEUROLOGIC: The patient is awake, alert. Follows simple commands. LABORATORY DATA: BUN 22, creatinine 1.32, sodium 140, potassium 3.4, glucose 137, calcium is 7.8, magnesium 1.4. ASSESSMENT AND PLAN: Ms. Chloe Robledo is an 83-year-old female with anemia, hypokalemia, hyperglycemia, hypomagnesemia, abnormal liver function test, proteinuria, hematuria, urinary tract infection, has pleural effusion, pneumonia, rhabdomyolysis, sepsis, getting antibiotics, improving. Seen by Pulmonology, Dr. Garcia and Dr. Ureña. The patient has anemia. had discussion done with Dr. Rangel, rugby union footballer. According to him, the patient is high risk for endoscopic retrograde cholangiopancreatography. The patient has actually bile duct stone, poorly controlled diabetes, pleural effusion, pneumonia, and electrolyte imbalance. We will balance that. Hypoalbuminemia, hypophosphatemia. Continue current management and her present treatment. Seen by Dr. Curry Ureña. Looking comfortable. Rate Setter also saw the patient. Repeat laboratories. We will follow up. Donna Wallace MD [facility]
[2018-08-14 08:41] LABS: BASO # 0.2 K/uL (0.0-0.2); BASO % 1.2 % (0.0-2.0); EOS # 0.5 K/uL (0.0-0.7); EOS % 3.3 % (0.0-4.0); HEMOGLOBIN 8.5 g/dL (11.0-16.0); LYMPH # 1.2 K/uL (1.0-4.3); MEAN CELL VOLUME 86.6 fL (81.0-99.0); MEAN CORPUSCULAR HEMOGLOBIN 27.6 pg (27.0-31.0); MEAN CORPUSCULAR HGB CONC 31.8 g/dL (33.0-37.0); MONO # 2.6 K/uL (0.0-0.8); MONO % 19.3 % (0.0-10.0); NEUT # 9.1 K/uL (1.8-7.0); NEUT % 67.2 % (50.0-75.0); NRBC % 0.1 % (0.0-2.0); PLATELET COUNT 303 K/uL (130-400); RBC 3.07 Mil/uL (3.80-5.20); RED CELL DISTRIBUTION WIDTH 16.7 % (11.5-14.5); WHITE BLOOD COUNT 13.5 K/uL (4.8-10.8)
[2018-08-14 09:10] LABS: ALB/GLOB RATIO 1.2 (1.0-2.1); ALBUMIN 2.8 g/dL (3.5-5.0); ALT/SGPT 42 U/L (9-52); AST/SGOT 27 U/L (14-36); BLOOD UREA NITROGEN 22 mg/dL (7-17); CALCIUM 7.8 mg/dl (8.6-10.4); GFR NON-AFRICAN AMERICAN 53
[2018-08-14 09:44] LABS: BASOPHIL 1 % (0-2); EOSINOPHIL 3 % (0-4); LYMPHOCYTE 9 % (20-40); MONOCYTE 20 % (0-10); NEUTROPHIL 67 % (50-75); PLATELET ESTIMATE NORMAL (NORMAL); TOTAL CELLS COUNTED 100
[2018-08-14 09:45] LABS: GIANT PLATELETS PRESENT
[2018-08-14 09:48] LABS: ANISOCYTOSIS MODERATE; LARGE PLATELETS PRESENT
[2018-08-14 09:51] LABS: HYPOCHROMIC SLIGHT; POLYCHROMIC SLIGHT; TOXIC GRANULATION PRESENT
--- NOTE | 2018-08-14 09:58 | CP.PCM.PCO ---
<Srinivas Larsen - Last Filed: 08/14/18 09:54> Assessment & Plan - Assessment and Plan (Free Text) Assessment: Surgery Note for Dr. Vargas 83F w/ CBD stone pending ERCP Plan: Patient awaiting ERCP Patient desaturated (08/02) likely due to age and comorbidities ECHO w/ LVEF of 60% Patient may benefit from general anesthesia in order to proceed with ERCP D/w Dr. Zhang PGY1 <Dustin Soliman - Last Filed: 08/16/18 16:27> Assessment & Plan (1) Abnormal LFTs (liver function tests) Status: Acute Priority: Medium Onset Date: ~08/04/18 - Assessment and Plan (Free Text) Assessment: Discussed patient with Dr Isaac regarding ERCP and desaturation. Patient may need ERCP under general given her frail state. EF on cardiac echo >50%. No history of pulmonary disease. Desaturation possibly due to elderly state Dustin Vargas MD
[2018-08-14] MEDS: Pantoprazole 40 mg EC Tab PO SCH (10:11)
[2018-08-14] MEDS: Lactobacillus Acidophilus 500 MU Cap PO SCH ×2 (10:11→17:31)
[2018-08-14] MEDS: Potassium Chloride 20 mEq/15 ml LIQ UD PO SCH ×2 (10:23→17:31)
--- NOTE | 2018-08-14 13:17 | PN ---
DATE: 08/14/2018 LOCATION: 565, bed B. SUBJECTIVE: This is an 83-year-old female seen and examined in rounds without significant clinical changes, refusing any further radiology study results. No reported active GI bleeding, chest pain or palpitations. No reported active bleeding. The entire chart is reviewed including but not limited to the most recent lab results which showed leukocytosis of 13.5, hemoglobin 8.5, hematocrit 26.5 with normal platelet count, but CO2 content of 32, BUN of 22, blood glucose level 139, calcium 7.8 with normal liver function test, but elevated alkaline phosphatase of 440 with low albumin and low total protein. PHYSICAL EXAMINATION: GENERAL: A 83-year-old female. VITAL SIGNS: Afebrile with pulse of 80, respiratory rate 20 to 22, blood pressure 140/82. HEENT: Pale, dry, oral mucous membranes. Nonicteric sclerae. LUNGS: Few scattered crepitations. Decreased air entry at bases. HEART: Positive S1 and S2. ABDOMEN: Soft with slight generalized tenderness. No mass or organomegaly. No rebound tenderness or guarding. EXTREMITIES: Without significant edema, clubbing, or cyanosis. NEUROLOGICAL: No reported new neurological deficits, sensory or motor. IMPRESSION: 1. Common bile duct stone as reported by the radiology study results before. 2. It has to be mentioned again that the patient has known history of severe pulmonary hypertension as per the cardiology workup and before the endoscopic retrograde cholangiopancreatography to be performed, the case is to be discussed again and again with the patient's nephew. 3. Electrolyte imbalance by recent history. 4. Poorly controlled diabetes mellitus. 5. Global effusion with pneumonia. 6. Malnutrition, hypoalbuminemia, hypoproteinemia. SUGGESTIONS: 1. As above. 2. Flagyl IV. 3. We will discuss the case with the ID internal audit consultant on the case. 4. Further recommendations to follow. Gracie Call MD
--- NOTE | 2018-08-14 15:05 | RAD ---
Chest x-ray single frontal view HISTORY: Pleural effusion. Comparison: 08/12/2018 FINDINGS: Moderate bilateral pleural effusions. Linear atelectasis in the left mid and right lung base. Diffuse increased interstitial lung markings. Nodular consolidative change in right midlung zone. Prominent bibasilar consolidative opacification. Right central venous catheter tip extending into right atrium. Atherosclerotic calcification and plaque in the aorta. Cardiomegaly. Degenerative changes in the spine and shoulders. Impression: Moderate bilateral pleural effusions. Linear atelectasis in the left mid and right lung base. Diffuse increased interstitial lung markings. Nodular consolidative change in right midlung zone. Prominent bibasilar consolidative opacification. Right central venous catheter tip extending into right atrium. Atherosclerotic calcification and plaque in the aorta. Cardiomegaly. Degenerative changes in the spine and shoulders.
--- NOTE | 2018-08-14 16:22 | CP.PCM.PN ---
Subjective - Date & Time of Evaluation Date of Evaluation: 08/14/18 Time of Evaluation: 14:00 - Subjective Subjective: Patient seen and examined Sitting comfortably in no distress Afebrile Awake and responsive Objective - Vital Signs/Intake and Output Vital Signs (last 24 hours): Temp Pulse Resp BP Pulse Ox 97.9 F 95 H 18 139/78 93 L 08/14/18 15:00 08/14/18 16:14 08/14/18 15:00 08/14/18 15:00 08/14/18 15:00 Intake and Output: 08/14/18 08/14/18 06:59 18:59 Intake Total 750 480 Output Total 300 Balance 750 180 - Medications Medications: Current Medications Aspirin (Aspirin Chewable) 81 mg PO DAILY [facility] Last Admin: 08/14/18 10:11 Dose: 81 mg Furosemide (Lasix) 40 mg PO BID [facility] Stop: 08/14/18 18:01 Last Admin: 08/14/18 10:23 Dose: 40 mg Heparin Sodium (Porcine) (Heparin) 5,000 units SC Q12H [facility] Last Admin: 08/14/18 12:36 Dose: 5,000 units Moxifloxacin HCl (Avelox Iv 400mg/250ml Ns) 400 mg in 250 mls @ 167 mls/hr IVPB Q24H [facility]; Protocol Last Admin: 08/13/18 17:49 Dose: 167 mls/hr Fluconazole 100 mg/ (Miscellaneous) 50 mls @ 100 mls/hr IVPB Q24H [facility]; Protocol Last Admin: 08/13/18 16:25 Dose: 100 mls/hr Lactobacillus Acidophilus (Bacid Acidophilus) 1 cap PO BID [facility] Last Admin: 08/14/18 10:11 Dose: 1 cap Pantoprazole Sodium (Protonix Ec Tab) 40 mg PO DAILY [facility] Last Admin: 08/14/18 10:11 Dose: 40 mg Potassium Chloride (Potassium Chloride Oral Soln) 20 meq PO BID [facility] Last Admin: 08/14/18 10:23 Dose: 20 meq - Labs Labs: 08/14/18 08:31 08/14/18 08:31 PT 12.1 SECONDS (9.7-12.2) 08/10/18 07:30 INR 1.1 08/10/18 07:30 APTT 31 SECONDS (21-34) 08/10/18 07:30 - Head Exam Head Exam: ATRAUMATIC, NORMOCEPHALIC - ENT Exam ENT Exam: Mucous Membranes Moist - Neck Exam Neck Exam: Full ROM - Respiratory Exam Respiratory Exam: Decreased Breath Sounds Assessment and Plan (1) Pleural effusion Assessment & Plan: Follow-up chest x-ray Continue diuretics High risk for ERCP as per cardiology Status: Acute (2) Pneumonia Status: Acute (3) Rhabdomyolysis Status: Acute (4) Sepsis Status: Acute
[2018-08-14] MEDS: Fluconazole IV 200mg/100 ml NS 100 MG in Premixed IV 1 EA IVPB SCH (16:26)
[2018-08-14] MEDS: Moxifloxacin IV 400mg/250ml NS 400 MG/250 ML BAG IVPB SCH (17:32)
--- NOTE | 2018-08-14 18:23 | CP.PCM.PN ---
Subjective - Date & Time of Evaluation Date of Evaluation: 08/14/18 Time of Evaluation: 16:00 - Subjective Subjective: dictated Objective - Vital Signs/Intake and Output Vital Signs (last 24 hours): Temp Pulse Resp BP Pulse Ox 97.9 F 91 H 18 149/80 93 L 08/14/18 15:00 08/14/18 16:49 08/14/18 15:00 08/14/18 17:31 08/14/18 15:00 Intake and Output: 08/14/18 08/14/18 06:59 18:59 Intake Total 750 480 Output Total 300 Balance 750 180 - Medications Medications: Current Medications Aspirin (Aspirin Chewable) 81 mg PO DAILY [facility] Last Admin: 08/14/18 10:11 Dose: 81 mg Heparin Sodium (Porcine) (Heparin) 5,000 units SC Q12H [facility] Last Admin: 08/14/18 12:36 Dose: 5,000 units Moxifloxacin HCl (Avelox Iv 400mg/250ml Ns) 400 mg in 250 mls @ 167 mls/hr IVPB Q24H [facility]; Protocol Last Admin: 08/14/18 17:32 Dose: 167 mls/hr Fluconazole 100 mg/ (Miscellaneous) 50 mls @ 100 mls/hr IVPB Q24H [facility]; Protocol Last Admin: 08/14/18 16:26 Dose: 100 mls/hr Lactobacillus Acidophilus (Bacid Acidophilus) 1 cap PO BID [facility] Last Admin: 08/14/18 17:31 Dose: 1 cap Pantoprazole Sodium (Protonix Ec Tab) 40 mg PO DAILY [facility] Last Admin: 08/14/18 10:11 Dose: 40 mg Potassium Chloride (Potassium Chloride Oral Soln) 20 meq PO BID [facility] Last Admin: 08/14/18 17:31 Dose: 20 meq - Labs Labs: 08/14/18 08:31 08/14/18 08:31 PT 12.1 SECONDS (9.7-12.2) 08/10/18 07:30 INR 1.1 08/10/18 07:30 APTT 31 SECONDS (21-34) 08/10/18 07:30
[2018-08-14] MEDS: Vancomycin 1 gm/NS 200 ml 1 GM/200 ML BAG IVPB SCH (20:17)
--- NOTE | 2018-08-14 20:30 | PN ---
DATE: 08/05/2018 SUBJECTIVE: The patient is an 83-year-old female. The patient was seen and examined at bedside on 08/05/2018. Looking comfortable. No fever. No chills. No hematuria or hematochezia. Planning ERCP. PHYSICAL EXAMINATION: VITAL SIGNS: Temperature 97.9, pulse 83, respiratory rate 18, and blood pressure 113/70. Pulse oximetry 96. HEENT: Head: Normocephalic and atraumatic. Eyes: PERRLA. Extraocular muscles are intact. Conjunctivae clear. Nose patent. Mucous membranes moist. NECK: Supple. No carotid bruit, JVD, or thyromegaly. CHEST: Bilaterally symmetrical. HEART: S1 and S2 are positive. LUNGS: Clear to auscultation. ABDOMEN: Soft. Bowel sounds present. No organomegaly. EXTREMITIES: No edema. No cyanosis. NEUROLOGIC: The patient is awake, alert. Moving all four extremities. No focal deficit. MEDICATIONS: Aspirin, heparin, Zyvox, Avelox, lactobacillus, pantoprazole. LABORATORY DATA: White blood cells 9, hemoglobin 10.3, hematocrit 31.5, platelet is 233. Sodium is 135, potassium 2.9, BUN 23, creatinine 1.7, and glucose 155. ASSESSMENT AND PLAN: Ms. Chloe Robledo is an 83-year-old lady with anemia, hypokalemia, replaced, renal insufficiency, hyperglycemia, has multiple comorbid, cholelithiasis. Need MRCP. Had HIDA. Has no evidence of cystic duct obstruction. Conformal [facility] Former is on the case for renal insufficiency. Getting antibiotics. Ovarian tumor. Sepsis. Blood cultures came out positive. Getting antibiotics. Gastrointestinal and deep venous thrombosis prophylaxis and repeat labs. We will follow up. Donna Wallace MD MTDJonathan
--- NOTE | 2018-08-14 23:32 | PN ---
DATE: 08/14/2018 SUBJECTIVE: The patient offers no new complaints. She said they just did an x-ray and she is awake. PHYSICAL EXAMINATION: VITAL SIGNS: T-max is 97.9, pulse 91, blood pressure is 149/80, saturation is only 93%. HEENT: Head is atraumatic, normocephalic. She still has a triple-lumen. LUNGS: Decreased breath sounds. HEART: S1, S2 is present. ABDOMEN: Soft. It seems like I can palpate the gallbladder on the right side. Bowel sounds are present. EXTREMITIES: Trace edema. LABORATORY DATA: She had an x-ray done. X-ray shows linear atelectasis in the left mid and right lung base, diffuse increased interstitial markings, nodular consolidative changes in the right mid lung zone, prominent bibasilar consolidative opacification, right central venous catheter, cardiomegaly, degenerative changes in the spine. Her white count today went up to 13.5, hemoglobin 8.5, hematocrit 26.5. So, hemoglobin is decreasing and white count is increasing. PLAN: I see Dr. Owen's note that she can get a GA and get ERCP done under that. So at this time, I am going to leave the antibiotics on and see on Thursday; however, we are proceeding to it. She definitely has risk versus benefit; however, she did come in with very bad septicemia and septic shock and made it through all this, so I am hoping she can make through the ERCP. We will follow with the primary as well as will follow with the GI. Curry Ureña MD
--- NOTE | 2018-08-15 02:40 | PN ---
DATE: 08/14/2018 SUBJECTIVE: The patient is 83-year-old female. The patient was seen and examined at the bedside. Looking comfortable. No fever. No chills. No hematuria or hematochezia. No headache or dizziness. No chest pain. No palpitation. Sitting comfortably with no distress. Ate half of her plate. Afebrile. PHYSICAL EXAMINATION: VITAL SIGNS: Temperature 97.9, pulse 95, respiratory rate 18, blood pressure 130/70, and pulse oximetry 93. HEENT: Head: Normocephalic and atraumatic. Eyes: PERRLA. Extraocular muscles intact. Conjunctivae clear. Nose patent. Mucous membranes are moist. NECK: Supple. No carotid bruit. No JVD or thyromegaly. CHEST: Bilaterally symmetrical. HEART: S1 and S2 positive. LUNGS: Clear to auscultation. ABDOMEN: Soft. Bowel sounds present. No organomegaly. EXTREMITIES: No edema. No cyanosis. NEUROLOGIC: The patient is awake and alert. Moving all four extremities. No focal deficits. MEDICATIONS: Aspirin, Lasix, heparin, Avelox, fluconazole, Lactobacillus, Protonix, and potassium. LABORATORY DATA: White blood cells 13.5, hemoglobin 8.5, hematocrit 26.5, platelets 303. Sodium 142, potassium 3.7, BUN 22, creatinine 1, and glucose 139. ASSESSMENT AND PLAN: Ms. Chloe Hendrix is an 83-year-old female with leukocytosis, anemia, hyperglycemia, has pleural effusion. Followup chest x-ray done. Continue diuresis. High risk for endoscopic retrograde cholangiopancreatography as per Cardiology. Pneumonia, rhabdomyolysis, sepsis. Appreciated Pulmonary input. Appreciated Dr. Owen's input. According to him, the patient is waiting for endoscopic retrograde cholangiopancreatography. The patient is desaturated, likely due to age and the comorbidities. Echocardiography, ejection fraction is 60%. The patient may benefit from general anesthesia in order to proceed and with endoscopic retrograde cholangiopancreatography. Plan is to continue present treatment. Discussion done with the patient's nephew, Vin. The patient has history of pulmonary hypertension, electrolyte imbalance, corrected, but the patient is getting intravenous Flagyl. Gastrointestinal and deep venous thrombosis prophylaxis. Repeat laboratories. We will follow up. Donna Wallace MD
--- NOTE | 2018-08-15 09:25 | CP.PCM.PN ---
Subjective - Date & Time of Evaluation Date of Evaluation: 08/15/18 Time of Evaluation: 09:22 - Subjective Subjective: Pulmonary Follow up, Covering Dr Garcia The Patient was seen and examined at the bedside, Medical records reviewed, and management issues were discussed and formulated with the house staff. Events reviewed Awake, oriented Patient is resting comfortably in bed, in no apparent distress. Breathing comfortably on 4L NC, adequate saturations 93-96% Afebrile. Denies SOB, cough, chest pain, palpitations. Refused to get OOB to chair Objective - Vital Signs/Intake and Output Vital Signs (last 24 hours): Temp Pulse Resp BP Pulse Ox 97.4 F L 81 18 133/77 93 L 08/15/18 07:00 08/15/18 07:00 08/15/18 07:00 08/15/18 07:00 08/15/18 07:00 Intake and Output: 08/15/18 08/15/18 06:59 18:59 Intake Total 1290 Output Total 500 Balance 790 - Medications Medications: Current Medications Aspirin (Aspirin Chewable) 81 mg PO DAILY [facility] Last Admin: 08/14/18 10:11 Dose: 81 mg Heparin Sodium (Porcine) (Heparin) 5,000 units SC Q12H [facility] Last Admin: 08/15/18 00:03 Dose: 5,000 units Moxifloxacin HCl (Avelox Iv 400mg/250ml Ns) 400 mg in 250 mls @ 167 mls/hr IVPB Q24H [facility]; Protocol Last Admin: 08/14/18 17:32 Dose: 167 mls/hr Fluconazole 100 mg/ (Miscellaneous) 50 mls @ 100 mls/hr IVPB Q24H [facility]; Protocol Last Admin: 08/14/18 16:26 Dose: 100 mls/hr Vancomycin/Sodium Chloride (Vancomycin 1 Gm/Ns 200 Ml) 1 gm in 200 mls @ 166.7 mls/hr IVPB Q24H [facility]; Protocol Stop: 08/19/18 20:01 Last Admin: 08/14/18 20:17 Dose: 166.7 mls/hr Lactobacillus Acidophilus (Bacid Acidophilus) 1 cap PO BID [facility] Last Admin: 08/14/18 17:31 Dose: 1 cap Pantoprazole Sodium (Protonix Ec Tab) 40 mg PO DAILY [facility] Last Admin: 08/14/18 10:11 Dose: 40 mg Potassium Chloride (Potassium Chloride Oral Soln) 20 meq PO BID [facility] Last Admin: 08/14/18 17:31 Dose: 20 meq - Labs Labs: 08/14/18 08:31 08/14/18 08:31 PT 12.1 SECONDS (9.7-12.2) 08/10/18 07:30 INR 1.1 08/10/18 07:30 APTT 31 SECONDS (21-34) 08/10/18 07:30 - Constitutional Appears: Well - Head Exam Head Exam: ATRAUMATIC, NORMAL INSPECTION, NORMOCEPHALIC - Eye Exam Eye Exam: EOMI, Normal appearance, PERRL - ENT Exam ENT Exam: Mucous Membranes Moist, Normal Exam - Neck Exam Neck Exam: Full ROM, Normal Inspection. absent: Lymphadenopathy - Cardiovascular Exam Cardiovascular Exam: REGULAR RHYTHM, +S1, +S2. absent: Murmur Assessment and Plan (1) Pleural effusion Assessment & Plan: Follow-up chest x-ray Continue diuretics High risk for ERCP as per cardiology Status: Acute (2) Pneumonia Status: Acute (3) Rhabdomyolysis Status: Acute (4) Sepsis Status: Acute
[2018-08-15] MEDS: Lactobacillus Acidophilus 500 MU Cap PO SCH ×2 (10:13→17:25)
[2018-08-15] MEDS: Pantoprazole 40 mg EC Tab PO SCH (10:13)
[2018-08-15] MEDS: Potassium Chloride 20 mEq/15 ml LIQ UD PO SCH ×2 (10:13→17:24)
--- NOTE | 2018-08-15 10:55 | PN ---
DATE: 08/15/2018 LOCATION: 565, bed B. SUBJECTIVE: This is an 83-year-old female seen and examined at rounds with reported status of DNR and DNI. Had been refusing any physical activity or blood was drawn at sometimes. No chest pain or palpitations and no reported significant active GI bleeding. LABORATORY DATA: Today's lab results, however, are still pending due to the patient's refusal and recently, the patient reported to have normal total bilirubin, AST, and ALT. PHYSICAL EXAMINATION: GENERAL: An 83-year-old female. VITAL SIGNS: Afebrile with pulse of 78, respiratory rate 18 to 20, blood pressure 128/70. HEENT: Pale, dry oral mucoid membrane, nonicteric sclerae. LUNGS: Few scattered crepitations, decreased air entry at bases. HEART: Positive S1 and S2. ABDOMEN: Soft with mild generalized tenderness. No mass or organomegaly. No rebound tenderness or guarding. EXTREMITIES: Without edema, clubbing or cyanosis. NEUROLOGIC: No reported new neurologic deficits, sensory or motor. DIAGNOSTIC DATA: The most recent chest x-ray report is seen with indication of pleural effusion. IMPRESSION: 1. Reported common bile duct, by recent history. 2. Pleural effusion with possible bilateral pneumonia. 3. Known history of severe pulmonary hypertension, cardiomegaly, electrolyte imbalance with poorly controlled diabetes mellitus. 4. Malnutrition with hypoalbuminemia. SUGGESTIONS: 1. Continue current management. 2. The patient is scheduled for potential endoscopic retrograde cholangiopancreatography tomorrow. Legal consent was obtained from the nephew. Gracie Clal MD
[2018-08-15 12:03] LABS: HEMOGLOBIN 8.5 g/dL (11.0-16.0)
[2018-08-15] MEDS: Fluconazole IV 200mg/100 ml NS 100 MG in Premixed IV 1 EA IVPB SCH (16:06)
[2018-08-15] MEDS: Moxifloxacin IV 400mg/250ml NS 400 MG/250 ML BAG IVPB SCH (17:24)
[2018-08-15] MEDS: Vancomycin 1 gm/NS 200 ml 1 GM/200 ML BAG IVPB SCH (19:58)
--- NOTE | 2018-08-15 22:09 | CP.PCM.PN ---
Subjective - Date & Time of Evaluation Date of Evaluation: 08/15/18 Time of Evaluation: 18:00 - Subjective Subjective: dictated Objective - Vital Signs/Intake and Output Vital Signs (last 24 hours): Temp Pulse Resp BP Pulse Ox 97.5 F L 84 18 153/81 H 94 L 08/15/18 15:00 08/15/18 16:17 08/15/18 15:00 08/15/18 17:25 08/15/18 15:00 Intake and Output: 08/15/18 08/16/18 18:59 06:59 Intake Total 480 750 Output Total 300 Balance 180 750 - Medications Medications: Current Medications Aspirin (Aspirin Chewable) 81 mg PO DAILY [facility] Last Admin: 08/15/18 10:13 Dose: 81 mg Furosemide (Lasix) 40 mg PO BID [facility] Last Admin: 08/15/18 17:25 Dose: 40 mg Heparin Sodium (Porcine) (Heparin) 5,000 units SC Q12H [facility] Last Admin: 08/15/18 13:36 Dose: Not Given Moxifloxacin HCl (Avelox Iv 400mg/250ml Ns) 400 mg in 250 mls @ 167 mls/hr IVPB Q24H [facility]; Protocol Last Admin: 08/15/18 17:24 Dose: 167 mls/hr Fluconazole 100 mg/ (Miscellaneous) 50 mls @ 100 mls/hr IVPB Q24H [facility]; Protocol Last Admin: 08/15/18 16:06 Dose: 100 mls/hr Vancomycin/Sodium Chloride (Vancomycin 1 Gm/Ns 200 Ml) 1 gm in 200 mls @ 166.7 mls/hr IVPB Q24H [facility]; Protocol Stop: 08/19/18 20:01 Last Admin: 08/15/18 19:58 Dose: 166.7 mls/hr Lactobacillus Acidophilus (Bacid Acidophilus) 1 cap PO BID [facility] Last Admin: 08/15/18 17:25 Dose: 1 cap Pantoprazole Sodium (Protonix Ec Tab) 40 mg PO DAILY [facility] Last Admin: 08/15/18 10:13 Dose: 40 mg Potassium Chloride (Potassium Chloride Oral Soln) 20 meq PO BID [facility] Last Admin: 08/15/18 17:24 Dose: 20 meq - Labs Labs: 08/15/18 11:52 08/14/18 08:31 PT 12.1 SECONDS (9.7-12.2) 08/10/18 07:30 INR 1.1 08/10/18 07:30 APTT 31 SECONDS (21-34) 08/10/18 07:30
--- NOTE | 2018-08-15 23:28 | CP.PCM.PN ---
Subjective - Date & Time of Evaluation Date of Evaluation: 08/15/18 Time of Evaluation: 17:40 - Subjective Subjective: Patient seen and evaluated Comfortable No cardiac events noted Objective - Vital Signs/Intake and Output Vital Signs (last 24 hours): Temp Pulse Resp BP Pulse Ox 97.5 F L 84 18 153/81 H 94 L 08/15/18 15:00 08/15/18 22:23 08/15/18 15:00 08/15/18 17:25 08/15/18 15:00 Intake and Output: 08/15/18 08/16/18 18:59 06:59 Intake Total 480 750 Output Total 300 Balance 180 750 - Medications Medications: Current Medications Aspirin (Aspirin Chewable) 81 mg PO DAILY [facility] Last Admin: 08/15/18 10:13 Dose: 81 mg Furosemide (Lasix) 40 mg PO BID [facility] Last Admin: 08/15/18 17:25 Dose: 40 mg Heparin Sodium (Porcine) (Heparin) 5,000 units SC Q12H [facility] Last Admin: 08/15/18 13:36 Dose: Not Given Moxifloxacin HCl (Avelox Iv 400mg/250ml Ns) 400 mg in 250 mls @ 167 mls/hr IVPB Q24H [facility]; Protocol Last Admin: 08/15/18 17:24 Dose: 167 mls/hr Fluconazole 100 mg/ (Miscellaneous) 50 mls @ 100 mls/hr IVPB Q24H [facility]; Protocol Last Admin: 08/15/18 16:06 Dose: 100 mls/hr Vancomycin/Sodium Chloride (Vancomycin 1 Gm/Ns 200 Ml) 1 gm in 200 mls @ 166.7 mls/hr IVPB Q24H [facility]; Protocol Stop: 08/19/18 20:01 Last Admin: 08/15/18 19:58 Dose: 166.7 mls/hr Lactobacillus Acidophilus (Bacid Acidophilus) 1 cap PO BID [facility] Last Admin: 08/15/18 17:25 Dose: 1 cap Pantoprazole Sodium (Protonix Ec Tab) 40 mg PO DAILY [facility] Last Admin: 08/15/18 10:13 Dose: 40 mg Potassium Chloride (Potassium Chloride Oral Soln) 20 meq PO BID [facility] Last Admin: 08/15/18 17:24 Dose: 20 meq - Labs Labs: 08/15/18 11:52 08/14/18 08:31 PT 12.1 SECONDS (9.7-12.2) 08/10/18 07:30 INR 1.1 08/10/18 07:30 APTT 31 SECONDS (21-34) 08/10/18 07:30
--- NOTE | 2018-08-16 03:09 | PN ---
DATE: 08/15/2018 SUBJECTIVE: The patient is awake and alert at the bedside. The patient offers no new complaints. She is comfortable. She denies any abdominal pain. Denies any cough, cold, or shortness of breath. PHYSICAL EXAMINATION: VITAL SIGNS: Temperature is 97.5, pulse 93, blood pressure 131/77, respirations are 18. HEENT: Head is atraumatic, normocephalic. Pupils are reacting to light. Pallor present. NECK: Supple. LUNGS: Clear. Decreased breath sounds on both bases. HEART: S1, S2. Regular. ABDOMEN: Soft, nontender. I think I am feeling the gallbladder on the right upper abdomen. EXTREMITIES: Have no edema. The patient is on multiple antibiotics at this time. We will get a urinalysis and urine culture and sensitivity again, and she has pleural effusion and choledocholithiasis, pneumonia, rhabdomyolysis and is status post septic shock. We are waiting to see if endoscopic retrograde cholangiopancreatography can be done even though it may have a risk, but if we do not, the patient came in with severe septicemia and septic shock and I do not think she can go through that again, but we will leave that on the family to decide and the patient to decide and it is also between the doctor, GI as well as Cardiology and Pulmonary, and I am continuing antibiotics for now, and we will repeat the labs in the a.m. Curry Ureña MD
--- NOTE | 2018-08-16 03:53 | PN ---
DATE: 08/15/2018 SUBJECTIVE: The patient is an 83-year-old female. The patient was seen and examined at the bedside. Looking comfortable. No fever. No hematuria or hematochezia. The patient is awake and alert, Follows simple commands. Denies cough, shortness of breath. PHYSICAL EXAMINATION: VITAL SIGNS: Temperature 97.4, pulse 81, respiratory rate 18, blood pressure 132/77, and pulse oximetry 93. HEENT: Head: Normocephalic and atraumatic. Eyes: PERRLA. Extraocular muscles intact. Conjunctivae clear. Nose patent. Mucous membranes are moist. NECK: Supple. No carotid bruit. No JVD or thyromegaly. CHEST: Bilaterally symmetrical. HEART: S1 and S2 positive. LUNGS: Clear to auscultation. ABDOMEN: Soft. Bowel sounds present. No organomegaly. EXTREMITIES: No edema. No cyanosis. NEUROLOGIC: The patient is awake and alert. Moving all four extremities. No focal deficits. MEDICATIONS: Aspirin, heparin, Avelox, fluconazole, vancomycin, Lactobacillus, Protonix, and potassium. LABORATORY DATA: White blood cells 13.5, hemoglobin 8.5, hematocrit 26.5, platelets 303. Sodium 140, potassium 3.2, BUN 22, creatinine 1, and glucose 139. ASSESSMENT AND PLAN: Ms. Chloe Robledo is an 83-year-old lady with pleural effusion. We will follow with chest x-ray. Continue diuresis. High risk for endoscopic retrograde cholangiopancreatography as per Cardiology but the patient had persistent pneumonia, sepsis, rhabdomyolysis, pneumonia. Gastrointestinal and deep vein thrombosis prophylaxes. Repeat laboratories. The patient is seen by Dr. Garcia, compensation advisor. The patient's denies shortness of breath or chest pain. Seen by Infectious Disease, Dr. Curry Ureña, According to present information, the patient is going for procedure tomorrow. Repeat laboratories. We will follow up. Donna Wallace MD [email or web address]
[2018-08-16 07:32] LABS: BASO # 0.1 K/uL (0.0-0.2); BASO % 0.9 % (0.0-2.0); EOS # 0.5 K/uL (0.0-0.7); EOS % 3.9 % (0.0-4.0); HEMOGLOBIN 8.6 g/dL (11.0-16.0); LYMPH # 1.2 K/uL (1.0-4.3); LYMPH % 9.4 % (20.0-40.0); MEAN CELL VOLUME 87.2 fL (81.0-99.0); MEAN CORPUSCULAR HEMOGLOBIN 27.2 pg (27.0-31.0); MEAN CORPUSCULAR HGB CONC 31.2 g/dL (33.0-37.0); MEAN PLATELET VOLUME 10.9 fL (7.2-11.7); MONO # 2.2 K/uL (0.0-0.8); MONO % 17.2 % (0.0-10.0); NEUT # 8.9 K/uL (1.8-7.0); NEUT % 68.6 % (50.0-75.0); NRBC % 0.2 % (0.0-2.0); PLATELET COUNT 318 K/uL (130-400); RBC 3.15 Mil/uL (3.80-5.20); RED CELL DISTRIBUTION WIDTH 17.5 % (11.5-14.5)
[2018-08-16 07:45] LABS: INR 1.2
[2018-08-16 07:58] LABS: ALB/GLOB RATIO 1.2 (1.0-2.1); ALBUMIN 2.9 g/dL (3.5-5.0); ALT/SGPT 43 U/L (9-52); AST/SGOT 29 U/L (14-36); BLOOD UREA NITROGEN 22 mg/dL (7-17); GFR NON-AFRICAN AMERICAN 53
[2018-08-16 09:10] LABS: BASOPHIL 2 % (0-2); EOSINOPHIL 2 % (0-4); LYMPHOCYTE 8 % (20-40); MYELOCYTE 1 % (0-0); NEUTROPHIL 76 % (50-75); TOTAL CELLS COUNTED 100
[2018-08-16 09:11] LABS: ANISOCYTOSIS SLIGHT; GIANT PLATELETS PRESENT; HYPOCHROMIC SLIGHT; LARGE PLATELETS PRESENT; MONOCYTE 14 % (0-10); PLATELET ESTIMATE NORMAL (NORMAL); POIKILOCYTOSIS SLIGHT; TARGET CELLS SLIGHT; TEARDROP CELLS SLIGHT
[2018-08-16 09:12] LABS: OVALOCYTES SLIGHT
[2018-08-16] MEDS: Lactobacillus Acidophilus 500 MU Cap PO SCH ×2 (09:49→17:44)
[2018-08-16] MEDS: Pantoprazole 40 mg EC Tab PO SCH (09:49)
[2018-08-16] MEDS: Potassium Chloride 20 mEq/15 ml LIQ UD PO SCH ×2 (09:49→17:44)
[2018-08-16] MEDS ORDERED: Iohexol 240 (50 ml) ONE (11:20)
[2018-08-16] MEDS ORDERED: Lactated Ringer's 500 ML IV ONE ×2 (11:57)
[2018-08-16] MEDS ORDERED: Lidocaine 4% (Laryng-O-Jet) Kit MM ONE (12:05)
[2018-08-16] MEDS ORDERED: Etomidate 20 mg/10ml Inj IV ONE (12:06)
--- NOTE | 2018-08-16 14:55 | CP.PCM.PN ---
Subjective - Date & Time of Evaluation Date of Evaluation: 08/16/18 Time of Evaluation: 14:54 - Subjective Subjective: Nephrology Consultation Note: Assessment: stable Acute Kidney Injury (N17.9) likely due to ATN from septic shock: improving Fall abnormal LFT hyperphosphatemia, HAGMA UTI cholelithiasis pelvic mass hypomagnesemia hypokalemia pleural effusion with hypoxia Plan Maintain hemodynamics stable. Avoid hypotension. Patient not on ACEI/ARB due to recent JEFF Monitor Input/Output, daily weights and renal function with basic metabolic panel supplement lytes as needed. GI/surgery work up ongoing. seen by CARPENTER REFRIGERATOR as well lasix 40 mg bid changed to IVP as pt still with hypoxia pulmonary cardio following. agree with checking echocardiogram: LVEf normal Dose meds/antibiotics for improved GFR. avoid nephrotoxins/NSAIDs Glycemic control Further work up/management as per primary team Thanks for allowing me to participate in care of your patient. Will follow patient with you. Please call if any Qs. had d/w team Dr Valerio Lewis Office: [phone] Chief Complaint; fall Reason for consult: Acute Kidney Injury HPI: Pt is a 83 F without any known medical hx but no recent medical follow up presented with complaints of fall and found to have sepsis with shock, abnormal LFT and JEFF No recent iodinated contrast exposure. Noted obvious episodes of low BP. ROS: ERCP could not be done due to hypoxia Cardiovascular: No chest pain. Pulmonary: denies shortness of breath Gastrointestinal: denies abdominal pain no nausea. No vomiting. no loose stool at present Genitourinary: No pain while urinating. Denies blood in urine. All other negative except as mentioned in HPI Physical Examination: General Appearance: Comfortable, in no acute respiratory distress, co-operative . chronically debilitated appearing Vitals reviewed and noted as below Head; Atraumatic, normocephalic ENT: no ulcers no thrush. Tongue is midline. Oropharynx: no rash or ulcers. she is hard of hearing EYES: Pupils are equal, round and reactive to light accommodation. Eye muscles and extraocular movement intact. Sclera is icteric. Neck; supple no lymphadenopathy, no thyromegaly or bruit Lungs: Improved respiratory rate/effort. Breath sounds bilateral reduced at bases few basal crackle Heart: Normal rate. s1s2 normal. No rub or gallop. Extremities: no edema. No varicose veins Neurological: Patient is alert, awake and oriented Strength bilateral appropriate and equal Skin: Warm and dry. Normal turgor. No rash. Palpitation: Normal elasticity for age Abdomen: Abdomen is soft. Bowel sounds +. There is mild Rt abdominal tenderness, no guarding/rigidity no organomegaly Psych: lack insight and normal affect/mood MSK: no joint tenderness or swelling. Digits and nails normal, no deformity : kidney or bladder not palpable Labs/imaging reviewed. Past medical history, past surgical history, family history, social history, allergy reviewed and noted as below Family hx: no hx of CKD. Rest non-contributory Objective - Vital Signs/Intake and Output Vital Signs (last 24 hours): Temp Pulse Resp BP Pulse Ox 97.8 F 75 20 127/78 96 08/16/18 14:00 08/16/18 14:00 08/16/18 14:00 08/16/18 14:00 08/16/18 14:00 Intake and Output: 08/16/18 08/16/18 06:59 18:59 Intake Total 750 Output Total 650 Balance 100 - Medications Medications: Current Medications Aspirin (Aspirin Chewable) 81 mg PO DAILY [facility] Last Admin: 08/16/18 09:48 Dose: Not Given Furosemide (Lasix) 40 mg IVP Q12 [facility] Heparin Sodium (Porcine) (Heparin) 5,000 units SC Q12H [facility] Moxifloxacin HCl (Avelox Iv 400mg/250ml Ns) 400 mg in 250 mls @ 167 mls/hr IVPB Q24H [facility]; Protocol Last Admin: 08/15/18 17:24 Dose: 167 mls/hr Fluconazole 100 mg/ (Miscellaneous) 50 mls @ 100 mls/hr IVPB Q24H [facility]; Protocol Last Admin: 08/15/18 16:06 Dose: 100 mls/hr Vancomycin/Sodium Chloride (Vancomycin 1 Gm/Ns 200 Ml) 1 gm in 200 mls @ 166.7 mls/hr IVPB Q24H [facility]; Protocol Stop: 08/19/18 20:01 Last Admin: 08/15/18 19:58 Dose: 166.7 mls/hr Lactobacillus Acidophilus (Bacid Acidophilus) 1 cap PO BID [facility] Last Admin: 08/16/18 09:49 Dose: Not Given Pantoprazole Sodium (Protonix Ec Tab) 40 mg PO DAILY [facility] Last Admin: 08/16/18 09:49 Dose: Not Given Potassium Chloride (Potassium Chloride Oral Soln) 20 meq PO BID [facility] Last Admin: 08/16/18 09:49 Dose: Not Given - Labs Labs: 08/16/18 07:12 08/16/18 07:12 PT 13.0 SECONDS (9.7-12.2) H 08/16/18 07:12 INR 1.2 08/16/18 07:12 APTT 28 SECONDS (21-34) 08/16/18 07:12
[2018-08-16] MEDS: Fluconazole IV 200mg/100 ml NS 100 MG in Premixed IV 1 EA IVPB SCH (16:05)
--- NOTE | 2018-08-16 17:24 | CP.PCM.PN ---
Subjective - Date & Time of Evaluation Date of Evaluation: 08/16/18 Time of Evaluation: 10:20 - Subjective Subjective: Patient seen and examined at bedside this AM. Patient is resting comfortably, satting 96% on room air. Patient is afebrile. Denies SOB, cough, chest pain, palpitations. Clinically much improved. Exam: Gen - no acute distress Card - RRR, +S1 +S2, no murmurs, rubs or gallops Lungs - normal breathing pattern, clear to auscultation bilaterally, no wheezes, rales or rhonchi GI - abdomen soft, nontender, no rebound, guarding or rigidity Extr - no edema bilaterally A&P 1. CHF - 08/09/18 ABG: pH 7.49, pO2 59, pCO2 30, O2sat 95.7%. - 08/09/18 CT chest: moderate right and small left pleural effusions and associated compressive consolidations. Patchy right upper lobe ground- glass/patchy infiltrates, Scarring/atelectasis within the upper lobes. - 08/10/18 pro-BNP: [id number] - 08/10/18 echo: LVEF 60-65%, flattened septum consistent with RV pressure overload estimated at 57 mmHg - 08/12/18 CXR: pulmonary venous congestion with small b/l pleural effusions - continue diuretics: Lasix 40 mg BID, replete K (3.4 today) - continue antibiotics: Avelox + vancomycin - continue fluconazole (08/09 urine cx positive for yeast) - recommendations as per cardiology - patient clinical much better 2. Desaturation - 08/02/18 CT abdomen: small bilateral pleural effusions and associated consolidations; partially imaged cardiomegaly - 08/09/18 CXR: atelectasis at mid left lung zone laterally; persistent opacities identified at bilateral lung bases (persistent pleural effusions consistent with 08/02/18 CXR) - patient clinical much better, recommend repeat ABG Objective - Vital Signs/Intake and Output Vital Signs (last 24 hours): Temp Pulse Resp BP Pulse Ox 97.8 F 75 20 128/75 96 08/16/18 14:00 08/16/18 14:00 08/16/18 14:00 08/16/18 15:40 08/16/18 14:00 Intake and Output: 08/16/18 08/16/18 06:59 18:59 Intake Total 750 120 Output Total 650 300 Balance 100 -180 - Medications Medications: Current Medications Aspirin (Aspirin Chewable) 81 mg PO DAILY [facility] Last Admin: 08/16/18 09:48 Dose: Not Given Furosemide (Lasix) 40 mg IVP Q12 [facility] Last Admin: 08/16/18 15:40 Dose: 40 mg Heparin Sodium (Porcine) (Heparin) 5,000 units SC Q12H [facility] Moxifloxacin HCl (Avelox Iv 400mg/250ml Ns) 400 mg in 250 mls @ 167 mls/hr IVPB Q24H [facility]; Protocol Last Admin: 08/15/18 17:24 Dose: 167 mls/hr Fluconazole 100 mg/ (Miscellaneous) 50 mls @ 100 mls/hr IVPB Q24H [facility]; Protocol Last Admin: 08/16/18 16:05 Dose: 100 mls/hr Vancomycin/Sodium Chloride (Vancomycin 1 Gm/Ns 200 Ml) 1 gm in 200 mls @ 166.7 mls/hr IVPB Q24H [facility]; Protocol Stop: 08/19/18 20:01 Last Admin: 08/15/18 19:58 Dose: 166.7 mls/hr Lactobacillus Acidophilus (Bacid Acidophilus) 1 cap PO BID [facility] Last Admin: 08/16/18 09:49 Dose: Not Given Pantoprazole Sodium (Protonix Ec Tab) 40 mg PO DAILY [facility] Last Admin: 08/16/18 09:49 Dose: Not Given Potassium Chloride (Potassium Chloride Oral Soln) 20 meq PO BID [facility] Last Admin: 08/16/18 09:49 Dose: Not Given - Labs Labs: 08/16/18 07:12 08/16/18 07:12 PT 13.0 SECONDS (9.7-12.2) H 08/16/18 07:12 INR 1.2 08/16/18 07:12 APTT 28 SECONDS (21-34) 08/16/18 07:12 Assessment and Plan (1) Pleural effusion Status: Acute (2) Pneumonia Status: Acute (3) Rhabdomyolysis Status: Acute (4) Sepsis Status: Acute
[2018-08-16] MEDS: Moxifloxacin IV 400mg/250ml NS 400 MG/250 ML BAG IVPB SCH (17:44)
[2018-08-16] MEDS: Vancomycin 1 gm/NS 200 ml 1 GM/200 ML BAG IVPB SCH (19:20)
--- NOTE | 2018-08-16 21:45 | CP.PCM.PN ---
Subjective - Date & Time of Evaluation Date of Evaluation: 08/16/18 Time of Evaluation: 17:00 - Subjective Subjective: dictated Objective - Vital Signs/Intake and Output Vital Signs (last 24 hours): Temp Pulse Resp BP Pulse Ox 98 F 86 20 131/86 94 L 08/16/18 17:31 08/16/18 17:31 08/16/18 17:31 08/16/18 17:31 08/16/18 17:31 Intake and Output: 08/16/18 08/17/18 18:59 06:59 Intake Total 120 Output Total 300 Balance -180 - Medications Medications: Current Medications Aspirin (Aspirin Chewable) 81 mg PO DAILY [facility] Last Admin: 08/16/18 09:48 Dose: Not Given Furosemide (Lasix) 40 mg IVP Q12 [facility] Last Admin: 08/16/18 15:40 Dose: 40 mg Heparin Sodium (Porcine) (Heparin) 5,000 units SC Q12H [facility] Last Admin: 08/16/18 17:44 Dose: 5,000 units Moxifloxacin HCl (Avelox Iv 400mg/250ml Ns) 400 mg in 250 mls @ 167 mls/hr IVPB Q24H [facility]; Protocol Last Admin: 08/16/18 17:44 Dose: 167 mls/hr Fluconazole 100 mg/ (Miscellaneous) 50 mls @ 100 mls/hr IVPB Q24H [facility]; Protocol Last Admin: 08/16/18 16:05 Dose: 100 mls/hr Vancomycin/Sodium Chloride (Vancomycin 1 Gm/Ns 200 Ml) 1 gm in 200 mls @ 166.7 mls/hr IVPB Q24H [facility]; Protocol Stop: 08/19/18 20:01 Last Admin: 08/16/18 19:20 Dose: 166.7 mls/hr Lactobacillus Acidophilus (Bacid Acidophilus) 1 cap PO BID [facility] Last Admin: 08/16/18 17:44 Dose: 1 cap Pantoprazole Sodium (Protonix Ec Tab) 40 mg PO DAILY [facility] Last Admin: 08/16/18 09:49 Dose: Not Given Potassium Chloride (Potassium Chloride Oral Soln) 20 meq PO BID [facility] Last Admin: 08/16/18 17:44 Dose: Not Given - Labs Labs: 08/16/18 07:12 08/16/18 07:12 PT 13.0 SECONDS (9.7-12.2) H 08/16/18 07:12 INR 1.2 08/16/18 07:12 APTT 28 SECONDS (21-34) 08/16/18 07:12
--- NOTE | 2018-08-16 21:59 | CP.PCM.PN ---
Subjective - Date & Time of Evaluation Date of Evaluation: 08/16/18 Time of Evaluation: 15:15 - Subjective Subjective: Patient seen and evaluated Comfortable Denies chest pain and dyspnea Objective - Vital Signs/Intake and Output Vital Signs (last 24 hours): Temp Pulse Resp BP Pulse Ox 98 F 86 20 131/86 94 L 08/16/18 17:31 08/16/18 17:31 08/16/18 17:31 08/16/18 17:31 08/16/18 17:31 Intake and Output: 08/16/18 08/17/18 18:59 06:59 Intake Total 120 Output Total 300 Balance -180 - Medications Medications: Current Medications Aspirin (Aspirin Chewable) 81 mg PO DAILY [facility] Last Admin: 08/16/18 09:48 Dose: Not Given Furosemide (Lasix) 40 mg IVP Q12 [facility] Last Admin: 08/16/18 15:40 Dose: 40 mg Heparin Sodium (Porcine) (Heparin) 5,000 units SC Q12H [facility] Last Admin: 08/16/18 17:44 Dose: 5,000 units Moxifloxacin HCl (Avelox Iv 400mg/250ml Ns) 400 mg in 250 mls @ 167 mls/hr IVPB Q24H [facility]; Protocol Last Admin: 08/16/18 17:44 Dose: 167 mls/hr Fluconazole 100 mg/ (Miscellaneous) 50 mls @ 100 mls/hr IVPB Q24H [facility]; Protocol Last Admin: 08/16/18 16:05 Dose: 100 mls/hr Vancomycin/Sodium Chloride (Vancomycin 1 Gm/Ns 200 Ml) 1 gm in 200 mls @ 166.7 mls/hr IVPB Q24H [facility]; Protocol Stop: 08/19/18 20:01 Last Admin: 08/16/18 19:20 Dose: 166.7 mls/hr Lactobacillus Acidophilus (Bacid Acidophilus) 1 cap PO BID [facility] Last Admin: 08/16/18 17:44 Dose: 1 cap Pantoprazole Sodium (Protonix Ec Tab) 40 mg PO DAILY [facility] Last Admin: 08/16/18 09:49 Dose: Not Given Potassium Chloride (Potassium Chloride Oral Soln) 20 meq PO BID [facility] Last Admin: 08/16/18 17:44 Dose: Not Given - Labs Labs: 08/16/18 07:12 08/16/18 07:12 PT 13.0 SECONDS (9.7-12.2) H 08/16/18 07:12 INR 1.2 08/16/18 07:12 APTT 28 SECONDS (21-34) 08/16/18 07:12
--- NOTE | 2018-08-17 00:14 | PN ---
DATE: 08/16/2018 This is an 83-year-old female who was brought to the endoscopy room for ERCP as scheduled day before, however before the procedure is done, the patient experienced episodes of hypoxia with subsequent drop of O2 saturation for which it was decided between me and the Anesthesia, multiple staff members to cancel the procedure to avoid any potential high risk of complications or sudden onset of respiratory failure. This decision was discussed at length with the patient and nephew. Before and immediately after a trial to position the patient for ERCP procedure, the procedure was canceled before it started and to continue current management as advised. The entire procedure took over 45 to 50 minutes. At this point, conservative treatment is advised. Gracie Call MD
[2018-08-17 01:05] VITALS: RESP 18
--- NOTE | 2018-08-17 03:29 | PN ---
DATE: 08/16/2018 SUBJECTIVE: The patient says she has no abdominal pain. However, she is not able to have the ERCP because she went into hypoxia and has other issues. I have continued the antibiotics for now, and we will repeat UA, urine C and S. She is afebrile. PHYSICAL EXAMINATION: VITAL SIGNS: T-max is 98, pulse 86, blood pressure 131/86, respirations are 20, saturation remains 94%. HEENT: Head is atraumatic, normocephalic. NECK: Supple. LUNGS: Clear. Decreased breath sounds bilaterally. She has a triple-lumen in right IJ. ABDOMEN: Soft, nontender. No guarding, no rigidity present. EXTREMITIES: No edema. LABORATORY DATA: Labs are noted. Labs show white count still is 13, hemoglobin 8.6, hematocrit 27.5, neutrophils are 76, lymphocytes are 8. PLAN: If there is no further plan to do any ERCP, then I think we can stop the antibiotics soon and she can probably go off the antibiotics to rehab. I just want to make sure the urine has no more yeast and if she is going to have an ERCP, then we should continue antibiotics, but we cannot continue indefinitely as the patient may run the risk of developing other issues with the antibiotics if being used for long time. Curry Ureña MD
--- NOTE | 2018-08-17 04:41 | PN ---
DATE: 08/16/2018 SUBJECTIVE: The patient is an 83-year-old female. The patient was seen and examined at the bedside on 08/16/2018. No chest pain. No shortness of breath. No nausea, vomiting, or diarrhea. No hematuria or hematochezia. No headache. No dizziness. The patient went for ERCP today, but cannot tolerate the procedure. Oxygenation started dropping. Then, team GI and Anesthesia decided not to do procedure, talked to the nephew and wanted to give comfort care. PHYSICAL EXAMINATION: VITAL SIGNS: Temperature 98, pulse 86, respiratory rate 20, blood pressure 130/86, and pulse oximetry 94. HEENT: Head, normocephalic and atraumatic. Eyes: PERRLA. Extraocular muscles intact. Conjunctivae clear. Nose patent. NECK: Supple. No carotid bruit. No JVD or thyromegaly. CHEST: Bilaterally symmetrical. HEART: S1 and S2 positive. LUNGS: Clear to auscultation. ABDOMEN: Soft. Bowel sounds present. No organomegaly. EXTREMITIES: No edema. No cyanosis. NEUROLOGIC: The patient is awake and alert. Moving all four extremities. No focal deficits. MEDICATIONS: Aspirin, Lasix, heparin, Avelox, fluconazole, vancomycin, Lactobacillus, pantoprazole, and potassium. LABORATORY DATA: White blood cell is 13, hemoglobin 8.6, hematocrit 27.5, and platelets 318. Sodium 140, potassium 4.2, BUN 22, creatinine 1, and glucose 144. ASSESSMENT AND PLAN: Ms. Chloe Robledo is an 83-year-old female with leukocytosis, anemia, increased BUN, hyperglycemia, has multiple medical problems. Appreciated Dr. Rangel's input and Dr. Curry Ureña's input also. Appreciated Dr. Gracie Call's notes also. Seen by Dr. Luo. The patient has acute kidney injury likely due to acute tubular necrosis from septic shock, improving; history of fall; abnormal liver function test; hyperphosphatemia; urinary tract infection; cholelithiasis; pelvic mass; hypomagnesemia; hypokalemia; pleural effusion with hypoxia. Plan is to maintain hemodynamically stable. While hypertension, the patient is not on angiotensin-converting enzyme/angiotensin receptor casper due to recent acute kidney injury. Supplemental electrolytes. Gastrointestinal and deep venous thrombosis prophylaxis. Repeat laboratories. We will follow up. Donna Wallace MD
[2018-08-17 07:41] LABS: SQUAMOUS EPITHIAL < 1 /hpf (0-5); URINE BILIRUBIN NEGATIVE (NEGATIVE); URINE BLOOD NEGATIVE (NEGATIVE); URINE CLARITY Clear (Clear); URINE COLOR Straw (YELLOW); URINE GLUCOSE (UA) NORMAL (Normal); URINE LEUKOCYTE ESTERASE NEG Leu/uL (Negative); URINE PROTEIN NEGATIVE (NEGATIVE); URINE UROBILINOGEN NORMAL mg/dL (0.2-1.0)
[2018-08-17 07:53] LABS: BLOOD UREA NITROGEN 24 mg/dL (7-17); CALCIUM 7.7 mg/dl (8.6-10.4); GFR NON-AFRICAN AMERICAN 53
--- NOTE | 2018-08-17 08:26 | PN ---
DATE: 08/17/2018 LOCATION: 565, bed B. SUBJECTIVE: This is an 83-year-old female in a state of DNR and DNI, seen and examined early in rounds without significant clinical changes or reported active bleeding, in mild respiratory distress, but no jaundice. No reported chest pain or palpitation and no reported chills or fever. The entire chart is reviewed including but not limited to the most recent lab and radiology study results, and the patient reported to have white blood cells of 13, hemoglobin 8.6, hematocrit 27.5 with CO2 content of 31 indicative of respiratory alkalosis, BUN 22 with normal creatinine, glucose 144, calcium 8, but normal total bilirubin, AST, and ALT with alkaline phosphatase 419, albumin 2.9 with total protein 5.3, all as per yesterday 08/16/2018. PHYSICAL EXAMINATION: GENERAL: An 83-year-old female, afebrile. VITAL SIGNS: Pulse of 82, respiratory rate 18-20, blood pressure 120/72. HEENT: Pale dry oral mucous membrane. Nonicteric sclerae. LUNGS: Few scattered bilateral crepitation with decreased air entry at bases. HEART: Positive S1 and S2. ABDOMEN: Soft with mild generalized tenderness. No mass or organomegaly. No rebound tenderness or guarding. EXTREMITIES: Without significant clubbing, cyanosis or edema. NEUROLOGIC: No reported new neurological deficits, sensory or motor. IMPRESSION: 1. Recent history of common bile duct stone. 2. Anemia most likely secondary to chronic disease. 3. Bilateral pneumonia. SUGGESTIONS: 1. Continue current management. 2. Repeat abdominal ultrasound. 3. Due to the patient's respiratory status, no aggressive GI workup to be scheduled in the meantime, that discussed at length with the anesthesia staff again as well as the patient and nephew this morning. Further recommendation to follow. Gracie Call MD
[2018-08-17] MEDS: Pantoprazole 40 mg EC Tab PO SCH (09:26)
[2018-08-17] MEDS: Potassium Chloride 20 mEq/15 ml LIQ UD PO SCH (09:26)
[2018-08-17] MEDS: Lactobacillus Acidophilus 500 MU Cap PO SCH (09:26)
[2018-08-17 10:59] VITALS: O2SAT 93
--- NOTE | 2018-08-17 12:43 | CP.PCM.PN ---
Subjective - Date & Time of Evaluation Date of Evaluation: 08/17/18 Time of Evaluation: 12:42 - Subjective Subjective: Nephrology Consultation Note: Assessment: stable Acute Kidney Injury (N17.9) likely due to ATN from septic shock: improving Fall abnormal LFT hyperphosphatemia, HAGMA UTI cholelithiasis pelvic mass hypomagnesemia hypokalemia pleural effusion with hypoxia Plan Maintain hemodynamics stable. Avoid hypotension. Patient not on ACEI/ARB due to recent JEFF Monitor Input/Output, daily weights and renal function with basic metabolic panel supplement lytes as needed. GI/surgery work up ongoing. seen by TRIM MACHINE ADJUSTER as well lasix 40 mg bid changed to IVP as pt still with hypoxia. good UOP with IV lasix. pulmonary cardio following. Echocardiogram: LVEF normal Dose meds/antibiotics for improved GFR. avoid nephrotoxins/NSAIDs Glycemic control Further work up/management as per primary team Thanks for allowing me to participate in care of your patient. Will follow patient with you. Please call if any Qs. had d/w team Dr Valerio Lewis Office: [phone] Chief Complaint; fall Reason for consult: Acute Kidney Injury HPI: Pt is a 83 F without any known medical hx but no recent medical follow up presented with complaints of fall and found to have sepsis with shock, abnormal LFT and JEFF No recent iodinated contrast exposure. Noted obvious episodes of low BP. ROS: ERCP could not be done due to hypoxia on 08/16/18 Cardiovascular: No chest pain. Pulmonary: denies shortness of breath Gastrointestinal: denies abdominal pain no nausea. No vomiting. no loose stool at present Genitourinary: No pain while urinating. Denies blood in urine. All other negative except as mentioned in HPI Physical Examination: General Appearance: Comfortable, in no acute respiratory distress, co-operative . chronically debilitated appearing Vitals reviewed and noted as below Head; Atraumatic, normocephalic ENT: no ulcers no thrush. Tongue is midline. Oropharynx: no rash or ulcers. she is hard of hearing EYES: Pupils are equal, round and reactive to light accommodation. Eye muscles and extraocular movement intact. Sclera is icteric. Neck; supple no lymphadenopathy, no thyromegaly or bruit Lungs: Improved respiratory rate/effort. Breath sounds bilateral reduced at bases few basal crackle Heart: Normal rate. s1s2 normal. No rub or gallop. Extremities: no edema. No varicose veins Neurological: Patient is alert, awake and oriented Strength bilateral appropriate and equal Skin: Warm and dry. Normal turgor. No rash. Palpitation: Normal elasticity for age Abdomen: Abdomen is soft. Bowel sounds +. There is mild Rt abdominal tenderness, no guarding/rigidity no organomegaly Psych: lack insight and normal affect/mood MSK: no joint tenderness or swelling. Digits and nails normal, no deformity : kidney or bladder not palpable Labs/imaging reviewed. Past medical history, past surgical history, family history, social history, allergy reviewed and noted as below Family hx: no hx of CKD. Rest non-contributory Objective - Vital Signs/Intake and Output Vital Signs (last 24 hours): Temp Pulse Resp BP Pulse Ox 97.4 F L 85 18 117/69 93 L 08/17/18 07:00 08/17/18 07:00 08/17/18 07:00 08/17/18 09:27 08/17/18 07:00 Intake and Output: 08/17/18 08/17/18 06:59 18:59 Intake Total 800 Output Total 1950 Balance -1150 - Medications Medications: Current Medications Aspirin (Aspirin Chewable) 81 mg PO DAILY [facility] Last Admin: 08/17/18 09:26 Dose: 81 mg Furosemide (Lasix) 40 mg IVP Q12 [facility] Last Admin: 08/17/18 09:27 Dose: 40 mg Heparin Sodium (Porcine) (Heparin) 5,000 units SC Q12H [facility] Last Admin: 08/17/18 05:36 Dose: 5,000 units Moxifloxacin HCl (Avelox Iv 400mg/250ml Ns) 400 mg in 250 mls @ 167 mls/hr IVPB Q24H [facility]; Protocol Last Admin: 08/16/18 17:44 Dose: 167 mls/hr Fluconazole 100 mg/ (Miscellaneous) 50 mls @ 100 mls/hr IVPB Q24H [facility]; Protocol Last Admin: 08/16/18 16:05 Dose: 100 mls/hr Vancomycin/Sodium Chloride (Vancomycin 1 Gm/Ns 200 Ml) 1 gm in 200 mls @ 166.7 mls/hr IVPB Q24H [facility]; Protocol Stop: 08/19/18 20:01 Last Admin: 08/16/18 19:20 Dose: 166.7 mls/hr Lactobacillus Acidophilus (Bacid Acidophilus) 1 cap PO BID [facility] Last Admin: 08/16/18 17:44 Dose: 1 cap Pantoprazole Sodium (Protonix Ec Tab) 40 mg PO DAILY [facility] Last Admin: 08/17/18 09:26 Dose: 40 mg Potassium Chloride (Potassium Chloride Oral Soln) 20 meq PO BID [facility] Last Admin: 08/17/18 09:26 Dose: 20 meq - Labs Labs: 08/16/18 07:12 08/17/18 07:07 PT 13.0 SECONDS (9.7-12.2) H 08/16/18 07:12 INR 1.2 08/16/18 07:12 APTT 28 SECONDS (21-34) 08/16/18 07:12
--- NOTE | 2018-08-17 15:52 | CP.PCM.PN ---
Subjective - Date & Time of Evaluation Date of Evaluation: 08/17/18 Time of Evaluation: 15:52 Objective - Vital Signs/Intake and Output Vital Signs (last 24 hours): Temp Pulse Resp BP Pulse Ox 97.4 F L 85 18 117/69 93 L 08/17/18 07:00 08/17/18 07:00 08/17/18 07:00 08/17/18 09:27 08/17/18 07:00 Intake and Output: 08/17/18 08/17/18 06:59 18:59 Intake Total 800 Output Total 1950 Balance -1150 - Medications Medications: Current Medications Aspirin (Aspirin Chewable) 81 mg PO DAILY [facility] Last Admin: 08/17/18 09:26 Dose: 81 mg Furosemide (Lasix) 40 mg IVP Q12 [facility] Last Admin: 08/17/18 09:27 Dose: 40 mg Heparin Sodium (Porcine) (Heparin) 5,000 units SC Q12H [facility] Last Admin: 08/17/18 05:36 Dose: 5,000 units Moxifloxacin HCl (Avelox Iv 400mg/250ml Ns) 400 mg in 250 mls @ 167 mls/hr IVPB Q24H [facility]; Protocol Last Admin: 08/16/18 17:44 Dose: 167 mls/hr Fluconazole 100 mg/ (Miscellaneous) 50 mls @ 100 mls/hr IVPB Q24H [facility]; Protocol Last Admin: 08/16/18 16:05 Dose: 100 mls/hr Vancomycin/Sodium Chloride (Vancomycin 1 Gm/Ns 200 Ml) 1 gm in 200 mls @ 166.7 mls/hr IVPB Q24H [facility]; Protocol Stop: 08/19/18 20:01 Last Admin: 08/16/18 19:20 Dose: 166.7 mls/hr Lactobacillus Acidophilus (Bacid Acidophilus) 1 cap PO BID [facility] Last Admin: 08/17/18 09:26 Dose: 1 cap Magnesium Oxide (Mag-Ox) 400 mg PO BID [facility] Stop: 08/24/18 18:01 Pantoprazole Sodium (Protonix Ec Tab) 40 mg PO DAILY [facility] Last Admin: 08/17/18 09:26 Dose: 40 mg Potassium Chloride (Potassium Chloride Oral Soln) 20 meq PO BID [facility] Last Admin: 08/17/18 09:26 Dose: 20 meq - Labs Labs: 08/16/18 07:12 08/17/18 07:07 PT 13.0 SECONDS (9.7-12.2) H 08/16/18 07:12 INR 1.2 08/16/18 07:12 APTT 28 SECONDS (21-34) 08/16/18 07:12 Assessment and Plan - Assessment and Plan (Free Text) Assessment: PLACE UNDER THE SERVICE OF DR SHARP AT [facility]-----CALL FOR ADMITTING ORDER CONTINUE MEDICATION PER MED REC ACTIVITY TOLERATED CALL DR SHARP FOR FURTHER ORDER MAKE ARRANGE TO FOLLOW UP WITH DR ACE ----CALL FOR APPOINTMENT ADDRESS YOUR GALLBLADDER STONE AT YOUR VISIT
[2018-08-17 16:52] VITALS: BP 120/65; PULSE 89
[2018-08-17 17:02] VITALS: TEMP 98.1
[2018-08-17] MEDS ORDERED: Magnesium Oxide 400 mg Tab UD PO SCH (18:00)
--- NOTE | 2018-08-17 21:46 | CP.PCM.PN ---
Subjective - Date & Time of Evaluation Date of Evaluation: 08/17/18 Time of Evaluation: 15:00 - Subjective Subjective: dictated Objective - Vital Signs/Intake and Output Vital Signs (last 24 hours): Temp Pulse Resp BP Pulse Ox 98.1 F 89 18 120/65 93 L 08/17/18 17:02 08/17/18 16:51 08/17/18 16:51 08/17/18 16:51 08/17/18 16:51 - Labs Labs: 08/16/18 07:12 08/17/18 07:07 PT 13.0 SECONDS (9.7-12.2) H 08/16/18 07:12 INR 1.2 08/16/18 07:12 APTT 28 SECONDS (21-34) 08/16/18 07:12
--- NOTE | 2018-08-18 02:20 | PN ---
DATE: 08/17/2018 SUBJECTIVE: The patient was seen around 3 o'clock today and she was not complaining of any pain. Denied any other problems. The [employer] had called me that they wanted to send her back, and I realized that they are not going to do any procedure for her because of high risk. She is otherwise stable. PHYSICAL EXAMINATION: GENERAL: She is arousable. She is still forgetful but I answers questions. VITAL SIGNS: T-max is 98.1, blood pressure 120/65, respirations 18, saturation remains 93%. HEENT: Head is atraumatic and normocephalic. NECK: Supple. JVP is flat. LUNGS: Clear. Decreased breath sounds on bases. HEART: S1, S2. Regular. ABDOMEN: Soft, nontender. No guarding, no rigidity present. EXTREMITIES: No edema. LABORATORY DATA: Labs are noted from yesterday. White count was 13, and she is stable otherwise. IMPRESSION: She had choledocholithiasis. She came in with septic shock and severe jaundice and also had effusions but now is doing better. PLAN: Since there is no plan for ERCP and she has received antibiotics since she has been admitted which is since 07/29/2018 and today is 08/17/2018, so almost 20 days she has gotten antibiotics, I decided to not give her any more antibiotics for now. Hopefully, she will be stable, otherwise she does run a risk to have ERCP. Curry Ureña MD
== END 2018-08-17 19:39 | DRG 871 ==
LOC: C.ER 10:10 → C.9E 13:12 → C.9I 15:34 → C.5S 08-03 16:15
PROVIDERS: ADMIT Internal Medicine; ATTEND Internal Medicine
PROC: 02H633Z Insertion of Infusion Device into Right Atrium, Percutaneous Approach (ICD-10-PCS; principal; 2018-07-29)
DX: A41.81 Sepsis due to Enterococcus (principal); J18.9 Pneumonia, unspecified organism; R65.21 Severe sepsis with septic shock; N17.0 Acute kidney failure with tubular necrosis; I21.4 Non-ST elevation (NSTEMI) myocardial infarction; J96.01 Acute respiratory failure with hypoxia; J96.02 Acute respiratory failure with hypercapnia; K80.67 Calculus of gallbladder and bile duct with acute and chronic cholecystitis with obstruction; K81.0 Acute cholecystitis; M62.82 Rhabdomyolysis; N39.0 Urinary tract infection, site not specified; E46 Unspecified protein-calorie malnutrition; E87.4 Mixed disorder of acid-base balance; I13.0 Hypertensive heart and chronic kidney disease with heart failure and stage 1 through stage 4 chronic kidney disease, or unspecified chronic kidney disease; I50.32 Chronic diastolic (congestive) heart failure; J44.0 Chronic obstructive pulmonary disease with (acute) lower respiratory infection; J44.1 Chronic obstructive pulmonary disease with (acute) exacerbation; J98.11 Atelectasis; K80.66 Calculus of gallbladder and bile duct with acute and chronic cholecystitis without obstruction; B37.49 Other urogenital candidiasis; D63.8 Anemia in other chronic diseases classified elsewhere; E11.22 Type 2 diabetes mellitus with diabetic chronic kidney disease; E11.649 Type 2 diabetes mellitus with hypoglycemia without coma; E77.8 Other disorders of glycoprotein metabolism; E83.39 Other disorders of phosphorus metabolism; E83.42 Hypomagnesemia; E83.51 Hypocalcemia; E86.0 Dehydration; E86.1 Hypovolemia; E87.6 Hypokalemia; E87.8 Other disorders of electrolyte and fluid balance, not elsewhere classified; F03.90 Unspecified dementia, unspecified severity, without behavioral disturbance, psychotic disturbance, mood disturbance, and anxiety; H91.90 Unspecified hearing loss, unspecified ear; I27.20 Pulmonary hypertension, unspecified; K44.9 Diaphragmatic hernia without obstruction or gangrene; K57.90 Diverticulosis of intestine, part unspecified, without perforation or abscess without bleeding; N18.9 Chronic kidney disease, unspecified; N20.0 Calculus of kidney; N28.1 Cyst of kidney, acquired; N83.9 Noninflammatory disorder of ovary, fallopian tube and broad ligament, unspecified; R32 Unspecified urinary incontinence; W06.XXXA Fall from bed, initial encounter; Y92.003 Bedroom of unspecified non-institutional (private) residence as the place of occurrence of the external cause; Z66 Do not resuscitate; Z53.09 Procedure and treatment not carried out because of other contraindication; Z85.43 Personal history of malignant neoplasm of ovary; Z90.710 Acquired absence of both cervix and uterus; Z87.11 Personal history of peptic ulcer disease; Z88.0 Allergy status to penicillin

== ENCOUNTER 2018-08-22 10:09 | Inpatient (IN) | payer MEDICARE ==
[2018-08-22 10:09] VITALS: BMI 21.4
[2018-08-22] MEDS ORDERED: Sodium Chloride 0.9% 1,000 ML IV ONE (10:27)
[2018-08-22 10:38] LABS: BASO % 0.2 % (0.0-2.0); HEMOGLOBIN 9.5 g/dL (11.0-16.0); LYMPH # 0.4 K/uL (1.0-4.3); LYMPH % 1.3 % (20.0-40.0); MEAN CELL VOLUME 87.4 fL (81.0-99.0); MEAN CORPUSCULAR HEMOGLOBIN 26.7 pg (27.0-31.0); MEAN CORPUSCULAR HGB CONC 30.5 g/dL (33.0-37.0); MEAN PLATELET VOLUME 11.4 fL (7.2-11.7); MONO # 1.1 K/uL (0.0-0.8); MONO % 3.7 % (0.0-10.0); NEUT # 27.4 K/uL (1.8-7.0); NEUT % 94.8 % (50.0-75.0); RBC 3.57 Mil/uL (3.80-5.20); RED CELL DISTRIBUTION WIDTH 18.5 % (11.5-14.5)
[2018-08-22 10:40] LABS: PLATELET COUNT 584 K/uL (130-400); WHITE BLOOD COUNT 28.9 K/uL (4.8-10.8)
--- NOTE | 2018-08-22 10:43 | C.PDOC ---
History Of Present Illness 83 years old female brought in via [facility] from [facility] for evaluation of respiratory distress, fever, and tachycardia. As per EMS patient's symptoms started today. Upon arrival patient it hypotensive, lethargic, tachy pneic, Blood pressure in 80s, and not responsive to any type of stimuli. 20 g saline lock inserted in field and 500 NS administered. Patient is a DNR/DNI. Upon arrival patient systolic pressure was 77. Family requested for patient to be brought here in [facility]. Patient's O2 Ox 80% RA and 91% on breather. Dr. Amaya at bed side upon patient's arrival. Time Seen by Provider: 08/22/18 10:18 Chief Complaint (Nursing): Respiratory Distress History Per: EMS History/Exam Limitations: clinical condition Onset/Duration Of Symptoms: Hrs Current Symptoms Are (Timing): Still Present Current Respiratory Medications: See Home Med List Recent travel outside of the [place]: No Past Medical History Reviewed: Historical Data, Nursing Documentation, Vital Signs Vital Signs: Last Vital Signs Temp 102.9 F H 08/22/18 10:12 Pulse 124 H 08/22/18 10:12 Resp 36 H 08/22/18 10:12 BP 77/42 L 08/22/18 10:12 Pulse Ox 91 L 08/22/18 10:12 - Medical History PMH: HTN Denies: Sexually Transmitted Disease - [facility] Procedures INSERTION OF INFUSION DEVICE INTO R [facility], PERC APPROACH (07/29/18) Family History: States: Unknown Family Hx - Social History Hx Tobacco Use: No Hx Alcohol Use: No Hx Substance Use: No - Immunization History Hx Tetanus Toxoid Vaccination: No Hx Influenza Vaccination: No Hx Pneumococcal Vaccination: No Review Of Systems Review Of Systems: ROS cannot be obtained secondary to pt's inabilty to answer questions. (Due to patient's clinical condition) Physical Exam - Physical Exam Appears: Non-toxic, In Acute Distress (Respiratory ), Other (Lethargic, opens eyes to painful stimuli ) Skin: Normal Color, Warm, Dry, No Rash Head: Atraumatic, Normacephalic Eye(s): bilateral: Normal Inspection, PERRL, EOMI Oral Mucosa: Dry Neck: Normal ROM, Supple Chest: Symmetrical, No Tenderness Cardiovascular: Rhythm Regular (Tachycardic ) Respiratory: Other (Tachypneic) Gastrointestinal/Abdominal: Soft, No Tenderness Neurological/Psych: Other (Lethargi, opens eyes to painful stimuli ) ED Course And Treatment - Laboratory Results Result Diagrams: 08/22/18 10:33 08/22/18 11:14 O2 Sat by Pulse Oximetry: 91 (RA) Pulse Ox Interpretation: Abnormal - Other Rad CXR X-Ray: Viewed By Me, Read By Radiologist Interpretation: Date of service: 08/22/2018. HISTORY: Sepsis Patient. COMPARISON: Portable chest 08/14/2018. FINDINGS: LUNGS: Right central venous line has been removed. HO basilar infiltrates cannot be excluded. Limited li near fibrosis in the mid left lung zone laterally. Also noted at the right base. PLEURA: Bilateral pleural effusions are identified not simply changed in the interval. No pneumothorax bilaterally. CARDIOVASCULAR: Calcific atherosclerotic changes are seen related to the thoracic aorta. Normal cardiac size. No pulmonary vascular congestion. OSSEOUS STRUCTURES: No significant abnormalities. VISUALIZED UPPER ABDOMEN: Normal. OTHER FINDINGS: None. IMPRESSION: Stable bilateral pleural effusions with underlying atelectasis or infiltrates not excluded. Linear atelectasis or fibrosis again seen the bilateral mid to inferior lung zones. Right central venous line now removed. Critical Care Time - Critical Care Note Total Time (in mins): 90 Documented critical care: time excludes all time spent performing seperately billable procedures. Medical Decision Making Medical Decision Making: Plan: * IV Fluids * Azactam * Levophed * Tylenol * Blood gas * EKG * Blood work * CXR * Blood Culture * Urine Culture * Urinalysis * BIPAP Procedure Progress: Patient is hypotensive in ER. Patient not responding to IV Fluids treatment, will start on levophed. Discussed case with nephew who states patient remains DNR/DNI. 12:05: Discussed case with cattle killer (Dr. Sabillon) who recommended to discontinue Levophed and discuss with family for patient to be admitted to regular floor. Discussed with family and they are in agreement. Patient will be admitted to regular floor. 13:15: Spoke with which stated will see patient in ER, but still recommends to admit patient to ICU on levophed because patient is not stable. 14:26: Dr. Sabillon accepted patient to ICU. Disposition Discussed With : Donna Wallace - Disposition Disposition: HOSPITALIZED Disposition Time: 14:30 Condition: CRITICAL - Clinical Impression Clinical Impression: Septic shock, Respiratory failure, Pneumonia - Scribe Statement The provider has reviewed the documentation as recorded by the Abby Dawkins All medical record entries made by the Vondaibe were at my direction and personally dictated by me. I have reviewed the chart and agree that the record accurately reflects my personal performance of the history, physical exam, medical decision making, and the department course for this patient. I have also personally directed, reviewed, and agree with the discharge instructions and disposition.
[2018-08-22 10:47] LABS: INR 1.2; PROTHROMBIN TIME 13.6 SECONDS (9.7-12.2)
[2018-08-22 10:50] LABS: VENOUS BLOOD GAS BASE EXCESS 4.9 mmol/L (0.0-2.0); VENOUS BLOOD GAS PCO2 75 mmHg (40-60); VENOUS BLOOD GAS PO2 32 mm/Hg (30-55); VENOUS BLOOD PH 7.27 (7.32-7.43)
[2018-08-22 10:52] LABS: ABG ALLEN TEST POS; ARTERIAL BLOOD GAS HCO3 26.3 mmol/L (21-28); ARTERIAL BLOOD GAS O2 SAT 95.8 % (95-98); ARTERIAL BLOOD GAS PCO2 63 mm/Hg (35-45); ARTERIAL BLOOD GAS PH 7.29 (7.35-7.45); ARTERIAL BLOOD GAS PO2 67 mm/Hg (80-100); ARTERIAL BLOOD GAS TCO2 32.2 mmol/L (22-28)
[2018-08-22] MEDS ORDERED: Aztreonam 2 GM in Sodium Chloride 0.9% 100 ML IVPB ONE (10:58)
[2018-08-22 11:04] LABS: BANDS 21 % (0-2); LYMPHOCYTE 3 % (20-40); METAMYELOCYTE 2 % (0-0); MONOCYTE 1 % (0-10); NEUTROPHIL 73 % (50-75); TOTAL CELLS COUNTED 100
[2018-08-22 11:05] LABS: ANISOCYTOSIS SLIGHT; LARGE PLATELETS PRESENT; PLATELET CLUMPS PRESENT; PLATELET ESTIMATE INCREASED (NORMAL); POIKILOCYTOSIS SLIGHT
[2018-08-22 11:06] LABS: HYPOCHROMIC SLIGHT; MICROCYTOSIS SLIGHT; POLYCHROMIC SLIGHT
[2018-08-22 11:47] LABS: ALB/GLOB RATIO 1.1 (1.0-2.1); ALBUMIN 2.6 g/dL (3.5-5.0); CALCIUM 7.5 mg/dl (8.6-10.4)
[2018-08-22] MEDS ORDERED: Vancomycin 1 GM 1 GM/250 ML BAG IVPB ONE (11:52)
[2018-08-22 12:19] LABS: SQUAMOUS EPITHIAL < 1 /hpf (0-5); URINE AMORPHOUS SEDIMENT RARE /ul (<OCC); URINE BACTERIA RARE (<OCC); URINE BILIRUBIN NEGATIVE (NEGATIVE); URINE BLOOD NEGATIVE (NEGATIVE); URINE CLARITY Hazy (Clear); URINE COLOR Amber (YELLOW); URINE GLUCOSE (UA) NORMAL (Normal); URINE LEUKOCYTE ESTERASE NEG Leu/uL (Negative); URINE PROTEIN 1+ mg/dL (NEGATIVE); URINE UROBILINOGEN NORMAL mg/dL (0.2-1.0)
[2018-08-22 12:45] LABS: VENOUS BLOOD GAS BASE EXCESS -1.8 mmol/L (0.0-2.0); VENOUS BLOOD GAS PCO2 79 mmHg (40-60); VENOUS BLOOD GAS PO2 50 mm/Hg (30-55); VENOUS BLOOD PH 7.17 (7.32-7.43)
--- NOTE | 2018-08-22 14:34 | RAD ---
Date of service: 08/22/2018 HISTORY: Sepsis Patient COMPARISON: Portable chest 08/14/2018. FINDINGS: LUNGS: Right central venous line has been removed. HO basilar infiltrates cannot be excluded. Limited linear fibrosis in the mid left lung zone laterally. Also noted at the right base. PLEURA: Bilateral pleural effusions are identified not simply changed in the interval. No pneumothorax bilaterally. CARDIOVASCULAR: Calcific atherosclerotic changes are seen related to the thoracic aorta. Normal cardiac size. No pulmonary vascular congestion. OSSEOUS STRUCTURES: No significant abnormalities. VISUALIZED UPPER ABDOMEN: Normal. OTHER FINDINGS: None. IMPRESSION: Stable bilateral pleural effusions with underlying atelectasis or infiltrates not excluded. Linear atelectasis or fibrosis again seen the bilateral mid to inferior lung zones. Right central venous line now removed.
[2018-08-22] MEDS ORDERED: Lactated Ringer's 1,000 ML IV ONE ×2 (14:40)
--- NOTE | 2018-08-22 15:43 | CP.PCM.CON ---
History of Present Illness - History of Present Illness History of Present Illness: Reason for consultation: Pneumonia/respiratory distress 83-year-old female transferred from [facility] for respiratory di stress, fever and tachycardia. In the emergency room patient hypotensive, tachypneic and very lethargic and was placed on BiPAP. Patient was started on Levophed and fluid resuscitation. Patient is DNR/DNI Review of Systems - Review of Systems Systems not reviewed;Unavailable: Altered Mental Status Past Patient History - Infectious Disease Hx of Infectious Diseases: None - Tetanus Immunizations Tetanus Immunization: Unknown - Past Medical History & Family History Past Medical History?: No - Past Social History Smoking Status: Never Smoked - CARDIAC Hx Hypertension: Yes - MUSCULOSKELETAL/RHEUMATOLOGICAL Hx Falls: Yes - GENITOURINARY/GYNECOLOGICAL Hx Sexually Transmitted Disorders: No - PSYCHIATRIC Hx Substance Use: No - SURGICAL HISTORY Hx Surgeries: No - ANESTHESIA Hx Anesthesia: No Meds Allergies/Adverse Reactions: Allergies Allergy/AdvReac Type Severity Reaction Status Date / Time Penicillins Allergy Verified 08/22/18 10:25 - Medications Medications: Current Medications Norepinephrine Bitartrate 8 mg (/ Dextrose) 258 mls @ 7.74 mls/hr IV .Q24H PRN; Protocol PRN Reason: TITRATE PER MD ORDER Last Admin: 08/22/18 11:21 Dose: 7.74 mls/hr Physical Exam - Head Exam Head Exam: ATRAUMATIC, NORMOCEPHALIC - Neck Exam Neck exam: Positive for: Normal Inspection - Respiratory Exam Respiratory Exam: Decreased Breath Sounds - Cardiovascular Exam Cardiovascular Exam: REGULAR RHYTHM Results - Vital Signs Recent Vital Signs: Last Vital Signs Temp 99.1 F 08/22/18 14:00 Pulse 126 H 08/22/18 15:20 Resp 29 H 08/22/18 15:20 BP 83/50 L 08/22/18 15:20 Pulse Ox 97 08/22/18 15:20 - Labs Result Diagrams: 08/22/18 10:33 08/22/18 11:14 Labs: Laboratory Results - last 24 hr 08/22/18 08/22/18 08/22/18 10:33 10:33 10:43 WBC 28.9 H D RBC 3.57 L Hgb 9.5 L Hct 31.2 L MCV 87.4 MCH 26.7 L MCHC 30.5 L RDW 18.5 H Plt Count 584 H D MPV 11.4 Neut % (Auto) 94.8 H Lymph % (Auto) 1.3 L Nobles % (Auto) 3.7 Eos % (Auto) 0.0 Baso % (Auto) 0.2 Neut # (Auto) 27.4 H Lymph # (Auto) 0.4 L Nobles # (Auto) 1.1 H Eos # (Auto) 0.0 Baso # (Auto) 0.0 Neutrophils % (Manual) 73 Band Neutrophils % 21 H* Lymphocytes % (Manual) 3 L Monocytes % (Manual) 1 Metamyelocytes % 2 H Platelet Estimate Increased H Plt Clumps, EDTA Present Large Platelets Present Polychromasia Slight Hypochromasia (manual) Slight Poikilocytosis (manual Slight Anisocytosis (manual) Slight Microcytosis (manual) Slight Macrocytosis (manual) Slight PT 13.6 H INR 1.2 APTT 31 Puncture Site pCO2 pO2 32 HCO3 ABG pH ABG Total CO2 ABG O2 Saturation ABG Base Excess New Test ABG Potassium VBG pH 7.27 L VBG pCO2 75 H* VBG HCO3 27.5 VBG Total CO2 36.7 H VBG O2 Sat (Calc) 62.5 VBG Base Excess 4.9 H VBG Potassium 4.3 A-a O2 Difference Respiratory Index Sodium 145.0 Chloride 109.0 H Glucose 144 H Lactate 2.9 H Liter Flow 12.0 FiO2 100.0 Crit Value Called To Dr yousif Crit Value Called By 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 Crit Value Read Back Y Blood Gas Notified Time 1049 Potassium Carbon Dioxide Anion Gap BUN Creatinine Est GFR ( Amer) Est GFR (Non-Af Amer) Random Glucose Calcium Total Bilirubin AST ALT Alkaline Phosphatase Total Protein Albumin Globulin Albumin/Globulin Ratio Arterial Blood Potassium Venous Blood Potassium 4.3 Urine Color Urine Clarity Urine pH Ur Specific [place] Urine Protein Urine Glucose (UA) Urine Ketones Urine Blood Urine Nitrate Urine Bilirubin Urine Urobilinogen Ur Leukocyte Esterase Urine WBC (Auto) Urine RBC (Auto) Ur Squamous Epith Cells Amorphous Sediment Urine Bacteria 08/22/18 08/22/18 08/22/18 10:45 11:14 11:47 WBC RBC Hgb Hct MCV MCH MCHC RDW Plt Count MPV Neut % (Auto) Lymph % (Auto) Nobles % (Auto) Eos % (Auto) Baso % (Auto) Neut # (Auto) Lymph # (Auto) Nobles # (Auto) Eos # (Auto) Baso # (Auto) Neutrophils % (Manual) Band Neutrophils % Lymphocytes % (Manual) Monocytes % (Manual) Metamyelocytes % Platelet Estimate Plt Clumps, EDTA Large Platelets Polychromasia Hypochromasia (manual) Poikilocytosis (manual Anisocytosis (manual) Microcytosis (manual) Macrocytosis (manual) PT INR APTT Puncture Site Rra pCO2 63 H pO2 67 L HCO3 26.3 ABG pH 7.29 L ABG Total CO2 32.2 H ABG O2 Saturation 95.8 ABG Base Excess 2.0 New Test Pos ABG Potassium 3.5 L VBG pH VBG pCO2 VBG HCO3 VBG Total CO2 VBG O2 Sat (Calc) VBG Base Excess VBG Potassium A-a O2 Difference 567.0 Respiratory Index 8.5 Sodium 146.0 142 Chloride 112.0 H 108 H Glucose 140 H Lactate 1.8 Liter Flow 12.0 FiO2 100.0 Crit Value Called To Crit Value Called By Crit Value Read Back Blood Gas Notified Time Potassium 4.0 Carbon Dioxide 28 Anion Gap 9 L BUN 25 H Creatinine 1.3 H Est GFR ( Amer) 47 Est GFR (Non-Af Amer) 39 Random Glucose 139 H Calcium 7.5 L Total Bilirubin 4.0 H AST 434 H D ALT 184 H D Alkaline Phosphatase 881 H D Total Protein 4.9 L Albumin 2.6 L Globulin 2.3 Albumin/Globulin Ratio 1.1 Arterial Blood Potassium 3.5 L Venous Blood Potassium Urine Color Laura Urine Clarity Hazy Urine pH 8.0 Ur Specific [place] 1.014 Urine Protein 1+ H Urine Glucose (UA) Normal Urine Ketones Negative Urine Blood Negative Urine Nitrate Negative Urine Bilirubin Negative Urine Urobilinogen Normal Ur Leukocyte Esterase Neg Urine WBC (Auto) 1 Urine RBC (Auto) < 1 Ur Squamous Epith Cells < 1 Amorphous Sediment Rare H Urine Bacteria Rare 08/22/18 12:40 WBC RBC Hgb Hct MCV MCH MCHC RDW Plt Count MPV Neut % (Auto) Lymph % (Auto) Nobles % (Auto) Eos % (Auto) Baso % (Auto) Neut # (Auto) Lymph # (Auto) Nobles # (Auto) Eos # (Auto) Baso # (Auto) Neutrophils % (Manual) Band Neutrophils % Lymphocytes % (Manual) Monocytes % (Manual) Metamyelocytes % Platelet Estimate Plt Clumps, EDTA Large Platelets Polychromasia Hypochromasia (manual) Poikilocytosis (manual Anisocytosis (manual) Microcytosis (manual) Macrocytosis (manual) PT INR APTT Puncture Site pCO2 pO2 50 HCO3 ABG pH ABG Total CO2 ABG O2 Saturation ABG Base Excess New Test ABG Potassium VBG pH 7.17 L* VBG pCO2 79 H* VBG HCO3 22.9 VBG Total CO2 31.2 H VBG O2 Sat (Calc) 83.6 H VBG Base Excess -1.8 L VBG Potassium 3.8 A-a O2 Difference Respiratory Index Sodium 146.0 Chloride 112.0 H Glucose 143 H Lactate 2.6 H Liter Flow FiO2 Crit Value Called To Crit Value Called By Crit Value Read Back Blood Gas Notified Time Potassium Carbon Dioxide Anion Gap BUN Creatinine Est GFR ( Amer) Est GFR (Non-Af Amer) Random Glucose Calcium Total Bilirubin AST ALT Alkaline Phosphatase Total Protein Albumin Globulin Albumin/Globulin Ratio Arterial Blood Potassium Venous Blood Potassium 3.8 Urine Color Urine Clarity Urine pH Ur Specific [place] Urine Protein Urine Glucose (UA) Urine Ketones Urine Blood Urine Nitrate Urine Bilirubin Urine Urobilinogen Ur Leukocyte Esterase Urine WBC (Auto) Urine RBC (Auto) Ur Squamous Epith Cells Amorphous Sediment Urine Bacteria Assessment & Plan (1) Respiratory failure Status: Acute Comment: Patient is DNR/DNI. BiPAP. IV antibiotics. Pressors. Follow-up culture and sensitivity (2) Pneumonia Status: Acute (3) Septic shock Status: Acute
--- NOTE | 2018-08-22 16:32 | CP.PCM.CON ---
History of Present Illness - History of Present Illness History of Present Illness: 83 F with recent hospitaliztion, with dehydration, kiana, h/o htn, h/o complex ovarian cyst, gall bladder calculus, code status DNR recently discharged on 08/17/18 to rehab, at baseline patient has some forgetfullness, can not walk on her own, able to feed her self. Patient was noticed today to be sob, hypotensive, unable to respond to communication. In ER she was noticed to be hypotensive, hypoxic, febrile 102, b/l effusion suspected ? pna, she was hydrated, started with empiric abx, started bipap. Patient started to now open her eyes and and try to look towards the name called. PMH as above Allergies PCN detail no available Meds reviewed Family history not contributory Social Nephew makes decision, was transferred from rehab, prior stayed with nephew Review of Systems - Review of Systems All systems: reviewed and no additional remarkable complaints except (HPI) Past Patient History - Infectious Disease Hx of Infectious Diseases: None - Tetanus Immunizations Tetanus Immunization: Unknown - Past Medical History & Family History Past Medical History?: No - Past Social History Smoking Status: Never Smoked Alcohol: None Home Situation {Lives}: Long Term - CARDIAC Hx Hypertension: Yes - MUSCULOSKELETAL/RHEUMATOLOGICAL Hx Falls: Yes - GENITOURINARY/GYNECOLOGICAL Hx Sexually Transmitted Disorders: No - PSYCHIATRIC Hx Substance Use: No - SURGICAL HISTORY Hx Surgeries: No - ANESTHESIA Hx Anesthesia: No Meds Allergies/Adverse Reactions: Allergies Allergy/AdvReac Type Severity Reaction Status Date / Time Penicillins Allergy Verified 08/22/18 10:25 - Medications Medications: Current Medications Norepinephrine Bitartrate 8 mg (/ Dextrose) 258 mls @ 7.74 mls/hr IV .Q24H PRN; Protocol PRN Reason: TITRATE PER MD ORDER Last Admin: 08/22/18 11:21 Dose: 7.74 mls/hr Aztreonam 1 gm/ Sodium (Chloride) 100 mls @ 100 mls/hr IVPB Q8H MILADY; Protocol Vancomycin HCl 750 mg/ Sodium (Chloride) 250 mls @ 166.6 mls/hr IVPB Q12H MILADY; Protocol Physical Exam - Additional Findings Additional findings: * HEENT [place] * Neck supple * Chest b/l reduced sounds in both basis * CVS Regular tachycardia * PA soft, firm cystic tumor felt on the right side * Ext no edema * Skin and muscles reduced torgor * [employer] opened eyes and tracked with calling her name. Results - Vital Signs Recent Vital Signs: Last Vital Signs Temp 99.1 F 08/22/18 14:00 Pulse 126 H 08/22/18 15:20 Resp 29 H 08/22/18 15:20 BP 83/50 L 08/22/18 15:20 Pulse Ox 97 08/22/18 15:20 - Labs Result Diagrams: 08/22/18 10:33 08/22/18 11:14 Labs: Laboratory Results - last 24 hr 08/22/18 08/22/18 08/22/18 10:33 10:33 10:43 WBC 28.9 H D RBC 3.57 L Hgb 9.5 L Hct 31.2 L MCV 87.4 MCH 26.7 L MCHC 30.5 L RDW 18.5 H Plt Count 584 H D MPV 11.4 Neut % (Auto) 94.8 H Lymph % (Auto) 1.3 L Coke % (Auto) 3.7 Eos % (Auto) 0.0 Baso % (Auto) 0.2 Neut # (Auto) 27.4 H Lymph # (Auto) 0.4 L Coke # (Auto) 1.1 H Eos # (Auto) 0.0 Baso # (Auto) 0.0 Neutrophils % (Manual) 73 Band Neutrophils % 21 H* Lymphocytes % (Manual) 3 L Monocytes % (Manual) 1 Metamyelocytes % 2 H Platelet Estimate Increased H Plt Clumps, EDTA Present Large Platelets Present Polychromasia Slight Hypochromasia (manual) Slight Poikilocytosis (manual Slight Anisocytosis (manual) Slight Microcytosis (manual) Slight Macrocytosis (manual) Slight PT 13.6 H INR 1.2 APTT 31 Puncture Site pCO2 pO2 32 HCO3 ABG pH ABG Total CO2 ABG O2 Saturation ABG Base Excess New Test ABG Potassium VBG pH 7.27 L VBG pCO2 75 H* VBG HCO3 27.5 VBG Total CO2 36.7 H VBG O2 Sat (Calc) 62.5 VBG Base Excess 4.9 H VBG Potassium 4.3 A-a O2 Difference Respiratory Index Sodium 145.0 Chloride 109.0 H Glucose 144 H Lactate 2.9 H Liter Flow 12.0 FiO2 100.0 Crit Value Called To Dr yousif Crit Value Called By Von kinsey culinary specialist Crit Value Read Back Y Blood Gas Notified Time 1049 Potassium Carbon Dioxide Anion Gap BUN Creatinine Est GFR ( Amer) Est GFR (Non-Af Amer) Random Glucose Calcium Total Bilirubin AST ALT Alkaline Phosphatase Total Protein Albumin Globulin Albumin/Globulin Ratio Arterial Blood Potassium Venous Blood Potassium 4.3 Urine Color Urine Clarity Urine pH Ur Specific [place] Urine Protein Urine Glucose (UA) Urine Ketones Urine Blood Urine Nitrate Urine Bilirubin Urine Urobilinogen Ur Leukocyte Esterase Urine WBC (Auto) Urine RBC (Auto) Ur Squamous Epith Cells Amorphous Sediment Urine Bacteria 08/22/18 08/22/18 08/22/18 10:45 11:14 11:47 WBC RBC Hgb Hct MCV MCH MCHC RDW Plt Count MPV Neut % (Auto) Lymph % (Auto) Coke % (Auto) Eos % (Auto) Baso % (Auto) Neut # (Auto) Lymph # (Auto) Coke # (Auto) Eos # (Auto) Baso # (Auto) Neutrophils % (Manual) Band Neutrophils % Lymphocytes % (Manual) Monocytes % (Manual) Metamyelocytes % Platelet Estimate Plt Clumps, EDTA Large Platelets Polychromasia Hypochromasia (manual) Poikilocytosis (manual Anisocytosis (manual) Microcytosis (manual) Macrocytosis (manual) PT INR APTT Puncture Site Rra pCO2 63 H pO2 67 L HCO3 26.3 ABG pH 7.29 L ABG Total CO2 32.2 H ABG O2 Saturation 95.8 ABG Base Excess 2.0 New Test Pos ABG Potassium 3.5 L VBG pH VBG pCO2 VBG HCO3 VBG Total CO2 VBG O2 Sat (Calc) VBG Base Excess VBG Potassium A-a O2 Difference 567.0 Respiratory Index 8.5 Sodium 146.0 142 Chloride 112.0 H 108 H Glucose 140 H Lactate 1.8 Liter Flow 12.0 FiO2 100.0 Crit Value Called To Crit Value Called By Crit Value Read Back Blood Gas Notified Time Potassium 4.0 Carbon Dioxide 28 Anion Gap 9 L BUN 25 H Creatinine 1.3 H Est GFR ( Amer) 47 Est GFR (Non-Af Amer) 39 Random Glucose 139 H Calcium 7.5 L Total Bilirubin 4.0 H AST 434 H D ALT 184 H D Alkaline Phosphatase 881 H D Total Protein 4.9 L Albumin 2.6 L Globulin 2.3 Albumin/Globulin Ratio 1.1 Arterial Blood Potassium 3.5 L Venous Blood Potassium Urine Color Laura Urine Clarity Hazy Urine pH 8.0 Ur Specific [place] 1.014 Urine Protein 1+ H Urine Glucose (UA) Normal Urine Ketones Negative Urine Blood Negative Urine Nitrate Negative Urine Bilirubin Negative Urine Urobilinogen Normal Ur Leukocyte Esterase Neg Urine WBC (Auto) 1 Urine RBC (Auto) < 1 Ur Squamous Epith Cells < 1 Amorphous Sediment Rare H Urine Bacteria Rare 08/22/18 12:40 WBC RBC Hgb Hct MCV MCH MCHC RDW Plt Count MPV Neut % (Auto) Lymph % (Auto) Coke % (Auto) Eos % (Auto) Baso % (Auto) Neut # (Auto) Lymph # (Auto) Coke # (Auto) Eos # (Auto) Baso # (Auto) Neutrophils % (Manual) Band Neutrophils % Lymphocytes % (Manual) Monocytes % (Manual) Metamyelocytes % Platelet Estimate Plt Clumps, EDTA Large Platelets Polychromasia Hypochromasia (manual) Poikilocytosis (manual Anisocytosis (manual) Microcytosis (manual) Macrocytosis (manual) PT INR APTT Puncture Site pCO2 pO2 50 HCO3 ABG pH ABG Total CO2 ABG O2 Saturation ABG Base Excess New Test ABG Potassium VBG pH 7.17 L* VBG pCO2 79 H* VBG HCO3 22.9 VBG Total CO2 31.2 H VBG O2 Sat (Calc) 83.6 H VBG Base Excess -1.8 L VBG Potassium 3.8 A-a O2 Difference Respiratory Index Sodium 146.0 Chloride 112.0 H Glucose 143 H Lactate 2.6 H Liter Flow FiO2 Crit Value Called To Crit Value Called By Crit Value Read Back Blood Gas Notified Time Potassium Carbon Dioxide Anion Gap BUN Creatinine Est GFR ( Amer) Est GFR (Non-Af Amer) Random Glucose Calcium Total Bilirubin AST ALT Alkaline Phosphatase Total Protein Albumin Globulin Albumin/Globulin Ratio Arterial Blood Potassium Venous Blood Potassium 3.8 Urine Color Urine Clarity Urine pH Ur Specific [place] Urine Protein Urine Glucose (UA) Urine Ketones Urine Blood Urine Nitrate Urine Bilirubin Urine Urobilinogen Ur Leukocyte Esterase Urine WBC (Auto) Urine RBC (Auto) Ur Squamous Epith Cells Amorphous Sediment Urine Bacteria Assessment & Plan - Assessment and Plan (Free Text) Assessment: * Septic shock DD, pna, cholecystitis, pe, bacterimia * Dehydration * dementia * DNR/DNI Plan: * NephewVin requesting to treat with abx for sepsis with help of bipap but not intubate, no cpr * Explained poor prognosis * IVF * Central line for pressors * GI/DVT prophylaxis * Possible quiñonez CT * See orders for detail.
--- NOTE | 2018-08-22 18:21 | PCM.PROC ---
<Miguel Urban - Last Filed: 08/22/18 18:29> Procedures Attestation:: I certify that I have explained the specified Operation(s) or Procedure(s), risks, benefits and reasonable alternatives to the Patient and/or other person responsible. The opportunity was given to ask questions and all questions answered - Central Line Placement Left Internal Jugular Triple Lumen Catheter Aseptic technique was employed throughout the procedure: Hand Hygiene done prior to procedure, Full sterile barriers (mask, hair cover, sterile gown, sterile gloves), Full body sterile drape, Chloraprep Antiseptic: 30 second prep for IJ or SC sites CVP Time Out Performed: Yes Pt. Placed on Pulse Ox Monitor: Yes Central Line Prep: Chlorhexidine-Alcohol Combination Local Anesthesia Used: Lidocaine 1% Amount of Anesthesia Used (mls): 2 Ultrasound Used for Placement: Yes Central Line Lumen Inserted: triple Central Line Length: 16 cm (18cm) Post Procedure: Sutured in Place, Good Blood Return, All Ports Aspirated, Flushed, Capped, Sterile Dressing Applied Secured by: Suture Post procedure dressing: Clear vapor permeable, Chlorhexidine disc (Biopatch) Post Procedure X-Ray: Yes Patient Tolerated Procedure: Well Immediate Complications: None Additional Comments: Attempted Right IJ first, successful venous puncture but unable to thread guide wire more than approx. 10cm. Procedure switched to left IJ. <Aníbal Sabillon - Last Filed: 08/24/18 06:59> Attending/Attestation - Attestation I have personally seen and examined this patient.: Yes I have fully participated in the care of the patient.: Yes I have reviewed all pertinent clinical information, including history, physical exam and plan: Yes Notes (Text): 08/24/18 06:58 I was present all the time during procedure with the resident.
[2018-08-22] MEDS: Lactated Ringer's 1,000 ML IV SCH (18:45)
[2018-08-22] MEDS: Aztreonam 1 GM in Sodium Chloride 0.9% 100 ML IVPB SCH (18:46)
[2018-08-22 19:02] LABS: VENOUS BLOOD GAS BASE EXCESS -3.5 mmol/L (0.0-2.0); VENOUS BLOOD GAS PCO2 60 mmHg (40-60); VENOUS BLOOD GAS PO2 32 mm/Hg (30-55); VENOUS BLOOD PH 7.23 (7.32-7.43)
[2018-08-22 19:11] LABS: RBC 3.64 Mil/uL (3.80-5.20)
[2018-08-22 19:20] LABS: ALB/GLOB RATIO 1.1 (1.0-2.1); ALBUMIN 2.8 g/dL (3.5-5.0); CALCIUM 7.7 mg/dl (8.6-10.4)
[2018-08-22 19:21] LABS: BASO # 0.3 K/uL (0.0-0.2); BASO % 0.8 % (0.0-2.0); EOS # 0.1 K/uL (0.0-0.7); EOS % 0.2 % (0.0-4.0); HEMOGLOBIN 9.5 g/dL (11.0-16.0); LYMPH # 1.1 K/uL (1.0-4.3); LYMPH % 3.2 % (20.0-40.0); MEAN CELL VOLUME 89.7 fL (81.0-99.0); MEAN CORPUSCULAR HGB CONC 29.1 g/dL (33.0-37.0); MEAN PLATELET VOLUME 11.3 fL (7.2-11.7); MONO # 0.7 K/uL (0.0-0.8); MONO % 2.1 % (0.0-10.0); NEUT # 32.5 K/uL (1.8-7.0); NEUT % 93.7 % (50.0-75.0); PLATELET COUNT 683 K/uL (130-400); RED CELL DISTRIBUTION WIDTH 19.2 % (11.5-14.5); WHITE BLOOD COUNT 34.7 K/uL (4.8-10.8)
[2018-08-22] MEDS: Thiamine 100 mg/ml Inj IV SCH (19:50)
[2018-08-22 20:54] LABS: ANISOCYTOSIS SLIGHT; BANDS 34 % (0-2); HYPOCHROMIC SLIGHT; LYMPHOCYTE 2 % (20-40); METAMYELOCYTE 6 % (0-0); MONOCYTE 1 % (0-10); MYELOCYTE 4 % (0-0); NEUTROPHIL 53 % (50-75); PLATELET CLUMPS PRESENT; PLATELET ESTIMATE MARKEDLY INCREASED (NORMAL); POIKILOCYTOSIS SLIGHT; TOTAL CELLS COUNTED 100
[2018-08-22] MEDS ORDERED: Moxifloxacin IV 400mg/250ml NS 400 MG/250 ML BAG IVPB ONE (22:59)
--- NOTE | 2018-08-22 23:06 | PCM.SEPTIC ---
Sepsis Progress Note - Reassessment Type Date of Evaluation: 08/22/18 Time of Evaluation: 23:05 Reassessment Type: Non-invasive reassessment - Non Invasive Reassessment Were the most recent vital sign reviewed: Yes Vital Sign (Latest): Temp Pulse Resp BP Pulse Ox 98.6 F 121 H 33 H 114/72 93 L 08/22/18 20:00 08/22/18 22:00 08/22/18 22:00 08/22/18 22:00 08/22/18 22:00 Cardiovascular: Yes: Murmur, Tachycardia Respiratory: Yes: Crackles, Rales, Respiratory Distress. No: Accessory Muscle Use, Rhonchi Capillary Refill: Normal (Less than 2 sec) Pulses: Normal Radial, Normal Dorsalis Pedis, Normal Posterior Tibialis Skin: Warm - Invasive Reassessment (complete 2 of 4) Was a Central Venous Pressure Measurement obtained within 6 Hours after the presentation of septic shock: Yes Central Venous Pressure in mmHg via central catheter: 10 Was a central venous oxygen measurement obtained within 6 hours after the presentation of septic shock: No Was a bedside cardiovascular ultrasound performed within 6 hours after the presentation of septic shock: No Was a passive leg raise performed or was a fluid challenge performed within 6 h rs of the initial fluid bolus: No Fluid Challenge performed: Yes
[2018-08-23] MEDS: Thiamine 100 mg/ml Inj IV SCH ×3 (03:15→20:05)
[2018-08-23] MEDS: Aztreonam 1 GM in Sodium Chloride 0.9% 100 ML IVPB SCH (03:15)
[2018-08-23] MEDS: Lactated Ringer's 1,000 ML IV SCH ×2 (05:30→18:05)
[2018-08-23 06:36] LABS: ALBUMIN 2.7 g/dL (3.5-5.0); CALCIUM 7.7 mg/dl (8.6-10.4)
[2018-08-23 07:00] LABS: BASO # 0.1 K/uL (0.0-0.2); BASO % 0.2 % (0.0-2.0); EOS # 0.1 K/uL (0.0-0.7); EOS % 0.4 % (0.0-4.0); LYMPH # 1.8 K/uL (1.0-4.3); LYMPH % 5.5 % (20.0-40.0); MEAN CELL VOLUME 89.2 fL (81.0-99.0); MEAN CORPUSCULAR HEMOGLOBIN 26.6 pg (27.0-31.0); MEAN CORPUSCULAR HGB CONC 29.8 g/dL (33.0-37.0); MEAN PLATELET VOLUME 11.8 fL (7.2-11.7); MONO # 0.9 K/uL (0.0-0.8); MONO % 2.7 % (0.0-10.0); NEUT # 29.5 K/uL (1.8-7.0); NEUT % 91.2 % (50.0-75.0); PLATELET COUNT 591 K/uL (130-400); RED CELL DISTRIBUTION WIDTH 19.3 % (11.5-14.5); WHITE BLOOD COUNT 32.3 K/uL (4.8-10.8)
[2018-08-23 08:25] LABS: BANDS 27 % (0-2); BASOPHIL 1 % (0-2); LYMPHOCYTE 1 % (20-40); MONOCYTE 2 % (0-10); NEUTROPHIL 69 % (50-75); TOTAL CELLS COUNTED 100
[2018-08-23 08:26] LABS: ANISOCYTOSIS SLIGHT; HYPOCHROMIC SLIGHT; LARGE PLATELETS PRESENT; PLATELET ESTIMATE MARKEDLY INCREASED (NORMAL); POIKILOCYTOSIS SLIGHT; TARGET CELLS SLIGHT
[2018-08-23 08:27] LABS: GIANT PLATELETS PRESENT; TOXIC GRANULATION PRESENT
--- NOTE | 2018-08-23 09:19 | RAD ---
Chest x-ray single frontal view HISTORY: Central line insertion. COMPARISON: 08/22/2018 Findings: Left central venous catheter with tip extending to the cavoatrial junction/proximal right atrium. Biapical pleural thickening with upper lobe granulomatous changes. Moderate venous congestion. Confluent consolidative opacification in the left mid to lower lung zone as well as the right lung base with linear atelectasis at the right lung base. Small to moderate bilateral pleural effusions. Atherosclerotic calcification at the aortic knob. Cardiomegaly. Degenerative changes in the spine and shoulders. Impression: Left central venous catheter with tip extending to the cavoatrial junction/proximal right atrium. Biapical pleural thickening with upper lobe granulomatous changes. Moderate venous congestion. Confluent consolidative opacification in the left mid to lower lung zone as well as the right lung base with linear atelectasis at the right lung base. Small to moderate bilateral pleural effusions. Atherosclerotic calcification at the aortic knob. Cardiomegaly.
--- NOTE | 2018-08-23 09:20 | HP ---
The patient was seen and examined at the bedside on 08/22/2018. CHIEF COMPLAINT: Shortness of breath, fever, tachycardia. HISTORY OF PRESENT ILLNESS: Ms. Chloe Robledo is an 83-year-old female who [facility], started to have respiratory distress, fever, tachycardia. As per EMS, the patient's symptoms started today. Upon arrival, the patient was hypertensive, lethargic, tachycardic, blood pressure was in the 80s, and not responding to any type of stimuli; 20 g saline lock inserted in the field at 500 mL and that was administrated. The patient is a DNR/DNI. Upon arrival, the patient's systolic blood pressure dropped to 77. The patient's nephew and family requested the patient to be brought to [facility] because the patient was admitted last time at [facility]. The patient's oxygenation was at 80% on a rebreather mask. Spoke to ER physician, rn staffing Dr. Sabillon, and the patient's nephew, Vin. Even the patient is DNR/DNI, but nephew wants us to treat the treatable causes like pneumonia. He wants to give antibiotics. As per his request, the patient is admitted to the unit and getting antibiotics. PAST MEDICAL HISTORY: Hypertension, cholelithiasis, ovarian tumor, history of sepsis. FAMILY HISTORY: Father and mother, noncontributory. HABITS: Never smoked. No drugs. No ethanol. PHYSICAL EXAMINATION: VITAL SIGNS: Pulse 114, blood pressure 105/57 finally, respiratory rate 31, T-max 102.9. GENERAL: The patient is sleepy, arousable, getting oxygen with VentiMask. HEENT: Head normocephalic, atraumatic. Eyes closed. Nose patent. Mucous membranes moist. NECK: Supple. No carotid bruit, JVD, or thyromegaly. CHEST: Bilaterally symmetrical. HEART: S1, S2 positive. LUNGS: Poor air entry. ABDOMEN: Soft. Bowel sounds present. No organomegaly. EXTREMITIES: No edema. No cyanosis. NEUROLOGIC: It is hard to do complete evaluation neurologically because of the patient's status. LABORATORY DATA: White blood cell is 34.7, hemoglobin 9.5, hematocrit 32.6, platelets 684. Sodium 142, potassium 4.4, BUN 27, creatinine 1.8, glucose 178. ASSESSMENT AND PLAN: Ms. Chloe Robledo is an 83-year-old lady with leukocytosis, anemia, thrombocytosis, renal insufficiency, hyperglycemia, hypocalcemia, hyperphosphatemia, abnormal liver function tests, central line put by Dr. Rivera , seen by rn staffing Dr. Aníbal Sabillon. THE PATIENT IS ALLERGIC WITH PENICILLIN. The patient had septic shock, cholecystitis, bacteremia, dehydration, and dementia. Nephew, Vin requested to be treated with antibiotics for sepsis with the help of BiPAP but not intubated, no CPR. Dr. Sabillon and myself explained to the patient's nephew very well about the chances. Central line was put. Gastrointestinal, deep venous thrombosis prophylaxis given. Blood cultures and urine cultures done. Called consult with Dr. Curry Ureña. The patient is [id number] and [id number]. Gastrointestinal, deep venous thrombosis prophylaxis. Giving antibiotics and hydration. We will follow up. Donna Wallace MD MTDD
[2018-08-23] MEDS ORDERED: AMIKACIN IV ONE (10:00)
[2018-08-23] MEDS ORDERED: SODIUM CHLORIDE 0.9% IV ONE (10:00)
[2018-08-23 10:46] LABS: ARTERIAL BLOOD GAS HCO3 17.7 mmol/L (21-28); ARTERIAL BLOOD GAS O2 SAT 88.5 % (95-98); ARTERIAL BLOOD GAS PCO2 59 mm/Hg (35-45); ARTERIAL BLOOD GAS PH 7.16 (7.35-7.45); ARTERIAL BLOOD GAS PO2 50 mm/Hg (80-100); ARTERIAL BLOOD GAS TCO2 22.8 mmol/L (22-28)
--- NOTE | 2018-08-23 11:47 | RAD ---
HISTORY: CHF COMPARISON: Chest x-ray performed 08/22/18 TECHNIQUE: Chest, one view. FINDINGS: Left IJ approach central venous catheter is no longer identified with distal tip at the cavoatrial junction, now crossing midline with distal tip directed superiorly. LUNGS: Moderate right and small left pleural effusions and associated consolidations. [id number] pulmonary venous congestion. No definite pneumothorax. CARDIOVASCULAR: Cardiomegaly. Dense atherosclerotic calcifications of the aorta. OSSEOUS STRUCTURES: Osseous demineralization. Degenerative changes. VISUALIZED UPPER ABDOMEN: Unremarkable. OTHER FINDINGS: None. IMPRESSION: Left IJ approach central venous catheter is no longer identified with distal tip at the cavoatrial junction, now crossing midline with distal tip directed superiorly. Recommend removal/repositioning. Moderate right and small left pleural effusions and associated consolidations. [id number] pulmonary venous congestion. Findings discussed with DR. Kennedy on 09/12/18 at 11:39 a.m.
[2018-08-23] MEDS ORDERED: Glucagon Recombinant 1 mg Inj IM PRN (12:09)
[2018-08-23] MEDS ORDERED: Dextrose 50% SYRINGE Inj (50 ml) IV PRN (12:09)
[2018-08-23] MEDS: (Novolin R) Insulin Human Regular 100 units/ml vial SC SCH ×3 (12:33→22:00)
--- NOTE | 2018-08-23 12:38 | US ---
HISTORY: r/o biliary obstruction COMPARISON: CT abdomen and pelvis without contrast performed 08/02/18, MRCP performed 08/04/18 TECHNIQUE: Sonographic evaluation of the abdomen. FINDINGS: LIVER: Measures 15.1 cm in sagittal dimension. Echogenic liver may be seen in setting of hepatic parenchymal disease or fatty infiltration. No focal hepatic mass identified. The main portal vein appears patent with normal directional flow. Intrahepatic bile duct dilatation. GALLBLADDER: Gallbladder distension. 3 cm gallstone. No gallbladder wall thickening. Negative sonographic Hawkins's sign as assessed by the cpa tax. COMMON BILE DUCT: Measures 1.5 cm. PANCREAS: Not well visualized. RIGHT KIDNEY: Measures 7.7 x 4.2 x 4.7 cm. No obstructing calculus or hydronephrosis. 1.6 x 1.8 x 1.9 cm midpole cyst. LEFT KIDNEY: Measures 8.0 x 4.5 x 3.7 cm. No obstructing calculus or hydronephrosis identified. SPLEEN: Measures approximately 7.7 cm. AORTA: Limited views appear unremarkable. IVC: Limited views appear unremarkable. OTHER FINDINGS: Incidental note is made of left-sided pleural effusion. IMPRESSION: Echogenic liver may be seen in setting of hepatic parenchymal disease or fatty infiltration. Gallbladder distension. Cholelithiasis. Negative sonographic Hawkins's sign as assessed by the cpa tax. Dilated common bile duct and intrahepatic biliary ducts. 1.9 cm right midpole renal cyst. Left pleural effusion.
--- NOTE | 2018-08-23 14:06 | CP.PCM.PN ---
Subjective - Date & Time of Evaluation Date of Evaluation: 08/23/18 Time of Evaluation: 02:00 - Subjective Subjective: dictated Objective - Vital Signs/Intake and Output Vital Signs (last 24 hours): Temp Pulse Resp BP Pulse Ox 98.5 F 115 H 29 H 70/39 L 88 L 08/23/18 08:00 08/23/18 12:21 08/23/18 12:21 08/23/18 12:21 08/23/18 12:21 Intake and Output: 08/23/18 08/23/18 06:59 18:59 Intake Total 2376.9 1110.1 Output Total 35 0 Balance 2341.9 1110.1 - Medications Medications: Current Medications Dextrose (Dextrose 50% Inj) 0 ml IV STAT PRN; Protocol PRN Reason: Hypoglycemia Protocol Dextrose (Glutose 15) 0 gm PO ONCE PRN; Protocol PRN Reason: Hypoglycemia Protocol Glucagon (Glucagen Diagnostic Kit) 0 mg IM STAT PRN; Protocol PRN Reason: Hypoglycemia Protocol Heparin Sodium (Porcine) (Heparin) 5,000 units SC Q8 MILADY Last Admin: 08/23/18 14:05 Dose: 5,000 units Hydrocortisone Sodium Succinate (Solu-Cortef) 100 mg IV Q8H MILADY Last Admin: 08/23/18 11:44 Dose: 100 mg Norepinephrine Bitartrate 8 mg (/ Dextrose) 258 mls @ 7.74 mls/hr IV .Q24H PRN; Protocol PRN Reason: TITRATE PER MD ORDER Last Admin: 08/23/18 08:20 Dose: 20 mcg/min, 38.7 mls/hr Vancomycin HCl 750 mg/ Sodium (Chloride) 250 mls @ 166.6 mls/hr IVPB Q12H MILADY; Protocol Last Admin: 08/23/18 07:38 Dose: 166.6 mls/hr Lactated Ringer's (Lactated Ringer's) 1,000 mls @ 100 mls/hr IV .Q10H MILADY Last Admin: 08/23/18 05:30 Dose: 100 mls/hr Aztreonam 1 gm/ Sodium (Chloride) 100 mls @ 100 mls/hr IVPB Q12H MILADY; Protocol Dextrose (Dextrose 5% In Water 1000 Ml) 1,000 mls @ 0 mls/hr IV .Q0M PRN; Pro tocol PRN Reason: Hypoglycemia Protocol Meropenem 500 mg/ Sodium (Chloride) 100 mls @ 100 mls/hr IVPB Q8H MILADY; Protocol Insulin Human Regular (Novolin R) 0 unit SC ACHS MILADY; Protocol Last Admin: 08/23/18 12:33 Dose: 3 units Thiamine HCl (Vitamin B1 Inj) 200 mg IV Q8H MILADY Last Admin: 08/23/18 11:44 Dose: 200 mg - Labs Labs: 08/23/18 05:52 08/23/18 05:52 PT 13.6 SECONDS (9.7-12.2) H 08/22/18 10:33 INR 1.2 08/22/18 10:33 APTT 31 SECONDS (21-34) 08/22/18 10:33
--- NOTE | 2018-08-23 14:08 | CP.PCM.CON ---
History of Present Illness - History of Present Illness History of Present Illness: dictated Past Patient History - Infectious Disease Hx of Infectious Diseases: None - Tetanus Immunizations Tetanus Immunization: Unknown - Past Medical History & Family History Past Medical History?: No - Past Social History Smoking Status: Never Smoked - CARDIAC Hx Hypertension: Yes - HEENT Other/Comment: [place] - MUSCULOSKELETAL/RHEUMATOLOGICAL Hx Falls: Yes - GENITOURINARY/GYNECOLOGICAL Hx Sexually Transmitted Disorders: No - PSYCHIATRIC Hx Substance Use: No - SURGICAL HISTORY Hx Surgeries: No - ANESTHESIA Hx Anesthesia: No Meds Allergies/Adverse Reactions: Allergies Allergy/AdvReac Type Severity Reaction Status Date / Time Penicillins Allergy Verified 08/22/18 10:25 - Medications Medications: Current Medications Dextrose (Dextrose 50% Inj) 0 ml IV STAT PRN; Protocol PRN Reason: Hypoglycemia Protocol Dextrose (Glutose 15) 0 gm PO ONCE PRN; Protocol PRN Reason: Hypoglycemia Protocol Glucagon (Glucagen Diagnostic Kit) 0 mg IM STAT PRN; Protocol PRN Reason: Hypoglycemia Protocol Heparin Sodium (Porcine) (Heparin) 5,000 units SC Q8 MILADY Last Admin: 08/23/18 14:05 Dose: 5,000 units Hydrocortisone Sodium Succinate (Solu-Cortef) 100 mg IV Q8H MILADY Last Admin: 08/23/18 11:44 Dose: 100 mg Norepinephrine Bitartrate 8 mg (/ Dextrose) 258 mls @ 7.74 mls/hr IV .Q24H PRN; Protocol PRN Reason: TITRATE PER MD ORDER Last Admin: 08/23/18 08:20 Dose: 20 mcg/min, 38.7 mls/hr Vancomycin HCl 750 mg/ Sodium (Chloride) 250 mls @ 166.6 mls/hr IVPB Q12H MILADY; Protocol Last Admin: 08/23/18 07:38 Dose: 166.6 mls/hr Lactated Ringer's (Lactated Ringer's) 1,000 mls @ 100 mls/hr IV .Q10H MILADY Last Admin: 08/23/18 05:30 Dose: 100 mls/hr Aztreonam 1 gm/ Sodium (Chloride) 100 mls @ 100 mls/hr IVPB Q12H MILADY; Protocol Dextrose (Dextrose 5% In Water 1000 Ml) 1,000 mls @ 0 mls/hr IV .Q0M PRN; Protocol PRN Reason: Hypoglycemia Protocol Meropenem 500 mg/ Sodium (Chloride) 100 mls @ 100 mls/hr IVPB Q8H MILADY; Protocol Insulin Human Regular (Novolin R) 0 unit SC ACHS MILADY; Protocol Last Admin: 08/23/18 12:33 Dose: 3 units Thiamine HCl (Vitamin B1 Inj) 200 mg IV Q8H MILADY Last Admin: 08/23/18 11:44 Dose: 200 mg Results - Vital Signs Recent Vital Signs: Last Vital Signs Temp 98.5 F 08/23/18 08:00 Pulse 115 H 08/23/18 12:21 Resp 29 H 08/23/18 12:21 BP 70/39 L 08/23/18 12:21 Pulse Ox 88 L 08/23/18 12:21 - Labs Result Diagrams: 08/23/18 05:52 08/23/18 05:52 Labs: Laboratory Results - last 24 hr 08/22/18 08/22/18 08/22/18 18:55 19:01 19:01 WBC 34.7 H RBC 3.64 L Hgb 9.5 L Hct 32.6 L MCV 89.7 D MCH 26.0 L MCHC 29.1 L RDW 19.2 H Plt Count 683 H MPV 11.3 Neut % (Auto) 93.7 H Lymph % (Auto) 3.2 L [place] % (Auto) 2.1 Eos % (Auto) 0.2 Baso % (Auto) 0.8 Neut # (Auto) 32.5 H Lymph # (Auto) 1.1 [place] # (Auto) 0.7 Eos # (Auto) 0.1 Baso # (Auto) 0.3 H Neutrophils % (Manual) 53 Band Neutrophils % 34 H* Lymphocytes % (Manual) 2 L Monocytes % (Manual) 1 Basophils % (Manual) Metamyelocytes % 6 H Myelocytes % 4 H Toxic Granulation Platelet Estimate Markedly increased H Plt Clumps, EDTA Present Large Platelets Giant Platelets Hypochromasia (manual) Slight Poikilocytosis (manual Slight Basophilic Stippling Anisocytosis (manual) Slight Target Cells Puncture Site pCO2 pO2 32 HCO3 ABG pH ABG Total CO2 ABG O2 Saturation ABG Base Excess New Test ABG Potassium VBG pH 7.23 L VBG pCO2 60 VBG HCO3 20.9 VBG Total CO2 26.9 VBG O2 Sat (Calc) 68.3 H VBG Base Excess -3.5 L VBG Potassium 4.2 A-a O2 Difference Respiratory Index Sodium 144.0 142 Chloride 111.0 H 107 Glucose 172 H Lactate 3.0 H FiO2 100.0 Inspiratory BiPAP Expiratory BiPAP Crit Value Called To Crit Value Called By Crit Value Read Back Blood Gas Notified Time Potassium 4.4 Carbon Dioxide 27 Anion Gap 12 BUN 27 H Creatinine 1.8 H Est GFR ( Amer) 32 Est GFR (Non-Af Amer) 27 POC Glucose (mg/dL) Random Glucose 178 H D Lactic Acid Calcium 7.7 L Phosphorus 5.0 H Magnesium 1.8 Total Bilirubin 4.9 H AST 443 H ALT 230 H D Alkaline Phosphatase 937 H Total Protein 5.3 L Albumin 2.8 L Globulin 2.5 Albumin/Globulin Ratio 1.1 Arterial Blood Potassium Venous Blood Potassium 4.2 Random Vancomycin 08/22/18 08/23/18 08/23/18 23:53 05:51 05:52 WBC 32.3 H RBC 3.40 L Hgb 9.0 L Hct 30.3 L MCV 89.2 MCH 26.6 L MCHC 29.8 L RDW 19.3 H Plt Count 591 H MPV 11.8 H Neut % (Auto) 91.2 H Lymph % (Auto) 5.5 L [place] % (Auto) 2.7 Eos % (Auto) 0.4 Baso % (Auto) 0.2 Neut # (Auto) 29.5 H Lymph # (Auto) 1.8 [place] # (Auto) 0.9 H Eos # (Auto) 0.1 Baso # (Auto) 0.1 Neutrophils % (Manual) 69 Band Neutrophils % 27 H* Lymphocytes % (Manual) 1 L Monocytes % (Manual) 2 Basophils % (Manual) 1 Metamyelocytes % Myelocytes % Toxic Granulation Present Platelet Estimate Markedly increased H Plt Clumps, EDTA Large Platelets Present Giant Platelets Present Hypochromasia (manual) Slight Poikilocytosis (manual Slight Basophilic Stippling Slight Anisocytosis (manual) Slight Target Cells Slight Puncture Site pCO2 pO2 HCO3 ABG pH ABG Total CO2 ABG O2 Saturation ABG Base Excess New Test ABG Potassium VBG pH VBG pCO2 VBG HCO3 VBG Total CO2 VBG O2 Sat (Calc) VBG Base Excess VBG Potassium A-a O2 Difference Respiratory Index Sodium Chloride Glucose Lactate FiO2 Inspiratory BiPAP Expiratory BiPAP Crit Value Called To Crit Value Called By Crit Value Read Back Blood Gas Notified Time Potassium Carbon Dioxide Anion Gap BUN Creatinine Est GFR ( Amer) Est GFR (Non-Af Amer) POC Glucose (mg/dL) Random Glucose Lactic Acid 3.7 H 3.1 H Calcium Phosphorus Magnesium Total Bilirubin AST ALT Alkaline Phosphatase Total Protein Albumin Globulin Albumin/Globulin Ratio Arterial Blood Potassium Venous Blood Potassium Random Vancomycin 08/23/18 08/23/18 08/23/18 05:52 07:51 10:02 WBC RBC Hgb Hct MCV MCH MCHC RDW Plt Count MPV Neut % (Auto) Lymph % (Auto) [place] % (Auto) Eos % (Auto) Baso % (Auto) Neut # (Auto) Lymph # (Auto) [place] # (Auto) Eos # (Auto) Baso # (Auto) Neutrophils % (Manual) Band Neutrophils % Lymphocytes % (Manual) Monocytes % (Manual) Basophils % (Manual) Metamyelocytes % Myelocytes % Toxic Granulation Platelet Estimate Plt Clumps, EDTA Large Platelets Giant Platelets Hypochromasia (manual) Poikilocytosis (manual Basophilic Stippling Anisocytosis (manual) Target Cells Puncture Site pCO2 pO2 HCO3 ABG pH ABG Total CO2 ABG O2 Saturation ABG Base Excess New Test ABG Potassium VBG pH VBG pCO2 VBG HCO3 VBG Total CO2 VBG O2 Sat (Calc) VBG Base Excess VBG Potassium A-a O2 Difference Respiratory Index Sodium 141 Chloride 105 Glucose Lactate FiO2 Inspiratory BiPAP Expiratory BiPAP Crit Value Called To Crit Value Called By Crit Value Read Back Blood Gas Notified Time Potassium 4.5 Carbon Dioxide 27 Anion Gap 13 BUN 34 H Creatinine 1.9 H Est GFR ( Amer) 30 Est GFR (Non-Af Amer) 25 POC Glucose (mg/dL) Random Glucose 193 H Lactic Acid 3.0 H Calcium 7.7 L Phosphorus 5.2 H Magnesium 1.9 Total Bilirubin 4.8 H AST 313 H D ALT 209 H Alkaline Phosphatase 886 H Total Protein 5.3 L Albumin 2.7 L Globulin 2.6 Albumin/Globulin Ratio 1.0 Arterial Blood Potassium Venous Blood Potassium Random Vancomycin 21.9 08/23/18 08/23/18 10:39 11:45 WBC RBC Hgb Hct MCV MCH MCHC RDW Plt Count MPV Neut % (Auto) Lymph % (Auto) [place] % (Auto) Eos % (Auto) Baso % (Auto) Neut # (Auto) Lymph # (Auto) [place] # (Auto) Eos # (Auto) Baso # (Auto) Neutrophils % (Manual) Band Neutrophils % Lymphocytes % (Manual) Monocytes % (Manual) Basophils % (Manual) Metamyelocytes % Myelocytes % Toxic Granulation Platelet Estimate Plt Clumps, EDTA Large Platelets Giant Platelets Hypochromasia (manual) Poikilocytosis (manual Basophilic Stippling Anisocytosis (manual) Target Cells Puncture Site L/b pCO2 59 H pO2 50 L HCO3 17.7 L ABG pH 7.16 L* ABG Total CO2 22.8 ABG O2 Saturation 88.5 L ABG Base Excess -8.4 L New Test Na ABG Potassium 4.4 VBG pH VBG pCO2 VBG HCO3 VBG Total CO2 VBG O2 Sat (Calc) VBG Base Excess VBG Potassium A-a O2 Difference 589.0 Respiratory Index 11.8 Sodium 140.0 Chloride 109.0 H Glucose 190 H Lactate 3.0 H FiO2 100.0 Inspiratory BiPAP 12 Expiratory BiPAP 6 Crit Value Called To Dr strange Crit Value Called By Chi rogers Crit Value Read Back Y Blood Gas Notified Time 1048 Potassium Carbon Dioxide Anion Gap BUN Creatinine Est GFR ( Amer) Est GFR (Non-Af Amer) POC Glucose (mg/dL) 243 H Random Glucose Lactic Acid Calcium Phosphorus Magnesium Total Bilirubin AST ALT Alkaline Phosphatase Total Protein Albumin Globulin Albumin/Globulin Ratio Arterial Blood Potassium 4.4 Venous Blood Potassium Random Vancomycin
[2018-08-23] MEDS ORDERED: Sodium Chloride 0.9% 1,000 ML IV ONE (14:20)
[2018-08-23] MEDS ORDERED: Sodium Bicarbonate (8.4%) 50 Meq Syringe IVP ONE (14:30)
[2018-08-23] MEDS: Meropenem 500 MG in Sodium Chloride 0.9% 100 ML IVPB SCH ×2 (15:26→22:02)
[2018-08-23] MEDS ORDERED: Aztreonam 1 GM in Sodium Chloride 0.9% 100 ML IVPB SCH (15:30)
--- NOTE | 2018-08-23 16:07 | CP.CCUPN ---
CCU Subjective - Physician Review Subjective (Free Text): PGY-[address] progress note for Dr Sawant service Patient is seen and examined at bedside. Patient is lethargic, arousable to verbal stimuli. Bipap in place. ROS unattainable at this time. Critical Care Time Spent (in minutes): 40 CCU Objective - Vital Signs / Intake & Output Vital Signs (Last 4 hours): Vital Signs Temp Pulse Resp BP Pulse Ox 08/23/18 14:23 112 H 28 H 66/32 L 88 L 08/23/18 14:15 114 H 08/23/18 14:00 113 H 30 H 88 L 08/23/18 13:21 114 H 30 H 69/37 L 87 L 08/23/18 13:00 112 H 29 H 89 L 08/23/18 12:21 115 H 29 H 70/39 L 88 L 08/23/18 12:00 98.2 F 115 H 28 H 88 L 08/23/18 11:50 111 H Intake and Output (Last 8hrs): Intake & Output 08/23/18 08/23/18 08/23/18 06:59 14:59 22:59 Intake Total 1533.0 1247.6 Output Total 5 0 Balance 1528.0 1247.6 Weight 119 lb 0.794 oz Intake: IV 141 155 Intake, IV Amount 1392.0 1092.6 Left Distal Port Internal 350 Jugular Left Medial Port Internal 800 800 Jugular Left Proximal Port 242.0 292.6 Internal Jugular Output: Urine 5 0 Urethral (Mojica) 5 0 Other: # Bowel Movements 1 1 - Physical Exam Head: Positive for: Atraumatic, Normocephalic Pupils: Positive for: PERRL Conjunctiva: Positive for: Normal Mouth: Positive for: Dry Respiratory/Chest: Positive for: Rales, Rhonchi Cardiovascular: Positive for: Normal S1, S2, Tachycardic Abdomen: Positive for: Tenderness, Distention. Negative for: Normal Bowel Sounds Upper Extremity: Positive for: Normal Inspection Lower Extremity: Positive for: Normal Inspection, Edema Psychiatric: Negative for: Alert, Oriented x 3, Normal Insight, Normal Concentration - Medications Active Medications: Active Medications Generic Name Dose Route Start Last Admin Trade Name Freq PRN Reason Stop Dose Admin Dextrose 0 ml 08/23/18 12:09 Dextrose 50% Inj IV STAT PRN Hypoglycemia Protocol Protocol Dextrose 0 gm 08/23/18 12:09 Glutose 15 PO ONCE PRN Hypoglycemia Protocol Protocol Glucagon 0 mg 08/23/18 12:09 Glucagen Diagnostic Kit IM STAT PRN Hypoglycemia Protocol Protocol Heparin Sodium (Porcine) 5,000 units 08/22/18 22:00 08/23/18 14:05 Heparin SC 5,000 units Q8 MILADY Administration Hydrocortisone Sodium Succinate 100 mg 08/22/18 19:30 08/23/18 11:44 Solu-Cortef IV 100 mg Q8H MILADY Administration Norepinephrine Bitartrate 8 mg 258 mls @ 7.74 mls/hr 08/22/18 10:59 08/23/18 08:20 / Dextrose IV 20 mcg/min .Q24H PRN 38.7 mls/hr TITRATE PER MD ORDER Administration Protocol 4 MCG/MIN Vancomycin HCl 750 mg/ Sodium 250 mls @ 166.6 mls/hr 08/22/18 20:30 08/23/18 07:38 Chloride IVPB 166.6 mls/hr Q12H MILADY Administration Protocol Lactated Ringer's 1,000 mls @ 100 mls/hr 08/22/18 18:45 08/23/18 05:30 Lactated Ringer's IV 100 mls/hr .Q10H MILADY Administration Aztreonam 1 gm/ Sodium 100 mls @ 100 mls/hr 08/23/18 15:30 08/23/18 14:29 Chloride IVPB 100 mls/hr Q12H MILADY Administration Protocol Dextrose 1,000 mls @ 0 mls/hr 08/23/18 12:09 Dextrose 5% In Water 1000 Ml IV .Q0M PRN Hypoglycemia Protocol Protocol Per Protocol Meropenem 500 mg/ Sodium 100 mls @ 100 mls/hr 08/23/18 15:00 08/23/18 15:26 Chloride IVPB 100 mls/hr Q8H MILADY Administration Protocol Insulin Human Regular 0 unit 08/23/18 12:30 08/23/18 12:33 Novolin R SC 3 units ACHS MILADY Administration Protocol Thiamine HCl 200 mg 08/22/18 19:30 08/23/18 11:44 Vitamin B1 Inj IV 200 mg Q8H MILADY Administration - Patient Studies Lab Studies: Microbiology Studies 08/22/18 11:47 Urine Culture - Final Urine,Catheterized No Growth (<1,000 CFU/ML) 08/22/18 11:14 Blood Culture - Preliminary Blood Gram Negative Juan Gram Stain - Final 08/22/18 10:55 Blood Culture - Preliminary Blood Gram Negative Juan Gram Stain - Final Lab Studies 08/23/18 08/23/18 08/23/18 Range/Units 11:45 10:39 10:02 WBC (4.8-10.8) K/uL RBC (3.80-5.20) Mil/uL Hgb (11.0-16.0) g/dL Hct (34.0-47.0) % MCV (81.0-99.0) fL MCH (27.0-31.0) pg MCHC (33.0-37.0) g/dL RDW (11.5-14.5) % Plt Count (130-400) K/uL MPV (7.2-11.7) fL Neut % (Auto) (50.0-75.0) % Lymph % (Auto) (20.0-40.0) % Coke % (Auto) (0.0-10.0) % Eos % (Auto) (0.0-4.0) % Baso % (Auto) (0.0-2.0) % Neut # (Auto) (1.8-7.0) K/uL Lymph # (Auto) (1.0-4.3) K/uL Coke # (Auto) (0.0-0.8) K/uL Eos # (Auto) (0.0-0.7) K/uL Baso # (Auto) (0.0-0.2) K/uL Neutrophils % (Manual) (50-75) % Band Neutrophils % (0-2) % Lymphocytes % (Manual) (20-40) % Monocytes % (Manual) (0-10) % Basophils % (Manual) (0-2) % Metamyelocytes % (0-0) % Myelocytes % (0-0) % Toxic Granulation Platelet Estimate (NORMAL) Plt Clumps, EDTA Large Platelets Giant Platelets Hypochromasia (manual) Poikilocytosis (manual Basophilic Stippling Anisocytosis (manual) Target Cells Puncture Site L/b pCO2 59 H (35-45) mm/Hg pO2 50 L (30-55) mm/Hg HCO3 17.7 L (21-28) mmol/L ABG pH 7.16 L* (7.35-7.45) ABG Total CO2 22.8 (22-28) mmol/L ABG O2 Saturation 88.5 L (95-98) % ABG Base Excess -8.4 L (-2.0-3.0) mmol/L New Test Na ABG Potassium 4.4 (3.6-5.2) mmol/L VBG pH (7.32-7.43) VBG pCO2 (40-60) mmHg VBG HCO3 mmol/L VBG Total CO2 (22-28) mmol/L VBG O2 Sat (Calc) (40-65) % VBG Base Excess (0.0-2.0) mmol/L VBG Potassium (3.6-5.2) mmol/L A-a O2 Difference 589.0 mm/Hg Respiratory Index 11.8 Sodium 140.0 (132-148) mmol/l Chloride 109.0 H (98-107) mmol/L Glucose 190 H (65-105) mg/dl Lactate 3.0 H (0.7-2.1) mmol/L FiO2 100.0 % Inspiratory BiPAP 12 Expiratory BiPAP 6 Crit Value Called To Dr strange Crit Value Called By Chi rogers Crit Value Read Back Y Blood Gas Notified Time 1048 Potassium (3.6-5.2) mmol/L Carbon Dioxide (22-30) mmol/L Anion Gap (10-20) BUN (7-17) mg/dL Creatinine (0.7-1.2) mg/dL Est GFR ( Amer) Est GFR (Non-Af Amer) POC Glucose (mg/dL) 243 H (65-110) mg/dL Random Glucose (65-105) mg/dL Lactic Acid (0.7-2.1) mmol/L Calcium (8.6-10.4) mg/dl Phosphorus (2.5-4.5) mg/dL Magnesium (1.6-2.3) mg/dL Total Bilirubin (0.2-1.3) mg/dL AST (14-36) U/L ALT (9-52) U/L Alkaline Phosphatase (38-126) U/L Total Protein (6.3-8.3) g/dL Albumin (3.5-5.0) g/dL Globulin (2.2-3.9) gm/dL Albumin/Globulin Ratio (1.0-2.1) Arterial Blood Potassium 4.4 (3.6-5.2) mmol/L Venous Blood Potassium (3.6-5.2) mmol/L Random Vancomycin 21.9 ug/mL 08/23/18 08/23/18 08/23/18 Range/Units 07:51 05:52 05:52 WBC 32.3 H (4.8-10.8) K/uL RBC 3.40 L (3.80-5.20) Mil/uL Hgb 9.0 L (11.0-16.0) g/dL Hct 30.3 L (34.0-47.0) % MCV 89.2 (81.0-99.0) fL MCH 26.6 L (27.0-31.0) pg MCHC 29.8 L (33.0-37.0) g/dL RDW 19.3 H (11.5-14.5) % Plt Count 591 H (130-400) K/uL MPV 11.8 H (7.2-11.7) fL Neut % (Auto) 91.2 H (50.0-75.0) % Lymph % (Auto) 5.5 L (20.0-40.0) % Coke % (Auto) 2.7 (0.0-10.0) % Eos % (Auto) 0.4 (0.0-4.0) % Baso % (Auto) 0.2 (0.0-2.0) % Neut # (Auto) 29.5 H (1.8-7.0) K/uL Lymph # (Auto) 1.8 (1.0-4.3) K/uL Coke # (Auto) 0.9 H (0.0-0.8) K/uL Eos # (Auto) 0.1 (0.0-0.7) K/uL Baso # (Auto) 0.1 (0.0-0.2) K/uL Neutrophils % (Manual) 69 (50-75) % Band Neutrophils % 27 H* (0-2) % Lymphocytes % (Manual) 1 L (20-40) % Monocytes % (Manual) 2 (0-10) % Basophils % (Manual) 1 (0-2) % Metamyelocytes % (0-0) % Myelocytes % (0-0) % Toxic Granulation Present Platelet Estimate Markedly increased H (NORMAL) Plt Clumps, EDTA Large Platelets Present Giant Platelets Present Hypochromasia (manual) Slight Poikilocytosis (manual Slight Basophilic Stippling Slight Anisocytosis (manual) Slight Target Cells Slight Puncture Site pCO2 (35-45) mm/Hg pO2 (30-55) mm/Hg HCO3 (21-28) mmol/L ABG pH (7.35-7.45) ABG Total CO2 (22-28) mmol/L ABG O2 Saturation (95-98) % ABG Base Excess (-2.0-3.0) mmol/L New Test ABG Potassium (3.6-5.2) mmol/L VBG pH (7.32-7.43) VBG pCO2 (40-60) mmHg VBG HCO3 mmol/L VBG Total CO2 (22-28) mmol/L VBG O2 Sat (Calc) (40-65) % VBG Base Excess (0.0-2.0) mmol/L VBG Potassium (3.6-5.2) mmol/L A-a O2 Difference mm/Hg Respiratory Index Sodium 141 (132-148) mmol/l Chloride 105 (98-107) mmol/L Glucose (65-105) mg/dl Lactate (0.7-2.1) mmol/L FiO2 % Inspiratory BiPAP Expiratory BiPAP Crit Value Called To Crit Value Called By Crit Value Read Back Blood Gas Notified Time Potassium 4.5 (3.6-5.2) mmol/L Carbon Dioxide 27 (22-30) mmol/L Anion Gap 13 (10-20) BUN 34 H (7-17) mg/dL Creatinine 1.9 H (0.7-1.2) mg/dL Est GFR ( Amer) 30 Est GFR (Non-Af Amer) 25 POC Glucose (mg/dL) (65-110) mg/dL Random Glucose 193 H (65-105) mg/dL Lactic Acid 3.0 H (0.7-2.1) mmol/L Calcium 7.7 L (8.6-10.4) mg/dl Phosphorus 5.2 H (2.5-4.5) mg/dL Magnesium 1.9 (1.6-2.3) mg/dL Total Bilirubin 4.8 H (0.2-1.3) mg/dL AST 313 H D (14-36) U/L ALT 209 H (9-52) U/L Alkaline Phosphatase 886 H (38-126) U/L Total Protein 5.3 L (6.3-8.3) g/dL Albumin 2.7 L (3.5-5.0) g/dL Globulin 2.6 (2.2-3.9) gm/dL Albumin/Globulin Ratio 1.0 (1.0-2.1) Arterial Blood Potassium (3.6-5.2) mmol/L Venous Blood Potassium (3.6-5.2) mmol/L Random Vancomycin ug/mL 08/23/18 08/22/18 08/22/18 Range/Units 05:51 23:53 19:01 WBC (4.8-10.8) K/uL RBC (3.80-5.20) Mil/uL Hgb (11.0-16.0) g/dL Hct (34.0-47.0) % MCV (81.0-99.0) fL MCH (27.0-31.0) pg MCHC (33.0-37.0) g/dL RDW (11.5-14.5) % Plt Count (130-400) K/uL MPV (7.2-11.7) fL Neut % (Auto) (50.0-75.0) % Lymph % (Auto) (20.0-40.0) % Coke % (Auto) (0.0-10.0) % Eos % (Auto) (0.0-4.0) % Baso % (Auto) (0.0-2.0) % Neut # (Auto) (1.8-7.0) K/uL Lymph # (Auto) (1.0-4.3) K/uL Coke # (Auto) (0.0-0.8) K/uL Eos # (Auto) (0.0-0.7) K/uL Baso # (Auto) (0.0-0.2) K/uL Neutrophils % (Manual) (50-75) % Band Neutrophils % (0-2) % Lymphocytes % (Manual) (20-40) % Monocytes % (Manual) (0-10) % Basophils % (Manual) (0-2) % Metamyelocytes % (0-0) % Myelocytes % (0-0) % Toxic Granulation Platelet Estimate (NORMAL) Plt Clumps, EDTA Large Platelets Giant Platelets Hypochromasia (manual) Poikilocytosis (manual Basophilic Stippling Anisocytosis (manual) Target Cells Puncture Site pCO2 (35-45) mm/Hg pO2 (30-55) mm/Hg HCO3 (21-28) mmol/L ABG pH (7.35-7.45) ABG Total CO2 (22-28) mmol/L ABG O2 Saturation (95-98) % ABG Base Excess (-2.0-3.0) mmol/L New Test ABG Potassium (3.6-5.2) mmol/L VBG pH (7.32-7.43) VBG pCO2 (40-60) mmHg VBG HCO3 mmol/L VBG Total CO2 (22-28) mmol/L VBG O2 Sat (Calc) (40-65) % VBG Base Excess (0.0-2.0) mmol/L VBG Potassium (3.6-5.2) mmol/L A-a O2 Difference mm/Hg Respiratory Index Sodium 142 (132-148) mmol/l Chloride 107 (98-107) mmol/L Glucose (65-105) mg/dl Lactate (0.7-2.1) mmol/L FiO2 % Inspiratory BiPAP Expiratory BiPAP Crit Value Called To Crit Value Called By Crit Value Read Back Blood Gas Notified Time Potassium 4.4 (3.6-5.2) mmol/L Carbon Dioxide 27 (22-30) mmol/L Anion Gap 12 (10-20) BUN 27 H (7-17) mg/dL Creatinine 1.8 H (0.7-1.2) mg/dL Est GFR ( Amer) 32 Est GFR (Non-Af Amer) 27 POC Glucose (mg/dL) (65-110) mg/dL Random Glucose 178 H D (65-105) mg/dL Lactic Acid 3.1 H 3.7 H (0.7-2.1) mmol/L Calcium 7.7 L (8.6-10.4) mg/dl Phosphorus 5.0 H (2.5-4.5) mg/dL Magnesium 1.8 (1.6-2.3) mg/dL Total Bilirubin 4.9 H (0.2-1.3) mg/dL AST 443 H (14-36) U/L ALT 230 H D (9-52) U/L Alkaline Phosphatase 937 H (38-126) U/L Total Protein 5.3 L (6.3-8.3) g/dL Albumin 2.8 L (3.5-5.0) g/dL Globulin 2.5 (2.2-3.9) gm/dL Albumin/Globulin Ratio 1.1 (1.0-2.1) Arterial Blood Potassium (3.6-5.2) mmol/L Venous Blood Potassium (3.6-5.2) mmol/L Random Vancomycin ug/mL 08/22/18 08/22/18 Range/Units 19:01 18:55 WBC 34.7 H (4.8-10.8) K/uL RBC 3.64 L (3.80-5.20) Mil/uL Hgb 9.5 L (11.0-16.0) g/dL Hct 32.6 L (34.0-47.0) % MCV 89.7 D (81.0-99.0) fL MCH 26.0 L (27.0-31.0) pg MCHC 29.1 L (33.0-37.0) g/dL RDW 19.2 H (11.5-14.5) % Plt Count 683 H (130-400) K/uL MPV 11.3 (7.2-11.7) fL Neut % (Auto) 93.7 H (50.0-75.0) % Lymph % (Auto) 3.2 L (20.0-40.0) % Coke % (Auto) 2.1 (0.0-10.0) % Eos % (Auto) 0.2 (0.0-4.0) % Baso % (Auto) 0.8 (0.0-2.0) % Neut # (Auto) 32.5 H (1.8-7.0) K/uL Lymph # (Auto) 1.1 (1.0-4.3) K/uL Coke # (Auto) 0.7 (0.0-0.8) K/uL Eos # (Auto) 0.1 (0.0-0.7) K/uL Baso # (Auto) 0.3 H (0.0-0.2) K/uL Neutrophils % (Manual) 53 (50-75) % Band Neutrophils % 34 H* (0-2) % Lymphocytes % (Manual) 2 L (20-40) % Monocytes % (Manual) 1 (0-10) % Basophils % (Manual) (0-2) % Metamyelocytes % 6 H (0-0) % Myelocytes % 4 H (0-0) % Toxic Granulation Platelet Estimate Markedly increased H (NORMAL) Plt Clumps, EDTA Present Large Platelets Giant Platelets Hypochromasia (manual) Slight Poikilocytosis (manual Slight Basophilic Stippling Anisocytosis (manual) Slight Target Cells Puncture Site pCO2 (35-45) mm/Hg pO2 32 (30-55) mm/Hg HCO3 (21-28) mmol/L ABG pH (7.35-7.45) ABG Total CO2 (22-28) mmol/L ABG O2 Saturation (95-98) % ABG Base Excess (-2.0-3.0) mmol/L New Test ABG Potassium (3.6-5.2) mmol/L VBG pH 7.23 L (7.32-7.43) VBG pCO2 60 (40-60) mmHg VBG HCO3 20.9 mmol/L VBG Total CO2 26.9 (22-28) mmol/L VBG O2 Sat (Calc) 68.3 H (40-65) % VBG Base Excess -3.5 L (0.0-2.0) mmol/L VBG Potassium 4.2 (3.6-5.2) mmol/L A-a O2 Difference mm/Hg Respiratory Index Sodium 144.0 (132-148) mmol/l Chloride 111.0 H (98-107) mmol/L Glucose 172 H (65-105) mg/dl Lactate 3.0 H (0.7-2.1) mmol/L FiO2 100.0 % Inspiratory BiPAP Expiratory BiPAP Crit Value Called To Crit Value Called By Crit Value Read Back Blood Gas Notified Time Potassium (3.6-5.2) mmol/L Carbon Dioxide (22-30) mmol/L Anion Gap (10-20) BUN (7-17) mg/dL Creatinine (0.7-1.2) mg/dL Est GFR ( Amer) Est GFR (Non-Af Amer) POC Glucose (mg/dL) (65-110) mg/dL Random Glucose (65-105) mg/dL Lactic Acid (0.7-2.1) mmol/L Calcium (8.6-10.4) mg/dl Phosphorus (2.5-4.5) mg/dL Magnesium (1.6-2.3) mg/dL Total Bilirubin (0.2-1.3) mg/dL AST (14-36) U/L ALT (9-52) U/L Alkaline Phosphatase (38-126) U/L Total Protein (6.3-8.3) g/dL Albumin (3.5-5.0) g/dL Globulin (2.2-3.9) gm/dL Albumin/Globulin Ratio (1.0-2.1) Arterial Blood Potassium (3.6-5.2) mmol/L Venous Blood Potassium 4.2 (3.6-5.2) mmol/L Random Vancomycin ug/mL Laboratory Results - last 24 hr 08/22/18 08/22/18 08/22/18 18:55 19:01 19:01 WBC 34.7 H RBC 3.64 L Hgb 9.5 L Hct 32.6 L MCV 89.7 D MCH 26.0 L MCHC 29.1 L RDW 19.2 H Plt Count 683 H MPV 11.3 Neut % (Auto) 93.7 H Lymph % (Auto) 3.2 L Coke % (Auto) 2.1 Eos % (Auto) 0.2 Baso % (Auto) 0.8 Neut # (Auto) 32.5 H Lymph # (Auto) 1.1 Coke # (Auto) 0.7 Eos # (Auto) 0.1 Baso # (Auto) 0.3 H Neutrophils % (Manual) 53 Band Neutrophils % 34 H* Lymphocytes % (Manual) 2 L Monocytes % (Manual) 1 Basophils % (Manual) Metamyelocytes % 6 H Myelocytes % 4 H Toxic Granulation Platelet Estimate Markedly increased H Plt Clumps, EDTA Present Large Platelets Giant Platelets Hypochromasia (manual) Slight Poikilocytosis (manual Slight Basophilic Stippling Anisocytosis (manual) Slight Target Cells Puncture Site pCO2 pO2 32 HCO3 ABG pH ABG Total CO2 ABG O2 Saturation ABG Base Excess New Test ABG Potassium VBG pH 7.23 L VBG pCO2 60 VBG HCO3 20.9 VBG Total CO2 26.9 VBG O2 Sat (Calc) 68.3 H VBG Base Excess -3.5 L VBG Potassium 4.2 A-a O2 Difference Respiratory Index Sodium 144.0 142 Chloride 111.0 H 107 Glucose 172 H Lactate 3.0 H FiO2 100.0 Inspiratory BiPAP Expiratory BiPAP Crit Value Called To Crit Value Called By Crit Value Read Back Blood Gas Notified Time Potassium 4.4 Carbon Dioxide 27 Anion Gap 12 BUN 27 H Creatinine 1.8 H Est GFR ( Amer) 32 Est GFR (Non-Af Amer) 27 POC Glucose (mg/dL) Random Glucose 178 H D Lactic Acid Calcium 7.7 L Phosphorus 5.0 H Magnesium 1.8 Total Bilirubin 4.9 H AST 443 H ALT 230 H D Alkaline Phosphatase 937 H Total Protein 5.3 L Albumin 2.8 L Globulin 2.5 Albumin/Globulin Ratio 1.1 Arterial Blood Potassium Venous Blood Potassium 4.2 Random Vancomycin 08/22/18 08/23/18 08/23/18 23:53 05:51 05:52 WBC 32.3 H RBC 3.40 L Hgb 9.0 L Hct 30.3 L MCV 89.2 MCH 26.6 L MCHC 29.8 L RDW 19.3 H Plt Count 591 H MPV 11.8 H Neut % (Auto) 91.2 H Lymph % (Auto) 5.5 L Coke % (Auto) 2.7 Eos % (Auto) 0.4 Baso % (Auto) 0.2 Neut # (Auto) 29.5 H Lymph # (Auto) 1.8 Coke # (Auto) 0.9 H Eos # (Auto) 0.1 Baso # (Auto) 0.1 Neutrophils % (Manual) 69 Band Neutrophils % 27 H* Lymphocytes % (Manual) 1 L Monocytes % (Manual) 2 Basophils % (Manual) 1 Metamyelocytes % Myelocytes % Toxic Granulation Present Platelet Estimate Markedly increased H Plt Clumps, EDTA Large Platelets Present Giant Platelets Present Hypochromasia (manual) Slight Poikilocytosis (manual Slight Basophilic Stippling Slight Anisocytosis (manual) Slight Target Cells Slight Puncture Site pCO2 pO2 HCO3 ABG pH ABG Total CO2 ABG O2 Saturation ABG Base Excess New Test ABG Potassium VBG pH VBG pCO2 VBG HCO3 VBG Total CO2 VBG O2 Sat (Calc) VBG Base Excess VBG Potassium A-a O2 Difference Respiratory Index Sodium Chloride Glucose Lactate FiO2 Inspiratory BiPAP Expiratory BiPAP Crit Value Called To Crit Value Called By Crit Value Read Back Blood Gas Notified Time Potassium Carbon Dioxide Anion Gap BUN Creatinine Est GFR ( Amer) Est GFR (Non-Af Amer) POC Glucose (mg/dL) Random Glucose Lactic Acid 3.7 H 3.1 H Calcium Phosphorus Magnesium Total Bilirubin AST ALT Alkaline Phosphatase Total Protein Albumin Globulin Albumin/Globulin Ratio Arterial Blood Potassium Venous Blood Potassium Random Vancomycin 08/23/18 08/23/18 08/23/18 05:52 07:51 10:02 WBC RBC Hgb Hct MCV MCH MCHC RDW Plt Count MPV Neut % (Auto) Lymph % (Auto) Coke % (Auto) Eos % (Auto) Baso % (Auto) Neut # (Auto) Lymph # (Auto) Coke # (Auto) Eos # (Auto) Baso # (Auto) Neutrophils % (Manual) Band Neutrophils % Lymphocytes % (Manual) Monocytes % (Manual) Basophils % (Manual) Metamyelocytes % Myelocytes % Toxic Granulation Platelet Estimate Plt Clumps, EDTA Large Platelets Giant Platelets Hypochromasia (manual) Poikilocytosis (manual Basophilic Stippling Anisocytosis (manual) Target Cells Puncture Site pCO2 pO2 HCO3 ABG pH ABG Total CO2 ABG O2 Saturation ABG Base Excess New Test ABG Potassium VBG pH VBG pCO2 VBG HCO3 VBG Total CO2 VBG O2 Sat (Calc) VBG Base Excess VBG Potassium A-a O2 Difference Respiratory Index Sodium 141 Chloride 105 Glucose Lactate FiO2 Inspiratory BiPAP Expiratory BiPAP Crit Value Called To Crit Value Called By Crit Value Read Back Blood Gas Notified Time Potassium 4.5 Carbon Dioxide 27 Anion Gap 13 BUN 34 H Creatinine 1.9 H Est GFR ( Amer) 30 Est GFR (Non-Af Amer) 25 POC Glucose (mg/dL) Random Glucose 193 H Lactic Acid 3.0 H Calcium 7.7 L Phosphorus 5.2 H Magnesium 1.9 Total Bilirubin 4.8 H AST 313 H D ALT 209 H Alkaline Phosphatase 886 H Total Protein 5.3 L Albumin 2.7 L Globulin 2.6 Albumin/Globulin Ratio 1.0 Arterial Blood Potassium Venous Blood Potassium Random Vancomycin 21.9 08/23/18 08/23/18 10:39 11:45 WBC RBC Hgb Hct MCV MCH MCHC RDW Plt Count MPV Neut % (Auto) Lymph % (Auto) Coke % (Auto) Eos % (Auto) Baso % (Auto) Neut # (Auto) Lymph # (Auto) Coke # (Auto) Eos # (Auto) Baso # (Auto) Neutrophils % (Manual) Band Neutrophils % Lymphocytes % (Manual) Monocytes % (Manual) Basophils % (Manual) Metamyelocytes % Myelocytes % Toxic Granulation Platelet Estimate Plt Clumps, EDTA Large Platelets Giant Platelets Hypochromasia (manual) Poikilocytosis (manual Basophilic Stippling Anisocytosis (manual) Target Cells Puncture Site L/b pCO2 59 H pO2 50 L HCO3 17.7 L ABG pH 7.16 L* ABG Total CO2 22.8 ABG O2 Saturation 88.5 L ABG Base Excess -8.4 L New Test Na ABG Potassium 4.4 VBG pH VBG pCO2 VBG HCO3 VBG Total CO2 VBG O2 Sat (Calc) VBG Base Excess VBG Potassium A-a O2 Difference 589.0 Respiratory Index 11.8 Sodium 140.0 Chloride 109.0 H Glucose 190 H Lactate 3.0 H FiO2 100.0 Inspiratory BiPAP 12 Expiratory BiPAP 6 Crit Value Called To Dr strange Crit Value Called By Chi rogers Crit Value Read Back Y Blood Gas Notified Time 1048 Potassium Carbon Dioxide Anion Gap BUN Creatinine Est GFR ( Amer) Est GFR (Non-Af Amer) POC Glucose (mg/dL) 243 H Random Glucose Lactic Acid Calcium Phosphorus Magnesium Total Bilirubin AST ALT Alkaline Phosphatase Total Protein Albumin Globulin Albumin/Globulin Ratio Arterial Blood Potassium 4.4 Venous Blood Potassium Random Vancomycin Radiology Impressions: Radiology Impressions Chest X-Ray 08/22/18 18:07 Impression: Left central venous catheter with tip extending to the cavoatrial junction/proximal right atrium. Biapical pleural thickening with upper lobe granulomatous changes. Moderate venous congestion. Confluent consolidative opacification in the left mid to lower lung zone as well as the right lung base with linear atelectasis at the right lung base. Small to moderate bilateral pleural effusions. Atherosclerotic calcification at the aortic knob. Cardiomegaly. Abdomen Ultrasound 08/22/18 23:00 IMPRESSION: Echogenic liver may be seen in setting of hepatic parenchymal disease or fatty infiltration. Gallbladder distension. Cholelithiasis. Negative sonographic Hawkins's sign as assessed by the qualified craft worker electrician. Dilated common bile duct and intrahepatic biliary ducts. 1.9 cm right midpole renal cyst. Left pleural effusion. Chest X-Ray 08/23/18 09:36 IMPRESSION: Left IJ approach central venous catheter is no longer identified with distal tip at the cavoatrial junction, now crossing midline with distal tip directed superiorly. Recommend removal/repositioning. Moderate right and small left pleural effusions and associated consolidations. Lvni-wk-tqbdtshb pulmonary venous congestion. Findings discussed with DR. Kennedy on 09/12/18 at 11:39 a.m. Fingerstick Blood Sugar Results: 243 Assessment/Plan - Assessment and Plan (Free Text) Plan: 83 year old female with pmhx of HTN, gallbladder calculus came from half-way with sob, respiratory failure, febrile at 102F, tachycardia and low blood pressure, code sepsis called, lac 2.9 wbc 28.9, bands 21, transferred to ICU, continues to be huypotensive, on levophed gtt, currently on bipap. Patient is DNR/DNI. Neuro not alert or oriented hx of dementia Cardio levophed Pulm on bipap, continue O2 high 80s low 90s hydrocortisone 100 mg IV Q8H Cxray 08/23 - mod right and small left pleural effusion and associated consolidations, mild to moderate pulm venous congestion, midline distal tip no reposition/relocation of TLC at this time GI gallbladder calculus Abd US - gallbldder distension, cholelithiasis, - sonographic hawkins sign, dilated common bile duct and biliary ducts follow up labs NPO diet Nephro hypotension Levophed ordered 1 bolus NS bicarb IVP x 1 time Endo ISS protocol hypoglycemia protocol accuchecks Q4H Heme H/H 9.0 30.3 - continue monitoring Platelets 591 follow up labs ID dehydrated code sepsis on 08/22 -lac 2.9 wbc 28.9, bands 21, febrile, hypotensive, tachycardic WBC 32.3, band 27 pH 7.16, CO2 59, O2 50 HCO3 17.7 Blood culture - gram negative rods moxifloxacin x 1 amikicin 200mg x 1 on abx - aztreonam, vancomnycin (held) - vanc random 21.9 Meropenem IVPB Q8 as per ID ID consult - Dr Ureña PPX DVT - Heparin SC Q8 GI - not indicated Code status: DNR/DNI Plan discussed with Dr Jese Kennedy, PGY-1 - Date & Time Date: 08/23/18 Time: 09:00
--- NOTE | 2018-08-23 16:48 | CP.PCM.PN ---
Subjective - Date & Time of Evaluation Date of Evaluation: 08/23/18 Time of Evaluation: 11:45 - Subjective Subjective: Patient seen and examined Remained on BiPAP and lethargic On Levophed Afebrile Patient is a DNR/DNI Objective - Vital Signs/Intake and Output Vital Signs (last 24 hours): Temp Pulse Resp BP Pulse Ox 98.2 F 104 H 29 H 64/38 L 90 L 08/23/18 12:00 08/23/18 16:19 08/23/18 16:00 08/23/18 15:29 08/23/18 16:00 Intake and Output: 08/23/18 08/23/18 06:59 18:59 Intake Total 2376.9 91234.6 Output Total 35 0 Balance 2341.9 54727.6 - Medications Medications: Current Medications Dextrose (Dextrose 50% Inj) 0 ml IV STAT PRN; Protocol PRN Reason: Hypoglycemia Protocol Dextrose (Glutose 15) 0 gm PO ONCE PRN; Protocol PRN Reason: Hypoglycemia Protocol Glucagon (Glucagen Diagnostic Kit) 0 mg IM STAT PRN; Protocol PRN Reason: Hypoglycemia Protocol Heparin Sodium (Porcine) (Heparin) 5,000 units SC Q8 [facility] Last Admin: 08/23/18 14:05 Dose: 5,000 units Hydrocortisone Sodium Succinate (Solu-Cortef) 100 mg IV Q8H [facility] Last Admin: 08/23/18 11:44 Dose: 100 mg Norepinephrine Bitartrate 8 mg (/ Dextrose) 258 mls @ 7.74 mls/hr IV .Q24H PRN; Protocol PRN Reason: TITRATE PER MD ORDER Last Admin: 08/23/18 15:29 Dose: 20 mcg/min, 38.7 mls/hr Vancomycin HCl 750 mg/ Sodium (Chloride) 250 mls @ 166.6 mls/hr IVPB Q12H [facility]; Protocol Last Admin: 08/23/18 07:38 Dose: 166.6 mls/hr Lactated Ringer's (Lactated Ringer's) 1,000 mls @ 100 mls/hr IV .Q10H [facility] Last Admin: 08/23/18 05:30 Dose: 100 mls/hr Aztreonam 1 gm/ Sodium (Chloride) 100 mls @ 100 mls/hr IVPB Q12H [facility]; Protocol Last Admin: 08/23/18 14:29 Dose: 100 mls/hr Dextrose (Dextrose 5% In Water 1000 Ml) 1,000 mls @ 0 mls/hr IV .Q0M PRN; Protocol PRN Reason: Hypoglycemia Protocol Meropenem 500 mg/ Sodium (Chloride) 100 mls @ 100 mls/hr IVPB Q8H [facility]; Protocol Last Admin: 08/23/18 15:26 Dose: 100 mls/hr Insulin Human Regular (Novolin R) 0 unit SC ACHS [facility]; Protocol Last Admin: 08/23/18 16:41 Dose: 2 units Thiamine HCl (Vitamin B1 Inj) 200 mg IV Q8H [facility] Last Admin: 08/23/18 11:44 Dose: 200 mg - Labs Labs: 08/23/18 05:52 08/23/18 05:52 PT 13.6 SECONDS (9.7-12.2) H 08/22/18 10:33 INR 1.2 08/22/18 10:33 APTT 31 SECONDS (21-34) 08/22/18 10:33 - Head Exam Head Exam: ATRAUMATIC, NORMOCEPHALIC - ENT Exam ENT Exam: Mucous Membranes Moist - Neck Exam Neck Exam: Normal Inspection - Respiratory Exam Respiratory Exam: Decreased Breath Sounds - Cardiovascular Exam Cardiovascular Exam: REGULAR RHYTHM Assessment and Plan (1) Respiratory failure Assessment & Plan: Continue BiPAP IV antibiotics Hydrocortisone Pressors as needed IV fluids Prognosis poor Status: Acute (2) Pneumonia Status: Acute (3) Septic shock Status: Acute
[2018-08-23 21:34] VITALS: TEMP 97.8
[2018-08-23 22:26] VITALS: BP 76/41; PULSE 92; RESP 18; O2SAT 77
--- NOTE | 2018-08-23 23:12 | CP.PCM.PRO ---
Pronouncement of Note - Clinical Findings Physical Exam: No Response Verbal/Painful Stimuli, Absent Peripheral Puls es{Carotid & Femoral}, Absent Heart & Breath Sounds, No Pupillary Light Reflex, No Corneal Reflex, Pupils Fixed & Dilated, Absence of Vital Signs - Pronouncement Time Time of Pronouncement of : 23:04 - Notifications Pronouncement Notifications: Family Notified, Atending Notified Comfort Station Supervisor Notified: No - Autopsy Autopsy Requested: No - [place] [id number]
--- NOTE | 2018-08-24 01:27 | CON ---
DATE: 08/23/2018 CONSULT REQUESTED BY: Donna Wallace MD HISTORY OF PRESENT ILLNESS: The patient is in ICU at this time. This patient is an 83-year-old female. She was known to me from a prior admission. She was admitted with severe septic shock and gram-positive bacteremia with choledocholithiasis, severe renal failure, liver failure and has history of dementia. She comes back from the half-way with respiratory distress, fever and tachycardia and was admitted last night and her blood pressure was in low 80s and systolic was 77 at that time. Right now it is in 60s. The patient is on BiPAP at this time. She has received respiratory treatment as well as she remains in respiratory distress. I am asked to evaluate. She came back with a fever of 102.9, and at this time, she is severely acidotic and hypotensive and on a BiPAP. T-max was 102.9 last night and her pulse was 124, respirations 36, blood pressure was 77/42. She is on Ringer lactate. PAST MEDICAL HISTORY: Her past medical history is significant for hypertension, but she also had cardiac workup done on last admission and she was supposed to have ERCP which was refused by the Pulmonary as well as the bulldozer mechanic and she had respiratory issues and had CHF. At this time, she is lethargic, unresponsive, hypotensive, in a shock. FAMILY HISTORY: She has a nephew who has served in his care who is the POA I think. SOCIAL HISTORY: Negative for smoking, drinking or any drug abuse. IMMUNIZATIONS: Reviewed from the previous chart. REVIEW OF SYSTEM: Unable to obtain due to the patient being lethargic at this time. The nurse told me her blood cultures are gram-negative rods at this time. MEDICATIONS: She is on Azactam and she is was on dextrose and heparin. She is on Solu-Cortef, Novolin R. She was on lactate Ringer, meropenem, norepinephrine, thiamine and vancomycin. So, at this time we will place her on normal saline and also to give her bicarb as her bicarb is low and she is septic. PHYSICAL EXAMINATION: GENERAL: She is DNR and DNI. She appears pale, unresponsive, on a VentiMask. Her old house maker is at the bedside. VITAL SIGNS: I find she was afebrile 98.5, blood pressure is 65/37, respirations are 29, heart rate is 106, saturations 88%. HEENT: Head is atraumatic and normocephalic. NECK: Supple. LUNGS: Clear. Decreased breath sounds bilaterally. HEART: S1, S2, and is regular ABDOMEN: Nontender at this time. No guarding, no rigidity present. She is tachycardic. EXTREMITIES: Edema noted. LABORATORY DATA: Labs are noted. White count yesterday was 28.9, hemoglobin 9.5, hematocrit 31.2, platelet count is 584, BUN is 25, creatinine was 1.38, it has increased since. The vancomycin random level was high today, hence we are not giving vancomycin anymore. We are holding it. Blood sugar was 139. The patient had an x-ray which showed stable bilateral pleural effusions with underlying atelectasis or infiltrates, not excluded linear atelectasis or fibrosis again seen in bilateral mid to inferior lung field. Right central line was now removed. She has a new line on the left side at this time and the patient did receive amikacin 500 mg, and she received a dose of vancomycin last night. Labs right now show white count is 32.3, hemoglobin is 9, hematocrit 30.3, platelet count is 591, bands are 27, lymphocytes of 1. She is on stress dose of steroids for sepsis as well as for the lungs. She is on BiPAP. Platelets are increased. Her pH was 7.16 and right now we put one bicarb and we have given her one bicarb in the IV. Sodium is 141, potassium 4.5, chlorides are 105, CO2 was 27 this morning but seems to be this pH is low and a vancomycin random level is 21.9. ASSESSMENT AND PLAN: At this time, I would start her on Merrem and it is sometimes well tolerated even in the patient with penicillin and I have not had prior issues with it, so we will give her. She is allergic to penicillin but when she was awakened last admission, I asked her and she said she was not allergic to anything, so hopefully she will tolerate it well and at this time she is also on Levophed and we will leave her on meropenem and Azactam and discontinue the vancomycin as level is high. We will follow. Most likely she did have choledocholithiasis and comes in with respiratory failure at this time, bilateral infiltrates and pneumonia and has severe bandemia with septic shock and hypotension. Curry Ureña MD
--- NOTE | 2018-08-24 10:01 | CARD ---
APPROVED REPORT Date of service: 08/22/2018 EKG Measurement Heart [id number] <Conclusion> Sinus tachycardia with premature atrial complexes Rightward axis Possible Anterior infarct, age undetermined Abnormal ECG
--- NOTE | 2018-08-30 08:45 | DS ---
The patient is an 83-year-old female. The patient was admitted on 08/22/2018, on 08/23/2018. This discharge summary is for 08/23/2018. I saw the patient early in the morning. CHIEF COMPLAINT: Shortness of breath, fever, and tachycardia. HISTORY OF PRESENT ILLNESS: Ms. Chloe Robledo, an 83-year-old female, was in [facility], getting rehab, suffered respiratory distress, fever, tachycardia. The patient's symptoms started on the day of admission. On arrival, the patient was hypotensive, lethargic, tachycardiac, systolic blood pressure was in the 80s, not responding to stimuli. In the field, bolus of fluid 500 mL was given by EMS. The patient was DNR/DNI. On arrival, systolic blood pressure was in 70s. Nephew, Vin, was on the bedside. We admitted the patient in [facility], put in the unit, was evaluated by vegetable tester, Dr. Sabillon, tried to make the patient hospice. Myself and Dr. Sabillon talked to the nurse with Vin. Given the patient was DNR/DNI, but nephew want us to do everything except intubation and CPR. We admitted that the patient, gave IV antibiotics. Sepsis protocol was done. Seen by Dr. Bon Garcia, agents' records clerk. I saw the patient early in the morning, but at night, the patient . Family was informed. PAST MEDICAL HISTORY: Hypertension, cholelithiasis, ovarian tumor, history of sepsis. FAMILY HISTORY: Father and mother noncontributory. HABITS: Never smoked, no drugs, no ethanol. REVIEW OF SYSTEMS: I saw the patient early in the morning in the unit. The patient was having Ventimask, not responding well, looked very sick. He was not able to give review of system. The patient was on Levophed. PHYSICAL EXAMINATION: VITAL SIGNS: Temperature 98.2, pulse 104, respiratory rate 30, blood pressure 60/38, respirations 19. HEENT: Head is normocephalic and atraumatic. Eyes closed. Nose patent. Mucous membranes moist. NECK: Supple. No carotid bruits. No JVD or thyromegaly. HEART: S1 and S2 positive. LUNGS: Positive wheezing. ABDOMEN: Soft. Bowel sounds present. No organomegaly. EXTREMITIES: No edema. No cyanosis. NEUROLOGIC: We cannot do examination because the patient was like in septic shock. MEDICATIONS GIVEN: Dextrose, heparin, Solu-Cortef, norepinephrine, vancomycin, Ringer's lactate, aztreonam, meropenem, thiamine, insulin sliding scale. LABORATORY DATA: White blood cell 32.3, hemoglobin 9, hematocrit 30.3, and platelets 591. Sodium 141, potassium 4.5, BUN 34, creatinine 1.9, and glucose of 193. ASSESSMENT AND PLAN: Ms. Chloe Robledo, an 83-year-old lady, with leukocytosis, septic shock, anemia, thrombocytosis, renal insufficiency, hyperglycemia, had pneumonia, septic shock, came with respiratory failure, bilevel positive airway pressure given, intravenous antibiotics, hydrocortisone, vasopressors given. The patient's family was informed that prognosis was very poor. The patient was Do Not Resuscitate/Do Not Intubate. Have recent diagnosis of ovarian tumor. Much workup was not done because of the patient's age, the comorbidities, and the family do not want to do aggressive workup. Couple of times, discussion done with the patient's nephew, Vin; history of gallbladder stones, came with fever, tachycardia, low blood pressure, code sepsis called, LAC 2.9, got treatment in the intensive care unit, gave hypotensive protocol, Levophed, bilevel positive airway pressure given, history of dementia. Ultrasound done, shows gallbladder distention, abnormal liver function test, dilated common bile duct, and biliary ducts. Last admission extensive gastrointestinal workup was done and decision made the patient will not tolerate endoscopic retrograde cholangiopancreatography. Dehydration. Discussion done with the patient's nephew, Vin, by myself and vegetable tester couple of times. Nephew do not want hospice, he want full treatment except Do Not Resuscitate and Do Not Intubate. Finally, the patient on 08/23/[address] at 23:05. Dr. Susana Esquivel pronounced the patient, wrote note, certificate done, and the family informed. Donna Wallace MD
== END 2018-08-23 01:30 | DRG 871 ==
LOC: C.ER 10:09 → C.9E 14:26 → C.9I 14:59
PROVIDERS: ADMIT Internal Medicine; ATTEND Internal Medicine
PROC: 5A09457 Assistance with Respiratory Ventilation, 24-96 Consecutive Hours, Continuous Positive Airway Pressure (ICD-10-PCS; principal; 2018-08-22)
PROC: 02HV33Z Insertion of Infusion Device into Superior Vena Cava, Percutaneous Approach (ICD-10-PCS; 2018-08-22)
PROC: B548ZZA Ultrasonography of Superior Vena Cava, Guidance (ICD-10-PCS; 2018-08-22)
DX: A41.9 Sepsis, unspecified organism (principal); J18.9 Pneumonia, unspecified organism; J96.90 Respiratory failure, unspecified, unspecified whether with hypoxia or hypercapnia; R65.21 Severe sepsis with septic shock; E87.2 Acidosis; J98.11 Atelectasis; K80.64 Calculus of gallbladder and bile duct with chronic cholecystitis without obstruction; D64.9 Anemia, unspecified; E86.0 Dehydration; F03.90 Unspecified dementia, unspecified severity, without behavioral disturbance, psychotic disturbance, mood disturbance, and anxiety; I11.0 Hypertensive heart disease with heart failure; I50.9 Heart failure, unspecified; K72.90 Hepatic failure, unspecified without coma; N19 Unspecified kidney failure; Z66 Do not resuscitate; Z88.0 Allergy status to penicillin